=== PATIENT | male | born 1935 | race Caucasian/White ===

== ENCOUNTER 2016-12-17 12:14 | Outpatient (RCR) | payer MEDICARE, OTHER ==
--- OUTSIDE RECORDS SUMMARY | 2016-10-17 10:13 | XMS REPORT | Continuity of Care Document ---
Author Author [facility] Organization [facility] Address Unknown Phone Unavailable Care Team Providers Care Cross Tie Maker Name Role Phone ANGELIA TEE MD PCP Insurance Providers Payer Name Policy Number Subscriber Name Relationship s Medicare [id number] Lucio Rosenberg E 18 Self / Same As Patient [facility] [id number] Lucio Rosenberg E 18 Self / Same As Patient Advance Directives Directive Response Recorded Date/Time Advance Directives No 09/03/16 2:44pm Health Care Power of Metal Roofing Mechanic No 09/03/16 2:44pm Organ Donor Yes 09/03/16 2:44pm Resuscitation Status Full Code 09/03/16 2:44pm Chief Complaint and Reason for Visit Chief Complaint CHEST PAIN Reason for Visit CAD (coronary artery disease) Chest pain Recurrent coronary arteriosclerosis following PTCA Problems Active Problems Medical Problem Onset Date Status CAD (coronary artery disease) Unknown Acute Chest pain Unknown Acute Recurrent coronary arteriosclerosis following PTCA Unknown Acute Medications Current Home Medications Medication Dose Units Route Directions Days/Qty Instructions Start Date Folic Acid 1 Mg 1 Mg Oral Daily 04/11/10 Aspirin 81 Mg 81 Mg Oral Daily 03/23/15 Pyridoxine/Melatonin 1 Tab 3 Mg Oral Bedtime 03/23/15 Tramadol Hcl 50 Mg 100 Mg Oral Daily 03/23/15 Acetaminophen/Diphenhydramine 1 Ea 1 Tab Oral Bedtime 03/23/15 Clopidogrel Bisulfate 75 Mg 75 Mg Oral Daily 09/03/16 Fenofibric Acid (Choline) 135 Mg 135 Mg Oral Daily 09/03/16 Levothyroxine Sodium 100 Mcg 100 Mcg Oral Daily 09/03/16 Atorvastatin Calcium 80 Mg 80 Mg Oral Bedtime 09/03/16 Isosorbide Mononitrate (Imdur) 60 Mg 120 Mg Oral Daily TAKES 2 (60 MG) TABLETS 09/03/16 Ranolazine 1,000 Mg 1,000 Mg Oral Twice A Day 09/03/16 Lorazepam 0.5 Mg 0.5 Mg Oral Bedtime as needed for Sleep 09/03/16 Paroxetine Hcl 20 Mg 20 Mg Oral Bedtime 09/03/16 Dutasteride 0.5 Mg 0.5 Mg Oral Daily 09/03/16 Nitroglycerin 0.4 Mg 0.4 Mg Oral As Directed as needed for Chest Pain DISSOLVE ONE TABLET UNDER TONGUE EVERY 5 MINUTES NEEDED FOR CHEST PAIN; NOT TO EXCEED 3 DOSES IN 15 MINUTES 09/03/16 Pantoprazole Sodium 40 Mg 40 Mg Oral Daily LAST FILLED 05/16/16 #90 [place]-3 Acid Ethyl Esters 1 Gm 2 Gm Oral Daily TAKES 2 (1 GM) CAPSULES 09/03/16 Tramadol Hcl 50 Mg 100 Mg Oral Three Times A Day TAKES 2 (50 MG) TABLETS 09/03/16 Meclizine Hcl 25 Mg 25 Mg Oral Every 8HRS as needed for Vertigo 02/14 Hydrocodone/Acetaminophen 1 Each 1 Tab Oral Every 8HRS as needed for Pain 09/03/16 Losartan Potassium 50 Mg 50 Mg Oral Daily HAS NOT BEEN TAKING 09/03/16 Past Home Medications Medication Directions Ordered Status Sertraline Hcl 50 Mg Tablet, 07/05/08 Discontinued Clopidogrel Bisulfate 75 Mg Tablet, 75 Mg Oral Daily 07/05/08 Discontinued Losartan Potassium 50 Mg Tablet, 50 Mg Oral Daily 07/05/08 Discontinued Omeprazole 20 Mg Capsule., 07/05/08 Discontinued Levothyroxine Sodium 50 Mcg Tablet, 07/05/08 Discontinued Atorvastatin Calcium 10 Mg Tablet, 07/05/08 Discontinued Metoprolol Succinate 25 Mg Tab.sr.24h, 25 Mg Oral Daily 07/05/08 Discontinued Aspirin 81 Mg Tabec, 04/07/10 Discontinued Aspirin 325 Mg Tab, 325 Mg Oral Daily 04/11/10 Discontinued Atorvastatin Calcium 40 Mg Tablet, 40 Mg Oral Bedtime 04/11/10 Discontinued Famotidine (Pepcid) 20 Mg Tablet, 1 Each Oral Twice A Day 04/11/10 Discontinued [Synthriod] 100 Mcg Tab, 100 Mcg Daily 04/11/10 Discontinued Dutasteride 0.5 Mg Capsule, 0.5 Mg Oral Daily 04/11/10 Discontinued Diclofenac/Misoprostol 1 Tab Tab, 75 Mg Oral Daily 04/11/10 Discontinued [Lovanza] , 1 Gm Twice A Day 04/11/10 Discontinued Fenofibric Acid (Choline) 135 Mg Capsule.dr, 135 Mg Oral Daily 04/11/10 Discontinued Furosemide (Lasix) 40 Mg Tablet, 40 Mg Oral Daily Prn 04/11/10 Discontinued Potassium Chloride 10 Meq Capcr, 10 Meq Oral Daily And Prn 04/11/10 Discontinued [Vitamin X00040 Unit] , Weekly 04/11/10 Discontinued Niacin 1,000 Mg Tablet.sa, 1500 Mg Oral Daily 10/22/11 Discontinued Levothyroxine Sodium 100 Mcg Tablet, 100 Mcg Oral Daily 10/22/11 Discontinued Sertraline Hcl 25 Mg Tablet, 25 Mg Oral Daily 10/22/11 Discontinued Pofta-7-Ekct Ethyl Esters 1 Gm Capsule, 2 Gm Oral Twice A Day 10/22/11 Discontinued Ergocalciferol 50,000 Unit Capsule, 98479 Unit Oral Q Week 10/22/11 Discontinued Isosorbide Mononitrate 60 Mg Tab, 120 Mg Oral Daily@0630 10/22/11 Discontinued Nitroglycerin 0.4 Mg Tab.subl, 0.4 Mg Sublingual Prn Chest Pain 10/22/11 Discontinued Aspirin 81 Mg Chew, 81 Mg Oral Daily 10/23/11 Discontinued Pantoprazole Sod 40 Mg Tab, 40 Mg Oral Daily 10/23/11 Discontinued Ranolazine 500 Mg Tab.sr.12h, 500 Mg Oral Twice A Day 12/24/11 Discontinued Atorvastatin Calcium 40 Mg Tablet, 80 Mg Oral Bedtime 12/26/11 Discontinued Aspirin 81 Mg Chew, 81 Mg Oral Daily 09/16/12 Discontinued Metoprolol Succinate (Toprol Xl) 25 Mg Tab.sr.24h, 1 Each Oral Daily Discontinued Tramadol Hcl 50 Mg Tablet, 50 Mg Oral Twice A Day 09/16/12 Discontinued Ergocalciferol (Vitamin D2) 2,000 Unit Tablet, 02312 Unit Route Weekly Discontinued Acetaminophen/Hydrocodone Bitart ([place]) 1 Each Tablet, 1 Each Oral As Needed 09/16/12 Discontinued Famotidine (Pepcid) 20 Mg Tablet, 20 Mg Oral Twice A Day 10/27/12 Discontinued Ranolazine 500 Mg Tab.sr.12h, 1000 Mg Oral Twice A Day 10/27/12 Discontinued Melatonin 5 Mg Tab.rapdis, 5 Mg Oral Bedtime 01/13/14 Discontinued Lorazepam (Ativan) 0.5 Mg Tablet, 0.5 Mg Oral Bedtime 01/13/14 Discontinued [[id number]] , 1000 Mg Oral Twice A Day 01/14/14 Discontinued Atorvastatin Calcium 80 Mg Tablet, 80 Mg Oral Bedtime 03/23/15 Discontinued Paroxetine Hcl 20 Mg Tablet, 20 Mg Oral Bedtime 03/23/15 Discontinued Ergocalciferol 50,000 Units Cap, 01506 Units Oral Mon @ 1200 03/23/15 Discontinued Nitroglycerin 0.4 Mg Tab.subl, 0.4 Mg Sublingual Every 5 Minutes as needed for Chest Pain 03/23/15 Discontinued Lorazepam 0.5 Mg Tablet, 0.5 Mg Oral Bedtime as needed for Anxiety 03/23/15 Discontinued Pantoprazole Sod 40 Mg Tab, 40 Mg Oral Daily 03/23/15 Discontinued Social History Social History Problem Response Recorded Date/Time Alcohol Use Denies Use 01/13/2014 3:55pm Recreational Drug Use No 01/13/2014 3:55pm Recent Foreign Travel No 01/13/2014 3:55pm Recent Infectious Disease Exposure No 01/13/2014 3:55pm Hospitalization with Isolation Denies 01/14/2014 4:23pm Smoking Status Former Smoker 09/03/2016 2:54pm Do you dip or chew tobacco? Yes 11/09/2015 7:15am Type Used Smokeless Tobacco 09/04/2016 11:19am Recent Hopitalizations Yes 09/03/2016 3:16pm Hospitalization with Isolation Denies 01/14/2014 4:23pm Query Response Start Date Stop Date Smoking Status Former Smoker 11/09/2005 Hospital Discharge Instructions Patient Instructions Physician Instructions Follow Up/Plan Appointment with Dr. Chauhan's office in 2-4 weeks CARDIAC CATH DISCHARGE INSTRUCTIONS *Hold Metformin for 48 hours post heart cath. ACTIVITY * Go Home directly and rest. * Limit activity of the leg (or wrist if it was used) for 7 days including aerobics, swimming, jogging, bicycling, etc. * Restrict stair-climbing for 7 days if possible, if not, climb up with your non-cath leg, then bring together on the same step. * Avoid lifting, pushing, pulling or excessive movement of the affected extremity for 7 days. * Customary sexual activity may be resumed after 2 days-use caution not to use a position that strains or causes pain to the affected extremity. * No driving for 24 hours. * NO SMOKING. * Avoid straining for bowel movements for 7 days. * Gentle walking on level ground is allowed. * Returning to work will depend on the type of procedure and the results. Your doctor will discuss this with you. CALL YOUR DOCTOR FOR ANY OF THE FOLLOWING: *If bleeding from the puncture site occurs- Apply gentle pressure to site with clean cloth and call your doctor or EMS. * If a knot or lump forms under the skin, increases in size, or causes pain. * If bruising appears to be worsening or moving further down your leg instead of disappearing. * Temperature above 101 F. CARE OF YOUR GROIN INCISION; * Bruising or purple discoloration of the skin near the puncture site is common. * You may shower only, no bathtub bathing for 5 days. Be careful to avoid slipping as your leg may feel stiff. * If a closure device was used on your femoral artery, please see the attached guide regarding care of the device and your leg. * REMOVE the dressing from your groin the next day after your procedure in the shower. CARE OF YOUR WRIST INCISION; * Bruising or purple discoloration of the skin near the puncture site is common. * You may shower. * DO NOT submerge wrist. * Remove dressing in 24 hours. Plan of Care Discharge Date 09/04/16 11:09am Disposition 01 HOME, SELF-CARE Instructions/Education Provided CARDIAC CATH DISCHARGE INSTRUC Prescriptions See Medication Section Referrals AJAY CHAUHAN MD (Unspecified) - 10/08/16 Address: [address] [place] [id number] [phone] Reason(s) for Referral: Follow up with Dr. Chauhan on at 3:10pm. Care Plan and Goals See Discharge Instructions Section Functional Status Query Response Date Recorded Patient Orientation Person Place Time Situation Normal For Age September 04, 2016 11:19am Comprehension Ability Understands Concepts September 04, 2016 8:00am Allergies, Adverse Reactions, Alerts Allergen Type Severity Reaction Status Last Updated Sulfa (Sulfonamide Antibiotics) ([id number]) Allergy Unknown Active 03/09 Immunizations No immunization records. Vital Signs Acute Vital Signs Vital Response Date/Time Temperature (Fahrenheit) 97.3 degrees F (97.6 - 99.5) 09/04/2016 8:55am Temperature (Calculated Celsius) 36.80377 degrees C (36.4 - 37.5) 09/04/2016 8:00am Temperature Source Tympanic 09/04/2016 8:55am Pulse Rate (adult) 59 bpm (60 - 90) 09/04/2016 8:55am Respiratory Rate 18 bpm (12 - 24) 09/04/2016 8:55am O2 Sat by Pulse Oximetry 95 % (88 - 100) 09/04/2016 8:55am Blood Pressure 118/68 mm Hg 09/04/2016 8:55am Blood Pressure Mean 85 mm Hg 09/04/2016 8:00am Pain Numeric Pain Scale 0-No Pain 09/04/2016 8:55am Height (Feet) 5 feet 09/03/2016 2:53pm Height (Inches) 6.00 inches 09/03/2016 2:53pm Height (Calculated Centimeters) 167.419724 cm 09/03/2016 2:53pm Weight (Pounds) 187 pounds 09/04/2016 4:23am Weight (Ounces) 2.0 oz 09/04/2016 4:23am Weight (Calculated Grams) 44437.473 gm 09/04/2016 4:23am Weight (Calculated Kilograms) 84.167424 kilograms 09/04/2016 4:23am Calculated BMI 30.1 09/03/2016 2:53pm Capillary Refill Capillary Refill Less Than 3 Seconds 09/04/2016 8:45am Capillary Refill Capillary Refill Less Than 3 Seconds 09/04/2016 8:45am Capillary Refill Capillary Refill Less Than 3 Seconds 09/04/2016 8:45am Results Laboratory Results Test Name Result Units Flags Reference Collection Date/Time Result Date/ Time Comments White Blood Count 7.6 10^3/uL 4.3-11.0 09/04/2016 4:05am 09/04/2016 5: 04am Red Blood Count 4.81 10^6/uL 4.35-5.85 09/04/2016 4:05am 09/04/2016 5: 04am Hemoglobin 14.6 G/DL 13.3-17.7 09/04/2016 4:05am 09/04/2016 5:04am Hematocrit 44 % 40-54 09/04/2016 4:05am 09/04/2016 5:04am Mean Corpuscular Volume 92 FL 80-99 09/04/2016 4:05am 09/04/2016 5: 04am Mean Corpuscular Hemoglobin 30 PG 25-34 09/04/2016 4:05am 09/04/2016 5: 04am Mean Corpuscular Hemoglobin Concent 33 G/DL 32-36 09/04/2016 4:05am 03/2016 5:04am Red Cell Distribution Width 14.4 % 10.0-14.5 09/04/2016 4:05am 2015 5:04am Platelet Count 278 10^3/uL 130-400 09/04/2016 4:05am 09/04/2016 5:04am Mean Platelet Volume 9.6 FL 7.4-10.4 09/04/2016 4:05am 09/04/2016 5: 04am Neutrophils (%) (Auto) 67 % 42-75 09/03/2016 2:15pm 09/03/2016 2:22pm Lymphocytes (%) (Auto) 19 % 12-44 09/03/2016 2:15pm 09/03/2016 2:22pm Monocytes (%) (Auto) 12 % 0-12 09/03/2016 2:15pm 09/03/2016 2:22pm Eosinophils (%) (Auto) 2 % 0-10 09/03/2016 2:15pm 09/03/2016 2:22pm Basophils (%) (Auto) 1 % 0-10 09/03/2016 2:15pm 09/03/2016 2:22pm Neutrophils # (Auto) 5.2 X 10^3 1.8-7.8 09/03/2016 2:15pm 09/03/2016 2: 22pm Lymphocytes # (Auto) 1.4 X 10^3 1.0-4.0 09/03/2016 2:15pm 09/03/2016 2: 22pm Monocytes # (Auto) 0.9 X 10^3 0.0-1.0 09/03/2016 2:15pm 09/03/2016 2: 22pm Eosinophils # (Auto) 0.2 10^3/uL 0.0-0.3 09/03/2016 2:15pm 09/03/2016 2 :22pm Basophils # (Auto) 0.0 10^3/uL 0.0-0.1 09/03/2016 2:15pm 09/03/2016 2: 22pm Prothrombin Time 12.8 SEC 12.2-14.7 09/03/2016 2:15pm 09/03/2016 2: 36pm INR Comment 1.0 0.8-1.4 09/03/2016 2:15pm 09/03/2016 2:36pm INTERPRETIVE DATA SUGGESTED THERAPEUTIC RANGE FOR INR'S: VENOUS THROMBOSIS, PULMONARY EMBOLISM, OR PREVENTION OF SYSTEMIC EMBOLISM (EG. IN ATRIAL FIBRILLATION): 2.0 - 3.0 MECHANICAL PROSTHETIC HEART VALVES: 2.5 - 3.5* *NOTE: INR'S UP TO 4.5 MAY BE NECESSARY IN SELECTED GROUPS OF HIGH RISK PATIENTS. [employer] CONSENSUS CONFERENCE ON ANTITHROMBOTIC THERAPY (2000). Activated Partial Thromboplast Time 23 SEC L 24-35 09/03/2016 2:15pm 01/2016 2:36pm Sodium Level 141 MMOL/L 135-145 09/04/2016 4:05am 09/04/2016 5:24am Potassium Level 3.9 MMOL/L 3.6-5.0 09/04/2016 4:05am 09/04/2016 5:24am Chloride Level 109 MMOL/L H 98-107 09/04/2016 4:05am 09/04/2016 5:24am Carbon Dioxide Level 20 MMOL/L L 21-32 09/04/2016 4:05am 09/04/2016 5: 24am Anion Gap 12 MMOL/L 5-14 09/04/2016 4:05am 09/04/2016 5:24am Blood Urea Nitrogen 18 MG/DL 7-18 09/04/2016 4:05am 09/04/2016 5:24am Creatinine 1.14 MG/DL 0.60-1.30 09/04/2016 4:05am 09/04/2016 5:24am BUN/Creatinine Ratio 16 09/04/2016 4:05am 09/04/2016 5:24am Estimat Glomerular Filtration Rate > 60 09/04/2016 4:05am 2015 5:24am GFR INTERPRETIVE DATA UNITS FOR ESTIMATED GFR (eGFR): mL/min/1.73 M2 REFERENCE RANGE FOR ESTIMATED GFR (eGFR) eGFR NORMAL eGFR >60 MODERATELY DECREASED eGFR 30-59 SEVERLY DECREASED eGFR 15-29 KIDNEY FAILURE <15 (OR DIALYSIS) Glucose Level 108 MG/DL H 70-105 09/04/2016 4:05am 09/04/2016 5:24am Calcium Level 9.0 MG/DL 8.5-10.1 09/04/2016 4:05am 09/04/2016 5:24am Total Bilirubin 0.4 MG/DL 0.1-1.0 09/03/2016 2:15pm 09/03/2016 2:42pm Alkaline Phosphatase 31 U/L L 40-136 09/03/2016 2:15pm 09/03/2016 2:42pm Aspartate Amino Transf (AST/SGOT) 25 U/L 5-34 09/03/2016 2:15pm 2015 2:42pm Alanine Aminotransferase (ALT/SGPT) 33 U/L 0-55 09/03/2016 2:15pm 09/03 2:42pm Troponin I < 0.30 NG/ML <0.30 09/03/2016 2:15pm 09/03/2016 2:49pm Total Protein 7.2 G/DL 6.4-8.2 09/03/2016 2:15pm 09/03/2016 2:42pm Albumin 4.4 G/DL 3.2-4.5 09/03/2016 2:15pm 09/03/2016 2:42pm Triglycerides Level 171 MG/DL H <150 09/04/2016 4:05am 09/04/2016 5:24am Cholesterol Level 145 MG/DL < 200 09/04/2016 4:05am 09/04/2016 5:24am HDL Cholesterol 34 MG/DL L 40-60 09/04/2016 4:05am 09/04/2016 5:24am LDL Cholesterol Direct 86 MG/DL 1-129 09/04/2016 4:05am 09/04/2016 5: 24am VLDL Cholesterol 34 MG/DL 5-40 09/04/2016 4:05am 09/04/2016 5:24am Procedures Procedure Status Date Provider(s) Tracing only of electrocardiogram Completed 09/03/16 AJAY CHAUHAN MD Tracing only of electrocardiogram Completed 09/03/16 AJAY CHAUHAN MD Encounters Encounter Location Arrival/Admit Date Discharge/Depart Date Attending Provider Discharged Inpatient (obs) [facility] 09/03/16 1:45pm 11:09am AJAY CHAUHAN MD Recent Diagnosis CAD (coronary artery disease) Chest pain Recurrent coronary arteriosclerosis following PTCA
[~2016-12-17 12:14] MED LIST: ACDPT PO; AMOX500C2; ASP325T PO; ASP81CT PO; ASP81TEC; ASPI-266 PO; ATOR40TA PO; ATOR80TA75 PO; ATOR80TA76 PO; ATRV10T; AVOD0.5CAP PO; CLOP75TA28 PO; CLPD75T PO; D50KC; D50KC PO; DUTA0.5C14 PO; ERGO2000; FAMO20TA5 PO; FENO135C PO; FENO135C4 PO; FLC1T PO; FURO40TA4 PO; HYDR-3720 PO; HYDR-3816 PO; ISM60TCR PO; KCL10CCR PO; LEVO100T7 PO; LORA0.5T PO; LOSA50TA36 PO; LOVANZA; LSRT50T PO; LVT.025T; LVT.05T; LVT.1T PO; MECL-106 PO; MELA1TAB11 PO; MELA5TAB12 PO; METO25TA PO; MTP25TSR PO; NF-DICLTB PO; NF-LOVAZAC PO; NIAC1000 PO; NITR0.4T PO; NITR0.4T SL; NITR0.4T12 SL; OMEG-105 PO; OMEP20CA12; OMEP40CA36 PO; PANT40TA3 PO; PARO20TA5 PO; PARO20TA57 PO; PNT40TEC PO; RANO10003 PO; RANO500T PO; RANO500T2 PO; SERT25TA PO; SERT50TA; SYNTHRIOD; TRAM50TA2 PO; [UNRECOGNIZED DRUG - OTHER]
== END 2017-01-15 | disposition home or self-care (01) ==
LOC: CR 12:14
PROVIDERS: ATTEND Internal Medicine Cardiovascular Disease
DX: I20.8 Other forms of angina pectoris (principal)
CPT/HCPCS: 93798

== ENCOUNTER 2017-02-27 06:44 | Day surgery (SDC) | payer MEDICARE, OTHER ==
[2017-02-27] VITALS (10 sets, daily range): BP systolic 115–153; BP diastolic 59–89
[~2017-02-27] VITALS: Ht 167.6 cm; Wt 84.9 kg
[2017-02-27] MEDS ORDERED: HEParin (CATH LAB) 2,000 ML IV ONE (06:57)
[2017-02-27] MEDS ORDERED: NS IV 1000 ML 1,000 ML ONE (06:57)
[2017-02-27] MEDS ORDERED: LIDOCAINE 1% INJ 20 ML (XYLOCAINE) VIAL ONE (06:57)
[2017-02-27 07:28] LABS: MEAN PLATELET VOLUME 9.5 FL (7.4-10.4); RED BLOOD COUNT 5.12 10^6/uL (4.35-5.85); RED CELL DISTRIBUTION WIDTH 13.8 % (10.0-14.5); WHITE BLOOD COUNT 7.4 10^3/uL (4.3-11.0)
[2017-02-27 07:29] LABS: BILIRUBIN,URINE NEGATIVE (NEGATIVE); KETONES,URINE NEGATIVE (NEGATIVE); LEUKOCYTE ESTERASE ,URINE NEGATIVE (NEGATIVE); NITRITE,URINE NEGATIVE (NEGATIVE); PH,URINE 5 (5-9); PROTEIN,URINE NEGATIVE (NEGATIVE); UROBILINOGEN,URINE NORMAL (NORMAL)
[2017-02-27] MEDS ORDERED: NS IV 1000 ML 1,000 ML IV SCH ×2 (07:30→08:38)
[2017-02-27 07:38] LABS: PROTHROMBIN TIME PATIENT 12.6 SEC (12.2-14.7)
[2017-02-27 07:43] LABS: SQUAMOUS EPITHELIAL CELL,UR 0-2 /HPF
[2017-02-27 07:55] LABS: ALBUMIN 4.3 G/DL (3.2-4.5); BILIRUBIN,TOTAL 0.7 MG/DL (0.1-1.0); CALCIUM 9.1 MG/DL (8.5-10.1); CREATININE SERUM 1.34 MG/DL (0.60-1.30); POTASSIUM 3.7 MMOL/L (3.6-5.0); TOTAL PROTEIN 7.2 G/DL (6.4-8.2)
[2017-02-27] MEDS ORDERED: MIDAZOLAM 5 MG/5 ML (VERSED) VIAL ONE (08:01)
[2017-02-27] MEDS ORDERED: fentaNYL INJECTION 100 MCG/2 ML AMP ONE (08:01)
--- NOTE | 2017-02-27 08:06 | Diagnostic Imaging Report ---
INDICATION: Coronary artery disease. PA chest obtained at 7:39 a.m. and compared with 09/03/16. FINDINGS: There is cardiomegaly and poststernotomy change. Patient has had previous coronary bypass. There is no acute infiltrate or pneumothorax or pleural fluid. There is a stable calcified granuloma over the right base. IMPRESSION: Cardiomegaly and poststernotomy changes with no acute process in the chest and no change from 09/03/16. Dictated by: Dictated on workstation # [id number]
--- NOTE | 2017-02-27 08:08 | Cardiac Procedure Note-CS/ASA ---
Pre-Procedure Note Pre-Op Procedure Note H&P Reviewed The H&P was reviewed, patient examined and no changes noted. Date H&P Reviewed: Feb 27, 2017 Time H&P Reviewed: 08:08 Conscious Sedation Pre-Proced Time Reviewed: 08:08 ASA Class: 3 Airway Mallampati Classification: (bois forte appropriate class) I. II. III, IV Lungs Heart ASA score ASA 1: a normal healthy patient ASA 2: a patient with a mild systemic disease (mid diabetes, controlled hypertension, obesity x ASA 3: a patient with a severe systemic disease that limits activity (angina , COPD, prior Myocardial infarction) ASA 4: a patient with an incapacitating disease that is a constant threat to life (CHF, renal failure) ASA 5: a moribund patient not expected to survive 24 hrs. (ruptured aneurysm) ASA 6: a declared brain patient whose organs are being harvested. For emergent operations, add the letter E after the classification Grade 3 Sedation Plan: Analgesia, Amnesia, Plan communicated to team members, Discussed options with patient/fam, Discussed risks with patient/fam Note The patient is an appropriate candidate to undergo the planned procedure, sedation, and anesthesia. The patient immediately re-assessed prior to indication. AJAY STEWART MD Feb 27, 2017 08:08
--- NOTE | 2017-02-27 08:40 | Discharge Inst-Post CATH ---
Discharge Inst-CATH Post Cardiac Cath D/C Inst Follow Up/Plan Appointment with Dr Chauhan's office in 2-4 weeks CARDIAC CATH DISCHARGE INSTRUCTIONS *Hold Metformin for 48 hours post heart cath. ACTIVITY * Go Home directly and rest. * Limit activity of the leg (or wrist if it was used) for 7 days including aerobics, swimming, jogging, bicycling, etc. * Restrict stair-climbing for 7 days if possible, if not, climb up with your non -cath leg, then bring together on the same step. * Avoid lifting, pushing, pulling or excessive movement of the affected extremity for 7 days. * Customary sexual activity may be resumed after 2 days-use caution not to use a position that strains or causes pain to the affected extremity. * No driving for 24 hours. * NO SMOKING. * Avoid straining for bowel movements for 7 days. * Gentle walking on level ground is allowed. * Returning to work will depend on the type of procedure and the results. Your doctor will discuss this with you. CALL YOUR DOCTOR FOR ANY OF THE FOLLOWING: *If bleeding from the puncture site occurs- Apply gentle pressure to site with clean cloth and call your doctor or EMS. * If a knot or lump forms under the skin, increases in size, or causes pain. * If bruising appears to be worsening or moving further down your leg instead of disappearing. * Temperature above 101 F. CARE OF YOUR GROIN INCISION; * Bruising or purple discoloration of the skin near the puncture site is common. * You may shower only, no bathtub bathing for 5 days. Be careful to avoid slipping as your leg may feel stiff. * If a closure device was used on your femoral artery, please see the attached guide regarding care of the device and your leg. * REMOVE the dressing from your groin the next day after your procedure in the shower. CARE OF YOUR WRIST INCISION; * Bruising or purple discoloration of the skin near the puncture site is common. * You may shower. * DO NOT submerge wrist. * Remove dressing in 24 hours. AJAY CHAUHAN MD Feb 27, 2017 08:40
[2017-02-27] MEDS ORDERED: PATIENT MAY USE OWN MEDS, ALL PO SCH (08:45)
--- NOTE | 2017-02-27 21:08 | DISCHARGE SUMMARY ---
PROCEDURE PHYSICIAN: AJAY STEWART DATE OF PROCEDURE: 02/27/2017 REFERRING PHYSICIAN: Dr. Villeda. BRIEF HISTORY: Mr. Mcginnis is a 81-year-old gentleman with history of coronary artery disease, multiple intervention. He has been having increasing chest pain recently. Known to have small vessel disease. Had balloon angioplasty done in September and baseline abnormal stress test. I decided to proceed with coronary angiogram due to his extensive disease. PROCEDURE NOTE: After explaining the procedure to the patient, all pros and cons were explained. All questions were answered. The patient signed a consent, then he was placed on the cardiac catheterization laboratory. The right groin was prepped in a sterile fashion. Local anesthesia applied to right groin. 6-Kyrgyz sheath was placed in the right femoral artery. Bharath left catheter was used to access the left coronary system. Multiple views were obtained. Bharath right catheter was used to access the vein graft. Multiple views were obtained. The patient is known to have occluded [place] right coronary artery and vein graft to the obtuse marginal branch and [place]. I did not attempt to evaluate those arteries due to the fact that there occluded. At the end of the procedure, sheath was removed. Mynx device deployed. Hemostasis achieved. Total contrast used 26 mL. Total radiation 77 mGy. The Bharath right catheter was prolapsed into the left ventricular cavity. Pressure was measured. Pullback LV to aorta was measured. No left ventriculogram was done. FINDINGS: HEMODYNAMICS: LV pressure 128/15, end-diastolic pressure of 15, aortic pressure 143/67, mean of 93. ANATOMY: 1. LEFT MAIN CORONARY ARTERY: The left main coronary artery is bifurcating to left anterior descending and left circumflex artery with no obstructive disease. 2. LEFT ANTERIOR DESCENDING ARTERY: The left anterior descending artery is smaller artery with mild to moderate disease, no obstructive disease. 3. LEFT CIRCUMFLEX ARTERY: The left circumflex artery is moderate in size. Stents are patent. The stent in the obtuse marginal branch is patent. No change from the study of September 2016. Small vessel disease distally. 4. RIGHT CORONARY ARTERY: The right coronary artery is known to be occluded. The vein graft to the right coronary artery is patent with slow flow distally. 5. OBTUSE MARGINAL BRANCH: The vein graft to the obtuse marginal branch is known to be occluded. The MEEKS to the LAD is known to be occluded. CONCLUSION: 1. Patent stents in the circumflex artery and obtuse marginal branch with small vessel disease distally. No to have occluded vein graft to the circumflex artery. 2. Small vessel disease in the LAD with occluded MEEKS. Nonobstructive disease. 3. Patent vein graft to the right coronary artery with small vessel disease and slow flow. DISCUSSION AND RECOMMENDATION: Mr. Montelongo chest pain is due to chronic stable angina due too small vessel disease. I will continue maximizing medical therapy. No intervention is warranted. FINAL DIAGNOSES: 1. Anterior chest wall pain. 2. Coronary artery disease. 3. Hypertension. 4. Hyperlipidemia. Job ID: [id number] Dictated Date: 02/27/2017 08:44:41 Social Media Marketing Analyst Date: 02/27/2017 21:06:29/shanna
--- OUTSIDE RECORDS SUMMARY | 2017-03-17 05:50 | XMS REPORT | Continuity of Care Document ---
Author Author [facility] Organization [facility] Address Unknown Phone Unavailable Allergies Active Description Code Type Severity Reaction Onset Reported/Identified Relationship to Patient Clinical Status Yes Sulfa (Sulfonamide Antibiotics) [id number] Drug Allergy Unknown N/A 07/05/2008 Medications Problems Date Dx Coded Attending Type Code Diagnosis Diagnosed By 04/12/2010 Ot 244.9 04/12/2010 Ot 272.4 04/12/2010 Ot 305.1 04/12/2010 Ot 311 04/12/2010 Ot 403.90 04/12/2010 Ot 414.01 04/12/2010 Ot 414.02 04/12/2010 Ot 414.04 04/12/2010 Ot 414.2 04/12/2010 Ot 530.81 04/12/2010 Ot 585.9 04/12/2010 Ot 786.59 04/12/2010 Ot V45.81 04/12/2010 Ot V45.82 03/23/2015 AJAY STEWART MD Ot 272.4 03/23/2015 AJAY STEWART MD Ot 305.1 03/23/2015 AJAY STEWART MD Ot 403.90 03/23/2015 AJAY STEWART MD Ot 411.1 03/23/2015 AJAY STEWART MD Ot 414.01 03/23/2015 AJAY STEWART MD Ot 414.02 03/23/2015 AJAY STEWART MD Ot 414.2 03/23/2015 AJAY STEWART MD Ot 414.4 03/23/2015 AJAY STEWART MD Ot 416.8 03/23/2015 AJAY STEWART MD Ot 585.9 03/23/2015 AJAY STEWART MD Ot V45.81 03/23/2015 AJAY STEWART MD Ot V45.82 03/23/2015 AJAY STEWART MD Ot V58.69 05/06/2015 AJAY STEWART MD Ot 305.1 05/06/2015 PAT ALFARO, BASHAR J Ot 426.3 05/06/2015 PAT ALFARO, BASHAR J Ot 786.09 05/06/2015 PAT ALFARO, BASHAR J Ot 786.50 05/09/2015 PAT ALFARO, BASHAR J Ot 305.1 05/09/2015 PAT ALFARO, BASHAR J Ot 426.3 05/09/2015 PAT ALFARO, BASHAR J Ot 786.09 05/09/2015 PAT ALFARO, BASHAR J Ot 786.50 05/25/2015 PAT ALFARO, BASHAR J Ot 305.1 05/25/2015 PAT ALFARO, BASHAR J Ot 426.3 05/25/2015 PAT ALFARO, BILLYHAR J Ot 786.09 05/25/2015 PAT ALFARO, BILLYHAR J Ot 786.50 06/06/2015 PAT ALFARO, BILLYHAR J Ot 305.1 06/06/2015 PAT ALFARO, BASHAR J Ot 426.3 06/06/2015 PAT ALFARO, BASHAR J Ot 786.09 06/06/2015 PAT ALFARO, BILLYHAR J Ot 786.50 07/07/2015 PAT ALFARO, BILLYHAR J Ot 272.4 07/07/2015 PAT ALFARO, BASHAR J Ot 401.1 07/07/2015 PAT ALFARO, BASHAR J Ot 414.00 07/07/2015 PAT ALFARO, AJAY J Ot 786.09 07/15/2015 PAT ALFARO, AJAY J Ot 272.4 07/15/2015 PAT ALFARO, BILLYHAR J Ot 401.1 07/15/2015 PAT ALFARO, BASHAR J Ot 414.00 07/15/2015 PAT ALFARO, BILLYHAR J Ot 786.09 11/10/2015 PAT ALFARO, BILLYHAR J Ot E03.9 11/10/2015 PAT ALFARO, BASHAR J Ot E11.9 11/10/2015 PAT ALFARO, BILLYHAR J Ot E78.5 11/10/2015 PAT ALFARO, AJAY J Ot I12.9 11/10/2015 PAT ALFARO, BILLYHAR J Ot I25.110 11/10/2015 BILLY STEWART MDHAR J Ot I25.82 11/10/2015 BILLY STEWART MDHAR J Ot I25.84 11/10/2015 PATAJAY REYNA MD Ot N18.9 11/10/2015 AJAY STEWART MD Ot Z79.02 11/10/2015 AJAY STEWART MD Ot Z79.899 11/10/2015 AJAY STEWART MD Ot Z87.891 11/10/2015 AJAY STEWART MD Ot Z95.1 11/10/2015 AJAY STEWART MD Ot Z98.61 12/15/2015 AJAY STEWART MD Ot Z48.812 12/15/2015 AJAY STEWART MD Ot Z95.5 01/23/2016 AJAY STEWART MD Ot Z48.812 01/23/2016 AJAY STEWART MD Ot Z95.5 01/27/2016 AJAY STEWART MD Ot Z48.812 01/27/2016 AJAY STEWART MD Ot Z95.5 02/02/2016 AJAY STEWART MD Ot Z48.812 02/02/2016 AJAY STEWART MD Ot Z95.5 09/04/2016 AJAY STEWART MD Ot E03.9 HYPOTHYROIDISM, UNSPECIFIED 09/04/2016 AJAY STEWART MD Ot E78.5 HYPERLIPIDEMIA, UNSPECIFIED 09/04/2016 AJAY STEWART MD Ot I08.3 COMB RHEUMATIC DISORD OF MITRAL, AORTIC 09/04/2016 AJAY STEWART MD Ot I12.9 HYPERTENSIVE CHRONIC KIDNEY DISEASE W ST 09/04/2016 AJAY STEWART MD Ot 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 09/04/2016 AJAY STEWART MD Ot 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 09/04/2016 AJAY STEWART MD Ot I27.2 OTHER SECONDARY PULMONARY HYPERTENSION 09/04/2016 AJAY STEWART MD Ot N18.9 CHRONIC KIDNEY DISEASE, UNSPECIFIED 09/04/2016 AJAY STEWART MD Ot T82.857D STENOSIS OF OTHER CARDIAC PROSTH DEV/ GRF 09/04/2016 AJAY STEWART MD Ot Z79.02 CUSTODIAL (CURRENT) USE OF ANTITHROMBOTI 09/04/2016 AJAY STEWART MD Ot Z79.899 OTHER CUSTODIAL (CURRENT) DRUG THERAPY 09/04/2016 AJAY STEWART MD Ot Z87.891 PERSONAL HISTORY OF NICOTINE DEPENDENCE 09/12/2016 AJAY STEWART MD Ot E03.9 HYPOTHYROIDISM, UNSPECIFIED 09/12/2016 AJAY STEWART MD Ot E78.5 HYPERLIPIDEMIA, UNSPECIFIED 09/12/2016 AJAY STEWART MD Ot I08.3 COMB RHEUMATIC DISORD OF MITRAL, AORTIC 09/12/2016 AJAY STEWART MD Ot I12.9 HYPERTENSIVE CHRONIC KIDNEY DISEASE W ST 09/12/2016 AJAY STEWART MD Ot 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 09/12/2016 AJAY STEWART MD Ot 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 09/12/2016 AJAY STEWART MD Ot I27.2 OTHER SECONDARY PULMONARY HYPERTENSION 09/12/2016 AJAY STEWART MD Ot N18.9 CHRONIC KIDNEY DISEASE, UNSPECIFIED 09/12/2016 AJAY STEWART MD Ot T82.857D STENOSIS OF OTHER CARDIAC PROSTH DEV/ GRF 09/12/2016 AJAY STEWART MD Ot Z79.02 CUSTODIAL (CURRENT) USE OF ANTITHROMBOTI 09/12/2016 AJAY STEWART MD Ot Z79.899 OTHER CUSTODIAL (CURRENT) DRUG THERAPY 09/12/2016 AJAY STEWART MD Ot Z87.891 PERSONAL HISTORY OF NICOTINE DEPENDENCE 10/18/2016 AJAY STEWART MD Ot I20.8 OTHER FORMS OF ANGINA PECTORIS 11/29/2016 AJAY STEWART MD Ot I20.8 OTHER FORMS OF ANGINA PECTORIS 11/30/2016 AJAY STEWART MD Ot I20.8 OTHER FORMS OF ANGINA PECTORIS 12/19/2016 AJAY STEWART MD Ot I20.8 OTHER FORMS OF ANGINA PECTORIS 01/15/2017 AJAY STEWART MD Ot I20.8 OTHER FORMS OF ANGINA PECTORIS 03/01/2017 AJAY STEWART MD Ot E78.5 HYPERLIPIDEMIA, UNSPECIFIED 03/01/2017 AJAY STEWART MD Ot I10 ESSENTIAL (PRIMARY) HYPERTENSION 03/01/2017 AJAY STEWART MD Ot I25.118 ATHSCL HEART DISEASE OF [place] COR ART W 03/01/2017 AJAY STEWART MD, Ot 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 03/01/2017 AJAY STEWART MD, Ot T82.857D STENOSIS OF OTHER CARDIAC PROSTH DEV/ GRF 03/01/2017 AJAY STEWART MD, Ot Z79.899 OTHER CUSTODIAL (CURRENT) DRUG THERAPY 03/01/2017 AJAY STEWART MD, Ot Z95.5 PRESENCE OF CORONARY ANGIOPLASTY IMPLANT Procedures Results Test Result Range Complete blood count (CBC) with automated white blood cell (WBC) differential - 09/03/16 14:15 Blood leukocytes automated count (number/volume) 7.7 10*3/ uL 4.3-11.0 Blood erythrocytes automated count (number/volume) 5.06 10*6 /uL 4.35-5.85 Venous blood hemoglobin measurement (mass/volume) 15.3 g/dL 13.3-17.7 Blood hematocrit (volume fraction) 46 % 40-54 Automated erythrocyte mean corpuscular volume 91 [foz_us] 80-99 Automated erythrocyte mean corpuscular hemoglobin (mass per erythrocyte) 30 pg 25-34 Automated erythrocyte mean corpuscular hemoglobin concentration measurement ( mass/volume) 33 g/dL 32-36 Automated erythrocyte distribution width ratio 14.5 % 10.0-14.5 Automated blood platelet count (count/volume) 288 10*3/uL 130-400 Automated blood platelet mean volume measurement 9.4 [foz_us ] 7.4-10.4 Automated blood neutrophils/100 leukocytes 67 % 42-75 Automated blood lymphocytes/100 leukocytes 19 % 12-44 Blood monocytes/100 leukocytes 12 % 0-12 Automated blood eosinophils/100 leukocytes 2 % 0-10 Automated blood basophils/100 leukocytes 1 % 0-10 Blood neutrophils automated count (number/volume) 5.2 10*3 1.8-7.8 Blood lymphocytes automated count (number/volume) 1.4 10*3 1.0-4.0 Blood monocytes automated count (number/volume) 0.9 10*3 0.0-1.0 Automated eosinophil count 0.2 10*3/uL 0.0-0.3 Automated blood basophil count (count/volume) 0.0 10*3/uL 0.0-0.1 PT panel in platelet poor plasma by coagulation assay - 09/03/16 14:15 Prothrombin time (PT) in platelet poor plasma by coagulation assay 12.8 s 12.2-14.7 INR in platelet poor plasma or blood by coagulation assay 1.0 0.8-1.4 Activated partial thromboplastin time (aPTT) in platelet poor plasma bycoagulation assay - 09/03/16 14:15 Activated partial thromboplastin time (aPTT) in platelet poor plasma bycoagulation assay 23 s 24-35 Comprehensive metabolic panel - 09/03/16 14:15 Serum or plasma sodium measurement (moles/volume) 140 mmol/ L 135-145 Serum or plasma potassium measurement (moles/volume) 3.8 mmol/L 3.6-5.0 Serum or plasma chloride measurement (moles/volume) 110 mmol /L 98-107 Carbon dioxide 19 mmol/L 21-32 Serum or plasma anion gap determination (moles/volume) 11 mmol/L 5-14 Serum or plasma urea nitrogen measurement (mass/volume) 22 mg/dL 7-18 Serum or plasma creatinine measurement (mass/volume) 1.23 mg /dL 0.60-1.30 Serum or plasma urea nitrogen/creatinine mass ratio 18 NRG Serum or plasma creatinine measurement with calculation of estimated glomerular filtration rate 57 NRG Serum or plasma glucose measurement (mass/volume) 101 mg/dL 70-105 Serum or plasma calcium measurement (mass/volume) 9.5 mg/dL 8.5-10.1 Serum or plasma total bilirubin measurement (mass/volume) 0.4 mg/dL 0.1-1.0 Serum or plasma alkaline phosphatase measurement (enzymatic activity/volume) 31 U/L 40-136 Serum or plasma aspartate aminotransferase measurement (enzymatic activity/ volume) 25 U/L 5-34 Serum or plasma alanine aminotransferase measurement (enzymatic activity/volume ) 33 U/L 0-55 Serum or plasma protein measurement (mass/volume) 7.2 g/dL 6.4-8.2 Serum or plasma albumin measurement (mass/volume) 4.4 g/dL 3.2-4.5 Serum or plasma troponin i.cardiac measurement (mass/volume) - 09/03/16 14:15 Serum or plasma troponin i.cardiac measurement (mass/volume) < ng/mL <0.30 Automated blood complete blood count (hemogram) panel - 09/04/16 04:05 Blood leukocytes automated count (number/volume) 7.6 10*3/ uL 4.3-11.0 Blood erythrocytes automated count (number/volume) 4.81 10*6 /uL 4.35-5.85 Venous blood hemoglobin measurement (mass/volume) 14.6 g/dL 13.3-17.7 Blood hematocrit (volume fraction) 44 % 40-54 Automated erythrocyte mean corpuscular volume 92 [foz_us] 80-99 Automated erythrocyte mean corpuscular hemoglobin (mass per erythrocyte) 30 pg 25-34 Automated erythrocyte mean corpuscular hemoglobin concentration measurement ( mass/volume) 33 g/dL 32-36 Automated erythrocyte distribution width ratio 14.4 % 10.0-14.5 Automated blood platelet count (count/volume) 278 10*3/uL 130-400 Automated blood platelet mean volume measurement 9.6 [foz_us ] 7.4-10.4 Whole blood basic metabolic panel - 09/04/16 04:05 Serum or plasma sodium measurement (moles/volume) 141 mmol/ L 135-145 Serum or plasma potassium measurement (moles/volume) 3.9 mmol/L 3.6-5.0 Serum or plasma chloride measurement (moles/volume) 109 mmol /L 98-107 Carbon dioxide 20 mmol/L 21-32 Serum or plasma anion gap determination (moles/volume) 12 mmol/L 5-14 Serum or plasma urea nitrogen measurement (mass/volume) 18 mg/dL 7-18 Serum or plasma creatinine measurement (mass/volume) 1.14 mg /dL 0.60-1.30 Serum or plasma urea nitrogen/creatinine mass ratio 16 NRG Serum or plasma creatinine measurement with calculation of estimated glomerular filtration rate > NRG Serum or plasma glucose measurement (mass/volume) 108 mg/dL 70-105 Serum or plasma calcium measurement (mass/volume) 9.0 mg/dL 8.5-10.1 Lipid 1996 panel - 09/04/16 04:05 Serum or plasma triglyceride measurement (mass/volume) 171 mg/dL <150 Serum or plasma cholesterol measurement (mass/volume) 145 mg /dL < 200 Serum or plasma cholesterol in HDL measurement (mass/volume) 34 mg/dL 40-60 Cholesterol in LDL [mass/volume] in serum or plasma by direct assay 86 mg/dL 1-129 Serum or plasma cholesterol in VLDL measurement (mass/volume) 34 mg/dL 5-40 Complete urinalysis with reflex to culture - 02/27/17 07:12 Urine color determination YELLOW NRG Urine clarity determination CLEAR NRG Urine pH measurement by test strip 5 5- 9 Specific gravity of urine by test strip 1.025 1.016-1.022 Urine protein assay by test strip, semi-quantitative NEGATIVE NEGATIVE Urine glucose detection by automated test strip NEGATIVE NEGATIVE Erythrocytes detection in urine sediment by light microscopy NEGATIVE NEGATIVE Urine ketones detection by automated test strip NEGATIVE NEGATIVE Urine nitrite detection by test strip NEGATIVE NEGATIVE Urine total bilirubin detection by test strip NEGATIVE NEGATIVE Urine urobilinogen measurement by automated test strip (mass/volume) NORMAL NORMAL Urine leukocyte esterase detection by dipstick NEGATIVE NEGATIVE Automated urine sediment erythrocyte count by microscopy (number/high power field) NONE NRG Automated urine sediment leukocyte count by microscopy (number/high power field ) NONE NRG Bacteria detection in urine sediment by light microscopy NEGATIVE NRG Squamous epithelial cells detection in urine sediment by light microscopy 0-2 NRG Crystals detection in urine sediment by light microscopy NONE NRG Casts detection in urine sediment by light microscopy PRESENT NRG Mucus detection in urine sediment by light microscopy SMALL NRG Complete urinalysis with reflex to culture NO NRG Hyaline casts detection in urine sediment by light microscopy 2-5 NRG Automated blood complete blood count (hemogram) panel - 02/27/17 07:20 Blood leukocytes automated count (number/volume) 7.4 10*3/ uL 4.3-11.0 Blood erythrocytes automated count (number/volume) 5.12 10*6 /uL 4.35-5.85 Venous blood hemoglobin measurement (mass/volume) 15.5 g/dL 13.3-17.7 Blood hematocrit (volume fraction) 47 % 40-54 Automated erythrocyte mean corpuscular volume 92 [foz_us] 80-99 Automated erythrocyte mean corpuscular hemoglobin (mass per erythrocyte) 30 pg 25-34 Automated erythrocyte mean corpuscular hemoglobin concentration measurement ( mass/volume) 33 g/dL 32-36 Automated erythrocyte distribution width ratio 13.8 % 10.0-14.5 Automated blood platelet count (count/volume) 300 10*3/uL 130-400 Automated blood platelet mean volume measurement 9.5 [foz_us ] 7.4-10.4 PT panel in platelet poor plasma by coagulation assay - 02/27/17 07:20 Prothrombin time (PT) in platelet poor plasma by coagulation assay 12.6 s 12.2-14.7 INR in platelet poor plasma or blood by coagulation assay 1.0 0.8-1.4 Activated partial thromboplastin time (aPTT) in platelet poor plasma bycoagulation assay - 02/27/17 07:20 Activated partial thromboplastin time (aPTT) in platelet poor plasma bycoagulation assay 23 s 24-35 Comprehensive metabolic panel - 02/27/17 07:20 Serum or plasma sodium measurement (moles/volume) 144 mmol/ L 135-145 Serum or plasma potassium measurement (moles/volume) 3.7 mmol/L 3.6-5.0 Serum or plasma chloride measurement (moles/volume) 108 mmol /L 98-107 Carbon dioxide 26 mmol/L 21-32 Serum or plasma anion gap determination (moles/volume) 10 mmol/L 5-14 Serum or plasma urea nitrogen measurement (mass/volume) 14 mg/dL 7-18 Serum or plasma creatinine measurement (mass/volume) 1.34 mg /dL 0.60-1.30 Serum or plasma urea nitrogen/creatinine mass ratio 10 NRG Serum or plasma creatinine measurement with calculation of estimated glomerular filtration rate 51 NRG Serum or plasma glucose measurement (mass/volume) 98 mg/dL 70-105 Serum or plasma calcium measurement (mass/volume) 9.1 mg/dL 8.5-10.1 Serum or plasma total bilirubin measurement (mass/volume) 0.7 mg/dL 0.1-1.0 Serum or plasma alkaline phosphatase measurement (enzymatic activity/volume) 34 U/L 40-136 Serum or plasma aspartate aminotransferase measurement (enzymatic activity/ volume) 28 U/L 5-34 Serum or plasma alanine aminotransferase measurement (enzymatic activity/volume ) 38 U/L 0-55 Serum or plasma protein measurement (mass/volume) 7.2 g/dL 6.4-8.2 Serum or plasma albumin measurement (mass/volume) 4.3 g/dL 3.2-4.5 Lipid 1996 panel - 02/27/17 07:20 Serum or plasma triglyceride measurement (mass/volume) 259 mg/dL <150 Serum or plasma cholesterol measurement (mass/volume) 188 mg /dL < 200 Serum or plasma cholesterol in HDL measurement (mass/volume) 35 mg/dL 40-60 Cholesterol in LDL [mass/volume] in serum or plasma by direct assay 123 mg/dL 1-129 Serum or plasma cholesterol in VLDL measurement (mass/volume) 52 mg/dL 5-40 Methicillin resistant Staphylococcus aureus (MRSA) screening culture - 07:20 Methicillin resistant Staphylococcus aureus (MRSA) screening culture NEG NRG Encounters ACCT No. Visit Date/Time Discharge Status Pt. Type Provider Facility Loc./Unit Complaint [id number] 02/27/2017 06:44:00 2016 13:35:00 DIS Outpatient AJAY STEWART MD [facility] CHEST PAIN,HLP,HTN,CAD [id number] 12/17/2016 12:14:00 2016 00:01:00 DIS Outpatient AJAY STEWART MD [facility] CR STABLE ANGINA [id number] 09/03/2016 13:45:00 2015 11:09:00 DIS Outpatient AJAY STEWART MD [facility] CHEST PAIN [id number] 11/09/2015 06:54:00 2014 09:50:00 DIS Outpatient AJAY STEWART MD [facility] [id number] 06/13/2015 07:29:00 2014 23:59:59 CLS Outpatient AJAY STEWART MD [facility] CARD [id number] 05/05/2015 13:33:00 2014 23:59:59 CLS Outpatient AJAY STEWART MD [facility] CARD [id number] 03/23/2015 10:52:00 2014 16:00:00 DIS Outpatient AJAY STEWART MD [facility] CATH [id number] 03/08/2014 11:22:00 2013 14:15:00 DIS Outpatient [id number] 01/13/2014 14:45:00 2013 09:34:00 DIS Outpatient [id number] 01/16/2017 10:00:00 PEN Preadmit AJAY STEWART MD [facility] CR STABLE [place]GIN[place] [address] [id number] 01/23/2016 11:58:00 ACT Outpatient AJAY STEWART MD [facility] [id number] 04/11/2010 18:20:00 Document Registration
== END 2017-02-27 13:35 | disposition home or self-care (01) ==
LOC: DELPENDDIS → CATH 06:44 → SURG 08:55 → CATH 13:35 → DELPENDDIS 14:00
PROVIDERS: ATTEND Internal Medicine Cardiovascular Disease
DX: I25.118 Atherosclerotic heart disease of native coronary artery with other forms of angina pectoris (principal); T82.857D Stenosis of other cardiac prosthetic devices, implants and grafts, subsequent encounter; I25.82 Chronic total occlusion of coronary artery; E78.5 Hyperlipidemia, unspecified; I10 Essential (primary) hypertension; Z95.5 Presence of coronary angioplasty implant and graft; Z79.899 Other long term (current) drug therapy
CPT/HCPCS: 36415; 71010; 80053; 80061; 81000; 85027; 85610; 85730; 87081; 93459

== ENCOUNTER → 2017-04-02 | Outpatient (CLI) | payer MEDICARE, OTHER ==
[~2017-04-02] MED LIST changes: +CATHETER FLUSH 10 ML SYR IV PRN; +IOHEXOL 350 MG/ML 100 ML (OMNIPAQUE 350) VIAL IV ONE
--- NOTE | 2017-04-02 13:32 | Diagnostic Imaging Report ---
PROCEDURE: CT abdomen and pelvis with contrast. TECHNIQUE: Multiple contiguous axial images were obtained through the abdomen and pelvis after administration of intravenous contrast. INDICATION: Right lower quadrant pain. COMPARISON: 08/19/2012. DISCUSSION: The visualized lung bases are well aerated. Normal heart size. No pleural or pericardial fluid. Mild fatty infiltration of the liver is noted. No discrete liver mass identified. The gallbladder, pancreas, stomach, spleen, and adrenal glands are unremarkable. Kidneys appear within normal limits bilaterally. No hydronephrosis or renal stone identified. The prostate and urinary bladder are unremarkable. Sigmoid diverticulosis with no secondary evidence for diverticulitis. Mild constipation is noted. The appendix is not visualized, unchanged. No ascites or pathologically enlarged lymph nodes identified. The abdominal aorta is normal in caliber throughout its course. Degenerative changes are again noted within the lumbar spine. IMPRESSION: 1. Constipation and diverticulosis. No acute abnormality identified. 2. Fatty infiltration of the liver. Dictated by: Dictated on workstation # [id number]
== END ==
LOC: RAD 12:06
PROVIDERS: ATTEND Nurse Practitioner Family
DX: K57.30 Diverticulosis of large intestine without perforation or abscess without bleeding (principal); K59.00 Constipation, unspecified; K76.0 Fatty (change of) liver, not elsewhere classified; Z87.19 Personal history of other diseases of the digestive system
CPT/HCPCS: 74177

== ENCOUNTER 2017-08-21 05:35 | Outpatient (CLI) | payer MEDICARE, OTHER ==
[~2017-08-21] VITALS: Ht 167.6 cm; Wt 84.9 kg
[~2017-08-21 05:35] MED LIST changes: -CATHETER FLUSH 10 ML SYR IV PRN; -IOHEXOL 350 MG/ML 100 ML (OMNIPAQUE 350) VIAL IV ONE
== END 2017-08-21 13:15 ==
LOC: PREOP 05:35
PROVIDERS: ATTEND Internal Medicine
DX: Z01.818 Encounter for other preprocedural examination; K59.00 Constipation, unspecified; Z86.010 Personal history of colon polyps

== ENCOUNTER 2017-08-30 08:19 | Day surgery (SDC) | payer MEDICARE, OTHER ==
--- NOTE | 2017-08-20 08:08 | HISTORY AND PHYSICAL ---
DATE OF SERVICE: 08/23/2017 DATE OF ADMISSION: 08/23/2017 SURVEILLANCE COLONOSCOPY SUMMARY The patient is a 81-year-old white male referred by Dr. Mccormick for surveillance colonoscopy. He has a past history of colon polyps. He reports that he has had a recent bowel habit change in the form of constipation that is unusual for him. He will have some mild bloating alleviated by the passage of stool. He has no past history of irritable bowel syndrome. He has not seen any evidence or bright red blood per rectum or melena. He denies any associated abdominal pain and has not experienced chills, fever or weight loss. His last colonoscopy was 5 years ago. He had 2 polyps removed at that time that were not neoplastic. He had an inflamed hyperplastic polyps removed distal sigmoid colon. PAST MEDICAL HISTORY: Significant for known coronary artery disease with multiple previous interventions. Might have had this done 4 or 5 years since his last intervention with no history of acute coronary syndrome since. He reports that he has been feeling well. Denies chest pain, orthopnea, PND pedal edema or increased dyspnea on exertion over baseline. SOCIAL HISTORY: He has a history of snuff usage but no history of smoking or drinking. 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 ADDITIONAL PAST SURGICAL MEDICAL HISTORY: Significant for hypertension, hyperlipidemia and BPH requiring transurethral resection of the prostate. ADDITIONAL PAST SURGERY: Other than coronary artery bypass grafting is significant for an appendectomy as a child. FAMILY HISTORY: He recently had a sister who underwent colectomy for unknown reasons. He does not believe that it was secondary to cancer, but he is not sure. PHYSICAL EXAMINATION: GENERAL: Reveals a well kempt articulate white male with normal affect in no acute distress. VITAL SIGNS: Blood pressure was initially 152/80 at the beginning of the interview. At the end of the interview it was 140/76. Weight is 183.8 pounds, is down 5 pounds from his last visit prior to his colonoscopy 5 years ago. NECK: Reveals no JVD, adenopathy or bruits. CHEST: Clear. CARDIOVASCULAR: Reveals a regular rate and rhythm with a soft 1-2/6 systolic ejection murmur heard best at the second right intercostal space. There is no evidence or pulses prior to this or tardis. No evidence for S3 or S4 appreciated. ABDOMEN: Soft, supple. There is a rather large irregular appendectomy scar well healed in the right lower quadrant. There is evidence for diastasis recti, mild, nontender. No mass or organomegaly is noted. No tenderness is noted to palpation and no bruits are appreciated. EXTREMITIES: Reveal no cyanosis, clubbing or edema. ASSESSMENT: The patient was set up for surveillance colonoscopy on 08/23/2017. Prep instructions with Suprep kit were given and questions were answered. He is to abstain from aspirin starting this Saturday as well as Plavix and fish oil. He will need to continue to abstain from nonsteroidal medication. I thank you for the referral of this pleasant gentleman. Job ID: [id number] DocumentID: [id number] Dictated Date: 08/12/2017 20:31:08 Physically Impaired Teacher Date: 08/12/2017 21:12:55 Dictated By: SÁNCHEZ QUINTERO MD
[~2017-08-30] VITALS: Ht 167.6 cm; Wt 84.9 kg
[2017-08-30] MEDS ORDERED: 1/2 NS IV SOLUTION 1,000 ML IV ONE (08:27)
[2017-08-30 08:30] VITALS: BP 137/85
[2017-08-30] MEDS ORDERED: 1/2 NS IV SOLUTION 1,000 ML IV STA (08:35)
[2017-08-30] MEDS ORDERED: LIDOCAINE JELLY 2% (XYLOCAINE) 5 ML TUBE MM PRN (08:45)
[2017-08-30] MEDS ORDERED: fentaNYL INJECTION 100 MCG/2 ML AMP ONE (09:54)
[2017-08-30] MEDS ORDERED: LIDOCAINE JELLY 2% (XYLOCAINE) 5 ML TUBE ONE (09:54)
[2017-08-30] MEDS ORDERED: MIDAZOLAM 2 MG/2 ML (VERSED) VIAL ONE ×2 (09:54→10:10)
[2017-08-30] MEDS: fentaNYL INJECTION 100 MCG/2 ML AMP IVP PRN ×2 (10:04→10:11)
[2017-08-30] MEDS: MIDAZOLAM 2 MG/2 ML (VERSED) VIAL IVP PRN ×2 (10:05→10:12)
[2017-08-30 10:45] VITALS: BP 143/72
[2017-08-30 11:15] VITALS: BP 158/84
[2017-08-30 11:35] VITALS: BP 158/84
--- NOTE | 2017-08-30 19:48 | OPERATIVE REPORT ---
DATE OF SERVICE: PROCEDURE: Colonoscopy. INDICATIONS FOR PROCEDURE: Surveillance due to history of colon polyps with recent constipation. The patient was placed in the left lateral decubitus position. Prior to undergoing colonoscopy digital rectal evaluation was performed. Anal sphincter tone was normal and the perianal reflexes intact. Prostate is mildly enlarged, nontender and anodular to digital inspection. No abnormalities, no additional inspection of the distal rectal vault or anal canal. The colonoscope was then inserted into the rectum under direct visualization and advanced to the cecum. The cecum was identified by identification of the ileocecal valve and cecal strap. Careful inspection was made as the colonoscope was withdrawn. FINDINGS: There was no evidence for internal or external hemorrhoids. The rectum was unremarkable. Mild to moderate diverticular disease confined to the sigmoid colon was present without evidence for diverticulitis. Present in the proximal sigmoid colon was a diminutive 3 mm sessile polyp. It was photographed and biopsied and ablated and submitted for histopathology. No subsequent blood loss was noted. The descending colon, splenic flexure, transverse colon, hepatic flexure, ascending colon and cecum were unremarkable with no other abnormalities being appreciated. ASSESSMENT: 1. Mild to moderate diverticular disease confined to the sigmoid colon was present with no evidence for diverticulitis. 2. One diminutive 3 mm sessile polyp was removed from the proximal sigmoid colon Via hot forceps with no subsequent blood loss. No other significant abnormalities noted on today's procedure. Considering this patient's age and medical comorbidities, would not recommend future surveillance colonoscopy. I thank you for the referral of this pleasant gentleman, reassured by today's findings. Job ID: [id number] DocumentID: [id number] Dictated Date: 08/30/2017 13:14:26 Cooking Chef Date: 08/30/2017 19:48:08 Dictated By: SÁNCHEZ QUINTERO MD
== END 2017-08-30 11:35 | disposition home or self-care (01) ==
LOC: ENDO 08:19
PROVIDERS: ATTEND Internal Medicine
DX: D12.5 Benign neoplasm of sigmoid colon (principal); K57.30 Diverticulosis of large intestine without perforation or abscess without bleeding; K59.00 Constipation, unspecified; I25.10 Atherosclerotic heart disease of native coronary artery without angina pectoris; I10 Essential (primary) hypertension; E78.5 Hyperlipidemia, unspecified; Z95.1 Presence of aortocoronary bypass graft; Z79.02 Long term (current) use of antithrombotics/antiplatelets; Z79.82 Long term (current) use of aspirin; Z79.899 Other long term (current) drug therapy

== ENCOUNTER 2017-10-17 13:00 | Outpatient (CLI) | payer MEDICARE, OTHER | END 2017-10-17 14:00 | disposition home or self-care (01) | LOC: SLEEP 13:00 | PROVIDERS: ATTEND Family Medicine | DX: G47.33 Obstructive sleep apnea (adult) (pediatric) (principal); G47.10 Hypersomnia, unspecified; I10 Essential (primary) hypertension; R06.83 Snoring; G47.36 Sleep related hypoventilation in conditions classified elsewhere ==

== ENCOUNTER 2017-11-15 17:27 | Emergency (ER) | payer OTHER, MEDICARE ==
[~2017-11-15] VITALS: Ht 167.6 cm; Wt 84.4 kg
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
[2017-11-15] MEDS ORDERED: CLOP75TA28 (17:41)
[2017-11-15] MEDS ORDERED: TETANUS,DIPTH,PERTUSS P/F (BOOSTRIX) 0.5 ML VIAL IM ONE (17:45)
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
[2017-11-15] MEDS ORDERED: ONDANSETRON 4 MG/2 ML (SDV) Z0FRAN IVP ONE (18:15)
[2017-11-15] MEDS ORDERED: NS IV 1000 ML 1,000 ML IV SCH (18:15)
--- NOTE | 2017-11-15 18:25 | Diagnostic Imaging Report ---
PROCEDURE: CT head and CT cervical spine without contrast. TECHNIQUE: Multiple contiguous axial images were obtained through the brain and cervical spine without the use of intravenous contrast. Sagittal and coronal reformations through the cervical spine were then performed. INDICATION: Fall, head and neck pain. COMPARISON: Head CT from 10/19/2008. FINDINGS: CT head: Cerebral cortical atrophy, chronic and unremarkable for age. There is no tess hydrocephalus. There is no cerebral edema. No mass or mass effect. There is no abnormal extra-axial fluid collection and no calvarial fracture deformity. There is no no hemosinus. No acute or posttraumatic sequelae identified. 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 There is moderate degenerative disc space narrowing. There is only mild facet arthrosis. No facet joint dislocation. Cervical vertebral statures are unremarkable. Owing to posterior cortical hypertrophy and ligamentous ossification, there is [id number] canal stenoses at C4, C5 and C6 levels. The cervical fracture is not identified. Carotid vascular calcifications are chronic. Skull base appears intact. IMPRESSION: 1.CT head: Stable chronic senescent findings, no acute finding. 2. CT cervical spine: Exuberant hypertrophic osseous proliferations out of proportion to the degree of mild disc space narrowing and mild facet arthrosis consistent with DISH. Posterior cortical hypertrophy and ossification of posterior longitudinal ligament results in multilevel moderate canal stenoses. However, no cervical fracture or traumatic malalignment. No acute appearing abnormality. Dictated by: Dictated on workstation # [id number]
[2017-11-15 19:40] VITALS: BP 155/71
== END 2017-11-15 19:46 | disposition home or self-care (01) ==
LOC: EDUNIT# 17:27 → ER 17:29
DX: S09.90XA Unspecified injury of head, initial encounter (principal); S16.1XXA Strain of muscle, fascia and tendon at neck level, initial encounter; F41.9 Anxiety disorder, unspecified; F32.9 Major depressive disorder, single episode, unspecified; I25.10 Atherosclerotic heart disease of native coronary artery without angina pectoris; E78.00 Pure hypercholesterolemia, unspecified; I10 Essential (primary) hypertension; G47.30 Sleep apnea, unspecified; Z95.828 Presence of other vascular implants and grafts; Z90.49 Acquired absence of other specified parts of digestive tract; Z87.19 Personal history of other diseases of the digestive system; Z87.891 Personal history of nicotine dependence; Z79.02 Long term (current) use of antithrombotics/antiplatelets; W06.XXXA Fall from bed, initial encounter; Y92.818 Other transport vehicle as the place of occurrence of the external cause
CPT/HCPCS: 70450; 72125; 90715

== ENCOUNTER → 2018-07-04 | Outpatient (CLI) | payer MEDICARE, OTHER ==
[~2018-07-04] MED LIST changes: +CLOP75TA28; -DUTA0.5C14 PO; +DUTA0.5C16 PO; +HYDR-34 PO; -HYDR-3816 PO
== END ==
LOC: CARD 13:26
PROVIDERS: ATTEND Internal Medicine Cardiovascular Disease
DX: I25.10 Atherosclerotic heart disease of native coronary artery without angina pectoris (principal); R07.89 Other chest pain; R06.09 Other forms of dyspnea; I10 Essential (primary) hypertension; E78.5 Hyperlipidemia, unspecified; I08.2 Rheumatic disorders of both aortic and tricuspid valves
CPT/HCPCS: 93306

== ENCOUNTER 2018-09-17 08:39 | Day surgery (SDC) | payer MEDICARE, OTHER ==
[~2018-09-17] VITALS: Ht 167.6 cm; Wt 84.4 kg
[2018-09-17] VITALS (13 sets, daily range): BP systolic 109–146; BP diastolic 56–99
[~2018-09-17 08:39] MED LIST changes: -LOSA50TA36 PO; +LOSA50TA7 PO
--- OUTSIDE RECORDS SUMMARY | 2018-09-17 08:45 | XMS REPORT | CCD ---
Author Author Kamini Villeda Organization Kamini Villeda MD, [facility] Address [address] [place] [address] Phone Care Team Providers Care Gluer And Slicer Hand Name Role Phone PP Unavailable CCM Unavailable Summary Purpose Interface Exchange Insurance Providers Payer name Policy type / Coverage type Covered republican ID Effective Begin Date Effective End Date WPS Medicare Part B Medicare Part B [id number] Unknown Unknown [facility] Medicare Part B [id number] Unknown Unknown Family history Runs in the family Diagnosis Age At Onset Hypertension Unknown Social History Social History Element Codes Description Effective Dates Tobacco history SNOMED CT: 0740168 Quit over 10 years ago CHEWS TOBACCO 03/01/2016 Marital status Unknown 04/05/2015 Employment Unknown Retired 04/05/[address]: 637294128 Never drinks alcohol 04/05/2015 Allergies, Adverse Reactions, Alerts Allergies, Adverse Reactions, Alerts data not found Past Medical History Illness Codes Condition Status Onset Date Resolved Date Acute laryngopharyngitis ICD-9: 465.0 ICD-10: J06.0 Active 12/31/2017 Unknown Obstructive sleep apnea (adult) (pediatric) ICD-9: 327.23 ICD-10: G47.33 Active 11/02/2015 Unknown Encounter for immunization ICD-9: V04.81 ICD-10: Z23 Active 08/30/2016 Unknown Essential (primary) hypertension ICD-9: 401.9 ICD-10: I10 Active 04/05/2015 Unknown Hypothyroidism, unspecified ICD-9: 244.9 ICD-10: E03.9 Active 07/16/2016 Unknown Slow transit constipation ICD-9: 564.01 ICD-10: K59.01 Active 04/08/2017 Unknown Spinal stenosis, lumbar region ICD-9: 724.02 ICD-10: M48.06 Active 08/01/2017 Unknown Diverticulosis of intestine, part unspecified, without perforation or abscess without bleeding ICD -9: 562.10 ICD-10: K57.90 Active 04/08/2017 Unknown Low back pain ICD-9: 724.2 ICD-10: M54.5 Active 08/30/2016 Unknown Right lower quadrant pain ICD-9: 789.03 ICD-10: R10.31 Active 03/28/2017 Unknown Vitamin D deficiency, unspecified ICD-9: 268.9 ICD-10: E55.9 Active 07/16/2016 Unknown Dizziness and giddiness ICD-9: 780.4 ICD-10: R42 Active 09/02/2016 Unknown Elevated white blood cell count, unspecified ICD-9: 288.60 ICD-10: D72.829 Active 08/30/2016 Unknown Encounter for immunization ICD-9: V06.6 ICD-10: Z23 Active 08/30/2016 Unknown Allergic rhinitis due to pollen ICD-9: 477.0 ICD-10: J30.1 Active 07/16/2016 Unknown Mixed hyperlipidemia ICD-9: 272.4 ICD-10: E78.2 Active 02/29/2016 Unknown Tobacco use ICD-9: 305.1 ICD-10: Z72.0 Active 02/29/2016 Unknown Angina pectoris, unspecified ICD-9: 413.9 ICD-10: I20.9 Active 10/18/2015 Unknown ESOPHAGEAL REFLUX ICD- 9: 530.81 Active 08/03/2015 Unknown Diarrhea ICD-9: 787.91 Active 07/20/2015 Unknown Diverticulitis ICD-9: 562.11 Active 07/20/2015 Unknown Hyperlipidemia Unknown Active 06/14/2015 Unknown HYPERLIPIDEMIA ICD-9: 272.4 Active 06/13/2015 Unknown VITAMIN D DEFICIENCY ICD-9: 268.9 Active 06/13/2015 Unknown Hypertension Unknown Active 04/06/2015 Unknown Hypothryroidism Unknown Active 04/06/2015 Unknown ESSENTIAL HYPERTENSION ICD-9: 401.9 Active 04/05/2015 Unknown HYPOTHYROIDISM ICD-9: 244.9 Active 04/05/2015 Unknown Spinal stenosis ICD-9 : 724.00 Active 04/05/2015 Unknown Problems Condition Codes Effective Dates Condition Status Acute laryngopharyngitis ICD-9: 465.0 ICD-10: J06.0 12/31/2017 Active Obstructive sleep apnea (adult) (pediatric) ICD-9: 327.23 ICD-10: G47.33 11/02/2015 Active Encounter for immunization ICD-9: V04.81 ICD-10: Z23 08/30/2016 Active Essential (primary) hypertension ICD-9: 401.9 ICD-10: I10 04/05/2015 Active Hypothyroidism, unspecified ICD-9: 244.9 ICD-10: E03.9 07/16/2016 Active Slow transit constipation ICD-9: 564.01 ICD-10: K59.01 04/08/2017 Active Spinal stenosis, lumbar region ICD-9: 724.02 ICD-10: M48.06 08/01/2017 Active Diverticulosis of intestine, part unspecified, without perforation or abscess without bleeding ICD -9: 562.10 ICD-10: K57.90 04/08/2017 Active Low back pain ICD-9: 724.2 ICD-10: M54.5 08/30/2016 Active Right lower quadrant pain ICD-9: 789.03 ICD-10: R10.31 03/28/2017 Active Vitamin D deficiency, unspecified ICD-9: 268.9 ICD-10: E55.9 07/16/2016 Active Dizziness and giddiness ICD-9: 780.4 ICD-10: R42 09/02/2016 Active Elevated white blood cell count, unspecified ICD-9: 288.60 ICD-10: D72.829 08/30/2016 Active Encounter for immunization ICD-9: V06.6 ICD-10: Z23 08/30/2016 Active Allergic rhinitis due to pollen ICD-9: 477.0 ICD-10: J30.1 07/16/2016 Active Mixed hyperlipidemia ICD-9: 272.4 ICD-10: E78.2 02/29/2016 Active Tobacco use ICD-9: 305.1 ICD-10: Z72.0 02/29/2016 Active Angina pectoris, unspecified ICD-9: 413.9 ICD-10: I20.9 10/18/2015 Active ESOPHAGEAL REFLUX ICD- 9: 530.81 08/03/2015 Active Diarrhea ICD-9: 787.91 07/20/2015 Active Diverticulitis ICD-9: 562.11 07/20/2015 Active Hyperlipidemia Unknown 06/14/2015 Active HYPERLIPIDEMIA ICD-9: 272.4 06/13/2015 Active VITAMIN D DEFICIENCY ICD-9: 268.9 06/13/2015 Active Hypertension Unknown 04/06/2015 Active Hypothryroidism Unknown 04/06/2015 Active ESSENTIAL HYPERTENSION ICD-9: 401.9 04/05/2015 Active HYPOTHYROIDISM ICD-9: 244.9 04/05/2015 Active Spinal stenosis ICD-9 : 724.00 04/05/2015 Active Medications Medication Codes Instructions Start Date Stop Date Status Fill Instructions Tamiflu 75 mg capsule RxNorm: 120551 1 Capsule(s) PO BID 201701/18/2018 Active Tamiflu 75 mg capsule RxNorm: 696025 1 Capsule(s) PO BID 201701/13/2018 Inactive Zithromax Z-Humberto 250 mg tablet RxNorm: 589503 1 Tablet(s) PO UD 12/31/2017 No Stop Date Active Trilipix 135 mg capsule,delayed release RxNorm: 917208 TAKE ONE CAPSULE BY MOUTH EVERY NIGHT AT BEDTIME 12/30/20172017 Active isosorbide mononitrate ER 60 mg tablet,extended release 24 hr RxNorm: 879235 TAKE TWO TABLETS BY MOUTH DAILY 11/28/2017 Active Keflex 500 mg capsule RxNorm: 642673 1 Capsule(s) PO TID 201612/04/2017 Inactive Tessalon Perles 100 mg capsule RxNorm: 716345 1-2 Capsule(s) PO TID as needed 11/28/2017 11/27/2017 Inactive Tessalon Perles 100 mg capsule RxNorm: 482192 1-2 Capsule(s) PO TID as needed 11/28/2017 12/02/2017 Inactive paroxetine 20 mg tablet RxNorm: 1414330 TAKE ONE TABLET BY MOUTH EVERY NIGHT AT BEDTIME 11/26/2017 04/24/2018 Active lorazepam 0.5 mg tablet RxNorm: 639518 1 Tablet(s) PO Q6 as needed 11/26/2017 01/09/2018 Inactive Trilipix 135 mg capsule,delayed release RxNorm: 196938 TAKE ONE CAPSULE BY MOUTH EVERY NIGHT AT BEDTIME 08/20/20172017 Inactive Avodart 0.5 mg capsule RxNorm: 097454 TAKE ONE CAPSULE BY MOUTH DAILY 08/12/2017 12/09/2017 Inactive Lovaza 1 gram capsule RxNorm: 833968 TAKE TWO CAPSULES BY MOUTH TWICE A DAY 07/09/2017 10/06/2017 Inactive Ranexa 1,000 mg tablet,extended release RxNorm: 784107 TAKE ONE TABLET BY MOUTH TWICE A DAY 06/20/2017 07/09/2017 Inactive tramadol 50 mg tablet RxNorm: 804812 TAKE TWO TABLETS BY MOUTH THREE TIMES A DAY 05/23/2017 06/21/2017 Inactive levothyroxine 100 mcg tablet RxNorm: 582002 TAKE ONE TABLET BY MOUTH DAILY 05/21/2017 02/14/2018 Active paroxetine 20 mg tablet RxNorm: 3759040 TAKE ONE TABLET BY MOUTH EVERY NIGHT AT BEDTIME 05/21/2017 11/16/2017 Inactive Keflex 500 mg capsule RxNorm: 116680 1 Capsule(s) PO TID 201605/09/2017 Inactive Keflex 500 mg capsule RxNorm: 619811 1 Capsule(s) PO TID 201605/02/2017 Inactive lorazepam 0.5 mg tablet RxNorm: 969920 1 Tablet(s) PO Q6 as needed 04/26/2017 06/24/2017 Inactive Flagyl 500 mg tablet RxNorm: 879353 1 Tablet(s) PO TID 201604/17/2017 Inactive isosorbide mononitrate ER 60 mg tablet,extended release 24 hr RxNorm: 354892 TAKE TWO TABLETS BY MOUTH DAILY 04/08/201703/2017 Inactive Vitamin D2 50,000 unit capsule RxNorm: 066471 1 Capsule(s) PO QW x12 weeks 03/29/2017 03/28/2017 Inactive Vitamin D3 2,000 unit capsule RxNorm: 307296 1 Capsule(s) PO daily 03/29/2017 03/28/2017 Inactive Vitamin D3 2,000 unit capsule RxNorm: 498182 1 Capsule(s) PO daily 03/29/2017 06/26/2017 Inactive Vitamin D2 50,000 unit capsule RxNorm: 136927 1 Capsule(s) PO QW x12 weeks 03/29/2017 06/26/2017 Inactive oxycodone 10 mg tablet RxNorm: 6447498 1 Tablet(s) PO Q6-8H 04/26/2017 Inactive Trilipix 135 mg capsule,delayed release RxNorm: 982551 Capsule(s) TAKE ONE CAPSULE BY MOUTH EVERY NIGHT AT BEDTIME 03/19/2017 08/15/2017 Inactive Trilipix 135 mg capsule,delayed release RxNorm: 710709 TAKE ONE CAPSULE BY MOUTH EVERY NIGHT AT BEDTIME 03/18/20172016 Inactive lorazepam 0.5 mg tablet RxNorm: 192041 1 Tablet(s) PO Q6 as needed 03/05/2017 04/25/2017 Inactive Needs appt for next refill Avodart 0.5 mg capsule RxNorm: 975494 TAKE ONE CAPSULE BY MOUTH DAILY 01/25/2017 06/23/2017 Inactive paroxetine 20 mg tablet RxNorm: 7974770 Tablet(s) TAKE ONE TABLET BY MOUTH EVERY NIGHT AT BEDTIME 01/15/2017 05/14/2017 Inactive Lovaza 1 gram capsule RxNorm: 886901 TAKE TWO CAPSULES BY MOUTH TWICE A DAY 01/10/2017 03/10/2017 Inactive clopidogrel 75 mg tablet RxNorm: 408988 TAKE ONE TABLET BY MOUTH DAILY 01/04/2017 11/29/2017 Inactive lorazepam 0.5 mg tablet RxNorm: 550145 1 Tablet(s) PO Q6 as needed 10/29/2016 03/04/2017 Inactive paroxetine 20 mg tablet RxNorm: 4974457 TAKE ONE TABLET BY MOUTH EVERY NIGHT AT BEDTIME 09/10/2016 01/07/2017 Inactive meclizine 25 mg tablet RxNorm: 469073 1 Tablet(s) PO Q8 PRN 01/2016 No Stop Date Active Kenalog 40 mg/mL suspension for injection RxNorm: 2768761 Milliliter(s) Inj 09/03/2016 09/03/2016 Inactive hydrocodone 7.5 mg-acetaminophen 325 mg tablet RxNorm: 059912 1-2 Tablet(s) PO Q6 PRN 08/31/2016 03/27/2017 Inactive tramadol 50 mg tablet RxNorm: 426189 Tablet(s) TAKE TWO TABLETS BY MOUTH THREE TIMES A DAY 08/21/2016 05/23/2017 Inactive Trilipix 135 mg capsule,delayed release RxNorm: 442708 TAKE ONE CAPSULE BY MOUTH EVERY NIGHT AT BEDTIME 08/14/20162016 Inactive Kenalog 40 mg/mL suspension for injection RxNorm: 1731481 1 Milliliter(s) Inj 07/17/2016 07/17/2016 Inactive isosorbide mononitrate ER 60 mg tablet,extended release 24 hr RxNorm: 382973 TAKE TWO TABLETS BY MOUTH DAILY 06/28/2016 Inactive Request already responded to by other means (e.g. phone or fax) isosorbide mononitrate ER 60 mg tablet,extended release 24 hr RxNorm: 781604 2 Tablet(s) PO daily 06/25/2016 12/21/2016 Inactive Avodart 0.5 mg capsule RxNorm: 801437 1 Capsule(s) PO daily 10/27/2016 Inactive tramadol 50 mg tablet RxNorm: 129931 Tablet(s) TAKE TWO TABLETS BY MOUTH THREE TIMES A DAY 04/13/2016 06/10/2016 Inactive Lovaza 1 gram capsule RxNorm: 320552 TAKE TWO CAPSULES BY MOUTH TWICE A DAY 04/13/2016 07/11/2016 Inactive levothyroxine 100 mcg tablet RxNorm: 178150 1 Tablet(s) PO daily 04/09/2016 04/03/2017 Inactive [SAVINGS FOR NON-COVERED DRUGS -- BIN:[id number], PCN: [id number], Group: [id number], ID# [id number], Questions: . THIS IS NOT INSURANCE.] Vitamin D2 50,000 unit capsule RxNorm: 119673 1 Capsule(s) PO weekly QW 03/16/2016 06/13/2016 Inactive lorazepam 0.5 mg tablet RxNorm: 169349 1 Tablet(s) PO Q6 as needed 02/29/2016 11/26/2017 Inactive lorazepam 0.5 mg tablet RxNorm: 823482 1 Tablet(s) PO Q6 as needed 02/23/2016 10/28/2016 Inactive Trilipix 135 mg capsule,delayed release RxNorm: 526617 1 Capsule(s) PO QHS 01/13/2016 08/09/2016 Inactive paroxetine 20 mg tablet RxNorm: 3037695 TAKE ONE TABLET BY MOUTH AT BEDTIME 01/09/2016 07/06/2016 Inactive paroxetine 20 mg tablet RxNorm: 597770 TAKE ONE TABLET BY MOUTH AT BEDTIME 01/09/2016 01/08/2016 Inactive isosorbide mononitrate ER 60 mg tablet,extended release 24 hr RxNorm: 702001 2 Tablet(s) PO daily 01/03/2016 05/01/2016 Inactive Ranexa 1,000 mg tablet,extended release RxNorm: 655800 1 Tablet(s) PO BID 01/03/2016 08/29/2016 Inactive clopidogrel 75 mg tablet RxNorm: 044106 TAKE ONE TABLET BY MOUTH DAILY 12/15/2015 12/08/2016 Inactive nitroglycerin 0.4 mg sublingual tablet RxNorm: 663446 1 Tablet(s) SL UD 1 tab onset of CP may repeat 5 min max of 3 in 15 min 2015 No Stop Date Active paroxetine 20 mg tablet RxNorm: 168970 TAKE ONE TABLET BY MOUTH AT BEDTIME 10/07/2015 01/04/2016 Inactive clopidogrel 75 mg tablet RxNorm: 390461 1 Tablet(s) PO daily 11/26/2015 Inactive Avodart 0.5 mg capsule RxNorm: 101363 1 Capsule(s) PO daily 02/24/2016 Inactive lorazepam 0.5 mg tablet RxNorm: 809250 1 Tablet(s) PO Q6 as needed 08/19/2015 02/28/2016 Inactive tramadol 50 mg tablet RxNorm: 268303 TAKE TWO TABLETS BY MOUTH THREE TIMES A DAY 08/01/2015 08/28/2015 Inactive Cipro 500 mg tablet RxNorm: 297687 1 Tablet(s) PO BID 201407/30/2015 Inactive Flagyl 500 mg tablet RxNorm: 342858 1 Tablet(s) PO TID 201407/30/2015 Inactive paroxetine 20 mg tablet RxNorm: 139215 1 Tablet(s) PO QHS 06/0910/06/2015 Inactive Lovaza 1 gram capsule RxNorm: 299258 2 Capsule(s) PO BID 201409/13/2015 Inactive tramadol 50 mg tablet RxNorm: 762096 1 Tablet(s) PO TID as needed 04/18/2015 08/03/2015 Inactive levothyroxine 100 mcg tablet RxNorm: 750357 1 Tablet(s) PO daily 04/01/2015 03/31/2015 Inactive levothyroxine 100 mcg tablet RxNorm: 271483 1 Tablet(s) PO daily 04/01/2015 03/25/2016 Inactive [SAVINGS FOR NON-COVERED DRUGS -- BIN:[id number], PCN: ASPROD1, Group: XXXXX, ID# [id number], Questions: . THIS IS NOT INSURANCE.] melatonin 3 mg tablet RxNorm: 388097 1 Tablet(s) PO QHS No Start Date Active folic acid 1 mg tablet RxNorm: 759336 1 Tablet(s) PO daily No Start Date Active Lipitor 80 mg tablet RxNorm: 537256 1 Tablet(s) PO QHS No Start Date Active aspirin 81 mg chewable tablet RxNorm: 972582 1 Tablet(s) PO daily No Start Date Active Protonix 40 mg tablet,delayed release RxNorm: 641158 1 Tablet(s) PO daily No Start Date Active paroxetine 20 mg tablet RxNorm: 569486 1 Tablet(s) PO QHS No Start Date 06/08/2015 Inactive nitroglycerin 0.4 mg sublingual tablet RxNorm: 268982 sublingual No Start Date 11/10/2015 Inactive Avodart 0.5 mg capsule RxNorm: 072373 1 Capsule(s) PO daily No Start Date 08/28/2015 Inactive lorazepam 0.5 mg tablet RxNorm: 951794 1 Tablet(s) PO QHS No Start Date 08/18/2015 Inactive Trilipix 135 mg capsule,delayed release RxNorm: 742152 1 Capsule(s) PO daily No Start Date 01/12/2016 Inactive Vitamin D2 50,000 unit capsule RxNorm: 083414 1 Capsule(s) PO weekly No Start Date 03/15/2016 Inactive losartan 50 mg tablet RxNorm: 532057 1 Tablet(s) PO daily No Start Date 07/16/2016 Inactive Ranexa 500 mg tablet,extended release RxNorm: 624377 2 Tablet(s) PO BID No Start Date 01/02/2016 Inactive clopidogrel 75 mg tablet RxNorm: 321572 1 Tablet(s) PO daily No Start Date 09/27/2015 Inactive tramadol 50 mg tablet RxNorm: 008658 1 Tablet(s) PO TID as needed No Start Date 04/17/2015 Inactive Lovaza 1 gram capsule RxNorm: 402916 2 Capsule(s) PO daily No Start Date 05/16/2015 Inactive isosorbide mononitrate ER 60 mg tablet,extended release 24 hr RxNorm: 767035 2 Tablet(s) PO daily No Start Date 2015 Inactive Medication Administered Medication Codes Instructions Start Date Status Kenalog 40 mg/mL suspension for injection RxNorm: 7824422 Milliliter 09/03/2016 No longer Active Kenalog 40 mg/mL suspension for injection RxNorm: 9669230 1Milliliter 07/17/2016 No longer Active Immunizations Vaccine Codes Date Status Influenza CVX: 141 09/27/2017 completed Influenza CVX: 141 08/31/2016 completed Pneumococcal (Adult) CVX: 133 08/31/2016 completed Assessments Condition Codes Effective Dates Acute laryngopharyngitis ICD-10: J06.0 ICD-9: 465.0 12/31/2017 Obstructive sleep apnea (adult) (pediatric) ICD-10: G47.33 ICD-9: 327.23 10/16/2017 Encounter for immunization ICD-10: Z23 ICD-9: V04.81 09/27/2017 Slow transit constipation ICD-10: K59.01 ICD-9: 564.01 08/01/2017 Spinal stenosis, lumbar region ICD-10: M48.06 ICD-9: 724.02 08/01/2017 Hypothyroidism, unspecified ICD-10: E03.9 ICD-9: 244.9 08/01/2017 Essential (primary) hypertension ICD-10: I10 ICD-9: 401.9 08/01/2017 Diverticulosis of intestine, part unspecified, without perforation or abscess without bleeding ICD-10: K57.90 ICD-9: 562.10 04/08/2017 Low back pain ICD-10: M54.5 ICD-9: 724.2 03/28/2017 Right lower quadrant pain ICD-10: R10.31 ICD-9: 789.03 03/28/2017 Vitamin D deficiency, unspecified ICD-10: E55.9 ICD-9: 268.9 03/28/2017 Dizziness and giddiness ICD-10: R42 ICD-9: 780.4 09/03/2016 Elevated white blood cell count, unspecified ICD-10: D72.829 ICD-9: 288.60 08/31/2016 Encounter for immunization ICD-10: Z23 ICD-9: V06.6 08/31/2016 Allergic rhinitis due to pollen ICD-10: J30.1 ICD-9: 477.0 07/17/2016 Tobacco use ICD-10: Z72.0 ICD-9: 305.1 03/01/2016 Mixed hyperlipidemia ICD-10: E78.2 ICD-9: 272.4 03/01/2016 Angina pectoris, unspecified ICD-10: I20.9 ICD-9: 413.9 10/19/2015 Diarrhea ICD-9: 787.91 08/04/2015 ESOPHAGEAL REFLUX ICD-9: 530.81 2014 ESSENTIAL HYPERTENSION ICD-9: 401.9 08/04 Diverticulitis ICD-9: 562.11 07/21/2015 HYPOTHYROIDISM ICD-9: 244.9 06/14/2015 VITAMIN D DEFICIENCY ICD-9: 268.9 2014 HYPERLIPIDEMIA ICD-9: 272.4 06/14/2015 Spinal stenosis ICD-9: 724.00 04/06/2015 Reason For Visit Reason For Visit Effective Dates Notes sore throat 12/31/2017 sleep apnea-obstruction 10/08/2017 vaccination against influenza 09/27/2017 constipation 08/01/2017 abdominal pain 04/08/2017 improving back pain 03/28/2017 vertigo 09/03/2016 vaccination against influenza 08/31/2016 sinus congestion 07/17/2016 blood pressure followup 03/01/2016 chest pain/pressure 11/03/2015 chest pain/pressure 10/19/2015 diarrhea 08/04/2015 diarrhea 07/21/2015 back pain 06/14/2015 Hospital Follow Up 04/06/2015 Pt states he just had a heart stent put in a week ago last . Results Observation Observation Code Item Item Code Result Date Comp Metabolic Lqo490 NA 141 mEq/L 03/28/2017 Comp Metabolic Mjo387 K 4.3 mEq/L 03/28/2017 Comp Metabolic Yrg576 CL 103 mEq/L 03/28/2017 Comp Metabolic Lcg867 CO2 30.0 mEq/L 03/28/2017 Comp Metabolic Dzb263 ANION GAP 12 03/28/2017 Comp Metabolic Ijt296 GLUCOSE 106 mg/dL 03/28/2017 Comp Metabolic Aho140 Creat 1.4 mg/dL 03/28/2017 Comp Metabolic Iel600 eGFR 54 ml/min/1.73m2 03/28/2017 Comp Metabolic Bzw139 BUN 15 mg/dL 03/28/2017 Comp Metabolic Dod735 B/C Ratio 11.1 Ratio 03/28/2017 Comp Metabolic Dap451 CALCIUM 9.5 mg/dL 03/28/2017 Comp Metabolic Ndj368 ALK PHOS 41 U/L 03/28/2017 Comp Metabolic Sub546 AST(SGOT) 24 U/L 03/28/2017 Comp Metabolic Tgt658 ALT(SGPT) 27 U/L 03/28/2017 Comp Metabolic Eos801 BILI T 0.5 mg/dL 03/28/2017 Comp Metabolic Zss025 ALBUMIN 4.2 g/dL 03/28/2017 Comp Metabolic Kba308 TPRO 7.2 g/dL 03/28/2017 Comp Metabolic Klp592 GLOB 3.0 g/dL 03/28/2017 Comp Metabolic Nvr579 A/G Ratio 1.4 Ratio 03/28/2017 Comp Metabolic Uoi924 Osmo 283 mOsmo 03/28/2017 Free T4 Vys042 FREE T4 1.05 ng/dL 03/28/2017 Cbc With Differential Ord2 WBC 8.24 K/ul 03/28/2017 Cbc With Differential Ord2 RBC 5.05 M/ul 03/28/2017 Cbc With Differential Ord2 HGB 15.5 g/dl 03/28/2017 Cbc With Differential Ord2 HCT 47.3 % 03/28/2017 Cbc With Differential Ord2 Neut% 59.3 % 03/28/2017 Cbc With Differential Ord2 Lymph% 24.4 % 03/28/2017 Cbc With Differential Ord2 MCV 93.7 fl 03/28/2017 Cbc With Differential Ord2 Sterling% 9.8 % 03/28/2017 Cbc With Differential Ord2 MCH 30.7 pg 03/28/2017 Cbc With Differential Ord2 Eos% 5.7 % 03/28/2017 Cbc With Differential Ord2 MCHC 32.8 pg 03/28/2017 Cbc With Differential Ord2 Baso% 0.8 % 03/28/2017 Cbc With Differential Ord2 PLT 308 K/ul 03/28/2017 Cbc With Differential Ord2 Neut ABS# 4.88 K/ul 03/28/2017 Cbc With Differential Ord2 RDW 14.1 % 03/28/2017 Cbc With Differential Ord2 Lymph ABS# 2.01 K/ul 03/28/2017 Cbc With Differential Ord2 Sterling ABS# 0.8 K/ul 03/28/2017 Cbc With Differential Ord2 Eos ABS# 0.5 K/ul 03/28/2017 Cbc With Differential Ord2 Baso ABS# 0.1 K/ul 03/28/2017 Tsh Ord6 hTSH II 1.37 uIU/mL 03/28/2017 Vitamin D 25 Oh [id number] VITAMIN D, 25 HYDROXY 23.11 ng/mL Cbc With Differential Ord2 WBC 7.09 K/ul 08/28/2016 Cbc With Differential Ord2 RBC 4.66 M/ul 08/28/2016 Cbc With Differential Ord2 HGB 14.2 g/dl 08/28/2016 Cbc With Differential Ord2 HCT 43.9 % 08/28/2016 Cbc With Differential Ord2 Neut% 61.7 % 08/28/2016 Cbc With Differential Ord2 Lymph% 26.5 % 08/28/2016 Cbc With Differential Ord2 MCV 94.2 fl 08/28/2016 Cbc With Differential Ord2 MCH 30.5 pg 08/28/2016 Cbc With Differential Ord2 Sterling% 8.7 % 08/28/2016 Cbc With Differential Ord2 Eos% 2.7 % 08/28/2016 Cbc With Differential Ord2 MCHC 32.3 pg 08/28/2016 Cbc With Differential Ord2 PLT 278 K/ul 08/28/2016 Cbc With Differential Ord2 Baso% 0.4 % 08/28/2016 Cbc With Differential Ord2 RDW 14.9 % 08/28/2016 Cbc With Differential Ord2 Neut ABS# 4.37 K/ul 08/28/2016 Cbc With Differential Ord2 Lymph ABS# 1.88 K/ul 08/28/2016 Cbc With Differential Ord2 Sterling ABS# 0.6 K/ul 08/28/2016 Cbc With Differential Ord2 Eos ABS# 0.2 K/ul 08/28/2016 Cbc With Differential Ord2 Baso ABS# 0.0 K/ul 08/28/2016 Vitamin D 25 Oh Ytg9589 VITAMIN D, 25 HYDROXY 41.44 ng/mL Comp Metabolic Hna895 NA 138 mEq/L 07/17/2016 Comp Metabolic Daf266 K 3.9 mEq/L 07/17/2016 Comp Metabolic Xqi222 CL 103 mEq/L 07/17/2016 Comp Metabolic Mzw949 CO2 29.0 mEq/L 07/17/2016 Comp Metabolic Xei440 ANION GAP 10 07/17/2016 Comp Metabolic Nfe671 GLUCOSE 103 mg/dL 07/17/2016 Comp Metabolic Lbs957 Creat 1.2 mg/dL 07/17/2016 Comp Metabolic Afc636 eGFR 65 ml/min/1.73m2 07/17/2016 Comp Metabolic Xcw154 BUN 18 mg/dL 07/17/2016 Comp Metabolic Guw827 B/C Ratio 15.7 Ratio 07/17/2016 Comp Metabolic Rce893 CALCIUM 9.1 mg/dL 07/17/2016 Comp Metabolic Pvb999 ALK PHOS 33 U/L 07/17/2016 Comp Metabolic Tty827 AST(SGOT) 18 U/L 07/17/2016 Comp Metabolic Fqr551 ALT(SGPT) 24 U/L 07/17/2016 Comp Metabolic Bkd974 BILI T 0.6 mg/dL 07/17/2016 Comp Metabolic Zcm492 ALBUMIN 4.3 g/dL 07/17/2016 Comp Metabolic Zmh828 TPRO 7.0 g/dL 07/17/2016 Comp Metabolic Yps037 GLOB 2.7 g/dL 07/17/2016 Comp Metabolic Kck343 A/G Ratio 1.6 Ratio 07/17/2016 Comp Metabolic Vlc225 Osmo 278 mOsmo 07/17/2016 Cbc With Differential Ord2 WBC 10.52 K/ul 07/17/2016 Cbc With Differential Ord2 RBC 4.94 M/ul 07/17/2016 Cbc With Differential Ord2 HGB 15.1 g/dl 07/17/2016 Cbc With Differential Ord2 HCT 46.7 % 07/17/2016 Cbc With Differential Ord2 Neut% 71.8 % 07/17/2016 Cbc With Differential Ord2 Lymph% 15.7 % 07/17/2016 Cbc With Differential Ord2 MCV 94.5 fl 07/17/2016 Cbc With Differential Ord2 MCH 30.6 pg 07/17/2016 Cbc With Differential Ord2 Sterling% 9.2 % 07/17/2016 Cbc With Differential Ord2 MCHC 32.3 pg 07/17/2016 Cbc With Differential Ord2 Eos% 3.1 % 07/17/2016 Cbc With Differential Ord2 Baso% 0.2 % 07/17/2016 Cbc With Differential Ord2 PLT 288 K/ul 07/17/2016 Cbc With Differential Ord2 Neut ABS# 7.55 K/ul 07/17/2016 Cbc With Differential Ord2 RDW 14.3 % 07/17/2016 Cbc With Differential Ord2 Lymph ABS# 1.65 K/ul 07/17/2016 Cbc With Differential Ord2 Sterling ABS# 1.0 K/ul 07/17/2016 Cbc With Differential Ord2 Eos ABS# 0.3 K/ul 07/17/2016 Cbc With Differential Ord2 Baso ABS# 0.0 K/ul 07/17/2016 Tsh Ord6 hTSH II 2.16 uIU/mL 07/17/2016 Free T4 Mnf750 FREE T4 0.91 ng/dL 07/17/2016 Lipid Ord30 CHOL 134 mg/dL 03/07/2016 Lipid Ord30 HDL 37.0 mg/dl 03/07/2016 Lipid Ord30 TRIG 210 mg/dL 03/07/2016 Lipid Ord30 LDL 55 mg/dL 03/07/2016 Lipid Ord30 C/HDL 3.6 Ratio 03/07/2016 Cbc With Differential Ord2 WBC 6.81 K/ul 03/07/2016 Cbc With Differential Ord2 RBC 4.62 M/ul 03/07/2016 Cbc With Differential Ord2 HGB 13.9 g/dl 03/07/2016 Cbc With Differential Ord2 HCT 43.3 % 03/07/2016 Cbc With Differential Ord2 Neut% 60.2 % 03/07/2016 Cbc With Differential Ord2 Lymph% 25.6 % 03/07/2016 Cbc With Differential Ord2 MCV 93.7 fl 03/07/2016 Cbc With Differential Ord2 Sterling% 8.5 % 03/07/2016 Cbc With Differential Ord2 MCH 30.1 pg 03/07/2016 Cbc With Differential Ord2 Eos% 5.4 % 03/07/2016 Cbc With Differential Ord2 MCHC 32.1 pg 03/07/2016 Cbc With Differential Ord2 PLT 233 K/ul 03/07/2016 Cbc With Differential Ord2 Baso% 0.3 % 03/07/2016 Cbc With Differential Ord2 Neut ABS# 4.10 K/ul 03/07/2016 Cbc With Differential Ord2 RDW 14.5 % 03/07/2016 Cbc With Differential Ord2 Lymph ABS# 1.74 K/ul 03/07/2016 Cbc With Differential Ord2 [place] ABS# 0.6 K/ul 03/07/2016 Cbc With Differential Ord2 Eos ABS# 0.4 K/ul 03/07/2016 Cbc With Differential Ord2 Baso ABS# 0.0 K/ul 03/07/2016 Cbc With Differential Ord2 New Analyzer Notice Please note new ref ranges starting 12-14-2015 due to implemntation of new five part differential hematolgy analyzer. 03/07/2016 Comp Metabolic [id number] NA 139 mEq/L 03/07/2016 Comp Metabolic Iyu069 K 3.8 mEq/L 03/07/2016 Comp Metabolic Mwn658 CL 104 mEq/L 03/07/2016 Comp Metabolic Rzt023 CO2 28.0 mEq/L 03/07/2016 Comp Metabolic Dop434 ANION GAP 11 03/07/2016 Comp Metabolic Igr732 GLUCOSE 110 mg/dL 03/07/2016 Comp Metabolic Kyw102 Creat 1.2 mg/dL 03/07/2016 Comp Metabolic Rbk365 eGFR 60 ml/min/1.73m2 03/07/2016 Comp Metabolic Dvo307 BUN 17 mg/dL 03/07/2016 Comp Metabolic Nck138 B/C Ratio 13.8 Ratio 03/07/2016 Comp Metabolic Unl756 CALCIUM 9.2 mg/dL 03/07/2016 Comp Metabolic Wjq507 ALK PHOS 32 U/L 03/07/2016 Comp Metabolic Vzt585 AST(SGOT) 21 U/L 03/07/2016 Comp Metabolic Jhb646 ALT(SGPT) 25 U/L 03/07/2016 Comp Metabolic Wai486 BILI T 0.5 mg/dL 03/07/2016 Comp Metabolic Qgn546 ALBUMIN 4.2 g/dL 03/07/2016 Comp Metabolic Obh838 TPRO 6.7 g/dL 03/07/2016 Comp Metabolic Yly391 GLOB 2.5 g/dL 03/07/2016 Comp Metabolic Cdh210 A/G Ratio 1.6 Ratio 03/07/2016 Comp Metabolic Bas649 Osmo 280 mOsmo 03/07/2016 Tsh Ord6 hTSH II 0.84 uIU/mL 03/07/2016 Vitamin D 25 Oh [id number] VITAMIN D, 25 HYDROXY 22.46 ng/mL Free T4 Xjk733 FREE T4 1.12 ng/dL 03/07/2016 Comp Metabolic Xei201 NA 137 mEq/L 07/21/2015 Comp Metabolic Gud071 K 3.8 mEq/L 07/21/2015 Comp Metabolic Siu670 CL 102 mEq/L 07/21/2015 Comp Metabolic Slo737 CO2 28.0 mEq/L 07/21/2015 Comp Metabolic Mie602 ANION GAP 11 07/21/2015 Comp Metabolic Rmz830 GLUCOSE 129 mg/dL 07/21/2015 Comp Metabolic Dyu413 Creat 1.3 mg/dL 07/21/2015 Comp Metabolic Ijl985 eGFR 57 ml/min/1.73m2 07/21/2015 Comp Metabolic Agt124 BUN 17 mg/dL 07/21/2015 Comp Metabolic Qof572 B/C Ratio 13.2 Ratio 07/21/2015 Comp Metabolic Vld300 CALCIUM 9.2 mg/dL 07/21/2015 Comp Metabolic Kqo139 ALK PHOS 30 U/L 07/21/2015 Comp Metabolic Wqg315 AST(SGOT) 17 U/L 07/21/2015 Comp Metabolic Ngd768 ALT(SGPT) 23 U/L 07/21/2015 Comp Metabolic Tkf126 BILI T 0.6 mg/dL 07/21/2015 Comp Metabolic Oan849 ALBUMIN 4.2 g/dL 07/21/2015 Comp Metabolic Vsg338 TPRO 6.7 g/dL 07/21/2015 Comp Metabolic Qbl524 GLOB 2.5 g/dL 07/21/2015 Comp Metabolic Wij647 A/G Ratio 1.7 Ratio 07/21/2015 Comp Metabolic Khf781 Osmo 277 mOsmo 07/21/2015 Cbc With Differential Ord2 WBC 10.1 K/uL 07/21/2015 Cbc With Differential Ord2 LYM 1.5 K/uL 07/21/2015 Cbc With Differential Ord2 LYM% 14.6 % 07/21/2015 Cbc With Differential Ord2 NEUT/GRAN 7.9 K/uL 07/21/2015 Cbc With Differential Ord2 NEUT/GRAN % 78.0 % 07/21/2015 Cbc With Differential Ord2 MID 0.7 K/uL 07/21/2015 Cbc With Differential Ord2 MID% 7.4 % 07/21/2015 Cbc With Differential Ord2 RBC 4.66 M/uL 07/21/2015 Cbc With Differential Ord2 HGB 14.4 g/dL 07/21/2015 Cbc With Differential Ord2 HCT 43.2 % 07/21/2015 Cbc With Differential Ord2 MCV 93 fL 07/21/2015 Cbc With Differential Ord2 MCH 31 pg 07/21/2015 Cbc With Differential Ord2 MCHC 33 g/dL 07/21/2015 Cbc With Differential Ord2 PLT 340 K/uL 07/21/2015 Cbc With Differential Ord2 RDW 14.4 % 07/21/2015 Vitamin D 25 Oh Irn8659 VITAMIN D, 25 HYDROXY 43.45 ng/mL Tsh Ord6 hTSH II 2.17 uIU/mL 06/23/2015 Free T4 Czm263 FREE T4 0.96 ng/dL 06/23/2015 Cbc With Differential Ord2 WBC 6.3 K/uL 06/23/2015 Cbc With Differential Ord2 LYM 1.9 K/uL 06/23/2015 Cbc With Differential Ord2 LYM% 30.5 % 06/23/2015 Cbc With Differential Ord2 NEUT/GRAN 3.9 K/uL 06/23/2015 Cbc With Differential Ord2 NEUT/GRAN % 61.7 % 06/23/2015 Cbc With Differential Ord2 MID 0.5 K/uL 06/23/2015 Cbc With Differential Ord2 MID% 7.8 % 06/23/2015 Cbc With Differential Ord2 RBC 4.44 M/uL 06/23/2015 Cbc With Differential Ord2 HGB 13.7 g/dL 06/23/2015 Cbc With Differential Ord2 HCT 40.9 % 06/23/2015 Cbc With Differential Ord2 MCV 92 fL 06/23/2015 Cbc With Differential Ord2 MCH 31 pg 06/23/2015 Cbc With Differential Ord2 MCHC 34 g/dL 06/23/2015 Cbc With Differential Ord2 PLT 267 K/uL 06/23/2015 Cbc With Differential Ord2 RDW 14.5 % 06/23/2015 Comp Metabolic Gsb016 NA 139 mEq/L 06/23/2015 Comp Metabolic Ygj192 K 4.1 mEq/L 06/23/2015 Comp Metabolic Crg591 CL 105 mEq/L 06/23/2015 Comp Metabolic Zml371 CO2 29.0 mEq/L 06/23/2015 Comp Metabolic Jul456 ANION GAP 9 06/23/2015 Comp Metabolic Ayl196 GLUCOSE 92 mg/dL 06/23/2015 Comp Metabolic Zem861 Creat 1.3 mg/dL 06/23/2015 Comp Metabolic Ecq664 eGFR 56 ml/min/1.73m2 06/23/2015 Comp Metabolic Euq497 BUN 19 mg/dL 06/23/2015 Comp Metabolic Kwb371 B/C Ratio 14.5 Ratio 06/23/2015 Comp Metabolic Srj909 CALCIUM 9.1 mg/dL 06/23/2015 Comp Metabolic Crl768 ALK PHOS 30 U/L 06/23/2015 Comp Metabolic Mtx405 AST(SGOT) 19 U/L 06/23/2015 Comp Metabolic Blz336 ALT(SGPT) 24 U/L 06/23/2015 Comp Metabolic Xqi880 BILI T 0.5 mg/dL 06/23/2015 Comp Metabolic Bgt763 ALBUMIN 4.1 g/dL 06/23/2015 Comp Metabolic Bqg643 TPRO 6.2 g/dL 06/23/2015 Comp Metabolic Szz845 GLOB 2.1 g/dL 06/23/2015 Comp Metabolic Leb062 A/G Ratio 2.0 Ratio 06/23/2015 Comp Metabolic Gub344 Osmo 279 mOsmo 06/23/2015 Lipid Ord30 CHOL 142 mg/dL 06/23/2015 Lipid Ord30 HDL 35.0 mg/dl 06/23/2015 Lipid Ord30 TRIG 159 mg/dL 06/23/2015 Lipid Ord30 LDL 75 mg/dL 06/23/2015 Lipid Ord30 C/HDL 4.1 Ratio 06/23/2015 Review of Systems System Result Effective Dates Constitutional recent illness 12/31/2017 Constitutional No chills 12/31/2017 Constitutional No diaphoresis 12/31/2017 Constitutional No fever 12/31/2017 Eyes No eye erythema 12/31/2017 Ears/Nose/Throat/Neck nasal discharge Ears/Nose/Throat/Neck nasal allergies Ears/Nose/Throat/Neck postnasal drip Ears/Nose/Throat/Neck No sinus congestion 12/31/2017 Ears/Nose/Throat/Neck sore throat 2017 Cardiovascular No chest pain/pressure Respiratory No cough 12/31/2017 Respiratory No chest congestion 2017 Gastrointestinal No abdominal pain 2017 Gastrointestinal No constipation 2017 Gastrointestinal No diarrhea 12/31/2017 Gastrointestinal No vomiting 12/31/2017 Gastrointestinal No nausea 12/31/2017 Neurologic No alteration of consciousness 12/31/2017 Neurologic No mental status change 2017 Constitutional No recent illness 2016 Constitutional No anorexia 10/08/2017 Constitutional No night sweats 2016 Constitutional No chills 10/08/2017 Constitutional No diaphoresis 10/08/2017 Constitutional fatigue 10/08/2017 Constitutional No fever 10/08/2017 Constitutional insomnia 10/08/2017 Constitutional No malaise 10/08/2017 Constitutional No weight loss 10/08/2017 Constitutional No weight gain 10/08/2017 Eyes No eye discharge 10/08/2017 Eyes No eye erythema 10/08/2017 Ears/Nose/Throat/Neck No dizziness 2016 Ears/Nose/Throat/Neck headache 2016 Cardiovascular No chest pain/pressure 06/2017 Cardiovascular No dyspnea 10/08/2017 Cardiovascular No edema 10/08/2017 Respiratory No productive sputum 2016 Respiratory dyspnea on exertion 2016 Gastrointestinal No abdominal pain 2016 Gastrointestinal No constipation 2016 Gastrointestinal No diarrhea 10/08/2017 Genitourinary/Nephrology No dysuria 10/08 Musculoskeletal back pain 10/08/2017 Dermatologic No rash 10/08/2017 Dermatologic No sores 10/08/2017 Neurologic No alteration of consciousness 10/08/2017 Constitutional No recent illness 2016 Constitutional No anorexia 08/01/2017 Constitutional No night sweats 2016 Constitutional No chills 08/01/2017 Constitutional No diaphoresis 08/01/2017 Constitutional fatigue 08/01/2017 Constitutional No fever 08/01/2017 Constitutional insomnia 08/01/2017 Constitutional No malaise 08/01/2017 Constitutional No weight loss 08/01/2017 Constitutional No weight gain 08/01/2017 Constitutional No obesity 08/01/2017 Eyes No eye pain 08/01/2017 Eyes No vision change 08/01/2017 Ears/Nose/Throat/Neck No headache 2016 Cardiovascular No chest pain/pressure Respiratory No chest congestion 2016 Respiratory No chest tightness 2016 Respiratory No cigarette smoking 2016 Respiratory No cough 08/01/2017 Gastrointestinal No abdominal pain 2016 Gastrointestinal constipation 08/01/2017 Gastrointestinal No diarrhea 08/01/2017 Gastrointestinal No nausea 08/01/2017 Gastrointestinal No vomiting 08/01/2017 Genitourinary/Nephrology No anuria/oliguria 08/01/2017 Genitourinary/Nephrology No dysuria 08/01 Musculoskeletal stiffness 08/01/2017 Musculoskeletal swelling 08/01/2017 Musculoskeletal arthralgia(s) 08/01/2017 Musculoskeletal back pain 08/01/2017 Musculoskeletal bone pain 08/01/2017 Musculoskeletal No joint complaint 2016 Musculoskeletal No myalgias 08/01/2017 Musculoskeletal No neck pain 08/01/2017 Dermatologic No rash 08/01/2017 Dermatologic No sores 08/01/2017 Neurologic No alteration of consciousness 08/01/2017 Neurologic No memory loss 08/01/2017 Neurologic No mental status change 2016 Neurologic pain, back 08/01/2017 Psychiatric No anxiety 08/01/2017 Psychiatric No depression 08/01/2017 Endocrine No dry or coarse skin 2016 Endocrine No polydipsia 08/01/2017 Endocrine No polyuria 08/01/2017 Endocrine No sweating 08/01/2017 Hematologic/Lymphatic No abnormal ecchymoses 08/01/2017 Hematologic/Lymphatic No abnormal bleeding and bruising 08/01/2017 Allergy/Immunology No anaphylactoid reaction 08/01/2017 Allergy/Immunology No food allergy 2016 Ears/Nose/Throat/Neck No dizziness 2016 Constitutional No recent illness 2016 Constitutional No anorexia 04/08/2017 Constitutional No night sweats 2016 Constitutional No chills 04/08/2017 Constitutional No diaphoresis 04/08/2017 Constitutional fatigue 04/08/2017 Constitutional No fever 04/08/2017 Constitutional insomnia 04/08/2017 Constitutional No malaise 04/08/2017 Constitutional No weight loss 04/08/2017 Constitutional No weight gain 04/08/2017 Constitutional No obesity 04/08/2017 Eyes No eye pain 04/08/2017 Eyes No vision change 04/08/2017 Ears/Nose/Throat/Neck dizziness 2016 Ears/Nose/Throat/Neck No headache 2016 Cardiovascular No chest pain/pressure 07/2017 Respiratory No chest congestion 2016 Respiratory No chest tightness 2016 Respiratory No cigarette smoking 2016 Respiratory No cough 04/08/2017 Gastrointestinal constipation 04/08/2017 Gastrointestinal No diarrhea 04/08/2017 Genitourinary/Nephrology No anuria/oliguria 04/08/2017 Genitourinary/Nephrology No dysuria 04/08 Musculoskeletal stiffness 04/08/2017 Musculoskeletal swelling 04/08/2017 Musculoskeletal arthralgia(s) 04/08/2017 Musculoskeletal back pain 04/08/2017 Musculoskeletal bone pain 04/08/2017 Musculoskeletal No joint complaint 2016 Musculoskeletal No myalgias 04/08/2017 Musculoskeletal No neck pain 04/08/2017 Dermatologic No rash 04/08/2017 Dermatologic No sores 04/08/2017 Neurologic No alteration of consciousness 04/08/2017 Neurologic No memory loss 04/08/2017 Neurologic No mental status change 2016 Neurologic pain, back 04/08/2017 Psychiatric No anxiety 04/08/2017 Psychiatric No depression 04/08/2017 Endocrine No dry or coarse skin 2016 Endocrine No polydipsia 04/08/2017 Endocrine No polyuria 04/08/2017 Endocrine No sweating 04/08/2017 Hematologic/Lymphatic No abnormal ecchymoses 04/08/2017 Hematologic/Lymphatic No abnormal bleeding and bruising 04/08/2017 Allergy/Immunology No anaphylactoid reaction 04/08/2017 Allergy/Immunology No food allergy 2016 Gastrointestinal abdominal pain 2016 Gastrointestinal No vomiting 04/08/2017 Gastrointestinal No nausea 04/08/2017 Constitutional No recent illness 2016 Constitutional No anorexia 03/28/2017 Constitutional No night sweats 2016 Constitutional No chills 03/28/2017 Constitutional No diaphoresis 03/28/2017 Constitutional fatigue 03/28/2017 Constitutional No fever 03/28/2017 Constitutional insomnia 03/28/2017 Constitutional No malaise 03/28/2017 Constitutional No weight loss 03/28/2017 Constitutional No weight gain 03/28/2017 Constitutional No obesity 03/28/2017 Eyes No eye pain 03/28/2017 Eyes No vision change 03/28/2017 Ears/Nose/Throat/Neck dizziness 2016 Ears/Nose/Throat/Neck No headache 2016 Cardiovascular No chest pain/pressure Cardiovascular dyspnea 03/28/2017 Respiratory No chest congestion 2016 Respiratory No chest tightness 2016 Respiratory No cigarette smoking 2016 Respiratory No cough 03/28/2017 Gastrointestinal No diarrhea 03/28/2017 Gastrointestinal No constipation 2016 Genitourinary/Nephrology No anuria/oliguria 03/28/2017 Genitourinary/Nephrology No dysuria 03/28 Musculoskeletal stiffness 03/28/2017 Musculoskeletal swelling 03/28/2017 Musculoskeletal arthralgia(s) 03/28/2017 Musculoskeletal back pain 03/28/2017 Musculoskeletal bone pain 03/28/2017 Musculoskeletal No joint complaint 2016 Musculoskeletal No myalgias 03/28/2017 Musculoskeletal No neck pain 03/28/2017 Dermatologic No rash 03/28/2017 Dermatologic No sores 03/28/2017 Neurologic No alteration of consciousness 03/28/2017 Neurologic No memory loss 03/28/2017 Neurologic No mental status change 2016 Neurologic pain, back 03/28/2017 Psychiatric No anxiety 03/28/2017 Psychiatric No depression 03/28/2017 Hematologic/Lymphatic No abnormal ecchymoses 03/28/2017 Hematologic/Lymphatic No abnormal bleeding and bruising 03/28/2017 Endocrine No dry or coarse skin 2016 Endocrine No polydipsia 03/28/2017 Endocrine No polyuria 03/28/2017 Endocrine No sweating 03/28/2017 Allergy/Immunology No anaphylactoid reaction 03/28/2017 Allergy/Immunology No food allergy 2016 Constitutional recent illness 09/03/2016 Constitutional No anorexia 09/03/2016 Constitutional No night sweats 2015 Constitutional No chills 09/03/2016 Constitutional No diaphoresis 09/03/2016 Constitutional No fatigue 09/03/2016 Constitutional No fever 09/03/2016 Constitutional No insomnia 09/03/2016 Constitutional No malaise 09/03/2016 Constitutional No weight loss 09/03/2016 Constitutional No weight gain 09/03/2016 Eyes No eye erythema 09/03/2016 Eyes No eye discharge 09/03/2016 Ears/Nose/Throat/Neck dizziness 2015 Ears/Nose/Throat/Neck No headache 2015 Ears/Nose/Throat/Neck No nasal discharge 09/03/2016 Ears/Nose/Throat/Neck No otalgia 2015 Ears/Nose/Throat/Neck No sinus congestion 09/03/2016 Ears/Nose/Throat/Neck No sore throat 01/2016 Cardiovascular No chest pain/pressure 01/2016 Cardiovascular No edema 09/03/2016 Cardiovascular dyspnea 09/03/2016 Respiratory No cough 09/03/2016 Gastrointestinal No abdominal pain 2015 Gastrointestinal No vomiting 09/03/2016 Gastrointestinal No nausea 09/03/2016 Musculoskeletal No joint complaint 2015 Dermatologic No rash 09/03/2016 Dermatologic No sores 09/03/2016 Neurologic No alteration of consciousness 09/03/2016 Neurologic dizziness 09/03/2016 Psychiatric anxiety 09/03/2016 Constitutional No recent illness 2015 Constitutional No anorexia 08/31/2016 Constitutional No night sweats 2015 Constitutional No chills 08/31/2016 Constitutional No diaphoresis 08/31/2016 Constitutional No fatigue 08/31/2016 Constitutional No fever 08/31/2016 Constitutional No insomnia 08/31/2016 Constitutional No malaise 08/31/2016 Constitutional No weight loss 08/31/2016 Constitutional No weight gain 08/31/2016 Eyes No eye discharge 08/31/2016 Eyes No eye erythema 08/31/2016 Ears/Nose/Throat/Neck No headache 2015 Cardiovascular No chest pain/pressure Cardiovascular No dyspnea 08/31/2016 Cardiovascular No edema 08/31/2016 Respiratory No productive sputum 2015 Respiratory No chest congestion 2015 Respiratory No cough 08/31/2016 Respiratory dyspnea on exertion 2015 Gastrointestinal No abdominal pain 2015 Gastrointestinal No constipation 2015 Gastrointestinal No diarrhea 08/31/2016 Genitourinary/Nephrology No dysuria 08/31 Musculoskeletal No back pain 08/31/2016 Dermatologic No rash 08/31/2016 Dermatologic No sores 08/31/2016 Neurologic No alteration of consciousness 08/31/2016 Psychiatric No anxiety 08/31/2016 Endocrine No dry or coarse skin 2015 Constitutional recent illness 07/17/2016 Constitutional No anorexia 07/17/2016 Constitutional No night sweats 2015 Constitutional No chills 07/17/2016 Constitutional No diaphoresis 07/17/2016 Constitutional No fatigue 07/17/2016 Constitutional No fever 07/17/2016 Constitutional No insomnia 07/17/2016 Constitutional No malaise 07/17/2016 Constitutional No weight loss 07/17/2016 Constitutional No weight gain 07/17/2016 Eyes No eye erythema 07/17/2016 Eyes No eye discharge 07/17/2016 Ears/Nose/Throat/Neck No dizziness 2015 Ears/Nose/Throat/Neck headache 2015 Ears/Nose/Throat/Neck nasal allergies Ears/Nose/Throat/Neck nasal discharge Ears/Nose/Throat/Neck otalgia 07/17/2016 Ears/Nose/Throat/Neck sinus congestion Cardiovascular No chest pain/pressure Respiratory No productive sputum 2015 Respiratory No chest congestion 2015 Respiratory No cough 07/17/2016 Gastrointestinal No abdominal pain 2015 Genitourinary/Nephrology No dysuria 07/17 Musculoskeletal back pain 07/17/2016 Dermatologic No rash 07/17/2016 Dermatologic No sores 07/17/2016 Neurologic No alteration of consciousness 07/17/2016 Constitutional No recent illness 2015 Constitutional No anorexia 03/01/2016 Constitutional No night sweats 2015 Constitutional No chills 03/01/2016 Constitutional No diaphoresis 03/01/2016 Constitutional No fatigue 03/01/2016 Constitutional No fever 03/01/2016 Constitutional No insomnia 03/01/2016 Constitutional No malaise 03/01/2016 Constitutional No weight loss 03/01/2016 Constitutional No weight gain 03/01/2016 Eyes No eye erythema 03/01/2016 Eyes No eye discharge 03/01/2016 Ears/Nose/Throat/Neck dizziness 2015 Ears/Nose/Throat/Neck No headache 2015 Cardiovascular No chest pain/pressure Cardiovascular No dyspnea 03/01/2016 Cardiovascular No edema 03/01/2016 Respiratory No productive sputum 2015 Respiratory No chest congestion 2015 Respiratory No cough 03/01/2016 Respiratory dyspnea on exertion 2015 Gastrointestinal No abdominal pain 2015 Gastrointestinal No constipation 2015 Gastrointestinal No diarrhea 03/01/2016 Genitourinary/Nephrology No dysuria 03/01 Musculoskeletal No back pain 03/01/2016 Dermatologic No rash 03/01/2016 Dermatologic No sores 03/01/2016 Neurologic No alteration of consciousness 03/01/2016 Psychiatric No anxiety 03/01/2016 Endocrine No dry or coarse skin 2015 Constitutional No anorexia 11/03/2015 Constitutional No night sweats 2014 Constitutional No chills 11/03/2015 Constitutional No diaphoresis 11/03/2015 Constitutional fatigue 11/03/2015 Constitutional No fever 11/03/2015 Constitutional No insomnia 11/03/2015 Constitutional No malaise 11/03/2015 Eyes No eye discharge 11/03/2015 Eyes No eye erythema 11/03/2015 Ears/Nose/Throat/Neck No dizziness 2014 Ears/Nose/Throat/Neck No headache 2014 Cardiovascular chest pain/pressure 2014 Cardiovascular No edema 11/03/2015 Cardiovascular exercise intolerance 11/03 Respiratory No productive sputum 2014 Respiratory No chest congestion 2014 Respiratory No cough 11/03/2015 Respiratory dyspnea on exertion 2014 Gastrointestinal No abdominal pain 2014 Gastrointestinal No constipation 2014 Gastrointestinal No diarrhea 11/03/2015 Dermatologic No rash 11/03/2015 Neurologic No alteration of consciousness 11/03/2015 Psychiatric No anxiety 11/03/2015 Psychiatric No depression 11/03/2015 Constitutional No recent illness 2014 Gastrointestinal No gastroesophageal reflux 11/03/2015 Gastrointestinal No vomiting 11/03/2015 Genitourinary/Nephrology No dysuria 11/03 Musculoskeletal joint complaint 2014 Constitutional No anorexia 10/19/2015 Constitutional No night sweats 2014 Constitutional No chills 10/19/2015 Constitutional No diaphoresis 10/19/2015 Constitutional fatigue 10/19/2015 Constitutional No fever 10/19/2015 Constitutional No insomnia 10/19/2015 Constitutional No malaise 10/19/2015 Eyes No eye discharge 10/19/2015 Eyes No eye erythema 10/19/2015 Ears/Nose/Throat/Neck No dizziness 2014 Ears/Nose/Throat/Neck No headache 2014 Cardiovascular No edema 10/19/2015 Respiratory No productive sputum 2014 Respiratory No cough 10/19/2015 Respiratory dyspnea on exertion 2014 Gastrointestinal No abdominal pain 2014 Gastrointestinal No constipation 2014 Gastrointestinal No diarrhea 10/19/2015 Dermatologic No rash 10/19/2015 Neurologic No alteration of consciousness 10/19/2015 Psychiatric No anxiety 10/19/2015 Psychiatric No depression 10/19/2015 Cardiovascular exercise intolerance 10/19 Cardiovascular chest pain/pressure 2014 Respiratory No chest congestion 2014 Constitutional No recent illness 2014 Constitutional No anorexia 08/04/2015 Constitutional No night sweats 2014 Constitutional No chills 08/04/2015 Constitutional No diaphoresis 08/04/2015 Constitutional No fatigue 08/04/2015 Constitutional No fever 08/04/2015 Constitutional No insomnia 08/04/2015 Constitutional No malaise 08/04/2015 Constitutional No weight loss 08/04/2015 Constitutional No weight gain 08/04/2015 Eyes No eye discharge 08/04/2015 Eyes No eye erythema 08/04/2015 Ears/Nose/Throat/Neck No dizziness 2014 Ears/Nose/Throat/Neck No headache 2014 Cardiovascular No chest pain/pressure 01/2015 Cardiovascular No dyspnea 08/04/2015 Cardiovascular No edema 08/04/2015 Respiratory No productive sputum 2014 Respiratory No chest congestion 2014 Respiratory No cough 08/04/2015 Respiratory dyspnea on exertion 2014 Gastrointestinal No abdominal pain 2014 Gastrointestinal No constipation 2014 Gastrointestinal No diarrhea 08/04/2015 Genitourinary/Nephrology No dysuria 08/04 Gastrointestinal gastroesophageal reflux 08/04/2015 Musculoskeletal joint complaint 2014 Dermatologic No rash 08/04/2015 Neurologic No alteration of consciousness 08/04/2015 Psychiatric No anxiety 08/04/2015 Psychiatric No depression 08/04/2015 Endocrine No dry or coarse skin 2014 Hematologic/Lymphatic No abnormal bleeding and bruising 08/04/2015 Constitutional recent illness 07/21/2015 Constitutional No night sweats 2014 Constitutional anorexia 07/21/2015 Constitutional No chills 07/21/2015 Constitutional No diaphoresis 07/21/2015 Constitutional No fatigue 07/21/2015 Constitutional No fever 07/21/2015 Constitutional No insomnia 07/21/2015 Constitutional No malaise 07/21/2015 Constitutional No weight loss 07/21/2015 Constitutional No weight gain 07/21/2015 Eyes No eye discharge 07/21/2015 Eyes No eye erythema 07/21/2015 Ears/Nose/Throat/Neck No dizziness 2014 Ears/Nose/Throat/Neck No headache 2014 Cardiovascular No chest pain/pressure Cardiovascular No dyspnea 07/21/2015 Cardiovascular No edema 07/21/2015 Respiratory No productive sputum 2014 Respiratory No cough 07/21/2015 Gastrointestinal No abdominal pain 2014 Gastrointestinal No constipation 2014 Gastrointestinal diarrhea 07/21/2015 Gastrointestinal gas and bloating 2014 Gastrointestinal nausea 07/21/2015 Gastrointestinal No vomiting 07/21/2015 Genitourinary/Nephrology No dysuria 07/21 Musculoskeletal No joint complaint 2014 Dermatologic No sores 07/21/2015 Neurologic No alteration of consciousness 07/21/2015 Constitutional No recent illness 2014 Constitutional No anorexia 06/14/2015 Constitutional No night sweats 2014 Constitutional No chills 06/14/2015 Constitutional No diaphoresis 06/14/2015 Constitutional fatigue 06/14/2015 Constitutional No fever 06/14/2015 Constitutional No insomnia 06/14/2015 Constitutional No malaise 06/14/2015 Constitutional No weight loss 06/14/2015 Constitutional No weight gain 06/14/2015 Eyes No eye discharge 06/14/2015 Eyes No eye erythema 06/14/2015 Ears/Nose/Throat/Neck dizziness 2014 Ears/Nose/Throat/Neck No headache 2014 Ears/Nose/Throat/Neck No nasal discharge 06/14/2015 Ears/Nose/Throat/Neck No nasal allergies 06/14/2015 Cardiovascular No chest pain/pressure Cardiovascular No dyspnea 06/14/2015 Cardiovascular No edema 06/14/2015 Respiratory No productive sputum 2014 Respiratory No chest congestion 2014 Respiratory No cough 06/14/2015 Respiratory No cigarette smoking 2014 Gastrointestinal No abdominal pain 2014 Gastrointestinal No diarrhea 06/14/2015 Gastrointestinal No constipation 2014 Genitourinary/Nephrology No dysuria 06/14 Musculoskeletal back pain 06/14/2015 Dermatologic No rash 06/14/2015 Neurologic No alteration of consciousness 06/14/2015 Psychiatric No anxiety 06/14/2015 Psychiatric depression 06/14/2015 Constitutional No insomnia 04/06/2015 Ears/Nose/Throat/Neck No nasal allergies 04/06/2015 Cardiovascular No chest pain/pressure 05/2015 Cardiovascular No dyspnea 04/06/2015 Cardiovascular No edema 04/06/2015 Respiratory No chest congestion 2014 Respiratory No cough 04/06/2015 Gastrointestinal No abdominal pain 2014 Gastrointestinal No constipation 2014 Gastrointestinal No diarrhea 04/06/2015 Genitourinary/Nephrology No dysuria 04/06 Genitourinary/Nephrology No nocturia 05/2015 Psychiatric No anxiety 04/06/2015 Psychiatric No depression 04/06/2015 Neurologic No dizziness 04/06/2015 Neurologic gait abnormality 04/06/2015 Dermatologic No rash 04/06/2015 Dermatologic No sores 04/06/2015 Musculoskeletal joint complaint 2014 Musculoskeletal muscle weakness 2014 Musculoskeletal myalgias 04/06/2015 Musculoskeletal back pain 04/06/2015 Musculoskeletal arthralgia(s) 04/06/2015 Physical Exam Exam Name System Name Item Name Status Result Effective Dates Notes Full Exam - ENT Constitutional general appearance Overall: well nourished 12/31/2017 None Full Exam - ENT Constitutional general appearance Overall: well developed 12/31/2017 None Full Exam - ENT Constitutional general appearance Overall: in no acute distress 12/31/2017 None Full Exam - ENT Ears/Nose/Throat lips/ teeth/gingiva Overall: benign lips 12/31/2017 None Full Exam - ENT Ears/Nose/Throat oropharynx Overall: oral mucosa clear 12/31/2017 None Full Exam - ENT Ears/Nose/Throat oropharynx Posterior Pharynx: clear post nasal drainage 12/31/2017 None Full Exam - ENT Ears/Nose/Throat oropharynx Posterior Pharynx: erythema 12/31/2017 None Full Exam - ENT Ears/Nose/Throat otoscopic exam Overall: tympanic membranes normal 12/31/2017 None Full Exam - ENT Ears/Nose/Throat otoscopic exam Overall: external auditory canals normal 12/31/2017 None Full Exam - ENT Respiratory auscultation Overall: breath sounds clear bilaterally 12/31/2017 None Full Exam - ENT Respiratory inspection Overall: normal rate None Full Exam - ENT Respiratory inspection Overall: no retractions 12/31/2017 None Full Exam - ENT Cardiovascular auscultation of heart Murmur: previously known murmur unchanged 12/31/2017 None Full Exam - ENT Lymphatic palpation of lymph nodes Overall: shotty lymphadenopathy 12/31/2017 None Full Exam - ENT Musculoskeletal head and neck Overall: head atraumatic 12/31/2017 None Full Exam - ENT Neurologic mood and affect Overall: normal mood 12/31/2017 None Full Exam - ENT Neurologic mood and affect Overall: normal affect 12/31/2017 None Full Exam - ENT Neurologic orientation Overall: oriented to person, place and time 12/31/2017 None Full Exam - General 1994 Constitutional general appearance Development: well developed 10/08/2017 None Full Exam - General 1994 Constitutional general appearance Development: appears stated age 1110/08/2017 None Full Exam - General 1994 Eyes conjunctiva /eyelids Overall: conjunctiva clear 10/08/2017 None Full Exam - General 1994 Eyes conjunctiva /eyelids Overall: cornea clear 10/08/2017 None Full Exam - General 1994 Eyes pupils and irises Overall: pupils equal, round, reactive to light and accomodation 10/08/2017 None Full Exam - General 1994 Ears/Nose/Throat otoscopic exam Overall: external auditory canals clear 10/08/2017 None Full Exam - General 1994 Ears/Nose/Throat otoscopic exam Overall: tympanic membranes clear 10/08/2017 None Full Exam - General 1994 Ears/Nose/Throat lips/teeth/gingiva Overall: benign lips 10/08/2017 None Full Exam - General 1994 Ears/Nose/Throat lips/teeth/gingiva Overall: normal dentition 10/08/2017 None Full Exam - General 1994 Ears/Nose/Throat oral cavity/pharynx/larynx Overall: oral mucosa clear 10/08/2017 None Full Exam - General 1994 Neck thyroid Overall: normal size 06/2017 None Full Exam - General 1994 Neck thyroid Overall: normal consistency 10/08/2017 None Full Exam - General 1994 Neck inspection of neck Overall: normal size 10/08/2017 None Full Exam - General 1994 Neck inspection of neck Overall: normal appearance 10/08/2017 None Full Exam - General 1994 Respiratory auscultation Overall: breath sounds clear bilaterally 10/08/2017 None Full Exam - General 1994 Respiratory respiratory effort/rhythm Overall: no retractions 10/08/2017 None Full Exam - General 1994 Respiratory respiratory effort/rhythm Overall: normal rate 10/08/2017 None Full Exam - General 1994 Cardiovascular auscultation of heart Overall: regular rate 10/08/2017 None Full Exam - General 1994 Cardiovascular auscultation of heart Murmur: previously known murmur unchanged 10/08/2017 None Full Exam - General 1994 Cardiovascular auscultation of heart Systolic murmur: holosystolic 10/08/2017 None Full Exam - General 1994 Cardiovascular auscultation of heart Systolic murmur grade: II/ 10/08/2017 None Full Exam - General 1994 Musculoskeletal spine, ribs and pelvis Spine: decreased flexion 10/08/2017 None Full Exam - General 1994 Musculoskeletal spine, ribs and pelvis Spine: decreased extension 10/08/2017 None Full Exam - General 1994 Musculoskeletal gait and station Gait: asymmetric 10/08/2017 None Full Exam - General 1994 Integument inspection of skin Overall: few scattered moles, no gross abnormalities 10/08/2017 None Full Exam - General 1994 Psychiatric orientation/consciousness Overall: oriented to person, place and time 10/08/2017 None Full Exam - General 1994 Constitutional general appearance Development: well developed 08/01/2017 None Full Exam - General 1994 Constitutional general appearance Development: appears stated age 0808/01/2017 None Full Exam - General 1994 Eyes conjunctiva /eyelids Overall: conjunctiva clear 08/01/2017 None Full Exam - General 1994 Eyes conjunctiva /eyelids Overall: cornea clear 08/01/2017 None Full Exam - General 1994 Eyes pupils and irises Overall: pupils equal, round, reactive to light and accomodation 08/01/2017 None Full Exam - General 1994 Ears/Nose/Throat otoscopic exam Overall: external auditory canals clear 08/01/2017 None Full Exam - General 1994 Ears/Nose/Throat otoscopic exam Overall: tympanic membranes clear 08/01/2017 None Full Exam - General 1994 Ears/Nose/Throat lips/teeth/gingiva Overall: benign lips 08/01/2017 None Full Exam - General 1994 Ears/Nose/Throat lips/teeth/gingiva Overall: normal dentition 08/01/2017 None Full Exam - General 1994 Ears/Nose/Throat oral cavity/pharynx/larynx Overall: oral mucosa clear 08/01/2017 None Full Exam - General 1994 Neck thyroid Overall: normal size None Full Exam - General 1994 Neck thyroid Overall: normal consistency 08/01/2017 None Full Exam - General 1994 Neck inspection of neck Overall: normal size 08/01/2017 None Full Exam - General 1994 Neck inspection of neck Overall: normal appearance 08/01/2017 None Full Exam - General 1994 Respiratory auscultation Overall: breath sounds clear bilaterally 08/01/2017 None Full Exam - General 1994 Respiratory respiratory effort/rhythm Overall: no retractions 08/01/2017 None Full Exam - General 1994 Respiratory respiratory effort/rhythm Overall: normal rate 08/01/2017 None Full Exam - General 1994 Cardiovascular auscultation of heart Overall: regular rate 08/01/2017 None Full Exam - General 1994 Cardiovascular auscultation of heart Murmur: previously known murmur unchanged 08/01/2017 None Full Exam - General 1994 Cardiovascular auscultation of heart Systolic murmur: holosystolic 08/01/2017 None Full Exam - General 1994 Cardiovascular auscultation of heart Systolic murmur grade: II/ 08/01/2017 None Full Exam - General 1994 Abdomen abdominal exam Bowel sounds: hypoactive 08/01/2017 None Full Exam - General 1994 Musculoskeletal spine, ribs and pelvis Spine: decreased flexion 08/01/2017 None Full Exam - General 1994 Musculoskeletal spine, ribs and pelvis Spine: decreased extension 08/01/2017 None Full Exam - General 1994 Musculoskeletal gait and station Gait: asymmetric 08/01/2017 None Full Exam - General 1994 Integument inspection of skin Overall: few scattered moles, no gross abnormalities 08/01/2017 None Full Exam - General 1994 Psychiatric orientation/consciousness Overall: oriented to person, place and time 08/01/2017 None Full Exam - General 1994 Abdomen abdominal exam Contour: rounded 08/01/2017 None Full Exam - General 1994 Constitutional general appearance Development: well developed 04/08/2017 None Full Exam - General 1994 Constitutional general appearance Development: appears stated age 0504/08/2017 None Full Exam - General 1994 Eyes conjunctiva /eyelids Overall: conjunctiva clear 04/08/2017 None Full Exam - General 1994 Eyes conjunctiva /eyelids Overall: cornea clear 04/08/2017 None Full Exam - General 1994 Eyes pupils and irises Overall: pupils equal, round, reactive to light and accomodation 04/08/2017 None Full Exam - General 1994 Ears/Nose/Throat otoscopic exam Overall: external auditory canals clear 04/08/2017 None Full Exam - General 1994 Ears/Nose/Throat otoscopic exam Overall: tympanic membranes clear 04/08/2017 None Full Exam - General 1994 Ears/Nose/Throat lips/teeth/gingiva Overall: benign lips 04/08/2017 None Full Exam - General 1994 Ears/Nose/Throat lips/teeth/gingiva Overall: normal dentition 04/08/2017 None Full Exam - General 1994 Ears/Nose/Throat oral cavity/pharynx/larynx Overall: oral mucosa clear 04/08/2017 None Full Exam - General 1994 Neck thyroid Overall: normal size 07/2017 None Full Exam - General 1994 Neck thyroid Overall: normal consistency 04/08/2017 None Full Exam - General 1994 Neck inspection of neck Overall: normal size 04/08/2017 None Full Exam - General 1994 Neck inspection of neck Overall: normal appearance 04/08/2017 None Full Exam - General 1994 Respiratory auscultation Overall: breath sounds clear bilaterally 04/08/2017 None Full Exam - General 1994 Respiratory respiratory effort/rhythm Overall: no retractions 04/08/2017 None Full Exam - General 1994 Respiratory respiratory effort/rhythm Overall: normal rate 04/08/2017 None Full Exam - General 1994 Cardiovascular auscultation of heart Overall: regular rate 04/08/2017 None Full Exam - General 1994 Cardiovascular auscultation of heart Murmur: previously known murmur unchanged 04/08/2017 None Full Exam - General 1994 Cardiovascular auscultation of heart Systolic murmur: holosystolic 04/08/2017 None Full Exam - General 1994 Cardiovascular auscultation of heart Systolic murmur grade: II/ 04/08/2017 None Full Exam - General 1994 Abdomen abdominal exam Bowel sounds: hypoactive 04/08/2017 None Full Exam - General 1994 Abdomen abdominal exam Upper quadrant: non-tender to palpation 04/08/2017 None Full Exam - General 1994 Abdomen abdominal exam Lower quadrant: tender to palpation 04/08/2017 None Full Exam - General 1994 Abdomen abdominal exam Periumbilical: non-tender to palpation 04/08/2017 None Full Exam - General 1994 Musculoskeletal spine, ribs and pelvis Spine: decreased flexion 04/08/2017 None Full Exam - General 1994 Musculoskeletal spine, ribs and pelvis Spine: decreased extension 04/08/2017 None Full Exam - General 1994 Musculoskeletal gait and station Gait: asymmetric 04/08/2017 None Full Exam - General 1994 Integument inspection of skin Overall: few scattered moles, no gross abnormalities 04/08/2017 None Full Exam - General 1994 Psychiatric orientation/consciousness Overall: oriented to person, place and time 04/08/2017 None Full Exam - General 1994 Constitutional general appearance Development: well developed 03/28/2017 None Full Exam - General 1994 Constitutional general appearance Development: appears stated age 0403/28/2017 None Full Exam - General 1994 Eyes conjunctiva /eyelids Overall: conjunctiva clear 03/28/2017 None Full Exam - General 1994 Eyes conjunctiva /eyelids Overall: cornea clear 03/28/2017 None Full Exam - General 1994 Eyes pupils and irises Overall: pupils equal, round, reactive to light and accomodation 03/28/2017 None Full Exam - General 1994 Ears/Nose/Throat otoscopic exam Overall: external auditory canals clear 03/28/2017 None Full Exam - General 1994 Ears/Nose/Throat otoscopic exam Overall: tympanic membranes clear 03/28/2017 None Full Exam - General 1994 Ears/Nose/Throat lips/teeth/gingiva Overall: benign lips 03/28/2017 None Full Exam - General 1994 Ears/Nose/Throat lips/teeth/gingiva Overall: normal dentition 03/28/2017 None Full Exam - General 1994 Ears/Nose/Throat oral cavity/pharynx/larynx Overall: oral mucosa clear 03/28/2017 None Full Exam - General 1994 Neck thyroid Overall: normal size None Full Exam - General 1994 Neck thyroid Overall: normal consistency 03/28/2017 None Full Exam - General 1994 Neck inspection of neck Overall: normal size 03/28/2017 None Full Exam - General 1994 Neck inspection of neck Overall: normal appearance 03/28/2017 None Full Exam - General 1994 Respiratory auscultation Overall: breath sounds clear bilaterally 03/28/2017 None Full Exam - General 1994 Respiratory respiratory effort/rhythm Overall: no retractions 03/28/2017 None Full Exam - General 1994 Respiratory respiratory effort/rhythm Overall: normal rate 03/28/2017 None Full Exam - General 1994 Cardiovascular auscultation of heart Overall: regular rate 03/28/2017 None Full Exam - General 1994 Cardiovascular auscultation of heart Murmur: previously known murmur unchanged 03/28/2017 None Full Exam - General 1994 Cardiovascular auscultation of heart Systolic murmur grade: II/ 03/28/2017 None Full Exam - General 1994 Cardiovascular auscultation of heart Systolic murmur: holosystolic 03/28/2017 None Full Exam - General 1994 Abdomen abdominal exam Bowel sounds: hypoactive 03/28/2017 None Full Exam - General 1994 Abdomen abdominal exam Upper quadrant: non-tender to palpation 03/28/2017 None Full Exam - General 1994 Abdomen abdominal exam Lower quadrant: tender to palpation 03/28/2017 None Full Exam - General 1994 Abdomen abdominal exam Lower quadrant: sharp pain 03/28/2017 None Full Exam - General 1994 Abdomen abdominal exam Lower quadrant: voluntary guarding 03/28/2017 None Full Exam - General 1994 Abdomen abdominal exam Periumbilical: non-tender to palpation 03/28/2017 None Full Exam - General 1994 Psychiatric orientation/consciousness Overall: oriented to person, place and time 03/28/2017 None Full Exam - General 1994 Integument inspection of skin Overall: few scattered moles, no gross abnormalities 03/28/2017 None Full Exam - General 1994 Musculoskeletal gait and station Gait: asymmetric 03/28/2017 None Full Exam - General 1994 Musculoskeletal spine, ribs and pelvis Spine: decreased flexion 03/28/2017 None Full Exam - General 1994 Musculoskeletal spine, ribs and pelvis Spine: decreased extension 03/28/2017 None Full Exam - General 1994 Constitutional general appearance Development: well developed 09/03/2016 None Full Exam - General 1994 Constitutional general appearance Development: appears stated age 1009/03/2016 None Full Exam - General 1994 Constitutional general appearance Hygiene/Attention to Grooming: good hygiene 09/03/2016 None Full Exam - General 1994 Eyes conjunctiva /eyelids Overall: conjunctiva clear 09/03/2016 None Full Exam - General 1994 Eyes conjunctiva /eyelids Overall: cornea clear 09/03/2016 None Full Exam - General 1994 Eyes conjunctiva /eyelids Overall: eyelids normal 09/03/2016 None Full Exam - General 1994 Eyes pupils and irises Overall: pupils equal, round, reactive to light and accomodation 09/03/2016 None Full Exam - General 1994 Ears/Nose/Throat otoscopic exam Overall: external auditory canals clear 09/03/2016 None Full Exam - General 1994 Ears/Nose/Throat otoscopic exam Overall: tympanic membranes clear 09/03/2016 None Full Exam - General 1994 Ears/Nose/Throat lips/teeth/gingiva Overall: benign lips 09/03/2016 None Full Exam - General 1994 Ears/Nose/Throat lips/teeth/gingiva Overall: normal dentition 09/03/2016 None Full Exam - General 1994 Ears/Nose/Throat oral cavity/pharynx/larynx Overall: oral mucosa clear 09/03/2016 None Full Exam - General 1994 Ears/Nose/Throat oral cavity/pharynx/larynx Overall: oropharyngeal mucosa clear 09/03/2016 None Full Exam - General 1994 Ears/Nose/Throat oral cavity/pharynx/larynx Overall: hypopharynx benign 09/03/2016 None Full Exam - General 1994 Ears/Nose/Throat oral cavity/pharynx/larynx Overall: no masses 09/03/2016 None Full Exam - General 1994 Respiratory auscultation Overall: breath sounds clear bilaterally 09/03/2016 None Full Exam - General 1994 Respiratory respiratory effort/rhythm Overall: no retractions 09/03/2016 None Full Exam - General 1994 Respiratory respiratory effort/rhythm Overall: normal rate 09/03/2016 None Full Exam - General 1994 Cardiovascular extremities Overall: no clubbing 09/03/2016 None Full Exam - General 1994 Cardiovascular extremities Edema present: pitting 09/03/2016 None Full Exam - General 1994 Cardiovascular extremities Edema present: severity 1+ 09/03/2016 None Full Exam - General 1994 Cardiovascular auscultation of heart Overall: regular rate 09/03/2016 None Full Exam - General 1994 Cardiovascular auscultation of heart Overall: normal heart sounds 09/03/2016 None Full Exam - General 1994 Cardiovascular auscultation of heart Systolic murmur: holosystolic 09/03/2016 None Full Exam - General 1994 Cardiovascular auscultation of heart Systolic murmur grade: II/ 09/03/2016 None Full Exam - General 1994 Abdomen abdominal exam Overall: no tenderness 09/03/2016 None Full Exam - General 1994 Abdomen abdominal exam Overall: normal bowel sounds 09/03/2016 None Full Exam - General 1994 Abdomen abdominal exam Contour: rounded 09/03/2016 None Full Exam - General 1994 Lymphatic neck nodes Overall: anterior cervical chain benign 09/03/2016 None Full Exam - General 1994 Lymphatic neck nodes Overall: posterior cervical chain benign 09/03/2016 None Full Exam - General 1994 Integument inspection of skin Overall: few scattered moles, no gross abnormalities 09/03/2016 None Full Exam - General 1994 Neurologic deep tendon reflexes Overall: deep tendon reflexes intact 09/03/2016 None Full Exam - General 1994 Neurologic cranial nerves Overall: crainial nerves 2 - 12 grossly intact 09/03/2016 None Full Exam - General 1994 Psychiatric orientation/consciousness Overall: oriented to person, place and time 09/03/2016 None Full Exam - General 1994 Psychiatric mood and affect Overall: normal mood and affect 09/03/2016 None Full Exam - General 1994 Constitutional general appearance Development: well developed 08/31/2016 None Full Exam - General 1994 Constitutional general appearance Development: appears stated age 0908/31/2016 None Full Exam - General 1994 Constitutional general appearance Hygiene/Attention to Grooming: good hygiene 08/31/2016 None Full Exam - General 1994 Eyes conjunctiva /eyelids Overall: conjunctiva clear 08/31/2016 None Full Exam - General 1994 Eyes conjunctiva /eyelids Overall: cornea clear 08/31/2016 None Full Exam - General 1994 Eyes conjunctiva /eyelids Overall: eyelids normal 08/31/2016 None Full Exam - General 1994 Eyes pupils and irises Overall: pupils equal, round, reactive to light and accomodation 08/31/2016 None Full Exam - General 1994 Ears/Nose/Throat otoscopic exam Overall: external auditory canals clear 08/31/2016 None Full Exam - General 1994 Ears/Nose/Throat otoscopic exam Overall: tympanic membranes clear 08/31/2016 None Full Exam - General 1994 Ears/Nose/Throat lips/teeth/gingiva Overall: benign lips 08/31/2016 None Full Exam - General 1994 Ears/Nose/Throat lips/teeth/gingiva Overall: normal dentition 08/31/2016 None Full Exam - General 1994 Ears/Nose/Throat oral cavity/pharynx/larynx Overall: oral mucosa clear 08/31/2016 None Full Exam - General 1994 Ears/Nose/Throat oral cavity/pharynx/larynx Overall: oropharyngeal mucosa clear 08/31/2016 None Full Exam - General 1994 Ears/Nose/Throat oral cavity/pharynx/larynx Overall: hypopharynx benign 08/31/2016 None Full Exam - General 1994 Ears/Nose/Throat oral cavity/pharynx/larynx Overall: no masses 08/31/2016 None Full Exam - General 1994 Respiratory auscultation Overall: breath sounds clear bilaterally 08/31/2016 None Full Exam - General 1994 Respiratory respiratory effort/rhythm Overall: no retractions 08/31/2016 None Full Exam - General 1994 Respiratory respiratory effort/rhythm Overall: normal rate 08/31/2016 None Full Exam - General 1994 Cardiovascular extremities Overall: no clubbing 08/31/2016 None Full Exam - General 1994 Cardiovascular extremities Edema present: pitting 08/31/2016 None Full Exam - General 1994 Cardiovascular extremities Edema present: severity 1+ 08/31/2016 None Full Exam - General 1994 Cardiovascular auscultation of heart Overall: regular rate 08/31/2016 None Full Exam - General 1994 Cardiovascular auscultation of heart Overall: normal heart sounds 08/31/2016 None Full Exam - General 1994 Cardiovascular auscultation of heart Systolic murmur: holosystolic 08/31/2016 None Full Exam - General 1994 Cardiovascular auscultation of heart Systolic murmur grade: II/ 08/31/2016 None Full Exam - General 1994 Abdomen abdominal exam Overall: no tenderness 08/31/2016 None Full Exam - General 1994 Abdomen abdominal exam Overall: normal bowel sounds 08/31/2016 None Full Exam - General 1994 Abdomen abdominal exam Contour: rounded 08/31/2016 None Full Exam - General 1994 Lymphatic neck nodes Overall: anterior cervical chain benign 08/31/2016 None Full Exam - General 1994 Lymphatic neck nodes Overall: posterior cervical chain benign 08/31/2016 None Full Exam - General 1994 Integument inspection of skin Overall: few scattered moles, no gross abnormalities 08/31/2016 None Full Exam - General 1994 Neurologic deep tendon reflexes Overall: deep tendon reflexes intact 08/31/2016 None Full Exam - General 1994 Neurologic cranial nerves Overall: crainial nerves 2 - 12 grossly intact 08/31/2016 None Full Exam - General 1994 Psychiatric orientation/consciousness Overall: oriented to person, place and time 08/31/2016 None Full Exam - General 1994 Psychiatric mood and affect Overall: normal mood and affect 08/31/2016 None Full Exam - General 1994 Constitutional general appearance Development: well developed 03/01/2016 None Full Exam - General 1994 Constitutional general appearance Development: appears stated age 0303/01/2016 None Full Exam - General 1994 Constitutional general appearance Hygiene/Attention to Grooming: good hygiene 03/01/2016 None Full Exam - General 1994 Eyes conjunctiva /eyelids Overall: conjunctiva clear 03/01/2016 None Full Exam - General 1994 Eyes conjunctiva /eyelids Overall: cornea clear 03/01/2016 None Full Exam - General 1994 Eyes conjunctiva /eyelids Overall: eyelids normal 03/01/2016 None Full Exam - General 1994 Eyes pupils and irises Overall: pupils equal, round, reactive to light and accomodation 03/01/2016 None Full Exam - General 1994 Ears/Nose/Throat otoscopic exam Overall: external auditory canals clear 03/01/2016 None Full Exam - General 1994 Ears/Nose/Throat otoscopic exam Overall: tympanic membranes clear 03/01/2016 None Full Exam - General 1994 Ears/Nose/Throat lips/teeth/gingiva Overall: benign lips 03/01/2016 None Full Exam - General 1994 Ears/Nose/Throat lips/teeth/gingiva Overall: normal dentition 03/01/2016 None Full Exam - General 1994 Ears/Nose/Throat oral cavity/pharynx/larynx Overall: oral mucosa clear 03/01/2016 None Full Exam - General 1994 Ears/Nose/Throat oral cavity/pharynx/larynx Overall: oropharyngeal mucosa clear 03/01/2016 None Full Exam - General 1994 Ears/Nose/Throat oral cavity/pharynx/larynx Overall: hypopharynx benign 03/01/2016 None Full Exam - General 1994 Ears/Nose/Throat oral cavity/pharynx/larynx Overall: no masses 03/01/2016 None Full Exam - General 1994 Respiratory auscultation Overall: breath sounds clear bilaterally 03/01/2016 None Full Exam - General 1994 Respiratory respiratory effort/rhythm Overall: no retractions 03/01/2016 None Full Exam - General 1994 Respiratory respiratory effort/rhythm Overall: normal rate 03/01/2016 None Full Exam - General 1994 Cardiovascular extremities Overall: no clubbing 03/01/2016 None Full Exam - General 1994 Cardiovascular extremities Edema present: pitting 03/01/2016 None Full Exam - General 1994 Cardiovascular extremities Edema present: severity 1+ 03/01/2016 None Full Exam - General 1994 Cardiovascular auscultation of heart Overall: regular rate 03/01/2016 None Full Exam - General 1994 Cardiovascular auscultation of heart Overall: normal heart sounds 03/01/2016 None Full Exam - General 1994 Cardiovascular auscultation of heart Systolic murmur: holosystolic 03/01/2016 None Full Exam - General 1994 Cardiovascular auscultation of heart Systolic murmur grade: II/ 03/01/2016 None Full Exam - General 1994 Abdomen abdominal exam Overall: no tenderness 03/01/2016 None Full Exam - General 1994 Abdomen abdominal exam Overall: normal bowel sounds 03/01/2016 None Full Exam - General 1994 Abdomen abdominal exam Contour: rounded 03/01/2016 None Full Exam - General 1994 Lymphatic neck nodes Overall: anterior cervical chain benign 03/01/2016 None Full Exam - General 1994 Lymphatic neck nodes Overall: posterior cervical chain benign 03/01/2016 None Full Exam - General 1994 Integument inspection of skin Overall: few scattered moles, no gross abnormalities 03/01/2016 None Full Exam - General 1994 Neurologic deep tendon reflexes Overall: deep tendon reflexes intact 03/01/2016 None Full Exam - General 1994 Neurologic cranial nerves Overall: crainial nerves 2 - 12 grossly intact 03/01/2016 None Full Exam - General 1994 Psychiatric orientation/consciousness Overall: oriented to person, place and time 03/01/2016 None Full Exam - General 1994 Psychiatric mood and affect Overall: normal mood and affect 03/01/2016 None Full Exam - General 1994 Constitutional general appearance Development: well developed 11/03/2015 None Full Exam - General 1994 Constitutional general appearance Development: appears stated age 1211/03/2015 None Full Exam - General 1994 Constitutional general appearance Hygiene/Attention to Grooming: good hygiene 11/03/2015 None Full Exam - General 1994 Eyes conjunctiva /eyelids Overall: conjunctiva clear 11/03/2015 None Full Exam - General 1994 Eyes conjunctiva /eyelids Overall: cornea clear 11/03/2015 None Full Exam - General 1994 Eyes conjunctiva /eyelids Overall: eyelids normal 11/03/2015 None Full Exam - General 1994 Eyes pupils and irises Overall: pupils equal, round, reactive to light and accomodation 11/03/2015 None Full Exam - General 1994 Ears/Nose/Throat otoscopic exam Overall: external auditory canals clear 11/03/2015 None Full Exam - General 1994 Ears/Nose/Throat otoscopic exam Overall: tympanic membranes clear 11/03/2015 None Full Exam - General 1994 Ears/Nose/Throat lips/teeth/gingiva Overall: benign lips 11/03/2015 None Full Exam - General 1994 Ears/Nose/Throat lips/teeth/gingiva Overall: normal dentition 11/03/2015 None Full Exam - General 1994 Ears/Nose/Throat oral cavity/pharynx/larynx Overall: oral mucosa clear 11/03/2015 None Full Exam - General 1994 Ears/Nose/Throat oral cavity/pharynx/larynx Overall: oropharyngeal mucosa clear 11/03/2015 None Full Exam - General 1994 Ears/Nose/Throat oral cavity/pharynx/larynx Overall: hypopharynx benign 11/03/2015 None Full Exam - General 1994 Ears/Nose/Throat oral cavity/pharynx/larynx Overall: no masses 11/03/2015 None Full Exam - General 1994 Respiratory auscultation Overall: breath sounds clear bilaterally 11/03/2015 None Full Exam - General 1994 Respiratory respiratory effort/rhythm Overall: no retractions 11/03/2015 None Full Exam - General 1994 Respiratory respiratory effort/rhythm Overall: normal rate 11/03/2015 None Full Exam - General 1994 Cardiovascular extremities Overall: no clubbing 11/03/2015 None Full Exam - General 1994 Cardiovascular extremities Edema present: pitting 11/03/2015 None Full Exam - General 1994 Cardiovascular extremities Edema present: severity 1+ 11/03/2015 None Full Exam - General 1994 Cardiovascular auscultation of heart Overall: regular rate 11/03/2015 None Full Exam - General 1994 Cardiovascular auscultation of heart Overall: normal heart sounds 11/03/2015 None Full Exam - General 1994 Cardiovascular auscultation of heart Systolic murmur: holosystolic 11/03/2015 None Full Exam - General 1994 Cardiovascular auscultation of heart Systolic murmur grade: II/ 11/03/2015 None Full Exam - General 1994 Abdomen abdominal exam Overall: no tenderness 11/03/2015 None Full Exam - General 1994 Abdomen abdominal exam Overall: normal bowel sounds 11/03/2015 None Full Exam - General 1994 Abdomen abdominal exam Contour: rounded 11/03/2015 None Full Exam - General 1994 Lymphatic neck nodes Overall: anterior cervical chain benign 11/03/2015 None Full Exam - General 1994 Lymphatic neck nodes Overall: posterior cervical chain benign 11/03/2015 None Full Exam - General 1994 Integument inspection of skin Overall: few scattered moles, no gross abnormalities 11/03/2015 None Full Exam - General 1994 Neurologic deep tendon reflexes Overall: deep tendon reflexes intact 11/03/2015 None Full Exam - General 1994 Neurologic cranial nerves Overall: crainial nerves 2 - 12 grossly intact 11/03/2015 None Full Exam - General 1994 Psychiatric orientation/consciousness Overall: oriented to person, place and time 11/03/2015 None Full Exam - General 1994 Psychiatric mood and affect Overall: normal mood and affect 11/03/2015 None Full Exam - General 1994 Constitutional general appearance Development: well developed 10/19/2015 None Full Exam - General 1994 Constitutional general appearance Development: appears stated age 1110/19/2015 None Full Exam - General 1994 Constitutional general appearance Hygiene/Attention to Grooming: good hygiene 10/19/2015 None Full Exam - General 1994 Eyes conjunctiva /eyelids Overall: conjunctiva clear 10/19/2015 None Full Exam - General 1994 Eyes conjunctiva /eyelids Overall: cornea clear 10/19/2015 None Full Exam - General 1994 Eyes conjunctiva /eyelids Overall: eyelids normal 10/19/2015 None Full Exam - General 1994 Eyes pupils and irises Overall: pupils equal, round, reactive to light and accomodation 10/19/2015 None Full Exam - General 1994 Ears/Nose/Throat otoscopic exam Overall: external auditory canals clear 10/19/2015 None Full Exam - General 1994 Ears/Nose/Throat otoscopic exam Overall: tympanic membranes clear 10/19/2015 None Full Exam - General 1994 Ears/Nose/Throat lips/teeth/gingiva Overall: benign lips 10/19/2015 None Full Exam - General 1994 Ears/Nose/Throat lips/teeth/gingiva Overall: normal dentition 10/19/2015 None Full Exam - General 1994 Respiratory auscultation Overall: breath sounds clear bilaterally 10/19/2015 None Full Exam - General 1994 Respiratory respiratory effort/rhythm Overall: no retractions 10/19/2015 None Full Exam - General 1994 Respiratory respiratory effort/rhythm Overall: normal rate 10/19/2015 None Full Exam - General 1994 Cardiovascular extremities Overall: no clubbing 10/19/2015 None Full Exam - General 1994 Cardiovascular auscultation of heart Overall: regular rate 10/19/2015 None Full Exam - General 1994 Cardiovascular auscultation of heart Overall: normal heart sounds 10/19/2015 None Full Exam - General 1994 Cardiovascular auscultation of heart Systolic murmur: holosystolic 10/19/2015 None Full Exam - General 1994 Cardiovascular auscultation of heart Systolic murmur grade: II/ 10/19/2015 None Full Exam - General 1994 Abdomen abdominal exam Overall: no tenderness 10/19/2015 None Full Exam - General 1994 Abdomen abdominal exam Overall: normal bowel sounds 10/19/2015 None Full Exam - General 1994 Abdomen abdominal exam Contour: rounded 10/19/2015 None Full Exam - General 1994 Neurologic cranial nerves Overall: crainial nerves 2 - 12 grossly intact 10/19/2015 None Full Exam - General 1994 Psychiatric orientation/consciousness Overall: oriented to person, place and time 10/19/2015 None Full Exam - General 1994 Constitutional general appearance Development: well developed 08/04/2015 None Full Exam - General 1994 Constitutional general appearance Development: appears stated age 0908/04/2015 None Full Exam - General 1994 Constitutional general appearance Hygiene/Attention to Grooming: good hygiene 08/04/2015 None Full Exam - General 1994 Eyes conjunctiva /eyelids Overall: conjunctiva clear 08/04/2015 None Full Exam - General 1994 Eyes conjunctiva /eyelids Overall: cornea clear 08/04/2015 None Full Exam - General 1994 Eyes conjunctiva /eyelids Overall: eyelids normal 08/04/2015 None Full Exam - General 1994 Eyes pupils and irises Overall: pupils equal, round, reactive to light and accomodation 08/04/2015 None Full Exam - General 1994 Ears/Nose/Throat otoscopic exam Overall: external auditory canals clear 08/04/2015 None Full Exam - General 1994 Ears/Nose/Throat otoscopic exam Overall: tympanic membranes clear 08/04/2015 None Full Exam - General 1994 Ears/Nose/Throat lips/teeth/gingiva Overall: benign lips 08/04/2015 None Full Exam - General 1994 Ears/Nose/Throat lips/teeth/gingiva Overall: normal dentition 08/04/2015 None Full Exam - General 1994 Ears/Nose/Throat oral cavity/pharynx/larynx Overall: oral mucosa clear 08/04/2015 None Full Exam - General 1994 Ears/Nose/Throat oral cavity/pharynx/larynx Overall: oropharyngeal mucosa clear 08/04/2015 None Full Exam - General 1995 Ears/Nose/Throat oral cavity/pharynx/larynx Overall: hypopharynx benign 08/04/2015 None Full Exam - General 1994 Ears/Nose/Throat oral cavity/pharynx/larynx Overall: no masses 08/04/2015 None Full Exam - General 1994 Respiratory auscultation Overall: breath sounds clear bilaterally 08/04/2015 None Full Exam - General 1994 Respiratory respiratory effort/rhythm Overall: no retractions 08/04/2015 None Full Exam - General 1994 Respiratory respiratory effort/rhythm Overall: normal rate 08/04/2015 None Full Exam - General 1994 Cardiovascular extremities Overall: no clubbing 08/04/2015 None Full Exam - General 1994 Cardiovascular extremities Edema present: pitting 08/04/2015 None Full Exam - General 1994 Cardiovascular extremities Edema present: severity 1+ 08/04/2015 None Full Exam - General 1994 Cardiovascular auscultation of heart Overall: regular rate 08/04/2015 None Full Exam - General 1994 Cardiovascular auscultation of heart Overall: normal heart sounds 08/04/2015 None Full Exam - General 1994 Cardiovascular auscultation of heart Systolic murmur: holosystolic 08/04/2015 None Full Exam - General 1994 Cardiovascular auscultation of heart Systolic murmur grade: II/ 08/04/2015 None Full Exam - General 1994 Abdomen abdominal exam Overall: no tenderness 08/04/2015 None Full Exam - General 1994 Abdomen abdominal exam Overall: normal bowel sounds 08/04/2015 None Full Exam - General 1994 Lymphatic neck nodes Overall: anterior cervical chain benign 08/04/2015 None Full Exam - General 1994 Lymphatic neck nodes Overall: posterior cervical chain benign 08/04/2015 None Full Exam - General 1994 Integument inspection of skin Overall: few scattered moles, no gross abnormalities 08/04/2015 None Full Exam - General 1994 Neurologic deep tendon reflexes Overall: deep tendon reflexes intact 08/04/2015 None Full Exam - General 1994 Neurologic cranial nerves Overall: crainial nerves 2 - 12 grossly intact 08/04/2015 None Full Exam - General 1994 Psychiatric orientation/consciousness Overall: oriented to person, place and time 08/04/2015 None Full Exam - General 1994 Psychiatric mood and affect Overall: normal mood and affect 08/04/2015 None Full Exam - General 1994 Abdomen abdominal exam Contour: rounded 08/04/2015 None Full Exam - General 1994 Constitutional general appearance Development: well developed 07/21/2015 None Full Exam - General 1994 Constitutional general appearance Development: appears stated age 0807/21/2015 None Full Exam - General 1994 Constitutional general appearance Hygiene/Attention to Grooming: good hygiene 07/21/2015 None Full Exam - General 1994 Eyes conjunctiva /eyelids Overall: conjunctiva clear 07/21/2015 None Full Exam - General 1994 Eyes conjunctiva /eyelids Overall: cornea clear 07/21/2015 None Full Exam - General 1994 Eyes conjunctiva /eyelids Overall: eyelids normal 07/21/2015 None Full Exam - General 1994 Eyes pupils and irises Overall: pupils equal, round, reactive to light and accomodation 07/21/2015 None Full Exam - General 1994 Ears/Nose/Throat otoscopic exam Overall: external auditory canals clear 07/21/2015 None Full Exam - General 1994 Ears/Nose/Throat otoscopic exam Overall: tympanic membranes clear 07/21/2015 None Full Exam - General 1994 Ears/Nose/Throat lips/teeth/gingiva Overall: benign lips 07/21/2015 None Full Exam - General 1994 Ears/Nose/Throat lips/teeth/gingiva Overall: normal dentition 07/21/2015 None Full Exam - General 1994 Ears/Nose/Throat oral cavity/pharynx/larynx Overall: oral mucosa clear 07/21/2015 None Full Exam - General 1994 Ears/Nose/Throat oral cavity/pharynx/larynx Overall: oropharyngeal mucosa clear 07/21/2015 None Full Exam - General 1994 Ears/Nose/Throat oral cavity/pharynx/larynx Overall: hypopharynx benign 07/21/2015 None Full Exam - General 1994 Ears/Nose/Throat oral cavity/pharynx/larynx Overall: no masses 07/21/2015 None Full Exam - General 1994 Respiratory auscultation Overall: breath sounds clear bilaterally 07/21/2015 None Full Exam - General 1994 Respiratory respiratory effort/rhythm Overall: no retractions 07/21/2015 None Full Exam - General 1994 Respiratory respiratory effort/rhythm Overall: normal rate 07/21/2015 None Full Exam - General 1994 Cardiovascular extremities Overall: no clubbing 07/21/2015 None Full Exam - General 1994 Cardiovascular extremities Edema present: pitting 07/21/2015 None Full Exam - General 1994 Cardiovascular extremities Edema present: severity 1+ 07/21/2015 None Full Exam - General 1994 Cardiovascular auscultation of heart Overall: regular rate 07/21/2015 None Full Exam - General 1994 Cardiovascular auscultation of heart Overall: normal heart sounds 07/21/2015 None Full Exam - General 1994 Cardiovascular auscultation of heart Systolic murmur: holosystolic 07/21/2015 None Full Exam - General 1994 Cardiovascular auscultation of heart Systolic murmur grade: II/ 07/21/2015 None Full Exam - General 1994 Abdomen abdominal exam Overall: no tenderness 07/21/2015 None Full Exam - General 1994 Abdomen abdominal exam Overall: normal bowel sounds 07/21/2015 None Full Exam - General 1994 Integument inspection of skin Overall: few scattered moles, no gross abnormalities 07/21/2015 None Full Exam - General 1994 Neurologic deep tendon reflexes Overall: deep tendon reflexes intact 07/21/2015 None Full Exam - General 1994 Neurologic cranial nerves Overall: crainial nerves 2 - 12 grossly intact 07/21/2015 None Full Exam - General 1994 Psychiatric orientation/consciousness Overall: oriented to person, place and time 07/21/2015 None Full Exam - General 1994 Psychiatric mood and affect Overall: normal mood and affect 07/21/2015 None Full Exam - General 1994 Lymphatic neck nodes Overall: anterior cervical chain benign 07/21/2015 None Full Exam - General 1994 Lymphatic neck nodes Overall: posterior cervical chain benign 07/21/2015 None Full Exam - General 1994 Constitutional general appearance Development: well developed 06/14/2015 None Full Exam - General 1994 Constitutional general appearance Development: appears stated age 0706/14/2015 None Full Exam - General 1994 Constitutional general appearance Hygiene/Attention to Grooming: good hygiene 06/14/2015 None Full Exam - General 1994 Eyes conjunctiva /eyelids Overall: conjunctiva clear 06/14/2015 None Full Exam - General 1994 Eyes conjunctiva /eyelids Overall: cornea clear 06/14/2015 None Full Exam - General 1994 Eyes conjunctiva /eyelids Overall: eyelids normal 06/14/2015 None Full Exam - General 1994 Eyes pupils and irises Overall: pupils equal, round, reactive to light and accomodation 06/14/2015 None Full Exam - General 1994 Ears/Nose/Throat otoscopic exam Overall: external auditory canals clear 06/14/2015 None Full Exam - General 1994 Ears/Nose/Throat otoscopic exam Overall: tympanic membranes clear 06/14/2015 None Full Exam - General 1994 Ears/Nose/Throat lips/teeth/gingiva Overall: benign lips 06/14/2015 None Full Exam - General 1994 Ears/Nose/Throat lips/teeth/gingiva Overall: normal dentition 06/14/2015 None Full Exam - General 1994 Ears/Nose/Throat oral cavity/pharynx/larynx Overall: oral mucosa clear 06/14/2015 None Full Exam - General 1994 Ears/Nose/Throat oral cavity/pharynx/larynx Overall: oropharyngeal mucosa clear 06/14/2015 None Full Exam - General 1994 Ears/Nose/Throat oral cavity/pharynx/larynx Overall: hypopharynx benign 06/14/2015 None Full Exam - General 1994 Ears/Nose/Throat oral cavity/pharynx/larynx Overall: no masses 06/14/2015 None Full Exam - General 1994 Respiratory auscultation Overall: breath sounds clear bilaterally 06/14/2015 None Full Exam - General 1994 Respiratory respiratory effort/rhythm Overall: no retractions 06/14/2015 None Full Exam - General 1994 Respiratory respiratory effort/rhythm Overall: normal rate 06/14/2015 None Full Exam - General 1994 Cardiovascular extremities Overall: no clubbing 06/14/2015 None Full Exam - General 1994 Cardiovascular extremities Edema present: pitting 06/14/2015 None Full Exam - General 1994 Cardiovascular extremities Edema present: severity 1+ 06/14/2015 None Full Exam - General 1994 Cardiovascular auscultation of heart Overall: regular rate 06/14/2015 None Full Exam - General 1994 Cardiovascular auscultation of heart Overall: normal heart sounds 06/14/2015 None Full Exam - General 1994 Cardiovascular auscultation of heart Systolic murmur: holosystolic 06/14/2015 None Full Exam - General 1994 Cardiovascular auscultation of heart Systolic murmur grade: II/ 06/14/2015 None Full Exam - General 1994 Abdomen abdominal exam Overall: no tenderness 06/14/2015 None Full Exam - General 1994 Abdomen abdominal exam Overall: normal bowel sounds 06/14/2015 None Full Exam - General 1994 Integument inspection of skin Overall: few scattered moles, no gross abnormalities 06/14/2015 None Full Exam - General 1994 Neurologic deep tendon reflexes Overall: deep tendon reflexes intact 06/14/2015 None Full Exam - General 1994 Neurologic cranial nerves Overall: crainial nerves 2 - 12 grossly intact 06/14/2015 None Full Exam - General 1994 Psychiatric orientation/consciousness Overall: oriented to person, place and time 06/14/2015 None Full Exam - General 1994 Psychiatric mood and affect Overall: normal mood and affect 06/14/2015 None Full Exam - General 1994 Constitutional general appearance Development: appears stated age 0504/06/2015 None Full Exam - General 1994 Constitutional general appearance Development: well developed 04/06/2015 None Full Exam - General 1994 Constitutional general appearance Hygiene/Attention to Grooming: good hygiene 04/06/2015 None Full Exam - General 1994 Eyes conjunctiva /eyelids Overall: conjunctiva clear 04/06/2015 None Full Exam - General 1994 Eyes conjunctiva /eyelids Overall: cornea clear 04/06/2015 None Full Exam - General 1994 Eyes conjunctiva /eyelids Overall: eyelids normal 04/06/2015 None Full Exam - General 1994 Eyes pupils and irises Overall: pupils equal, round, reactive to light and accomodation 04/06/2015 None Full Exam - General 1994 Ears/Nose/Throat otoscopic exam Overall: external auditory canals clear 04/06/2015 None Full Exam - General 1994 Ears/Nose/Throat otoscopic exam Overall: tympanic membranes clear 04/06/2015 None Full Exam - General 1994 Ears/Nose/Throat lips/teeth/gingiva Overall: benign lips 04/06/2015 None Full Exam - General 1994 Ears/Nose/Throat lips/teeth/gingiva Overall: normal dentition 04/06/2015 None Full Exam - General 1994 Ears/Nose/Throat oral cavity/pharynx/larynx Overall: hypopharynx benign 04/06/2015 None Full Exam - General 1994 Ears/Nose/Throat oral cavity/pharynx/larynx Overall: no masses 04/06/2015 None Full Exam - General 1994 Ears/Nose/Throat oral cavity/pharynx/larynx Overall: oral mucosa clear 04/06/2015 None Full Exam - General 1994 Ears/Nose/Throat oral cavity/pharynx/larynx Overall: oropharyngeal mucosa clear 04/06/2015 None Full Exam - General 1994 Respiratory auscultation Overall: breath sounds clear bilaterally 04/06/2015 None Full Exam - General 1994 Respiratory respiratory effort/rhythm Overall: no retractions 04/06/2015 None Full Exam - General 1994 Respiratory respiratory effort/rhythm Overall: normal rate 04/06/2015 None Full Exam - General 1994 Cardiovascular extremities Overall: no clubbing 04/06/2015 None Full Exam - General 1994 Cardiovascular auscultation of heart Overall: normal heart sounds 04/06/2015 None Full Exam - General 1994 Cardiovascular auscultation of heart Overall: regular rate 04/06/2015 None Full Exam - General 1994 Abdomen abdominal exam Overall: no tenderness 04/06/2015 None Full Exam - General 1994 Abdomen abdominal exam Overall: normal bowel sounds 04/06/2015 None Full Exam - General 1994 Integument inspection of skin Overall: few scattered moles, no gross abnormalities 04/06/2015 None Full Exam - General 1994 Neurologic deep tendon reflexes Overall: deep tendon reflexes intact 04/06/2015 None Full Exam - General 1994 Neurologic cranial nerves Overall: crainial nerves 2 - 12 grossly intact 04/06/2015 None Full Exam - General 1994 Psychiatric orientation/consciousness Overall: oriented to person, place and time 04/06/2015 None Full Exam - General 1994 Psychiatric mood and affect Overall: normal mood and affect 04/06/2015 None Full Exam - General 1994 Cardiovascular auscultation of heart Systolic murmur: holosystolic 04/06/2015 None Full Exam - General 1994 Cardiovascular auscultation of heart Systolic murmur grade: II/ 04/06/2015 None Full Exam - General 1994 Cardiovascular extremities Edema present: pitting 04/06/2015 None Full Exam - General 1994 Cardiovascular extremities Edema present: severity 1+ 04/06/2015 None Procedures Procedure Codes Date ADMIN INFLUENZA VIRUS VAC CPT-4: G0008 09/27/2017 FLU VAC NO PRSV 4 TAURUS 3 YRS+ CPT-4: 76404 09/27/2017 PRESCRIP TRANSMIT VIA ERX SY CPT-4: G8553 04/08/2017 TRIAMCINOLONE ACET INJ NOS CPT-4: J3301 09/03/2016 ADMIN INFLUENZA VIRUS VAC CPT-4: G0008 08/31/2016 ADMIN PNEUMOCOCCAL VACCINE SNOMED CT: 45894834 CPT-4: G0009 08/31/2016 FLU VACC 4 TAURUS 3 YRS PLUS IM Formatting Model/CDA Sections, Assigned to/Liudmila Jones SNOMED CT: 86092635 CPT-4: 22619Oftyfza 08/31/2016 PNEUMOCOCCAL VACC [address]: 96303815 CPT-4: 22527 08/31/2016 TRIAMCINOLONE ACET INJ NOS CPT-4: J3301 07/17/2016 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 3-[address]: 216424407 CPT-4: G0436 03/01/2016 Vital Signs Date Vital 12/31/2017 Blood Pressure 1: 136/70 Code : 8480-6 BMI: 30.3 Code : 79607-3 Heart Rate 1 : 76 bpm Height: 5'6" SpO2: 98% Temperature: 36.7 (C) / 98.0 (F) Weight: 188 lbs 10/08/2017 Blood Pressure 1: 136/70 Code : 8480-6 BMI: 30.2 Code : 89931-6 Heart Rate 1 : 66 bpm Height: 5'6" SpO2: 98% Weight: 187 lbs 08/01/2017 Blood Pressure 1: 132/62 Code : 8480-6 BMI: 29.5 Code : 88896-5 Heart Rate 1 : 71 bpm Height: 5'6" SpO2: 96% Weight: 183 lbs 04/08/2017 Blood Pressure 1: 142/78 Code : 8480-6 BMI: 29.9 Code : 13872-1 Heart Rate 1 : 78 bpm Height: 5'6" SpO2: 94% Weight: 185 lbs 03/28/2017 Blood Pressure 1: 156/82 Code : 8480-6 BMI: 30.0 Code : 81758-2 Heart Rate 1 : 80 bpm Height: 5'6" SpO2: 93% Weight: 186 lbs 09/03/2016 Blood Pressure 1: 142/90 Code : 8480-6 Blood Pressure 1: 138/68 Code: 8480-6 BMI: 30.8 Code: 53781-1 Heart Rate 1: 90 bpm Height: 5'6" SpO2: 96% Weight: 191 lbs 08/31/2016 Blood Pressure 1: 140/82 Code : 8480-6 BMI: 30.8 Code : 24899-0 Heart Rate 1 : 81 bpm Height: 5'6" SpO2: 97% Weight: 191 lbs 07/17/2016 Blood Pressure 1: 140/76 Code : 8480-6 BMI: 30.5 Code : 23300-6 Heart Rate 1 : 78 bpm Height: 5'6" SpO2: 97% Weight: 189 lbs 03/01/2016 Blood Pressure 1: 126/60 Code : 8480-6 BMI: 29.9 Code : 75508-3 Heart Rate 1 : 64 bpm Height: 5'6" SpO2: 98% Weight: 185 lbs 11/03/2015 Blood Pressure 1: 122/62 Code : 8480-6 Blood Pressure 1: 154/84 Code: 8480-6 BMI: 30.5 Code: 30279-2 Heart Rate 1: 81 bpm Height: 5'6" SpO2: 98% Weight: 189 lbs 10/19/2015 Blood Pressure 1: 138/76 Code : 8480-6 BMI: 36.5 Code : 21647-4 Heart Rate 1 : 78 bpm Height: 5' SpO2: 97% Weight: 187 lbs 08/04/2015 Blood Pressure 1: 138/70 Code : 8480-6 BMI: 30.0 Code : 85027-8 Heart Rate 1 : 69 bpm Height: 5'6" SpO2: 94% Weight: 186 lbs 07/21/2015 Blood Pressure 1: 134/60 Code : 8480-6 BMI: 29.9 Code : 39517-2 Heart Rate 1 : 88 bpm Height: 5'6" SpO2: 96% Weight: 185 lbs 06/14/2015 Blood Pressure 1: 128/62 Code : 8480-6 BMI: 29.9 Code : 85826-1 Heart Rate 1 : 68 bpm Height: 5'6" Weight: 185 lbs 04/06/2015 Blood Pressure 1: 122/62 Code : 8480-6 BMI: 30.8 Code : 67197-9 Heart Rate 1 : 67 bpm Height: 5'6" SpO2: 97% Weight: 191 lbs Functional Status No Functional Status data History of Present Illness Symptom Name Status Result Effective Date Notes sore throat Quality acute 12/31/2017 None sore throat Onset and Resolution ongoing 12/31/2017 None sore throat Triggers no known associated factors 12/31/2017 None sore throat Pertinent Findings cough 12/31/2017 "once in a while" sore throat Pertinent Findings Denies fever 12/31/2017 None sore throat Pertinent Findings lymphadenopathy 12/31/2017 None sleep apnea-obstruction Quality chronic 10/08/2017 None sleep apnea-obstruction Onset and Resolution ongoing 10/08/2017 None sleep apnea-obstruction Frequency of Episodes increasing 10/08/2017 None sleep apnea-obstruction Onset of Symptom _ years ago 10/08/2017 None sleep apnea-obstruction Significant Medical Conditions cardiac disease 10/08/2017 None sleep apnea-obstruction Triggers no known associated factors 10/08/2017 None sleep apnea-obstruction Alleviating Factors activity 10/08/2017 CPAP sleep apnea-obstruction Pertinent Findings Denies fever 10/08/2017 None sleep apnea-obstruction Pertinent Findings decreased energy level 10/08/2017 None vaccination against influenza Location deltoid-Rt 09/27/2017 None constipation Quality intermittent 08/01/2017 None constipation Onset and Resolution ongoing 08/01/2017 None back pain Location lumbar-sacral spine 08/01/2017 None back pain Quality aching 08/01/2017 None back pain Quality constant 08/01/2017 None back pain Quality sharp 08/01/2017 None back pain Onset and Resolution ongoing 08/01/2017 None constipation Onset of Symptom _ months ago 08/01/2017 None constipation Frequency of Episodes unchanged 08/01/2017 None constipation Significant Medical Conditions diverticulitis 08/01/2017 diverticulosis constipation Triggers no known associated factors 08/01/2017 None constipation Alleviating Factors medication 08/01/2017 None constipation Pertinent Findings bloating 08/01/2017 None constipation Pertinent Findings Denies fever 08/01/2017 None constipation Pertinent Findings Denies nausea 08/01/2017 None abdominal pain Location in the RLQ 04/08/2017 improving abdominal pain Onset and Resolution ongoing 04/08/2017 None abdominal pain Onset of Symptom 2 weeks ago 04/08/2017 None abdominal pain Triggers no known associated factors 04/08/2017 None abdominal pain Pertinent Findings back pain 04/08/2017 None abdominal pain Pertinent Findings Denies bloating 04/08/2017 None abdominal pain Pertinent Findings Denies cough 04/08/2017 None abdominal pain Pertinent Findings diverticulosis 04/08/2017 None abdominal pain Quality dull 04/08/2017 None abdominal pain Quality improving 04/08/2017 None abdominal pain Limitation on Activities does not limit activities 04/08/2017 None abdominal pain Frequency of Episodes unchanged 04/08/2017 None back pain Location in the midline of in the lower back area 03/28/2017 None back pain Quality chronic 03/28/2017 None back pain Onset and Resolution gradual in onset 03/28/2017 None back pain Onset of Symptom _ years ago 03/28/2017 None back pain Limitation on Activities moderately limits activities 03/28/2017 None back pain Frequency of Episodes unchanged 03/28/2017 None back pain Frequency of Episodes on and off 03/28/2017 None back pain Triggers activity 03/28/2017 None back pain Significant Medical Conditions spinal stenosis 03/28/2017 None back pain Alleviating Factors heat 03/28/2017 None back pain Alleviating Factors medication 03/28/2017 hydrocodone and flexeril back pain Exacerbating Factors activity 03/28/2017 None back pain Initial treatment injections 03/28/2017 None back pain Initial treatment medication 03/28/2017 None back pain Initial treatment physical therapy 03/28/2017 None back pain Radiating does not radiate 03/28/2017 has in the past insomnia Quality chronic 03/28/2017 None insomnia Quality difficulty falling asleep 03/28/2017 None insomnia Onset and Resolution ongoing 03/28/2017 None abdominal pain Location in the RLQ 03/28/2017 states there is bulging in the lower abdomen abdominal pain Quality aching 03/28/2017 None abdominal pain Onset and Resolution ongoing 03/28/2017 None abdominal pain Onset of Symptom 2 weeks ago 03/28/2017 None abdominal pain Triggers no known associated factors 03/28/2017 None abdominal pain Pertinent Findings back pain 03/28/2017 None abdominal pain Pertinent Findings Denies bloating 03/28/2017 None abdominal pain Pertinent Findings Denies cough 03/28/2017 None abdominal pain Pertinent Findings diverticulosis 03/28/2017 None vertigo Quality intermittent 09/03/2016 None vertigo Onset and Resolution ongoing 09/03/2016 None vertigo Onset of Symptom 3 days ago 09/03/2016 None vertigo Timing of Episodes upon awakening 09/03/2016 None vertigo Pertinent Findings Denies diplopia 09/03/2016 None vertigo Pertinent Findings dizziness 09/03/2016 None vertigo Pertinent Findings Denies ear pain 09/03/2016 None vertigo Pertinent Findings Denies syncope 09/03/2016 None sinus congestion Onset and Resolution sudden in onset 07/17/2016 None sinus congestion Onset of Symptom 3 days ago 07/17/2016 None sinus congestion Pertinent Findings Denies cough 07/17/2016 None sinus congestion Pertinent Findings decreased energy level 07/17/2016 None sinus congestion Pertinent Findings facial pain 07/17/2016 None sinus congestion Pertinent Findings Denies fever 07/17/2016 None sinus congestion Severity moderate 07/17/2016 None sinus congestion Frequency of Episodes increasing 07/17/2016 None sinus congestion Triggers allergens 07/17/2016 None sinus congestion Exacerbating Factors allergen exposure 07/17/2016 None sinus congestion Location on both sides 07/17/2016 None sinus congestion Quality acute 07/17/2016 None blood pressure followup Quality chronic 03/01/2016 None blood pressure followup Onset and Resolution ongoing 03/01/2016 None blood pressure followup Onset of Symptom during adulthood 03/01/2016 None blood pressure followup Blood Pressure Values not checking blood pressure at home 03/01/2016 None blood pressure followup Frequency of Episodes unchanged 03/01/2016 None blood pressure followup Severity mild 03/01/2016 None blood pressure followup Triggers no known associated factors 03/01/2016 None blood pressure followup Alleviating Factors medication 03/01/2016 None chest pain/pressure Location on the left side of on the chest 11/03/2015 States pain comes and goes chest pain/pressure Triggers activity 11/03/2015 None chest pain/pressure Exacerbating Factors exertion 11/03/2015 None chest pain/pressure Pertinent Findings dyspnea on exertion 11/03/2015 None chest pain/pressure Pertinent Findings Denies nausea 11/03/2015 None chest pain/pressure Pertinent Findings Denies vomiting 11/03/2015 None shortness of breath Quality breathlessness 11/03/2015 None shortness of breath Pertinent Findings chest discomfort 11/03/2015 None shortness of breath Pertinent Findings Denies chills 11/03/2015 None shortness of breath Pertinent Findings Denies nausea 11/03/2015 None shortness of breath Pertinent Findings Denies shaking chills 11/03/2015 None shortness of breath Pertinent Findings Denies vomiting 11/03/2015 None chest pain/pressure Quality intermittent 11/03/2015 None chest pain/pressure Quality dull 11/03/2015 None chest pain/pressure Onset and Resolution improving 11/03/2015 None shortness of breath Onset and Resolution ongoing 11/03/2015 None shortness of breath Limitation on Activities moderately limits activities 11/03/2015 None shortness of breath Frequency of Episodes unchanged 11/03/2015 None sleep apnea-obstruction Quality chronic 11/03/2015 None sleep apnea-obstruction Onset and Resolution ongoing 11/03/2015 None sleep apnea-obstruction Frequency of Episodes increasing 11/03/2015 None sleep apnea-obstruction Significant Family History hypertension 11/03/2015 None sleep apnea-obstruction Significant Medical Conditions cardiac disease 11/03/2015 None sleep apnea-obstruction Alleviating Factors activity 11/03/2015 CPCPAP sleep apnea-obstruction Pertinent Findings Denies cough 11/03/2015 None chest pain/pressure Location on the left side of on the chest 10/19/2015 States pain comes and goes chest pain/pressure Quality dull 10/19/2015 None chest pain/pressure Quality aching 10/19/2015 None chest pain/pressure Quality sharp 10/19/2015 None chest pain/pressure Limitation on Activities moderately limits activities 10/19/2015 None chest pain/pressure Triggers activity 10/19/2015 None chest pain/pressure Exacerbating Factors exertion 10/19/2015 None shortness of breath Quality breathlessness 10/19/2015 None shortness of breath Triggers no known associated factors 10/19/2015 None shortness of breath Pertinent Findings chest discomfort 10/19/2015 None chest pain/pressure Pertinent Findings Denies nausea 10/19/2015 None chest pain/pressure Pertinent Findings Denies vomiting 10/19/2015 None chest pain/pressure Pertinent Findings dyspnea on exertion 10/19/2015 None shortness of breath Pertinent Findings Denies vomiting 10/19/2015 None shortness of breath Pertinent Findings Denies shaking chills 10/19/2015 None shortness of breath Pertinent Findings Denies nausea 10/19/2015 None shortness of breath Pertinent Findings Denies chills 10/19/2015 None diarrhea Triggers no known associated factors 08/04/2015 None diarrhea Alleviating Factors medication 08/04/2015 immodium diarrhea Pertinent Findings Denies cough 08/04/2015 None diarrhea Pertinent Findings Denies emesis 08/04/2015 None diarrhea Pertinent Findings heartburn 08/04/2015 None hypertension Onset and Resolution ongoing 08/04/2015 None hypertension Onset of Symptom during adulthood 08/04/2015 None diarrhea Quality improving 08/04/2015 None diarrhea Onset and Resolution resolved 08/04/2015 None diarrhea Onset of Symptom _ years ago 08/04/2015 None diarrhea Frequency of Episodes decreasing 08/04/2015 None diarrhea Exacerbating Factors medication 08/04/2015 doesn't tolerate cipro diarrhea Pertinent Findings Denies flatulence 08/04/2015 None hypertension Quality chronic 08/04/2015 None hypertension Severity not consistently severe symptoms, the symptoms fluctuate from no symptoms to anxiety and headaches 08/04/2015 None hypertension Frequency of Episodes unchanged 08/04/2015 None hypertension Blood Pressure Values not checking blood pressure at home 08/04/2015 None hypertension Triggers no known associated factors 08/04/2015 None hypertension Alleviating Factors medication 08/04/2015 None diarrhea Quality watery 07/21/2015 None diarrhea Quality loose 07/21/2015 None diarrhea Onset and Resolution ongoing 07/21/2015 None nausea Severity moderate 07/21/2015 None nausea Frequency of Episodes daily 07/21/2015 None nausea Triggers no known associated factors 07/21/2015 None nausea Onset and Resolution ongoing 07/21/2015 None nausea Pertinent Findings bloating 07/21/2015 None nausea Pertinent Findings Denies cough 07/21/2015 None diarrhea Onset of Symptom 3 weeks ago 07/21/2015 had it 3 weeks ago-resolved and came back again this week diarrhea Limitation on Activities moderately limits activities 07/21/2015 None diarrhea Frequency of Episodes daily 07/21/2015 None diarrhea Frequency of Episodes increasing 07/21/2015 1-2 times per day but loose and diarrhea, lots of gas diarrhea Triggers no known associated factors 07/21/2015 None diarrhea Pertinent Findings Denies cough 07/21/2015 None diarrhea Pertinent Findings Denies emesis 07/21/2015 None diarrhea Alleviating Factors medication 07/21/2015 immodium diarrhea Pertinent Findings Denies heartburn 07/21/2015 None diarrhea Pertinent Findings flatulence 07/21/2015 None nausea Onset of Symptom _ weeks ago 07/21/2015 None back pain Location in the midline of in the lower back area 06/14/2015 None back pain Quality chronic 06/14/2015 None back pain Onset and Resolution gradual in onset 06/14/2015 None back pain Alleviating Factors heat 06/14/2015 None back pain Alleviating Factors medication 06/14/2015 hydrocodone and flexeril back pain Exacerbating Factors activity 06/14/2015 None back pain Onset of Symptom _ years ago 06/14/2015 None back pain Limitation on Activities moderately limits activities 06/14/2015 None back pain Frequency of Episodes on and off 06/14/2015 None back pain Frequency of Episodes unchanged 06/14/2015 None back pain Triggers activity 06/14/2015 None back pain Significant Medical Conditions spinal stenosis 06/14/2015 None back pain Initial treatment medication 06/14/2015 None back pain Mechanism of injury unknown 06/14/2015 None back pain Initial treatment injections 06/14/2015 None back pain Initial treatment physical therapy 06/14/2015 None back pain Radiating does not radiate 06/14/2015 has in the past Hospital Follow Up _ cardiac disease 04/06/2015 was short breath - improved since stent placement back pain Location in the midline of in the lower back area 04/06/2015 None back pain Quality chronic 04/06/2015 None back pain Onset and Resolution gradual in onset 04/06/2015 None back pain Exacerbating Factors activity 04/06/2015 None back pain Alleviating Factors heat 04/06/2015 None back pain Alleviating Factors medication 04/06/2015 hydrocodone and flexeril Advance Directives No Advance Directive data Encounters Encounter Performer Location Codes Date EST. PATIENT, LEVEL III Diagnosis: Acute laryngopharyngitis[ICD10: J06.0] [facility] CPT-4: 81930 12/31/2017 ([id number]) Miscellaneous no charge Diagnosis: Obstructive sleep apnea (adult) (pediatric)[ICD10: G47.33] Kamini Villeda MD , [facility] CPT-4: 39448 10/16/2017 ([id number]) 76552 EST. PATIENT, LEVEL III Diagnosis: Obstructive sleep apnea (adult) (pediatric)[ICD10: G47.33] [facility] CPT-4: 39832 10/08/2017 ([id number]) 92139 EST. PATIENT, LEVEL IV Diagnosis: Essential (primary) hypertension[ICD10: I10] Diagnosis: Slow transit constipation[ICD10: K59.01] Diagnosis: Hypothyroidism, unspecified[ICD10: E03.9] Diagnosis: Spinal stenosis, lumbar region[ICD10: M48.06] Missy Villeda MD, [facility] CPT-4: 70682 08/01/2017 ([id number]) 33918 EST. PATIENT, LEVEL III Diagnosis: Slow transit constipation[ICD10: K59.01] Diagnosis: Diverticulosis of intestine, part unspecified, without perforation or abscess without bleeding[ICD10: K57.90] Missy Villeda MD, [facility] CPT-4: 47108 04/08/2017 ([id number]) 68264 EST. PATIENT, LEVEL IV Diagnosis: Low back pain[ICD10: M54.5] Diagnosis: Right lower quadrant pain[ICD10: R10.31] Diagnosis: Hypothyroidism, unspecified[ICD10: E03.9] Diagnosis: Vitamin D deficiency, unspecified[ICD10: E55.9] Missy Villeda MD, [facility] CPT-4: 64946 03/28/2017 ([id number]) 04030 EST. PATIENT, LEVEL III Diagnosis: Dizziness and giddiness[ICD10: R42] Diagnosis: Essential (primary) hypertension[ICD10: I10] Missy Villeda MD, [facility] CPT-4: 76421 09/03/2016 [id number] 91860 EST. PATIENT, LEVEL III Diagnosis: Essential (primary) hypertension[ICD10: I10] Diagnosis: Elevated white blood cell count, unspecified[ICD10: D72.829] Diagnosis: Low back pain[ICD10: M54.5] Diagnosis: Encounter for immunization[ICD10: Z23] Missy Villeda MD, [facility] CPT-4: 62201 08/31/2016 [id number]) 82665 EST. PATIENT, LEVEL IV Diagnosis: Allergic rhinitis due to pollen[ICD10: J30.1] Diagnosis: Low back pain[ICD10: M54.5] Diagnosis: Vitamin D deficiency, unspecified[ICD10: E55.9] Diagnosis: Hypothyroidism, unspecified[ICD10: E03.9] Diagnosis: Essential (primary) hypertension[ICD10: I10] Missy Villeda MD, [facility] CPT-4: 88061 07/17/2016 ([id number]) 41005 EST. PATIENT, LEVEL IV Diagnosis: Essential (primary) hypertension[ICD10: I10] Diagnosis: Hypothyroidism, unspecified[ICD10: E03.9] Diagnosis: Vitamin D deficiency, unspecified[ICD10: E55.9] Diagnosis: Mixed hyperlipidemia[ICD10: E78.2] Diagnosis: Tobacco use[ICD10: Z72.0] Missy Villeda MD, [facility] CPT-4: 53717 03/01/2016 ([id number]) 72165 EST. PATIENT, LEVEL III Diagnosis: Essential (primary) hypertension[ICD10: I10] Diagnosis: Obstructive sleep apnea (adult) (pediatric)[ICD10: G47.33] Missy Villeda MD, [facility] CPT-4: 83163 11/03/2015 47135 EST. PATIENT, LEVEL IV Diagnosis: Angina pectoris, unspecified[ICD10: I20.9] Bisi Villeda MD, [facility] CPT-4: 72077 10/19/2015 ([id number]) 53581 EST. PATIENT, LEVEL III Diagnosis: ESSENTIAL HYPERTENSION[ICD9: 401.9] Diagnosis: ESOPHAGEAL REFLUX[ICD9: 530.81] Diagnosis: Diarrhea[ICD9: 787.91] Missy Villeda MD, [facility] CPT-4: 27680 08/04/2015 65166 EST. PATIENT, LEVEL IV Diagnosis: Diverticulitis[ICD9: 562.11] Diagnosis: Diarrhea[ICD9: 787.91] Missy Villeda MD, [facility] CPT-4: 19076 07/21/2015 ([id number]) 66873 EST. PATIENT, LEVEL IV Diagnosis: ESSENTIAL HYPERTENSION[ICD9: 401.9] Diagnosis: HYPOTHYROIDISM[ICD9: 244.9] Diagnosis: VITAMIN D DEFICIENCY[ICD9: 268.9] Diagnosis: HYPERLIPIDEMIA[ICD9: 272.4] Missy Villeda MD, [facility] CPT-4: 18850 06/14/2015 ([id number]) OFFICE VISIT, NEW - LEVEL 4 Diagnosis: ESSENTIAL HYPERTENSION[ICD9: 401.9] Diagnosis: HYPOTHYROIDISM[ICD9: 244.9] Diagnosis: Spinal stenosis[ICD9: 724.00] Kamini Villeda MD, [facility] CPT- 4: 10269 04/06/2015 Plan of Care Planned Activity Notes Codes Status Date Visit Plan: URI - Pt advised to increase fluids, vitamin C. Discussed natural and expected course of this diagnosis and need to alert me if symptoms do not follow expected course, or if any worse. RX sent to patient' s pharmacy. 12/31/2017 Appointment: [facility] [phone] [id number] [place] (15 min) Moderate 12/31/2017 Patient Education: Patient Medication Summary Completed 12/31/2017 Appointment: Nurse Visit 10/16/2017 Patient Education: Patient Medication Summary Completed 10/16/2017 Visit Plan: Sleep apnea-patient is due for new supplies and needs new sleep study-will fax orders for via [facility]-patient reports improved sleep, improved breathing and better rest with use of CPAP. 10/08/2017 Appointment: [facility] [phone] [phone] [place] (30 min) Complex 10/08/2017 Patient Education: Patient Medication Summary Completed 10/08/2017 Patient Education: Obesity Completed 10/08/2017 Appointment: Injection 09/27/2017 Patient Education: Patient Medication Summary Completed 09/27/2017 Referral: Carlos Jeter Referral Initiated 08/12/2017 Visit Plan: Hypertension - well controlled - continue with current medications, continue with no added salt diet. Pt has been encouraged to exercise daily. The pt has been advised to call the office if there are any acute concerns about change in blood pressure readings at home. Constipation - uncontrolled - I have discussed with the patient the need for adequate fiber and water intake to facilitate soft, easily passed stools. The pt noted understanding of our conversation. Patient is due for colonoscopy-refer to Dr Jeter Hypothyroidism - pt with chronic hypothyroidism, continue with current medication, will monitor pt to signs or symptoms of lack of adequate supplementation. Pt is to continue with current dose of medication unless directed otherwise. Check labs at regular intervals wither q 3 months or q 6 months based on previous levels of control. Lumbar stenosis-recommend PT and referral for possible injections-patient will consider 08/01/2017 Patient Education: Patient Medication Summary Completed 08/01/2017 Patient Education: Hypertension Completed 08/01/2017 Care Plan: Referral Order SNOMED-CT : [id number] Pending 08/01/2017 Visit Plan: Constipation - uncontrolled - I have discussed with the patient the need for adequate fiber and water intake to facilitate soft , easily passed stools. TAKE DOSE OF MILK OF MAGNESIA TODAY. The pt is to call if symptoms not improved on this regimen. Diverticulosis-having bilateral lower abd pain-recommend milk of magnesia today and then round of flagyl-call if symptoms do not resolve or if any worse-patient verbalized understanding of plan. 04/08/2017 Appointment: Missy Leonard WPtel: [facility] [phone] (30 min) Complex 04/08/2017 Patient Education: Patient Medication Summary Completed 04/08/2017 Visit Plan: RLQ pain-history diverticulitis-schedule CT scan-check labs-avoid seeds, nuts, etc-CLD advance to bland Chronic back pain- does not want injections or PT-continue oxycodone as needed for breakthrough pain Hypothyroidism-check labs Vitamin d deficiency-check level today 03/28/2017 Appointment: Missy Leonard WPtel: [address] [place], [place] [phone] (30 min) Complex 03/28/2017 Patient Education: Patient Medication Summary Completed 03/28/2017 Care Plan: Cbc With Differential Pending 03/28/2017 Appointment: Bisi Lo WPtel: [facility] [id number] (30 min) Complex 03/25/2017 Visit Plan: Dizziness-kenalog injection today in the office -follow up with Dr Chauhan later today as scheduled 09/03/2016 Visit Plan: Dizziness-kenalog injection today in the office -follow up with Dr Chauhan later today as scheduled 09/03/2016 Appointment: Missy Leonard WPtel: [address] [place], [place] [phone] (30 min) Complex 09/03/2016 Patient Education: Patient Medication Summary Completed 09/03/2016 Patient Education: .Amazing charts Paroxysmal positional vertigo Completed 01/2016 Visit Plan: Hypertension - well controlled - continue with current medications, continue with no added salt diet. Pt has been encouraged to exercise daily. The pt has been advised to call the office if there are any acute concerns about change in blood pressure readings at home. Chronic Back pain - the patient was counseled to always first attempt to use modalities other than pain medication for alleviation of the muscle spasms and pain. The patient was also encouraged to continue with back exercises as previously directed. Pt is to use pain medication as directed. If pain medications are used inappropriately or early refills are requested, the patient understands that is a breech of trust/contract and could result in the patient's termination from this medical practice. Elevated white [id number] CBC is normal 08/31/2016 Appointment: Missy Leonard WPtel: [phone] (30 min) Complex 08/31/2016 Patient Education: Patient Medication Summary Completed 08/31/2016 Patient Education: Obesity Completed 08/31/2016 Visit Plan: Allergies - chronic - recommended pt to use allergy medication as prescribed. Pt has been counseled as to the appropriate use of the medication. Pt to call if allergy symptoms are not controlled with the medication. If using nasal spray, instructions as follows: Nasal spray- use twice daily, one spray per nostril twice daily, after 30 minutes, rinse out nose with saline spray.. Use opposite hand per nostril to spray in the nasal steroid allergy spray. Kenalog injection today in the office Low back pain-use tramadol as needed Vitamin D deficiency-check labs 07/17/2016 Appointment: Missy Leonard WPtel: [phone] [place] [phone] (30 min) Complex 07/17/2016 Patient Education: Patient Medication Summary Completed 07/17/2016 Patient Education: Obesity Completed 07/17/2016 Visit Plan: Hypertension - well controlled - continue with current medications, continue with no added salt diet. Pt has been encouraged to exercise daily. The pt has been advised to call the office if there are any acute concerns about change in blood pressure readings at home. Hypothyroidism - pt with chronic hypothyroidism, continue with current medication, will monitor pt to signs or symptoms of lack of adequate supplementation. Pt is to continue with current dose of medication unless directed otherwise. Check labs at regular intervals wither q 3 months or q 6 months based on previous levels of control. Vitamin D deficiency-check labs Tobacco abuse - chronic condition for this patient. Patient has been counseled about need to stop smoking due to the negative health affects. Pt has vocalized understanding and states that they will consider smoking cessation, but the pt is not yet ready to use medication to assist cessation. Hyperlipidemia - pt has been counseled about appropriate diet, exercise, and need for low fat food choices. I have discussed the need for the patient to take medications as prescribed. If the patient has negative side effects from the medication, they are to CALL the office and not abruptly discontinue the medication without discussion with a practitioner in the office. We will check labs in 3-6 months for follow up on the patient's chronic medical problem and to assure normal liver response to medications. 03/01/2016 Patient Education: Patient Medication Summary Completed 03/01/2016 Patient Education: Hypertension Completed 03/01/2016 Patient Education: Smoking and Tobacco Addiction Completed 03/01/2016 Appointment: (15 min) Moderate 11/14/2015 Visit Plan: Hypertension - well controlled - continue with current medications, continue with no added salt diet. Pt has been encouraged to exercise daily. The pt has been advised to call the office if there are any acute concerns about change in blood pressure readings at home. Sleep apnea- order for CPAP supplies sent to [facility] 11/03/2015 Patient Education: Patient Medication Summary Completed 11/03/2015 Patient Education: Hypertension Completed 11/03/2015 Visit Plan: Pt complains of intermittent chest pain over the last couple of weeks, pt complains of dyspnea on exertion. Pt states that he sees Dr. Chauhan for heart problems. Will refer to Dr. Chauhan. 10/19/2015 Appointment: (15 min) Moderate 10/19/2015 Patient Education: Patient Medication Summary Completed 10/19/2015 Visit Plan: Hypertension - well controlled - continue with current medications, continue with no added salt diet. Pt has been encouraged to exercise daily. The pt has been advised to call the office if there are any acute concerns about change in blood pressure readings at home. Esophageal Reflux - the patient has been counseled against excessive intake of caffeine, spicy foods, peppermint, and cinnamon - all of which can exacerbate esophageal reflux. The patient is to take medications as prescribed and call the office if the symptoms are not improving. Diarrhea-abd [id number] if symptoms return 08/04/2015 Patient Education: Patient Medication Summary Completed 08/04/2015 Patient Education: Hypertension Completed 08/04/2015 Visit Plan: Diverticulitis - rx for antibiotic sent to pt' s pharmacy - pt advised to avoid seeds, nuts, popcorn, or any other food which has been proven to upset the pt's stomach. Diarrhea - start CLD-advanced to bland start on probiotic, and rehydrate with gatorade-like product. Pt to call if feeling worse, diarrhea becomes bloody, or does not improve with above recommendations. Pt to call for acute worsening of stomach upset or stomach pain. 07/21/2015 Appointment: (15 min) Moderate 07/21/2015 Patient Education: Patient Medication Summary Completed 07/21/2015 Visit Plan: Hypertension - well controlled - continue with current medications, continue with no added salt diet. Pt has been encouraged to exercise daily. The pt has been advised to call the office if there are any acute concerns about change in blood pressure readings at home. Hypothyroidism - pt with chronic hypothyroidism, continue with current medication, will monitor pt to signs or symptoms of lack of adequate supplementation. Pt is to continue with current dose of medication unless directed otherwise. Check labs at regular intervals wither q 3 months or q 6 months based on previous levels of control. Hyperlipidemia - pt has been counseled about appropriate diet, exercise, and need for low fat food choices. I have discussed the need for the patient to take medications as prescribed. If the patient has negative side effects from the medication, they are to CALL the office and not abruptly discontinue the medication without discussion with a practitioner in the office. We will check labs in 3-6 months for follow up on the patient's chronic medical problem and to assure normal liver response to medications. Vitamin D deficiency-check vitamin D level 06/14/2015 Appointment: Missy Leonard WPtel[facility] [id number] (15 min) Moderate 06/14/2015 Patient Education: Patient Medication Summary Completed 06/14/2015 Patient Education: Hypertension Completed 06/14/2015 Care Plan: COMPLETE CBC AUTOMATED LOINC : 55960-5 Ordered 06/14/2015 Appointment: Kamini Villeda WPtel: [facility] [id number] Follow up 06/13/2015 Visit Plan: Hypertension - well controlled - continue with current medications, continue with no added salt diet. Pt has been encouraged to exercise daily. The pt has been advised to call the office if there are any acute concerns about change in blood pressure readings at home. Hyperlipidemia - pt has been counseled about appropriate diet, exercise, and need for low fat food choices. I have discussed the need for the patient to take medications as prescribed. If the patient has negative side effects from the medication, they are to CALL the office and not abruptly discontinue the medication without discussion with a practitioner in the office. We will check labs in 3-6 months for follow up on the patient's chronic medical problem and to assure normal liver response to medications. Hypothyroidism - pt with chronic hypothyroidism, continue with current medication, will monitor pt to signs or symptoms of lack of adequate supplementation. Pt is to continue with current dose of medication unless directed otherwise. Check labs at regular intervals wither q 3 months or q 6 months based on previous levels of control. Chronic Pain Syndrome - pt has chronic pain - has been maintained on current medications, has not sought out other medications, only uses PRN pain medications as directed, and understands the consequences of over-medication. 04/06/2015 Patient Education: Patient Medication Summary Completed 04/06/2015 Patient Education: Hypertension Completed 04/06/2015 Referral: Carlos Jeter Referral Appointment Requested Instructions Comment KENALOG INJECTION TODAY IN THE OFFICE-CALL SATURDAY IF YOU AREN'T FEELING BETTER TAKE YOUR TRAMADOL 1-2 UP TO THREE TIMES DAILY FOR YOUR BACK PAIN-LET ME KNOW IF YOU PAIN IS UNCONTROLLED CHECK LABS TODAY AND WE WILL CALL YOU WHEN WE GET THE RESULTS . Allergies - chronic - recommended pt to use allergy medication as prescribed. Pt has been counseled as to the appropriate use of the medication. Pt to call if allergy symptoms are not controlled with the medication. If using nasal spray, instructions as follows: Nasal spray- use twice daily, one spray per nostril twice daily, after 30 minutes, rinse out nose with saline spray.. Use opposite hand per nostril to spray in the nasal steroid allergy spray. Kenalog injection today in the office Low back pain-use tramadol as needed Vitamin D deficiency-check labs . Hypertension - well controlled - continue with current medications, continue with no added salt diet. Pt has been encouraged to exercise daily. The pt has been advised to call the office if there are any acute concerns about change in blood pressure readings at home. Hypothyroidism - pt with chronic hypothyroidism, continue with current medication, will monitor pt to signs or symptoms of lack of adequate supplementation. Pt is to continue with current dose of medication unless directed otherwise. Check labs at regular intervals wither q 3 months or q 6 months based on previous levels of control. Hyperlipidemia - pt has been counseled about appropriate diet, exercise, and need for low fat food choices. I have discussed the need for the patient to take medications as prescribed. If the patient has negative side effects from the medication, they are to CALL the office and not abruptly discontinue the medication without discussion with a practitioner in the office. We will check labs in 3-6 months for follow up on the patient's chronic medical problem and to assure normal liver response to medications. Vitamin D deficiency-check vitamin D level . URI - Pt advised to increase fluids, vitamin C. Discussed natural and expected course of this diagnosis and need to alert me if symptoms do not follow expected course, or if any worse. RX sent to patient's pharmacy. GET A PROBIOTIC OVER THE COUNTER AND START IT TWICE DAILY- ANY BRAND IS FINE-[facility], [facility], [facility] I SENT 2 PRESCRIPTIONS TO THE PHARMACY: FLAGYL 500MG THREE TIMES DAILY X 10 DAYS CIPRO 500MG TWICE DAILY X 10 DAYS CLEAR LIQUID DIET-ADVANCED TO BLAND TOLERATED . Diverticulitis - rx for antibiotic sent to pt's pharmacy - pt advised to avoid seeds, nuts, popcorn, or any other food which has been proven to upset the pt's stomach. Diarrhea - start CLD-advanced to bland start on probiotic, and rehydrate with gatorade-like product. Pt to call if feeling worse, diarrhea becomes bloody, or does not improve with above recommendations. Pt to call for acute worsening of stomach upset or stomach pain. . Hypertension - well controlled - continue with current medications, continue with no added salt diet. Pt has been encouraged to exercise daily. The pt has been advised to call the office if there are any acute concerns about change in blood pressure readings at home. Constipation - uncontrolled - I have discussed with the patient the need for adequate fiber and water intake to facilitate soft, easily passed stools. The pt noted understanding of our conversation. Patient is due for colonoscopy-refer to Dr Jeter Hypothyroidism - pt with chronic hypothyroidism, continue with current medication, will monitor pt to signs or symptoms of lack of adequate supplementation. Pt is to continue with current dose of medication unless directed otherwise. Check labs at regular intervals wither q 3 months or q 6 months based on previous levels of control. Lumbar stenosis-recommend PT and referral for possible injections-patient will consider . Dizziness-kenalog injection today in the office-follow up with Dr Chauhan later today as scheduled . Dizziness-kenalog injection today in the office-follow up with Dr Gissel peterson today as scheduled . Hypertension - well controlled - continue with current medications, continue with no added salt diet. Pt has been encouraged to exercise daily. The pt has been advised to call the office if there are any acute concerns about change in blood pressure readings at home. Chronic Back pain - the patient was counseled to always first attempt to use modalities other than pain medication for alleviation of the muscle spasms and pain. The patient was also encouraged to continue with back exercises as previously directed. Pt is to use pain medication as directed. If pain medications are used inappropriately or early refills are requested, the patient understands that is a breech of trust/contract and could result in the patient's termination from this medical practice. Elevated white tushp-zrupmajf-[id number] CBC is normal COME BACK NEXT WEEK FOR FASTING LABS . Hypertension - well controlled - continue with current medications, continue with no added salt diet. Pt has been encouraged to exercise daily. The pt has been advised to call the office if there are any acute concerns about change in blood pressure readings at home. Hypothyroidism - pt with chronic hypothyroidism, continue with current medication, will monitor pt to signs or symptoms of lack of adequate supplementation. Pt is to continue with current dose of medication unless directed otherwise. Check labs at regular intervals wither q 3 months or q 6 months based on previous levels of control. Vitamin D deficiency-check labs Tobacco abuse - chronic condition for this patient. Patient has been counseled about need to stop smoking due to the negative health affects. Pt has vocalized understanding and states that they will consider smoking cessation, but the pt is not yet ready to use medication to assist cessation. Hyperlipidemia - pt has been counseled about appropriate diet, exercise, and need for low fat food choices. I have discussed the need for the patient to take medications as prescribed. If the patient has negative side effects from the medication, they are to CALL the office and not abruptly discontinue the medication without discussion with a practitioner in the office. We will check labs in 3-6 months for follow up on the patient's chronic medical problem and to assure normal liver response to medications. . Hypertension - well controlled - continue with current medications, continue with no added salt diet. Pt has been encouraged to exercise daily. The pt has been advised to call the office if there are any acute concerns about change in blood pressure readings at home. Hyperlipidemia - pt has been counseled about appropriate diet, exercise, and need for low fat food choices. I have discussed the need for the patient to take medications as prescribed. If the patient has negative side effects from the medication, they are to CALL the office and not abruptly discontinue the medication without discussion with a practitioner in the office. We will check labs in 3-6 months for follow up on the patient's chronic medical problem and to assure normal liver response to medications. Hypothyroidism - pt with chronic hypothyroidism, continue with current medication, will monitor pt to signs or symptoms of lack of adequate supplementation. Pt is to continue with current dose of medication unless directed otherwise. Check labs at regular intervals wither q 3 months or q 6 months based on previous levels of control. Chronic Pain Syndrome - pt has chronic pain - has been maintained on current medications, has not sought out other medications, only uses PRN pain medications as directed, and understands the consequences of over-medication. Stop Tylenol PM at night CT of abdomen- potential diverticulitis Consider flagyl and ciprofloxacin pending CT results . RLQ pain-history diverticulitis-schedule CT scan-check labs-avoid seeds, nuts , etc-CLD advance to bland Chronic back pain-does not want injections or PT-continue oxycodone as needed for breakthrough pain Hypothyroidism-check labs Vitamin d deficiency-check level today FLAGYL MILK OF MAGNESIA 30ML PO X 1 TODAY BLAND DIET-ADVANCE TOLERATED . Constipation - uncontrolled - I have discussed with the patient the need for adequate fiber and water intake to facilitate soft, easily passed stools. TAKE DOSE OF MILK OF MAGNESIA TODAY. The pt is to call if symptoms not improved on this regimen. Diverticulosis-having bilateral lower abd pain-recommend milk of magnesia today and then round of flagyl-call if symptoms do not resolve or if any worse- patient verbalized understanding of plan. . Pt complains of intermittent chest pain over the last couple of weeks, pt complains of dyspnea on exertion. Pt states that he sees Dr. Chauhan for heart problems. Will refer to Dr. Chauhan. CPAP mask and supplies Keep apppointment with Dr Chauhan . Hypertension - well controlled - continue with current medications, continue with no added salt diet. Pt has been encouraged to exercise daily. The pt has been advised to call the office if there are any acute concerns about change in blood pressure readings at home. Sleep apnea-order for CPAP supplies sent to [facility] [place] . Sleep apnea-patient is due for new supplies and needs new sleep study-will fax orders for [facility]-patient reports improved sleep, improved breathing and better rest with use of CPAP. . Hypertension - well controlled - continue with current medications, continue with no added salt diet. Pt has been encouraged to exercise daily. The pt has been advised to call the office if there are any acute concerns about change in blood pressure readings at home. Esophageal Reflux - the patient has been counseled against excessive intake of caffeine, spicy foods, peppermint, and cinnamon - all of which can exacerbate esophageal reflux. The patient is to take medications as prescribed and call the office if the symptoms are not improving. Diarrhea-abd [id number] if symptoms return
--- OUTSIDE RECORDS SUMMARY | 2018-09-17 08:47 | XMS REPORT | CCD ---
Author Author Kamini Villeda Organization Kamini Villeda MD, [facility] Address [address] [place] [address] Phone Care Team Providers Care French Pastry Cook Name Role Phone PP Unavailable CCM Unavailable Summary Purpose Interface Exchange Insurance Providers Payer name Policy type / Coverage type Covered libertarian ID Effective Begin Date Effective End Date WPS Medicare Part B Medicare Part B [id number] Unknown Unknown [facility] Medicare Part B [id number] Unknown Unknown Family history Runs in the family Diagnosis Age At Onset Hypertension Unknown Social History Social History Element Codes Description Effective Dates Tobacco history SNOMED CT: 2927886 Quit over 10 years ago CHEWS TOBACCO 03/01/2016 Marital status Unknown 04/05/2015 Employment Unknown Retired 04/05/[address]: 084143404 Never drinks alcohol 04/05/2015 Allergies, Adverse Reactions, [...] Start Date Stop Date Status Fill Instructions Zithromax Z-Humberto 250 mg tablet RxNorm: 089329 1 Tablet(s) PO UD 12/31/2017 No Stop Date Active Trilipix 135 mg capsule,delayed release RxNorm: 902376 TAKE ONE CAPSULE BY MOUTH EVERY NIGHT AT BEDTIME 12/30/20172017 Active isosorbide mononitrate ER 60 mg tablet,extended release 24 hr RxNorm: 169942 TAKE TWO TABLETS BY MOUTH DAILY 11/28/2017 Active Keflex 500 mg capsule RxNorm: 968704 1 Capsule(s) PO TID 201612/04/2017 Inactive Tessalon Perles 100 mg capsule RxNorm: 271628 1-2 Capsule(s) PO TID as needed 11/28/2017 11/27/2017 Inactive Tessalon Perles 100 mg capsule RxNorm: 810492 1-2 Capsule(s) PO TID as needed 11/28/2017 12/02/2017 Inactive paroxetine 20 mg tablet RxNorm: 9627394 TAKE ONE TABLET BY MOUTH EVERY NIGHT AT BEDTIME 11/26/2017 04/24/2018 Active lorazepam 0.5 mg tablet RxNorm: 532539 1 Tablet(s) PO Q6 as needed 11/26/2017 01/09/2018 Active Trilipix 135 mg capsule,delayed release RxNorm: 497450 TAKE ONE CAPSULE BY MOUTH EVERY NIGHT AT BEDTIME 08/20/20172017 Inactive Avodart 0.5 mg capsule RxNorm: 777061 TAKE ONE CAPSULE BY MOUTH DAILY 08/12/2017 12/09/2017 Inactive Lovaza 1 gram capsule RxNorm: 937808 TAKE TWO CAPSULES BY MOUTH TWICE A DAY 07/09/2017 10/06/2017 Inactive Ranexa 1,000 mg tablet,extended release RxNorm: 771957 TAKE ONE TABLET BY MOUTH TWICE A DAY 06/20/2017 07/09/2017 Inactive tramadol 50 mg tablet RxNorm: 730571 TAKE TWO TABLETS BY MOUTH THREE TIMES A DAY 05/23/2017 06/21/2017 Inactive levothyroxine 100 mcg tablet RxNorm: 223759 TAKE ONE TABLET BY MOUTH DAILY 05/21/2017 02/14/2018 Active paroxetine 20 mg tablet RxNorm: 7976692 TAKE ONE TABLET BY MOUTH EVERY NIGHT AT BEDTIME 05/21/2017 11/16/2017 Inactive Keflex 500 mg capsule RxNorm: 158429 1 Capsule(s) PO TID 201605/09/2017 Inactive Keflex 500 mg capsule RxNorm: 541179 1 Capsule(s) PO TID 201605/02/2017 Inactive lorazepam 0.5 mg tablet RxNorm: 000149 1 Tablet(s) PO Q6 as needed 04/26/2017 06/24/2017 Inactive Flagyl 500 mg tablet RxNorm: 006437 1 Tablet(s) PO TID 201604/17/2017 Inactive isosorbide mononitrate ER 60 mg tablet,extended release 24 hr RxNorm: 296951 TAKE TWO TABLETS BY MOUTH DAILY 04/08/201703/2017 Inactive Vitamin D2 50,000 unit capsule RxNorm: 464407 1 Capsule(s) PO QW x12 weeks 03/29/2017 03/28/2017 Inactive Vitamin D3 2,000 unit capsule RxNorm: 323608 1 Capsule(s) PO daily 03/29/2017 03/28/2017 Inactive Vitamin D3 2,000 unit capsule RxNorm: 520677 1 Capsule(s) PO daily 03/29/2017 06/26/2017 Inactive Vitamin D2 50,000 unit capsule RxNorm: 415589 1 Capsule(s) PO QW x12 weeks 03/29/2017 06/26/2017 Inactive oxycodone 10 mg tablet RxNorm: 6733128 1 Tablet(s) PO Q6-8H 04/26/2017 Inactive Trilipix 135 mg capsule,delayed release RxNorm: 544423 Capsule(s) TAKE ONE CAPSULE BY MOUTH EVERY NIGHT AT BEDTIME 03/19/2017 08/15/2017 Inactive Trilipix 135 mg capsule,delayed release RxNorm: 155421 TAKE ONE CAPSULE BY MOUTH EVERY NIGHT AT BEDTIME 03/18/20172016 Inactive lorazepam 0.5 mg tablet RxNorm: 790650 1 Tablet(s) PO Q6 as needed 03/05/2017 04/25/2017 Inactive Needs appt for next refill Avodart 0.5 mg capsule RxNorm: 527730 TAKE ONE CAPSULE BY MOUTH DAILY 01/25/2017 06/23/2017 Inactive paroxetine 20 mg tablet RxNorm: 6671286 Tablet(s) TAKE ONE TABLET BY MOUTH EVERY NIGHT AT BEDTIME 01/15/2017 05/14/2017 Inactive Lovaza 1 gram capsule RxNorm: 793542 TAKE TWO CAPSULES BY MOUTH TWICE A DAY 01/10/2017 03/10/2017 Inactive clopidogrel 75 mg tablet RxNorm: 441197 TAKE ONE TABLET BY MOUTH DAILY 01/04/2017 11/29/2017 Inactive lorazepam 0.5 mg tablet RxNorm: 209675 1 Tablet(s) PO Q6 as needed 10/29/2016 03/04/2017 Inactive paroxetine 20 mg tablet RxNorm: 9401991 TAKE ONE TABLET BY MOUTH EVERY NIGHT AT BEDTIME 09/10/2016 01/07/2017 Inactive meclizine 25 mg tablet RxNorm: 918070 1 Tablet(s) PO Q8 PRN 01/2016 No Stop Date Active Kenalog 40 mg/mL suspension for injection RxNorm: 1726691 Milliliter(s) Inj 09/03/2016 09/03/2016 Inactive hydrocodone 7.5 mg-acetaminophen 325 mg tablet RxNorm: 236558 1-2 Tablet(s) PO Q6 PRN 08/31/2016 03/27/2017 Inactive tramadol 50 mg tablet RxNorm: 891201 Tablet(s) TAKE TWO TABLETS BY MOUTH THREE TIMES A DAY 08/21/2016 05/23/2017 Inactive Trilipix 135 mg capsule,delayed release RxNorm: 865354 TAKE ONE CAPSULE BY MOUTH EVERY NIGHT AT BEDTIME 08/14/20162016 Inactive Kenalog 40 mg/mL suspension for injection RxNorm: 2298132 1 Milliliter(s) Inj 07/17/2016 07/17/2016 Inactive isosorbide mononitrate ER 60 mg tablet,extended release 24 hr RxNorm: 060203 TAKE TWO TABLETS BY MOUTH DAILY 06/28/2016 Inactive Request already responded to by other means (e.g. phone or fax) isosorbide mononitrate ER 60 mg tablet,extended release 24 hr RxNorm: 924532 2 Tablet(s) PO daily 06/25/2016 12/21/2016 Inactive Avodart 0.5 mg capsule RxNorm: 121463 1 Capsule(s) PO daily 10/27/2016 Inactive tramadol 50 mg tablet RxNorm: 635067 Tablet(s) TAKE TWO TABLETS BY MOUTH THREE TIMES A DAY 04/13/2016 06/10/2016 Inactive Lovaza 1 gram capsule RxNorm: 169875 TAKE TWO CAPSULES BY MOUTH TWICE A DAY 04/13/2016 07/11/2016 Inactive levothyroxine 100 mcg tablet RxNorm: 560285 1 Tablet(s) PO daily 04/09/2016 04/03/2017 Inactive [SAVINGS FOR NON-COVERED DRUGS -- BIN:[id number], PCN: [id number], Group: XXXXX, ID# XXXXXXX, Questions: . THIS IS NOT INSURANCE.] Vitamin D2 50,000 unit capsule RxNorm: 838808 1 Capsule(s) PO weekly QW 03/16/2016 06/13/2016 Inactive lorazepam 0.5 mg tablet RxNorm: 103717 1 Tablet(s) PO Q6 as needed 02/29/2016 11/26/2017 Inactive lorazepam 0.5 mg tablet RxNorm: 076695 1 Tablet(s) PO Q6 as needed 02/23/2016 10/28/2016 Inactive Trilipix 135 mg capsule,delayed release RxNorm: 726736 1 Capsule(s) PO QHS 01/13/2016 08/09/2016 Inactive paroxetine 20 mg tablet RxNorm: 0680881 TAKE ONE TABLET BY MOUTH AT BEDTIME 01/09/2016 07/06/2016 Inactive paroxetine 20 mg tablet RxNorm: 064313 TAKE ONE TABLET BY MOUTH AT BEDTIME 01/09/2016 01/08/2016 Inactive isosorbide mononitrate ER 60 mg tablet,extended release 24 hr RxNorm: 471994 2 Tablet(s) PO daily 01/03/2016 05/01/2016 Inactive Ranexa 1,000 mg tablet,extended release RxNorm: 476036 1 Tablet(s) PO BID 01/03/2016 08/29/2016 Inactive clopidogrel 75 mg tablet RxNorm: 947766 TAKE ONE TABLET BY MOUTH DAILY 12/15/2015 12/08/2016 Inactive nitroglycerin 0.4 mg sublingual tablet RxNorm: 973205 1 Tablet(s) SL UD 1 tab onset of CP may repeat 5 min max of 3 in 15 min 2015 No Stop Date Active paroxetine 20 mg tablet RxNorm: 950319 TAKE ONE TABLET BY MOUTH AT BEDTIME 10/07/2015 01/04/2016 Inactive clopidogrel 75 mg tablet RxNorm: 798791 1 Tablet(s) PO daily 11/26/2015 Inactive Avodart 0.5 mg capsule RxNorm: 324535 1 Capsule(s) PO daily 02/24/2016 Inactive lorazepam 0.5 mg tablet RxNorm: 236013 1 Tablet(s) PO Q6 as needed 08/19/2015 02/28/2016 Inactive tramadol 50 mg tablet RxNorm: 435178 TAKE TWO TABLETS BY MOUTH THREE TIMES A DAY 08/01/2015 08/28/2015 Inactive Cipro 500 mg tablet RxNorm: 173721 1 Tablet(s) PO BID 201407/30/2015 Inactive Flagyl 500 mg tablet RxNorm: 119508 1 Tablet(s) PO TID 201407/30/2015 Inactive paroxetine 20 mg tablet RxNorm: 809646 1 Tablet(s) PO QHS 06/0910/06/2015 Inactive Lovaza 1 gram capsule RxNorm: 694621 2 Capsule(s) PO BID 201409/13/2015 Inactive tramadol 50 mg tablet RxNorm: 907580 1 Tablet(s) PO TID as needed 04/18/2015 08/03/2015 Inactive levothyroxine 100 mcg tablet RxNorm: 200357 1 Tablet(s) PO daily 04/01/2015 03/31/2015 Inactive levothyroxine 100 mcg tablet RxNorm: 959039 1 Tablet(s) PO daily 04/01/2015 03/25/2016 Inactive [SAVINGS FOR NON-COVERED DRUGS -- BIN:[id number], PCN: ASPROD1, Group: XXXXX, ID# [id number], Questions: . THIS IS NOT INSURANCE.] melatonin 3 mg tablet RxNorm: 043870 1 Tablet(s) PO QHS No Start Date Active folic acid 1 mg tablet RxNorm: 008592 1 Tablet(s) PO daily No Start Date Active Lipitor 80 mg tablet RxNorm: 903686 1 Tablet(s) PO QHS No Start Date Active aspirin 81 mg chewable tablet RxNorm: 563400 1 Tablet(s) PO daily No Start Date Active Protonix 40 mg tablet,delayed release RxNorm: 108420 1 Tablet(s) PO daily No Start Date Active paroxetine 20 mg tablet RxNorm: 098249 1 Tablet(s) PO QHS No Start Date 06/08/2015 Inactive nitroglycerin 0.4 mg sublingual tablet RxNorm: 666551 sublingual No Start Date 11/10/2015 Inactive Avodart 0.5 mg capsule RxNorm: 083354 1 Capsule(s) PO daily No Start Date 08/28/2015 Inactive lorazepam 0.5 mg tablet RxNorm: 218433 1 Tablet(s) PO QHS No Start Date 08/18/2015 Inactive Trilipix 135 mg capsule,delayed release RxNorm: 114188 1 Capsule(s) PO daily No Start Date 01/12/2016 Inactive Vitamin D2 50,000 unit capsule RxNorm: 934314 1 Capsule(s) PO weekly No Start Date 03/15/2016 Inactive losartan 50 mg tablet RxNorm: 935595 1 Tablet(s) PO daily No Start Date 07/16/2016 Inactive Ranexa 500 mg tablet,extended release RxNorm: 206096 2 Tablet(s) PO BID No Start Date 01/02/2016 Inactive clopidogrel 75 mg tablet RxNorm: 899472 1 Tablet(s) PO daily No Start Date 09/27/2015 Inactive tramadol 50 mg tablet RxNorm: 632646 1 Tablet(s) PO TID as needed No Start Date 04/17/2015 Inactive Lovaza 1 gram capsule RxNorm: 315132 2 Capsule(s) PO daily No Start Date 05/16/2015 Inactive isosorbide mononitrate ER 60 mg tablet,extended release 24 hr RxNorm: 156394 2 Tablet(s) PO daily No Start Date 2015 Inactive Medication Administered Medication Codes Instructions Start Date Status Kenalog 40 mg/mL suspension for injection RxNorm: 5339681 Milliliter 09/03/2016 No longer Active Kenalog 40 mg/mL suspension for injection RxNorm: 7266232 1Milliliter 07/17/2016 No longer Active Immunizations Vaccine [...] without bleeding ICD-10: K57.90 ICD-9: 562.10 04/08/2017 Vitamin D deficiency, unspecified ICD-10: E55.9 ICD-9: 268.9 03/28/2017 Low back pain ICD-10: M54.5 ICD-9: 724.2 03/28/2017 Right lower quadrant pain ICD-10: R10.31 ICD-9: 789.03 03/28/2017 Dizziness and giddiness ICD-10: R42 ICD-9: 780.4 09/03/2016 Elevated white blood cell count, unspecified ICD-10: D72.829 ICD-9: 288.60 08/31/2016 Encounter for immunization ICD-10: Z23 ICD-9: V06.6 08/31/2016 Allergic rhinitis due to pollen ICD-10: J30.1 ICD-9: 477.0 07/17/2016 Mixed hyperlipidemia ICD-10: E78.2 ICD-9: 272.4 03/01/2016 Tobacco use ICD-10: Z72.0 ICD-9: 305.1 03/01/2016 Angina pectoris, unspecified ICD-10: I20.9 ICD-9: 413.9 10/19/2015 ESSENTIAL HYPERTENSION ICD-9: 401.9 08/04 ESOPHAGEAL REFLUX ICD-9: 530.81 2014 Diarrhea ICD-9: 787.91 08/04/2015 Diverticulitis ICD-9: 562.11 07/21/2015 HYPOTHYROIDISM ICD-9: 244.9 [...] Item Item Code Result Date Comp Metabolic Syc240 NA 141 mEq/L 03/28/2017 Comp Metabolic Bvm387 K 4.3 mEq/L 03/28/2017 Comp Metabolic Yxn470 CL 103 mEq/L 03/28/2017 Comp Metabolic Xni222 CO2 30.0 mEq/L 03/28/2017 Comp Metabolic Hgv969 ANION GAP 12 03/28/2017 Comp Metabolic Kpj819 GLUCOSE 106 mg/dL 03/28/2017 Comp Metabolic Iel635 Creat 1.4 mg/dL 03/28/2017 Comp Metabolic Ert806 eGFR 54 ml/min/1.73m2 03/28/2017 Comp Metabolic Lyo800 BUN 15 mg/dL 03/28/2017 Comp Metabolic Ukv065 B/C Ratio 11.1 Ratio 03/28/2017 Comp Metabolic Pzv693 CALCIUM 9.5 mg/dL 03/28/2017 Comp Metabolic Egt182 ALK PHOS 41 U/L 03/28/2017 Comp Metabolic Osn490 AST(SGOT) 24 U/L 03/28/2017 Comp Metabolic Wkx829 ALT(SGPT) 27 U/L 03/28/2017 Comp Metabolic Mjp759 BILI T 0.5 mg/dL 03/28/2017 Comp Metabolic Obl350 ALBUMIN 4.2 g/dL 03/28/2017 Comp Metabolic Xvm132 TPRO 7.2 g/dL 03/28/2017 Comp Metabolic Ieo166 GLOB 3.0 g/dL 03/28/2017 Comp Metabolic Mxi413 A/G Ratio 1.4 Ratio 03/28/2017 Comp Metabolic Idt398 Osmo 283 mOsmo 03/28/2017 Free T4 Qpu859 FREE T4 1.05 ng/dL 03/28/2017 Cbc With Differential Ord2 WBC 8.24 K/ul 03/28/2017 Cbc With Differential Ord2 RBC 5.05 M/ul 03/28/2017 Cbc With Differential Ord2 HGB 15.5 g/dl 03/28/2017 Cbc With Differential Ord2 Neut% 59.3 % 03/28/2017 Cbc With Differential Ord2 HCT 47.3 % 03/28/2017 Cbc With Differential Ord2 MCV 93.7 fl 03/28/2017 Cbc With Differential Ord2 Lymph% 24.4 % 03/28/2017 Cbc With Differential Ord2 MCH 30.7 pg 03/28/2017 Cbc With Differential Ord2 Mercer% 9.8 % 03/28/2017 Cbc With Differential Ord2 MCHC 32.8 pg 03/28/2017 Cbc With Differential Ord2 Eos% 5.7 % 03/28/2017 Cbc With Differential Ord2 PLT 308 K/ul 03/28/2017 Cbc With Differential Ord2 Baso% 0.8 % 03/28/2017 Cbc With Differential Ord2 RDW 14.1 % 03/28/2017 Cbc With Differential Ord2 Neut ABS# 4.88 K/ul 03/28/2017 Cbc With Differential Ord2 Lymph ABS# 2.01 K/ul 03/28/2017 Cbc With Differential Ord2 Mercer ABS# 0.8 K/ul 03/28/2017 Cbc With Differential Ord2 Eos ABS# 0.5 K/ul 03/28/2017 Cbc With Differential Ord2 Baso ABS# 0.1 K/ul 03/28/2017 Tsh Ord6 hTSH II 1.37 uIU/mL 03/28/2017 Vitamin D 25 Oh Mmc0668 VITAMIN D, 25 HYDROXY 23.11 ng/mL Cbc With Differential Ord2 WBC 7.09 K/ul 08/28/2016 Cbc With Differential Ord2 RBC 4.66 M/ul 08/28/2016 Cbc With Differential Ord2 HGB 14.2 g/dl 08/28/2016 Cbc With Differential Ord2 HCT 43.9 % 08/28/2016 Cbc With Differential Ord2 Neut% 61.7 % 08/28/2016 Cbc With Differential Ord2 MCV 94.2 fl 08/28/2016 Cbc With Differential Ord2 Lymph% 26.5 % 08/28/2016 Cbc With Differential Ord2 MCH 30.5 pg 08/28/2016 Cbc With Differential Ord2 Mercer% 8.7 % 08/28/2016 Cbc With Differential Ord2 MCHC 32.3 pg 08/28/2016 Cbc With Differential Ord2 Eos% 2.7 % 08/28/2016 Cbc With Differential Ord2 PLT 278 K/ul 08/28/2016 Cbc With Differential Ord2 Baso% 0.4 % 08/28/2016 Cbc With Differential Ord2 RDW 14.9 % 08/28/2016 Cbc With Differential Ord2 Neut ABS# 4.37 K/ul 08/28/2016 Cbc With Differential Ord2 Lymph ABS# 1.88 K/ul 08/28/2016 Cbc With Differential Ord2 Mercer ABS# 0.6 K/ul 08/28/2016 Cbc With Differential Ord2 Eos ABS# 0.2 K/ul 08/28/2016 Cbc With Differential Ord2 Baso ABS# 0.0 K/ul 08/28/2016 Vitamin D 25 Oh Lxa7683 VITAMIN D, 25 HYDROXY 41.44 ng/mL Comp Metabolic Psp389 NA 138 mEq/L 07/17/2016 Comp Metabolic Tux087 K 3.9 mEq/L 07/17/2016 Comp Metabolic Mzf828 CL 103 mEq/L 07/17/2016 Comp Metabolic Jfk606 CO2 29.0 mEq/L 07/17/2016 Comp Metabolic Eqg242 ANION GAP 10 07/17/2016 Comp Metabolic Pir207 GLUCOSE 103 mg/dL 07/17/2016 Comp Metabolic Fbw281 Creat 1.2 mg/dL 07/17/2016 Comp Metabolic Yqh479 eGFR 65 ml/min/1.73m2 07/17/2016 Comp Metabolic Nje453 BUN 18 mg/dL 07/17/2016 Comp Metabolic Yjq185 B/C Ratio 15.7 Ratio 07/17/2016 Comp Metabolic Xnk087 CALCIUM 9.1 mg/dL 07/17/2016 Comp Metabolic Jlm310 ALK PHOS 33 U/L 07/17/2016 Comp Metabolic Twq366 AST(SGOT) 18 U/L 07/17/2016 Comp Metabolic Mor570 ALT(SGPT) 24 U/L 07/17/2016 Comp Metabolic Yim411 BILI T 0.6 mg/dL 07/17/2016 Comp Metabolic Zut168 ALBUMIN 4.3 g/dL 07/17/2016 Comp Metabolic Efm573 TPRO 7.0 g/dL 07/17/2016 Comp Metabolic Svf152 GLOB 2.7 g/dL 07/17/2016 Comp Metabolic Oms890 A/G Ratio 1.6 Ratio 07/17/2016 Comp Metabolic Leq469 Osmo 278 mOsmo 07/17/2016 Cbc With Differential Ord2 WBC 10.52 K/ul 07/17/2016 Cbc With Differential Ord2 RBC 4.94 M/ul 07/17/2016 Cbc With Differential Ord2 HGB 15.1 g/dl 07/17/2016 Cbc With Differential Ord2 Neut% 71.8 % 07/17/2016 Cbc With Differential Ord2 HCT 46.7 % 07/17/2016 Cbc With Differential Ord2 MCV 94.5 fl 07/17/2016 Cbc With Differential Ord2 Lymph% 15.7 % 07/17/2016 Cbc With Differential Ord2 MCH 30.6 pg 07/17/2016 Cbc With Differential Ord2 Mercer% 9.2 % 07/17/2016 Cbc With Differential Ord2 MCHC 32.3 pg 07/17/2016 Cbc With Differential Ord2 Eos% 3.1 % 07/17/2016 Cbc With Differential Ord2 PLT 288 K/ul 07/17/2016 Cbc With Differential Ord2 Baso% 0.2 % 07/17/2016 Cbc With Differential Ord2 RDW 14.3 % 07/17/2016 Cbc With Differential Ord2 Neut ABS# 7.55 K/ul 07/17/2016 Cbc With Differential Ord2 Lymph ABS# 1.65 K/ul 07/17/2016 Cbc With Differential Ord2 Mercer ABS# 1.0 K/ul 07/17/2016 Cbc With Differential Ord2 Eos ABS# 0.3 K/ul 07/17/2016 Cbc With Differential Ord2 Baso ABS# 0.0 K/ul 07/17/2016 Free T4 Grs842 FREE T4 0.91 ng/dL 07/17/2016 Tsh Ord6 hTSH II 2.16 uIU/mL 07/17/2016 Vitamin D 25 Oh Rka0774 VITAMIN D, 25 HYDROXY 22.46 ng/mL Lipid Ord30 CHOL 134 mg/dL 03/07/2016 Lipid Ord30 HDL 37.0 mg/dl 03/07/2016 Lipid Ord30 TRIG 210 mg/dL 03/07/2016 Lipid Ord30 LDL 55 mg/dL 03/07/2016 Lipid Ord30 C/HDL 3.6 Ratio 03/07/2016 Tsh Ord6 hTSH II 0.84 uIU/mL 03/07/2016 Comp Metabolic Quw170 NA 139 mEq/L 03/07/2016 Comp Metabolic Jag561 K 3.8 mEq/L 03/07/2016 Comp Metabolic Udx955 CL 104 mEq/L 03/07/2016 Comp Metabolic Qml805 CO2 28.0 mEq/L 03/07/2016 Comp Metabolic Cyb576 ANION GAP 11 03/07/2016 Comp Metabolic Ucp175 GLUCOSE 110 mg/dL 03/07/2016 Comp Metabolic Qsn630 Creat 1.2 mg/dL 03/07/2016 Comp Metabolic Cty073 eGFR 60 ml/min/1.73m2 03/07/2016 Comp Metabolic Tpy001 BUN 17 mg/dL 03/07/2016 Comp Metabolic Cqm392 B/C Ratio 13.8 Ratio 03/07/2016 Comp Metabolic Qof851 CALCIUM 9.2 mg/dL 03/07/2016 Comp Metabolic Zok365 ALK PHOS 32 U/L 03/07/2016 Comp Metabolic Ymx051 AST(SGOT) 21 U/L 03/07/2016 Comp Metabolic Scl585 ALT(SGPT) 25 U/L 03/07/2016 Comp Metabolic Qsv253 BILI T 0.5 mg/dL 03/07/2016 Comp Metabolic Qro881 ALBUMIN 4.2 g/dL 03/07/2016 Comp Metabolic Lru989 TPRO 6.7 g/dL 03/07/2016 Comp Metabolic Zot612 GLOB 2.5 g/dL 03/07/2016 Comp Metabolic Suf332 A/G Ratio 1.6 Ratio 03/07/2016 Comp Metabolic Ani547 Osmo 280 mOsmo 03/07/2016 Cbc With Differential Ord2 WBC 6.81 K/ul 03/07/2016 Cbc With Differential Ord2 RBC 4.62 M/ul 03/07/2016 Cbc With Differential Ord2 HGB 13.9 g/dl 03/07/2016 Cbc With Differential Ord2 HCT 43.3 % 03/07/2016 Cbc With Differential Ord2 Neut% 60.2 % 03/07/2016 Cbc With Differential Ord2 MCV 93.7 fl 03/07/2016 Cbc With Differential Ord2 Lymph% 25.6 % 03/07/2016 Cbc With Differential Ord2 MCH 30.1 pg 03/07/2016 Cbc With Differential Ord2 Mercer% 8.5 % 03/07/2016 Cbc With Differential Ord2 MCHC 32.1 pg 03/07/2016 Cbc With Differential Ord2 Eos% 5.4 % 03/07/2016 Cbc With Differential Ord2 Baso% 0.3 % 03/07/2016 Cbc With Differential Ord2 PLT 233 K/ul 03/07/2016 Cbc With Differential Ord2 RDW 14.5 % 03/07/2016 Cbc With Differential Ord2 Neut ABS# 4.10 K/ul 03/07/2016 Cbc With Differential Ord2 Lymph ABS# 1.74 K/ul 03/07/2016 Cbc With Differential Ord2 Mercer ABS# 0.6 K/ul 03/07/2016 Cbc With Differential Ord2 Eos ABS# 0.4 K/ul 03/07/2016 Cbc With Differential Ord2 Baso ABS# 0.0 K/ul 03/07/2016 Cbc With Differential Ord2 New Analyzer Notice Please note new ref ranges starting 12-14-2015 due to implemntation of new five part differential hematolgy analyzer. 03/07/2016 Free T4 Cwf152 FREE T4 1.12 ng/dL 03/07/2016 Cbc With Differential Ord2 WBC 10.1 K/uL [...] With Differential Ord2 RDW 14.4 % 07/21/2015 Comp Metabolic Zke639 NA 137 mEq/L 07/21/2015 Comp Metabolic Nxn495 K 3.8 mEq/L 07/21/2015 Comp Metabolic Hqc899 CL 102 mEq/L 07/21/2015 Comp Metabolic Pmx340 CO2 28.0 mEq/L 07/21/2015 Comp Metabolic Hgz923 ANION GAP 11 07/21/2015 Comp Metabolic Zsf704 GLUCOSE 129 mg/dL 07/21/2015 Comp Metabolic Efy767 Creat 1.3 mg/dL 07/21/2015 Comp Metabolic Npw206 eGFR 57 ml/min/1.73m2 07/21/2015 Comp Metabolic Ixa359 BUN 17 mg/dL 07/21/2015 Comp Metabolic Fpd541 B/C Ratio 13.2 Ratio 07/21/2015 Comp Metabolic Aoe030 CALCIUM 9.2 mg/dL 07/21/2015 Comp Metabolic Xnp833 ALK PHOS 30 U/L 07/21/2015 Comp Metabolic Dha545 AST(SGOT) 17 U/L 07/21/2015 Comp Metabolic Lod961 ALT(SGPT) 23 U/L 07/21/2015 Comp Metabolic Ltm805 BILI T 0.6 mg/dL 07/21/2015 Comp Metabolic Roh428 ALBUMIN 4.2 g/dL 07/21/2015 Comp Metabolic Ykp328 TPRO 6.7 g/dL 07/21/2015 Comp Metabolic Bgw258 GLOB 2.5 g/dL 07/21/2015 Comp Metabolic Akb182 A/G Ratio 1.7 Ratio 07/21/2015 Comp Metabolic Mwo427 Osmo 277 mOsmo 07/21/2015 Vitamin D 25 Oh Zbi2068 VITAMIN D, 25 HYDROXY 43.45 ng/mL Lipid Ord30 CHOL 142 mg/dL 06/23/2015 Lipid Ord30 HDL 35.0 mg/dl 06/23/2015 Lipid Ord30 TRIG 159 mg/dL 06/23/2015 Lipid Ord30 LDL 75 mg/dL 06/23/2015 Lipid Ord30 C/HDL 4.1 Ratio 06/23/2015 Comp Metabolic Zzu663 NA 139 mEq/L 06/23/2015 Comp Metabolic Knh426 K 4.1 mEq/L 06/23/2015 Comp Metabolic Dso656 CL 105 mEq/L 06/23/2015 Comp Metabolic Stj500 CO2 29.0 mEq/L 06/23/2015 Comp Metabolic Uep248 ANION GAP 9 06/23/2015 Comp Metabolic Ace208 GLUCOSE 92 mg/dL 06/23/2015 Comp Metabolic Cby727 Creat 1.3 mg/dL 06/23/2015 Comp Metabolic Xme840 eGFR 56 ml/min/1.73m2 06/23/2015 Comp Metabolic Tmb832 BUN 19 mg/dL 06/23/2015 Comp Metabolic Bgf550 B/C Ratio 14.5 Ratio 06/23/2015 Comp Metabolic Yeg915 CALCIUM 9.1 mg/dL 06/23/2015 Comp Metabolic Wes960 ALK PHOS 30 U/L 06/23/2015 Comp Metabolic Pws173 AST(SGOT) 19 U/L 06/23/2015 Comp Metabolic Gak594 ALT(SGPT) 24 U/L 06/23/2015 Comp Metabolic Rub294 BILI T 0.5 mg/dL 06/23/2015 Comp Metabolic Obc202 ALBUMIN 4.1 g/dL 06/23/2015 Comp Metabolic Ztb391 TPRO 6.2 g/dL 06/23/2015 Comp Metabolic Psx124 GLOB 2.1 g/dL 06/23/2015 Comp Metabolic Ttw686 A/G Ratio 2.0 Ratio 06/23/2015 Comp Metabolic Eca667 Osmo 279 mOsmo 06/23/2015 Cbc With Differential Ord2 WBC 6.3 [...] With Differential Ord2 RDW 14.5 % 06/23/2015 Tsh Ord6 hTSH II 2.17 uIU/mL 06/23/2015 Free T4 Mbq273 FREE T4 0.96 ng/dL 06/23/2015 Review of Systems System Result Effective [...] 1994 Ears/Nose/Throat oral cavity/pharynx/larynx Overall: hypopharynx benign 08/04/2015 [...] NO PRSV 4 TAURUS 3 YRS+ CPT-4: 55370 09/27/2017 PRESCRIP TRANSMIT VIA ERX SY CPT-4: G8553 04/08/2017 TRIAMCINOLONE ACET INJ NOS CPT-4: J3301 09/03/2016 ADMIN INFLUENZA VIRUS VAC CPT-4: G0008 08/31/2016 ADMIN PNEUMOCOCCAL VACCINE SNOMED CT: 04121817 CPT-4: G0009 08/31/2016 FLU VACC 4 TAURUS 3 YRS PLUS IM Formatting Model/CDA Sections, Assigned to/Robert Liudmila SNOMED CT: 25985275 CPT-4: 10571Gnhbppl 08/31/2016 PNEUMOCOCCAL VACC [address]: 38901320 CPT-4: 59148 08/31/2016 TRIAMCINOLONE ACET INJ NOS CPT-4: J3301 07/17/2016 TOBACCO-USE [employer] 3-[address]: 799765212 CPT-4: G0436 03/01/2016 Vital Signs Date Vital 12/31/2017 Blood Pressure 1: 136/70 Code : 8480-6 BMI: 30.3 Code : 59803-2 Heart Rate 1 : 76 bpm Height: 5'6" SpO2: 98% Temperature: 36.7 (C) / 98.0 (F) Weight: 188 lbs 10/08/2017 Blood Pressure 1: 136/70 Code : 8480-6 BMI: 30.2 Code : 75005-3 Heart Rate 1 : 66 bpm Height: 5'6" SpO2: 98% Weight: 187 lbs 08/01/2017 Blood Pressure 1: 132/62 Code : 8480-6 BMI: 29.5 Code : 30698-1 Heart Rate 1 : 71 bpm Height: 5'6" SpO2: 96% Weight: 183 lbs 04/08/2017 Blood Pressure 1: 142/78 Code : 8480-6 BMI: 29.9 Code : 34666-3 Heart Rate 1 : 78 bpm Height: 5'6" SpO2: 94% Weight: 185 lbs 03/28/2017 Blood Pressure 1: 156/82 Code : 8480-6 BMI: 30.0 Code : 25353-1 Heart Rate 1 : 80 bpm Height: 5'6" SpO2: 93% Weight: 186 lbs 09/03/2016 Blood Pressure 1: 142/90 Code : 8480-6 Blood Pressure 1: 138/68 Code: 8480-6 BMI: 30.8 Code: 17823-7 Heart Rate 1: 90 bpm Height: 5'6" SpO2: 96% Weight: 191 lbs 08/31/2016 Blood Pressure 1: 140/82 Code : 8480-6 BMI: 30.8 Code : 35978-1 Heart Rate 1 : 81 bpm Height: 5'6" SpO2: 97% Weight: 191 lbs 07/17/2016 Blood Pressure 1: 140/76 Code : 8480-6 BMI: 30.5 Code : 84498-3 Heart Rate 1 : 78 bpm Height: 5'6" SpO2: 97% Weight: 189 lbs 03/01/2016 Blood Pressure 1: 126/60 Code : 8480-6 BMI: 29.9 Code : 97183-2 Heart Rate 1 : 64 bpm Height: 5'6" SpO2: 98% Weight: 185 lbs 11/03/2015 Blood Pressure 1: 154/84 Code : 8480-6 Blood Pressure 1: 122/62 Code: 8480-6 BMI: 30.5 Code: 00024-8 Heart Rate 1: 81 bpm Height: 5'6" SpO2: 98% Weight: 189 lbs 10/19/2015 Blood Pressure 1: 138/76 Code : 8480-6 BMI: 36.5 Code : 01441-1 Heart Rate 1 : 78 bpm Height: 5' SpO2: 97% Weight: 187 lbs 08/04/2015 Blood Pressure 1: 138/70 Code : 8480-6 BMI: 30.0 Code : 27808-8 Heart Rate 1 : 69 bpm Height: 5'6" SpO2: 94% Weight: 186 lbs 07/21/2015 Blood Pressure 1: 134/60 Code : 8480-6 BMI: 29.9 Code : 11685-7 Heart Rate 1 : 88 bpm Height: 5'6" SpO2: 96% Weight: 185 lbs 06/14/2015 Blood Pressure 1: 128/62 Code : 8480-6 BMI: 29.9 Code : 86593-0 Heart Rate 1 : 68 bpm Height: 5'6" Weight: 185 lbs 04/06/2015 Blood Pressure 1: 122/62 Code : 8480-6 BMI: 30.8 Code : 32589-4 Heart Rate 1 : 67 bpm Height: [...] Diagnosis: Acute laryngopharyngitis[ICD10: J06.0] Bisi Villeda MD, [facility] CPT-4: 95428 12/31/2017 ([id number]) Miscellaneous no charge Diagnosis: Obstructive sleep apnea (adult) (pediatric)[ICD10: G47.33] Kamini Villeda MD , [facility] CPT-4: 14965 10/16/2017 ([id number]) 83860 EST. PATIENT, LEVEL III Diagnosis: Obstructive sleep apnea (adult) (pediatric)[ICD10: G47.33] Missy Villeda MD, [facility] CPT-4: 21263 10/08/2017 ([id number]) 19575 EST. PATIENT, LEVEL IV Diagnosis: Essential (primary) hypertension[ICD10: I10] Diagnosis: Slow transit constipation[ICD10: K59.01] Diagnosis: Hypothyroidism, unspecified[ICD10: E03.9] Diagnosis: Spinal stenosis, lumbar region[ICD10: M48.06] Missy Villeda MD, [facility] CPT-4: 05889 08/01/2017 ([id number]) 36438 EST. PATIENT, LEVEL III Diagnosis: Slow transit constipation[ICD10: K59.01] Diagnosis: Diverticulosis of intestine, part unspecified, without perforation or abscess without bleeding[ICD10: K57.90] Missy Villeda MD, [facility] CPT-4: 87628 04/08/2017 ([id number]) 44811 EST. PATIENT, LEVEL IV Diagnosis: Low back pain[ICD10: M54.5] Diagnosis: Right lower quadrant pain[ICD10: R10.31] Diagnosis: Hypothyroidism, unspecified[ICD10: E03.9] Diagnosis: Vitamin D deficiency, unspecified[ICD10: E55.9] Missy Villeda MD, [facility] CPT-4: 31740 03/28/2017 ([id number]) 43190 EST. PATIENT, LEVEL III Diagnosis: Dizziness and giddiness[ICD10: R42] Diagnosis: Essential (primary) hypertension[ICD10: I10] Missy Villeda MD, [facility] CPT-4: 71406 09/03/2016 ([id number]) 04795 EST. PATIENT, LEVEL III Diagnosis: Essential (primary) hypertension[ICD10: I10] Diagnosis: Elevated white blood cell count, unspecified[ICD10: D72.829] Diagnosis: Low back pain[ICD10: M54.5] Diagnosis: Encounter for immunization[ICD10: Z23] Missy Villeda MD, [facility] CPT-4: 27180 08/31/[id number]) 09927 EST. PATIENT, LEVEL IV Diagnosis: Allergic rhinitis due to pollen[ICD10: J30.1] Diagnosis: Low back pain[ICD10: M54.5] Diagnosis: Vitamin D deficiency, unspecified[ICD10: E55.9] Diagnosis: Hypothyroidism, unspecified[ICD10: E03.9] Diagnosis: Essential (primary) hypertension[ICD10: I10] Missy Villeda MD, [facility] CPT-4: 35660 07/17/[id number]) 90322 EST. PATIENT, LEVEL IV Diagnosis: Essential (primary) hypertension[ICD10: I10] Diagnosis: Hypothyroidism, unspecified[ICD10: E03.9] Diagnosis: Vitamin D deficiency, unspecified[ICD10: E55.9] Diagnosis: Mixed hyperlipidemia[ICD10: E78.2] Diagnosis: Tobacco use[ICD10: Z72.0] Missy Villeda MD, [facility] CPT-4: 04819 03/01/2016 ([id number]) 36882 EST. PATIENT, LEVEL III Diagnosis: Essential (primary) hypertension[ICD10: I10] Diagnosis: Obstructive sleep apnea (adult) (pediatric)[ICD10: G47.33] Missy Villeda MD, [facility] CPT-4: 40954 11/03/2015 [id number] EST. PATIENT, LEVEL IV Diagnosis: Angina pectoris, unspecified[ICD10: I20.9] Bisi Villeda MD, [facility] CPT-4: 53664 10/19/2015 ([id number]) 63984 EST. PATIENT, LEVEL III Diagnosis: ESSENTIAL HYPERTENSION[ICD9: 401.9] Diagnosis: ESOPHAGEAL REFLUX[ICD9: 530.81] Diagnosis: Diarrhea[ICD9: 787.91] Missy Villeda MD, [facility] CPT-4: 32219 08/04/2015 42288 EST. PATIENT, LEVEL IV Diagnosis: Diverticulitis[ICD9: 562.11] Diagnosis: Diarrhea[ICD9: 787.91] Missy Villeda MD, [facility] CPT-4: 43396 07/21/2015 ([id number]) 59219 EST. PATIENT, LEVEL IV Diagnosis: ESSENTIAL HYPERTENSION[ICD9: 401.9] Diagnosis: HYPOTHYROIDISM[ICD9: 244.9] Diagnosis: VITAMIN D DEFICIENCY[ICD9: 268.9] Diagnosis: HYPERLIPIDEMIA[ICD9: 272.4] Missy Villeda MD, [facility] CPT-4: 98647 06/14/2015 ([id number]) OFFICE VISIT, NEW - LEVEL 4 Diagnosis: ESSENTIAL HYPERTENSION[ICD9: 401.9] Diagnosis: HYPOTHYROIDISM[ICD9: 244.9] Diagnosis: Spinal stenosis[ICD9: 724.00] Kamini Villeda MD, [facility] CPT- 4: 76118 04/06/2015 Plan of Care Planned Activity Notes Codes Status Date Patient Education: Patient Medication Summary Completed 12/31/2017 Appointment: Nurse Visit 10/16/2017 Patient Education: Patient Medication Summary Completed 10/16/2017 [facility] [phone] [phone] [place] ([facility] min) Complex 10/08/2017 Patient Education: Patient Medication Summary Completed 10/08/2017 Patient Education: Obesity Completed 10/08/2017 Appointment: Injection 09/27/2017 Patient Education: Patient Medication Summary Completed 09/27/2017 Referral: Carlos Jeter Referral Initiated 08/12/2017 Patient Education: Patient Medication Summary Completed 08/01/2017 Patient Education: Hypertension Completed 08/01/2017 Care Plan: Referral Order SNOMED-CT : [id number] Pending 08/01/2017 [facility] [phone] [phone] [place] ([place] min) Complex 04/08/2017 Patient Education: Patient Medication Summary Completed 04/08/2017 [facility]: [facility] [phone] [phone] [place] ([place] min) Complex 03/28/2017 Patient Education: Patient Medication Summary Completed 03/28/2017 Care Plan: Cbc With Differential Pending 03/28/2017 App[facility]ment: [facility] [phone] [facility] [place] ([place] min) Complex 03/25/2017 App[facility]ment[facility] [phone] [phone] [place] ([place] min) Complex 09/03/2016 Patient Education: Patient Medication Summary Completed 09/03/2016 Patient Education: .Amazing charts Paroxysmal positional vertigo Completed 01/2016 [facility]ment: [facility] [phone] [phone] [place] ([place] min) Complex 08/31/2016 Patient Education: Patient Medication Summary Completed 08/31/2016 Patient Education: Obesity Completed 08/31/2016 [facility]: [facility] [phone] [phone] [place] (30 min) Complex 07/17/2016 Patient Education: Patient Medication Summary Completed 07/17/2016 Patient Education: Obesity Completed 07/17/2016 Patient Education: Patient Medication Summary Completed 03/01/2016 Patient Education: Hypertension Completed 03/01/2016 Patient Education: Smoking and Tobacco Addiction Completed 03/01/2016 Appointment: (15 min) Moderate 11/14/2015 Patient Education: Patient Medication Summary Completed 11/03/2015 Patient Education: Hypertension Completed 11/03/2015 Appointment: (15 min) Moderate 10/19/2015 Patient Education: Patient Medication Summary Completed 10/19/2015 Patient Education: Patient Medication Summary Completed 08/04/2015 Patient Education: Hypertension Completed 08/04/2015 Appointment: (15 min) Moderate 07/21/2015 Patient Education: Patient Medication Summary Completed 07/21/2015 Appointment: Missy Leonard WPtel: [phone] (15 min) Moderate 06/14/2015 Patient Education: Patient Medication Summary Completed 06/14/2015 Patient Education: Hypertension Completed 06/14/2015 Care Plan: COMPLETE CBC AUTOMATED LOINC : 74477-7 Ordered 06/14/2015 Appointment: Kamini Villeda WPtel: [phone] Follow up 06/13/2015 Patient Education: Patient Medication Summary Completed 04/06/2015 Patient Education: Hypertension Completed 04/06/2015 Referral: Carlos Jeter Referral Appointment Requested Instructions No Instructions
--- OUTSIDE RECORDS SUMMARY | 2018-09-17 08:50 | XMS REPORT | CCD ---
Author Author Kamini Villeda Organization Kamini Villeda MD, [facility] Address [address] [place] [address] Phone Care Team Providers Care Notereader Name Role Phone PP Unavailable CCM Unavailable Summary Purpose Interface Exchange Insurance Providers Payer name Policy type / Coverage type Covered green party ID Effective Begin Date Effective End Date WPS Medicare Part B Medicare Part B [id number] Unknown Unknown [facility] Medicare Part B [id number] Unknown Unknown Family history Runs in the family Diagnosis Age At Onset Hypertension Unknown Social History Social History Element Codes Description Effective Dates Tobacco history SNOMED CT: 1036962 Quit over 10 years ago CHEWS TOBACCO 03/01/2016 Marital status Unknown 04/05/2015 Employment Unknown Retired 04/05/[address]: 176005615 Never drinks alcohol 04/05/2015 Allergies, Adverse Reactions, [...] Instructions Zithromax Z-Humberto 250 mg tablet RxNorm: 132238 1 Tablet(s) PO UD 12/31/2017 No Stop Date Active Trilipix 135 mg capsule,delayed release RxNorm: 360173 TAKE ONE CAPSULE BY MOUTH EVERY NIGHT AT BEDTIME 12/30/20172017 Active isosorbide mononitrate ER 60 mg tablet,extended release 24 hr RxNorm: 422607 TAKE TWO TABLETS BY MOUTH DAILY 11/28/2017 Active Keflex 500 mg capsule RxNorm: 173589 1 Capsule(s) PO TID 201612/04/2017 Inactive Tessalon Perles 100 mg capsule RxNorm: 543209 1-2 Capsule(s) PO TID as needed 11/28/2017 11/27/2017 Inactive Tessalon Perles 100 mg capsule RxNorm: 334784 1-2 Capsule(s) PO TID as needed 11/28/2017 12/02/2017 Inactive paroxetine 20 mg tablet RxNorm: 6494104 TAKE ONE TABLET BY MOUTH EVERY NIGHT AT BEDTIME 11/26/2017 04/24/2018 Active lorazepam 0.5 mg tablet RxNorm: 302151 1 Tablet(s) PO Q6 as needed 11/26/2017 01/09/2018 Active Trilipix 135 mg capsule,delayed release RxNorm: 687613 TAKE ONE CAPSULE BY MOUTH EVERY NIGHT AT BEDTIME 08/20/20172017 Inactive Avodart 0.5 mg capsule RxNorm: 282074 TAKE ONE CAPSULE BY MOUTH DAILY 08/12/2017 12/09/2017 Inactive Lovaza 1 gram capsule RxNorm: 789403 TAKE TWO CAPSULES BY MOUTH TWICE A DAY 07/09/2017 10/06/2017 Inactive Ranexa 1,000 mg tablet,extended release RxNorm: 512249 TAKE ONE TABLET BY MOUTH TWICE A DAY 06/20/2017 07/09/2017 Inactive tramadol 50 mg tablet RxNorm: 890664 TAKE TWO TABLETS BY MOUTH THREE TIMES A DAY 05/23/2017 06/21/2017 Inactive levothyroxine 100 mcg tablet RxNorm: 947037 TAKE ONE TABLET BY MOUTH DAILY 05/21/2017 02/14/2018 Active paroxetine 20 mg tablet RxNorm: 6541826 TAKE ONE TABLET BY MOUTH EVERY NIGHT AT BEDTIME 05/21/2017 11/16/2017 Inactive Keflex 500 mg capsule RxNorm: 485278 1 Capsule(s) PO TID 201605/09/2017 Inactive Keflex 500 mg capsule RxNorm: 642984 1 Capsule(s) PO TID 201605/02/2017 Inactive lorazepam 0.5 mg tablet RxNorm: 461341 1 Tablet(s) PO Q6 as needed 04/26/2017 06/24/2017 Inactive Flagyl 500 mg tablet RxNorm: 950303 1 Tablet(s) PO TID 201604/17/2017 Inactive isosorbide mononitrate ER 60 mg tablet,extended release 24 hr RxNorm: 401124 TAKE TWO TABLETS BY MOUTH DAILY 04/08/201703/2017 Inactive Vitamin D2 50,000 unit capsule RxNorm: 995844 1 Capsule(s) PO QW x12 weeks 03/29/2017 03/28/2017 Inactive Vitamin D3 2,000 unit capsule RxNorm: 374057 1 Capsule(s) PO daily 03/29/2017 03/28/2017 Inactive Vitamin D3 2,000 unit capsule RxNorm: 661647 1 Capsule(s) PO daily 03/29/2017 06/26/2017 Inactive Vitamin D2 50,000 unit capsule RxNorm: 858514 1 Capsule(s) PO QW x12 weeks 03/29/2017 06/26/2017 Inactive oxycodone 10 mg tablet RxNorm: 3593301 1 Tablet(s) PO Q6-8H 04/26/2017 Inactive Trilipix 135 mg capsule,delayed release RxNorm: 653307 Capsule(s) TAKE ONE CAPSULE BY MOUTH EVERY NIGHT AT BEDTIME 03/19/2017 08/15/2017 Inactive Trilipix 135 mg capsule,delayed release RxNorm: 962626 TAKE ONE CAPSULE BY MOUTH EVERY NIGHT AT BEDTIME 03/18/20172016 Inactive lorazepam 0.5 mg tablet RxNorm: 101809 1 Tablet(s) PO Q6 as needed 03/05/2017 04/25/2017 Inactive Needs appt for next refill Avodart 0.5 mg capsule RxNorm: 874400 TAKE ONE CAPSULE BY MOUTH DAILY 01/25/2017 06/23/2017 Inactive paroxetine 20 mg tablet RxNorm: 5999485 Tablet(s) TAKE ONE TABLET BY MOUTH EVERY NIGHT AT BEDTIME 01/15/2017 05/14/2017 Inactive Lovaza 1 gram capsule RxNorm: 887605 TAKE TWO CAPSULES BY MOUTH TWICE A DAY 01/10/2017 03/10/2017 Inactive clopidogrel 75 mg tablet RxNorm: 375902 TAKE ONE TABLET BY MOUTH DAILY 01/04/2017 11/29/2017 Inactive lorazepam 0.5 mg tablet RxNorm: 972580 1 Tablet(s) PO Q6 as needed 10/29/2016 03/04/2017 Inactive paroxetine 20 mg tablet RxNorm: 2711796 TAKE ONE TABLET BY MOUTH EVERY NIGHT AT BEDTIME 09/10/2016 01/07/2017 Inactive meclizine 25 mg tablet RxNorm: 102571 1 Tablet(s) PO Q8 PRN 01/2016 No Stop Date Active Kenalog 40 mg/mL suspension for injection RxNorm: 0262735 Milliliter(s) Inj 09/03/2016 09/03/2016 Inactive hydrocodone 7.5 mg-acetaminophen 325 mg tablet RxNorm: 077586 1-2 Tablet(s) PO Q6 PRN 08/31/2016 03/27/2017 Inactive tramadol 50 mg tablet RxNorm: 569693 Tablet(s) TAKE TWO TABLETS BY MOUTH THREE TIMES A DAY 08/21/2016 05/23/2017 Inactive Trilipix 135 mg capsule,delayed release RxNorm: 888390 TAKE ONE CAPSULE BY MOUTH EVERY NIGHT AT BEDTIME 08/14/20162016 Inactive Kenalog 40 mg/mL suspension for injection RxNorm: 0412974 1 Milliliter(s) Inj 07/17/2016 07/17/2016 Inactive isosorbide mononitrate ER 60 mg tablet,extended release 24 hr RxNorm: 032888 TAKE TWO TABLETS BY MOUTH DAILY 06/28/2016 Inactive Request already responded to by other means (e.g. phone or fax) isosorbide mononitrate ER 60 mg tablet,extended release 24 hr RxNorm: 342499 2 Tablet(s) PO daily 06/25/2016 12/21/2016 Inactive Avodart 0.5 mg capsule RxNorm: 081479 1 Capsule(s) PO daily 10/27/2016 Inactive tramadol 50 mg tablet RxNorm: 387151 Tablet(s) TAKE TWO TABLETS BY MOUTH THREE TIMES A DAY 04/13/2016 06/10/2016 Inactive Lovaza 1 gram capsule RxNorm: 317556 TAKE TWO CAPSULES BY MOUTH TWICE A DAY 04/13/2016 07/11/2016 Inactive levothyroxine 100 mcg tablet RxNorm: 701509 1 Tablet(s) PO daily 04/09/2016 04/03/2017 Inactive [SAVINGS FOR NON-COVERED DRUGS -- BIN:[id number], PCN: ASPROD1, Group: XXXXX, ID# XXXXXXX, Questions: . THIS IS NOT INSURANCE.] Vitamin D2 50,000 unit capsule RxNorm: 845047 1 Capsule(s) PO weekly QW 03/16/2016 06/13/2016 Inactive lorazepam 0.5 mg tablet RxNorm: 102377 1 Tablet(s) PO Q6 as needed 02/29/2016 11/26/2017 Inactive lorazepam 0.5 mg tablet RxNorm: 085361 1 Tablet(s) PO Q6 as needed 02/23/2016 10/28/2016 Inactive Trilipix 135 mg capsule,delayed release RxNorm: 564599 1 Capsule(s) PO QHS 01/13/2016 08/09/2016 Inactive paroxetine 20 mg tablet RxNorm: 2685385 TAKE ONE TABLET BY MOUTH AT BEDTIME 01/09/2016 07/06/2016 Inactive paroxetine 20 mg tablet RxNorm: 151990 TAKE ONE TABLET BY MOUTH AT BEDTIME 01/09/2016 01/08/2016 Inactive isosorbide mononitrate ER 60 mg tablet,extended release 24 hr RxNorm: 520413 2 Tablet(s) PO daily 01/03/2016 05/01/2016 Inactive Ranexa 1,000 mg tablet,extended release RxNorm: 054783 1 Tablet(s) PO BID 01/03/2016 08/29/2016 Inactive clopidogrel 75 mg tablet RxNorm: 164791 TAKE ONE TABLET BY MOUTH DAILY 12/15/2015 12/08/2016 Inactive nitroglycerin 0.4 mg sublingual tablet RxNorm: 129893 1 Tablet(s) SL UD 1 tab onset of CP may repeat 5 min max of 3 in 15 min 2015 No Stop Date Active paroxetine 20 mg tablet RxNorm: 932659 TAKE ONE TABLET BY MOUTH AT BEDTIME 10/07/2015 01/04/2016 Inactive clopidogrel 75 mg tablet RxNorm: 548081 1 Tablet(s) PO daily 11/26/2015 Inactive Avodart 0.5 mg capsule RxNorm: 094024 1 Capsule(s) PO daily 02/24/2016 Inactive lorazepam 0.5 mg tablet RxNorm: 363568 1 Tablet(s) PO Q6 as needed 08/19/2015 02/28/2016 Inactive tramadol 50 mg tablet RxNorm: 269157 TAKE TWO TABLETS BY MOUTH THREE TIMES A DAY 08/01/2015 08/28/2015 Inactive Cipro 500 mg tablet RxNorm: 967668 1 Tablet(s) PO BID 201407/30/2015 Inactive Flagyl 500 mg tablet RxNorm: 997944 1 Tablet(s) PO TID 201407/30/2015 Inactive paroxetine 20 mg tablet RxNorm: 499502 1 Tablet(s) PO QHS 06/0910/06/2015 Inactive Lovaza 1 gram capsule RxNorm: 492391 2 Capsule(s) PO BID 201409/13/2015 Inactive tramadol 50 mg tablet RxNorm: 419071 1 Tablet(s) PO TID as needed 04/18/2015 08/03/2015 Inactive levothyroxine 100 mcg tablet RxNorm: 712659 1 Tablet(s) PO daily 04/01/2015 03/31/2015 Inactive levothyroxine 100 mcg tablet RxNorm: 981004 1 Tablet(s) PO daily 04/01/2015 03/25/2016 Inactive [SAVINGS FOR NON-COVERED DRUGS -- BIN:[id number], PCN: ASPROD1, Group: XXXXX, ID# [id number], Questions: . THIS IS NOT INSURANCE.] melatonin 3 mg tablet RxNorm: 386055 1 Tablet(s) PO QHS No Start Date Active folic acid 1 mg tablet RxNorm: 277351 1 Tablet(s) PO daily No Start Date Active Lipitor 80 mg tablet RxNorm: 709666 1 Tablet(s) PO QHS No Start Date Active aspirin 81 mg chewable tablet RxNorm: 796255 1 Tablet(s) PO daily No Start Date Active Protonix 40 mg tablet,delayed release RxNorm: 646343 1 Tablet(s) PO daily No Start Date Active paroxetine 20 mg tablet RxNorm: 890986 1 Tablet(s) PO QHS No Start Date 06/08/2015 Inactive nitroglycerin 0.4 mg sublingual tablet RxNorm: 242052 sublingual No Start Date 11/10/2015 Inactive Avodart 0.5 mg capsule RxNorm: 363712 1 Capsule(s) PO daily No Start Date 08/28/2015 Inactive lorazepam 0.5 mg tablet RxNorm: 119959 1 Tablet(s) PO QHS No Start Date 08/18/2015 Inactive Trilipix 135 mg capsule,delayed release RxNorm: 408264 1 Capsule(s) PO daily No Start Date 01/12/2016 Inactive Vitamin D2 50,000 unit capsule RxNorm: 109898 1 Capsule(s) PO weekly No Start Date 03/15/2016 Inactive losartan 50 mg tablet RxNorm: 430949 1 Tablet(s) PO daily No Start Date 07/16/2016 Inactive Ranexa 500 mg tablet,extended release RxNorm: 952510 2 Tablet(s) PO BID No Start Date 01/02/2016 Inactive clopidogrel 75 mg tablet RxNorm: 243823 1 Tablet(s) PO daily No Start Date 09/27/2015 Inactive tramadol 50 mg tablet RxNorm: 895897 1 Tablet(s) PO TID as needed No Start Date 04/17/2015 Inactive Lovaza 1 gram capsule RxNorm: 289791 2 Capsule(s) PO daily No Start Date 05/16/2015 Inactive isosorbide mononitrate ER 60 mg tablet,extended release 24 hr RxNorm: 895650 2 Tablet(s) PO daily No Start Date 2015 Inactive Medication Administered Medication Codes Instructions Start Date Status Kenalog 40 mg/mL suspension for injection RxNorm: 1298791 Milliliter 09/03/2016 No longer Active Kenalog 40 mg/mL suspension for injection RxNorm: 2455512 1Milliliter 07/17/2016 No longer Active Immunizations Vaccine [...] Item Item Code Result Date Comp Metabolic Fbh247 NA 141 mEq/L 03/28/2017 Comp Metabolic Nkb400 K 4.3 mEq/L 03/28/2017 Comp Metabolic Ecb855 CL 103 mEq/L 03/28/2017 Comp Metabolic Myp887 CO2 30.0 mEq/L 03/28/2017 Comp Metabolic Wac173 ANION GAP 12 03/28/2017 Comp Metabolic Zcw385 GLUCOSE 106 mg/dL 03/28/2017 Comp Metabolic Ykz683 Creat 1.4 mg/dL 03/28/2017 Comp Metabolic Wpi885 eGFR 54 ml/min/1.73m2 03/28/2017 Comp Metabolic Nnn454 BUN 15 mg/dL 03/28/2017 Comp Metabolic Xjm603 B/C Ratio 11.1 Ratio 03/28/2017 Comp Metabolic Zop751 CALCIUM 9.5 mg/dL 03/28/2017 Comp Metabolic Afv024 ALK PHOS 41 U/L 03/28/2017 Comp Metabolic Dkz419 AST(SGOT) 24 U/L 03/28/2017 Comp Metabolic Gfl834 ALT(SGPT) 27 U/L 03/28/2017 Comp Metabolic Sek400 BILI T 0.5 mg/dL 03/28/2017 Comp Metabolic Ibi062 ALBUMIN 4.2 g/dL 03/28/2017 Comp Metabolic Qik823 TPRO 7.2 g/dL 03/28/2017 Comp Metabolic Gry956 GLOB 3.0 g/dL 03/28/2017 Comp Metabolic Jbn406 A/G Ratio 1.4 Ratio 03/28/2017 Comp Metabolic Wrq723 Osmo 283 mOsmo 03/28/2017 Free T4 Bai078 FREE T4 1.05 ng/dL 03/28/2017 Cbc With [...] 93.7 fl 03/28/2017 Cbc With Differential Ord2 Elbert% 9.8 % 03/28/2017 Cbc With Differential Ord2 MCH 30.7 pg 03/28/2017 Cbc With Differential Ord2 MCHC 32.8 pg 03/28/2017 Cbc With Differential Ord2 Eos% 5.7 % 03/28/2017 Cbc With Differential Ord2 PLT 308 K/ul 03/28/2017 Cbc With Differential Ord2 Baso% 0.8 % 03/28/2017 Cbc With Differential Ord2 Neut ABS# 4.88 K/ul 03/28/2017 Cbc With Differential Ord2 RDW 14.1 % 03/28/2017 Cbc With Differential Ord2 Lymph ABS# 2.01 K/ul 03/28/2017 Cbc With Differential Ord2 Elbert ABS# 0.8 K/ul 03/28/2017 Cbc With Differential Ord2 Eos ABS# 0.5 K/ul 03/28/2017 Cbc With Differential Ord2 Baso ABS# 0.1 K/ul 03/28/2017 Tsh Ord6 hTSH II 1.37 uIU/mL 03/28/2017 Vitamin D 25 Oh [id number] VITAMIN D, 25 HYDROXY 23.11 ng/mL Cbc [...] 30.5 pg 08/28/2016 Cbc With Differential Ord2 Elbert% 8.7 % 08/28/2016 Cbc With Differential Ord2 [...] 1.88 K/ul 08/28/2016 Cbc With Differential Ord2 Elbert ABS# 0.6 K/ul 08/28/2016 Cbc With Differential Ord2 Eos ABS# 0.2 K/ul 08/28/2016 Cbc With Differential Ord2 Baso ABS# 0.0 K/ul 08/28/2016 Vitamin D 25 Oh Ift1547 VITAMIN D, 25 HYDROXY 41.44 ng/mL Comp Metabolic Uva437 NA 138 mEq/L 07/17/2016 Comp Metabolic Fsx371 K 3.9 mEq/L 07/17/2016 Comp Metabolic Idb050 CL 103 mEq/L 07/17/2016 Comp Metabolic Hwr232 CO2 29.0 mEq/L 07/17/2016 Comp Metabolic Inc733 ANION GAP 10 07/17/2016 Comp Metabolic Roy209 GLUCOSE 103 mg/dL 07/17/2016 Comp Metabolic Hog578 Creat 1.2 mg/dL 07/17/2016 Comp Metabolic Lmt649 eGFR 65 ml/min/1.73m2 07/17/2016 Comp Metabolic Iri587 BUN 18 mg/dL 07/17/2016 Comp Metabolic Ptz484 B/C Ratio 15.7 Ratio 07/17/2016 Comp Metabolic Gkz267 CALCIUM 9.1 mg/dL 07/17/2016 Comp Metabolic Tjf673 ALK PHOS 33 U/L 07/17/2016 Comp Metabolic Zvo486 AST(SGOT) 18 U/L 07/17/2016 Comp Metabolic Uqi888 ALT(SGPT) 24 U/L 07/17/2016 Comp Metabolic Bue428 BILI T 0.6 mg/dL 07/17/2016 Comp Metabolic Jrg767 ALBUMIN 4.3 g/dL 07/17/2016 Comp Metabolic Ojk342 TPRO 7.0 g/dL 07/17/2016 Comp Metabolic Jsf251 GLOB 2.7 g/dL 07/17/2016 Comp Metabolic Iqs119 A/G Ratio 1.6 Ratio 07/17/2016 Comp Metabolic Hsg053 Osmo 278 mOsmo 07/17/2016 Cbc With Differential [...] 30.6 pg 07/17/2016 Cbc With Differential Ord2 Elbert% 9.2 % 07/17/2016 Cbc With Differential Ord2 [...] 1.65 K/ul 07/17/2016 Cbc With Differential Ord2 Elbert ABS# 1.0 K/ul 07/17/2016 Cbc With Differential Ord2 Eos ABS# 0.3 K/ul 07/17/2016 Cbc With Differential Ord2 Baso ABS# 0.0 K/ul 07/17/2016 Free T4 Bao421 FREE T4 0.91 ng/dL 07/17/2016 Tsh Ord6 hTSH II 2.16 uIU/mL 07/17/2016 Vitamin D 25 Oh Gxc5872 VITAMIN D, 25 HYDROXY 22.46 ng/mL Lipid Ord30 CHOL 134 mg/dL 03/07/2016 Lipid Ord30 HDL 37.0 mg/dl 03/07/2016 Lipid Ord30 TRIG 210 mg/dL 03/07/2016 Lipid Ord30 LDL 55 mg/dL 03/07/2016 Lipid Ord30 C/HDL 3.6 Ratio 03/07/2016 Tsh Ord6 hTSH II 0.84 uIU/mL 03/07/2016 Comp Metabolic Ukp782 NA 139 mEq/L 03/07/2016 Comp Metabolic Ozb738 K 3.8 mEq/L 03/07/2016 Comp Metabolic Bak568 CL 104 mEq/L 03/07/2016 Comp Metabolic Ela800 CO2 28.0 mEq/L 03/07/2016 Comp Metabolic Oya190 ANION GAP 11 03/07/2016 Comp Metabolic Wjc297 GLUCOSE 110 mg/dL 03/07/2016 Comp Metabolic Hcg503 Creat 1.2 mg/dL 03/07/2016 Comp Metabolic Cih790 eGFR 60 ml/min/1.73m2 03/07/2016 Comp Metabolic Rwp360 BUN 17 mg/dL 03/07/2016 Comp Metabolic Ffp602 B/C Ratio 13.8 Ratio 03/07/2016 Comp Metabolic Zkr618 CALCIUM 9.2 mg/dL 03/07/2016 Comp Metabolic Alw656 ALK PHOS 32 U/L 03/07/2016 Comp Metabolic Sof907 AST(SGOT) 21 U/L 03/07/2016 Comp Metabolic Sse398 ALT(SGPT) 25 U/L 03/07/2016 Comp Metabolic Cmv866 BILI T 0.5 mg/dL 03/07/2016 Comp Metabolic Nwi777 ALBUMIN 4.2 g/dL 03/07/2016 Comp Metabolic Rvw374 TPRO 6.7 g/dL 03/07/2016 Comp Metabolic Shh382 GLOB 2.5 g/dL 03/07/2016 Comp Metabolic Lfg367 A/G Ratio 1.6 Ratio 03/07/2016 Comp Metabolic Pqt090 Osmo 280 mOsmo 03/07/2016 Cbc With Differential [...] 93.7 fl 03/07/2016 Cbc With Differential Ord2 MCH 30.1 pg 03/07/2016 Cbc With Differential Ord2 Elbert% 8.5 % 03/07/2016 Cbc With Differential Ord2 MCHC 32.1 pg 03/07/2016 Cbc With Differential Ord2 Eos% 5.4 % 03/07/2016 Cbc With Differential Ord2 PLT 233 K/ul 03/07/2016 Cbc With Differential Ord2 Baso% 0.3 % 03/07/2016 Cbc With Differential Ord2 RDW 14.5 % 03/07/2016 Cbc With Differential Ord2 Neut ABS# 4.10 K/ul 03/07/2016 Cbc With Differential Ord2 Lymph ABS# 1.74 K/ul 03/07/2016 Cbc With Differential Ord2 Elbert ABS# 0.6 K/ul 03/07/2016 Cbc With Differential Ord2 Eos ABS# 0.4 K/ul 03/07/2016 Cbc With Differential Ord2 Baso ABS# 0.0 K/ul 03/07/2016 Cbc With Differential Ord2 New Analyzer Notice Please note new ref ranges starting 12-14-2015 due to implemntation of new five part differential hematolgy analyzer. 03/07/2016 Free T4 Vjz791 FREE T4 1.12 ng/dL 03/07/2016 Cbc With [...] Ord2 RDW 14.4 % 07/21/2015 Comp Metabolic Ilz515 NA 137 mEq/L 07/21/2015 Comp Metabolic Pfc774 K 3.8 mEq/L 07/21/2015 Comp Metabolic Cxc869 CL 102 mEq/L 07/21/2015 Comp Metabolic Efj792 CO2 28.0 mEq/L 07/21/2015 Comp Metabolic Fev918 ANION GAP 11 07/21/2015 Comp Metabolic Xiz995 GLUCOSE 129 mg/dL 07/21/2015 Comp Metabolic Pvv605 Creat 1.3 mg/dL 07/21/2015 Comp Metabolic Ozs400 eGFR 57 ml/min/1.73m2 07/21/2015 Comp Metabolic Ata615 BUN 17 mg/dL 07/21/2015 Comp Metabolic Ubg293 B/C Ratio 13.2 Ratio 07/21/2015 Comp Metabolic Lqq427 CALCIUM 9.2 mg/dL 07/21/2015 Comp Metabolic Cug704 ALK PHOS 30 U/L 07/21/2015 Comp Metabolic Rdg959 AST(SGOT) 17 U/L 07/21/2015 Comp Metabolic Fop095 ALT(SGPT) 23 U/L 07/21/2015 Comp Metabolic Dez316 BILI T 0.6 mg/dL 07/21/2015 Comp Metabolic Nnd557 ALBUMIN 4.2 g/dL 07/21/2015 Comp Metabolic Ksy888 TPRO 6.7 g/dL 07/21/2015 Comp Metabolic Ltv530 GLOB 2.5 g/dL 07/21/2015 Comp Metabolic Ejz004 A/G Ratio 1.7 Ratio 07/21/2015 Comp Metabolic Vrj586 Osmo 277 mOsmo 07/21/2015 Vitamin D 25 Oh Ndi9831 VITAMIN D, 25 HYDROXY 43.45 ng/mL Lipid Ord30 CHOL 142 mg/dL 06/23/2015 Lipid Ord30 HDL 35.0 mg/dl 06/23/2015 Lipid Ord30 TRIG 159 mg/dL 06/23/2015 Lipid Ord30 LDL 75 mg/dL 06/23/2015 Lipid Ord30 C/HDL 4.1 Ratio 06/23/2015 Comp Metabolic Rgy874 NA 139 mEq/L 06/23/2015 Comp Metabolic Nep603 K 4.1 mEq/L 06/23/2015 Comp Metabolic Pqq104 CL 105 mEq/L 06/23/2015 Comp Metabolic Qan960 CO2 29.0 mEq/L 06/23/2015 Comp Metabolic Skv445 ANION GAP 9 06/23/2015 Comp Metabolic Cxl059 GLUCOSE 92 mg/dL 06/23/2015 Comp Metabolic Dbk285 Creat 1.3 mg/dL 06/23/2015 Comp Metabolic Zrk155 eGFR 56 ml/min/1.73m2 06/23/2015 Comp Metabolic Ecq119 BUN 19 mg/dL 06/23/2015 Comp Metabolic Iaf348 B/C Ratio 14.5 Ratio 06/23/2015 Comp Metabolic Prm919 CALCIUM 9.1 mg/dL 06/23/2015 Comp Metabolic Amy321 ALK PHOS 30 U/L 06/23/2015 Comp Metabolic Ddq937 AST(SGOT) 19 U/L 06/23/2015 Comp Metabolic Rzs575 ALT(SGPT) 24 U/L 06/23/2015 Comp Metabolic Nyx208 BILI T 0.5 mg/dL 06/23/2015 Comp Metabolic Fgo201 ALBUMIN 4.1 g/dL 06/23/2015 Comp Metabolic Nyq263 TPRO 6.2 g/dL 06/23/2015 Comp Metabolic Lhv719 GLOB 2.1 g/dL 06/23/2015 Comp Metabolic Oqc930 A/G Ratio 2.0 Ratio 06/23/2015 Comp Metabolic Qto713 Osmo 279 mOsmo 06/23/2015 Cbc With Differential [...] hTSH II 2.17 uIU/mL 06/23/2015 Free T4 Eem603 FREE T4 0.96 ng/dL 06/23/2015 Review of [...] NO PRSV 4 TAURUS 3 YRS+ CPT-4: 70568 09/27/2017 PRESCRIP TRANSMIT VIA ERX SY CPT-4: G8553 04/08/2017 TRIAMCINOLONE ACET INJ NOS CPT-4: J3301 09/03/2016 ADMIN INFLUENZA VIRUS VAC CPT-4: G0008 08/31/2016 ADMIN PNEUMOCOCCAL VACCINE SNOMED CT: 39758232 CPT-4: G0009 08/31/2016 FLU VACC 4 TAURUS 3 YRS PLUS IM Formatting Model/CDA Sections, Assigned to/Robert Liudmila SNOMED CT: 24956682 CPT-4: 36858Jstfgxf 08/31/2016 PNEUMOCOCCAL VACC [address]: 31502322 CPT-4: 26572 08/31/2016 TRIAMCINOLONE ACET INJ NOS CPT-4: J3301 07/17/2016 TOBACCO-USE [employer]IST 3-[address]: 183685024 CPT-4: G0436 03/01/2016 Vital Signs Date Vital 12/31/2017 Blood Pressure 1: 136/70 Code : 8480-6 BMI: 30.3 Code : 60820-2 Heart Rate 1 : 76 bpm Height: 5'6" SpO2: 98% Temperature: 36.7 (C) / 98.0 (F) Weight: 188 lbs 10/08/2017 Blood Pressure 1: 136/70 Code : 8480-6 BMI: 30.2 Code : 28436-8 Heart Rate 1 : 66 bpm Height: 5'6" SpO2: 98% Weight: 187 lbs 08/01/2017 Blood Pressure 1: 132/62 Code : 8480-6 BMI: 29.5 Code : 55280-6 Heart Rate 1 : 71 bpm Height: 5'6" SpO2: 96% Weight: 183 lbs 04/08/2017 Blood Pressure 1: 142/78 Code : 8480-6 BMI: 29.9 Code : 59365-0 Heart Rate 1 : 78 bpm Height: 5'6" SpO2: 94% Weight: 185 lbs 03/28/2017 Blood Pressure 1: 156/82 Code : 8480-6 BMI: 30.0 Code : 12464-2 Heart Rate 1 : 80 bpm Height: 5'6" SpO2: 93% Weight: 186 lbs 09/03/2016 Blood Pressure 1: 138/68 Code : 8480-6 Blood Pressure 1: 142/90 Code: 8480-6 BMI: 30.8 Code: 33917-3 Heart Rate 1: 90 bpm Height: 5'6" SpO2: 96% Weight: 191 lbs 08/31/2016 Blood Pressure 1: 140/82 Code : 8480-6 BMI: 30.8 Code : 24093-0 Heart Rate 1 : 81 bpm Height: 5'6" SpO2: 97% Weight: 191 lbs 07/17/2016 Blood Pressure 1: 140/76 Code : 8480-6 BMI: 30.5 Code : 25351-9 Heart Rate 1 : 78 bpm Height: 5'6" SpO2: 97% Weight: 189 lbs 03/01/2016 Blood Pressure 1: 126/60 Code : 8480-6 BMI: 29.9 Code : 83206-2 Heart Rate 1 : 64 bpm Height: 5'6" SpO2: 98% Weight: 185 lbs 11/03/2015 Blood Pressure 1: 122/62 Code : 8480-6 Blood Pressure 1: 154/84 Code: 8480-6 BMI: 30.5 Code: 01980-8 Heart Rate 1: 81 bpm Height: 5'6" SpO2: 98% Weight: 189 lbs 10/19/2015 Blood Pressure 1: 138/76 Code : 8480-6 BMI: 36.5 Code : 58245-5 Heart Rate 1 : 78 bpm Height: 5' SpO2: 97% Weight: 187 lbs 08/04/2015 Blood Pressure 1: 138/70 Code : 8480-6 BMI: 30.0 Code : 29499-7 Heart Rate 1 : 69 bpm Height: 5'6" SpO2: 94% Weight: 186 lbs 07/21/2015 Blood Pressure 1: 134/60 Code : 8480-6 BMI: 29.9 Code : 70851-7 Heart Rate 1 : 88 bpm Height: 5'6" SpO2: 96% Weight: 185 lbs 06/14/2015 Blood Pressure 1: 128/62 Code : 8480-6 BMI: 29.9 Code : 10778-5 Heart Rate 1 : 68 bpm Height: 5'6" Weight: 185 lbs 04/06/2015 Blood Pressure 1: 122/62 Code : 8480-6 BMI: 30.8 Code : 07604-9 Heart Rate 1 : 67 bpm Height: [...] Diagnosis: Acute laryngopharyngitis[ICD10: J06.0] Bisi Villeda MD, [facility] CPT-4: 46679 12/31/2017 ([id number]) Miscellaneous no charge Diagnosis: Obstructive sleep apnea (adult) (pediatric)[ICD10: G47.33] Kamini Villeda MD , [facility] CPT-4: 27890 10/16/2017 ([id number]) [id number] EST. PATIENT, LEVEL III Diagnosis: Obstructive sleep apnea (adult) (pediatric)[ICD10: G47.33] Missy Vilelda MD, [facility] CPT-4: 21308 10/08/2017 ([id number]) [id number] EST. PATIENT, LEVEL IV Diagnosis: Essential (primary) hypertension[ICD10: I10] Diagnosis: Slow transit constipation[ICD10: K59.01] Diagnosis: Hypothyroidism, unspecified[ICD10: E03.9] Diagnosis: Spinal stenosis, lumbar region[ICD10: M48.06] Missy Villeda MD, [facility] CPT-4: 74530 08/01/2017 ([id number]) [id number] EST. PATIENT, LEVEL III Diagnosis: Slow transit constipation[ICD10: K59.01] Diagnosis: Diverticulosis of intestine, part unspecified, without perforation or abscess without bleeding[ICD10: K57.90] Missy Villeda MD, [facility] CPT-4: 57000 04/08/2017 ([id number]) [id number] EST. PATIENT, LEVEL IV Diagnosis: Low back pain[ICD10: M54.5] Diagnosis: Right lower quadrant pain[ICD10: R10.31] Diagnosis: Hypothyroidism, unspecified[ICD10: E03.9] Diagnosis: Vitamin D deficiency, unspecified[ICD10: E55.9] Missy Villeda MD, [facility] CPT-4: 82476 03/28/2017 ([id number]) [id number] EST. PATIENT, LEVEL III Diagnosis: Dizziness and giddiness[ICD10: R42] Diagnosis: Essential (primary) hypertension[ICD10: I10] Missy Villeda MD, [facility] CPT-4: 34848 09/03/2016 ([id number]) [id number] EST. PATIENT, LEVEL III Diagnosis: Essential (primary) hypertension[ICD10: I10] Diagnosis: Elevated white blood cell count, unspecified[ICD10: D72.829] Diagnosis: Low back pain[ICD10: M54.5] Diagnosis: Encounter for immunization[ICD10: Z23] Missy Villeda MD, [facility] CPT-4: 55501 08/31/2016 [id number]) [id number] EST. PATIENT, LEVEL IV Diagnosis: Allergic rhinitis due to pollen[ICD10: J30.1] Diagnosis: Low back pain[ICD10: M54.5] Diagnosis: Vitamin D deficiency, unspecified[ICD10: E55.9] Diagnosis: Hypothyroidism, unspecified[ICD10: E03.9] Diagnosis: Essential (primary) hypertension[ICD10: I10] Missy Villeda MD, [facility] CPT-4: 73682 07/17/2016 [id number]) [id number] EST. PATIENT, LEVEL IV Diagnosis: Essential (primary) hypertension[ICD10: I10] Diagnosis: Hypothyroidism, unspecified[ICD10: E03.9] Diagnosis: Vitamin D deficiency, unspecified[ICD10: E55.9] Diagnosis: Mixed hyperlipidemia[ICD10: E78.2] Diagnosis: Tobacco use[ICD10: Z72.0] Missy Villeda MD, [facility] CARE SYSTEM CPT-4: 55168 03/01/2016 ([id number]) [id number] EST. PATIENT, LEVEL III Diagnosis: Essential (primary) hypertension[ICD10: I10] Diagnosis: Obstructive sleep apnea (adult) (pediatric)[ICD10: G47.33] Missy Villeda MD, [facility] CPT-4: 83627 11/03/2015 [id number] EST. PATIENT, LEVEL IV Diagnosis: Angina pectoris, unspecified[ICD10: I20.9] Bisi Villeda MD, [facility] CPT-4: 44213 10/19/2015 ([id number]) 70432 EST. PATIENT, LEVEL III Diagnosis: ESSENTIAL HYPERTENSION[ICD9: 401.9] Diagnosis: ESOPHAGEAL REFLUX[ICD9: 530.81] Diagnosis: Diarrhea[ICD9: 787.91] Missy Villeda MD, [facility] CPT-4: 41012 08/04/2015 [id number] EST. PATIENT, LEVEL IV Diagnosis: Diverticulitis[ICD9: 562.11] Diagnosis: Diarrhea[ICD9: 787.91] Missy Villeda MD, [facility] CPT-4: 88069 07/21/2015 ([id number]) 25285 EST. PATIENT, LEVEL IV Diagnosis: ESSENTIAL HYPERTENSION[ICD9: 401.9] Diagnosis: HYPOTHYROIDISM[ICD9: 244.9] Diagnosis: VITAMIN D DEFICIENCY[ICD9: 268.9] Diagnosis: HYPERLIPIDEMIA[ICD9: 272.4] Missy Villeda MD, [facility] CPT-4: 32329 06/14/2015 ([id number]) OFFICE VISIT, NEW - LEVEL 4 Diagnosis: ESSENTIAL HYPERTENSION[ICD9: 401.9] Diagnosis: HYPOTHYROIDISM[ICD9: 244.9] Diagnosis: Spinal stenosis[ICD9: 724.00] Kamini Villeda MD, [facility] CPT- 4: 02388 04/06/2015 Plan of Care Planned Activity Notes Codes Status Date Visit Plan: URI - Pt advised to increase fluids, vitamin C. Discussed natural and expected course of this diagnosis and need to alert me if symptoms do not follow expected course, or if any worse. RX sent to patient' s pharmacy. 12/31/2017 Patient Education: Patient Medication Summary Completed 12/31/2017 Appointment: Nurse Visit 10/16/2017 Patient Education: Patient Medication Summary Completed 10/16/2017 Visit Plan: Sleep apnea-patient is due for new supplies and needs new sleep study-will fax orders for via [facility]-patient reports improved sleep, improved breathing and better rest with use of CPAP. 10/08/2017 Appointment: Missy Leonard WPtel: [phone] [phone] (30 min) [facility] 10/08/2017 Patient Education: Patient Medication Summary Completed [...] 08/01/2017 Care Plan: Referral Order SNOMED-CT : [id number] Pending 08/01/2017 Visit Plan: Constipation - uncontrolled [...] of plan. 04/08/2017 Appointment: Missy Leonard WPtel: [phone] (30 min) Complex 04/08/2017 Patient Education: Patient Medication Summary Completed 04/08/2017 Visit Plan: RLQ pain-history diverticulitis-schedule CT scan-check labs-avoid seeds, nuts, etc-CLD advance to bland Chronic back pain- does not want injections or PT-continue oxycodone as needed for breakthrough pain Hypothyroidism-check labs Vitamin d deficiency-check level today 03/28/2017 Appointment: Missy Leonard WPtel: [phone] [phone] [place] (30 min) Complex 03/28/2017 Patient Education: Patient Medication Summary Completed 03/28/2017 Care Plan: Cbc With Differential Pending 03/28/2017 Appointment: Bisi Lo WPtel: [phone] [phone] (30 min) Complex 03/25/2017 Visit Plan: Dizziness-kenalog injection today in the office -follow up with Dr Chauhan later today as scheduled 09/03/2016 Visit Plan: Dizziness-kenalog injection today in the office -follow up with Dr Chauhan later today as scheduled 09/03/2016 Appointment: Missy Leonard WPtel: [phone] (30 min) Complex 09/03/2016 Patient Education: Patient [...] termination from this medical practice. Elevated white qsizx-plotaaor-ivwemm CBC is normal 08/31/2016 Appointment: Missy Leonard WPtel: [address] [place], [place] [phone] (30 min) Complex 08/31/2016 Patient Education: Patient [...] deficiency-check labs 07/17/2016 Appointment: Missy Leonard WPtel: [phone] (30 min) Complex 07/17/2016 Patient Education: Patient [...] order for CPAP supplies sent to [facility] [employer] [facility] 11/03/2015 Patient Education: Patient Medication Summary Completed [...] if the symptoms are not improving. Diarrhea-abd asfk-hpsbsxsy-plqu if symptoms return 08/04/2015 Patient Education: Patient [...] D level 06/14/2015 Appointment: [facility] Leonard [facility]Ptel[phone] (15 min) Moderate 06/14/2015 Patient Education: Patient Medication Summary Completed 06/14/2015 Patient Education: Hypertension Completed 06/14/2015 Care Plan: COMPLETE CBC AUTOMATED LOINC : 51251-4 Ordered 06/14/2015 Appointment: Kamini Villeda WPtel: [phone] Follow up 06/13/2015 Visit Plan: Hypertension - [...] START IT TWICE DAILY- ANY BRAND IS FINE-[employer], [facility] PRESCRIPTIONS TO THE PHARMACY: [...] Dr Chauhan later today as scheduled . Hypertension - well [...] termination from this medical practice. Elevated white pslze-hjhugjsq-ommqbe CBC is normal COME BACK NEXT WEEK [...] apnea-order for CPAP supplies sent to [facility] . Sleep apnea-patient is due for new supplies and needs new sleep study-will fax orders for via [facility]-patient reports improved sleep, improved breathing and [...] if the symptoms are not improving. Diarrhea-abd wvtl-zvhjeifu-ftsc if symptoms return
--- OUTSIDE RECORDS SUMMARY | 2018-09-17 08:52 | XMS REPORT | CCD ---
Author Author Kamini Villeda Organization Kamini Villeda MD, [facility] Address [address] [place] [address] Phone Care Team Providers Care Business Intelligence Director Name Role Phone PP Unavailable CCM Unavailable Summary Purpose Interface Exchange Insurance Providers Payer name Policy type / Coverage type Covered constitution party ID Effective Begin Date Effective End Date WPS Medicare Part B Medicare Part B [id number] Unknown Unknown [facility] Medicare Part B [id number] Unknown Unknown Family history Runs in the family Diagnosis Age At Onset Hypertension Unknown Social History Social History Element Codes Description Effective Dates Tobacco history SNOMED CT: 5161688 Quit over 10 years ago CHEWS TOBACCO 03/01/2016 Marital status Unknown 04/05/2015 Employment Unknown Retired 04/05/[address]: 348563675 Never drinks alcohol 04/05/2015 Allergies, Adverse Reactions, Alerts Allergies, Adverse Reactions, Alerts data not found Past Medical History Illness Codes Condition Status Onset Date Resolved Date Obstructive sleep apnea (adult) (pediatric) ICD-9: 327.23 [...] Problems Condition Codes Effective Dates Condition Status Obstructive sleep apnea (adult) (pediatric) ICD-9: 327.23 [...] Start Date Stop Date Status Fill Instructions Trilipix 135 mg capsule,delayed release RxNorm: 136570 TAKE ONE CAPSULE BY MOUTH EVERY NIGHT AT BEDTIME 12/30/20172017 Active isosorbide mononitrate ER 60 mg tablet,extended release 24 hr RxNorm: 756340 TAKE TWO TABLETS BY MOUTH DAILY 11/28/2017 Active Keflex 500 mg capsule RxNorm: 173660 1 Capsule(s) PO TID 201612/04/2017 Inactive Tessalon Perles 100 mg capsule RxNorm: 099171 1-2 Capsule(s) PO TID as needed 11/28/2017 11/27/2017 Inactive Tessalon Perles 100 mg capsule RxNorm: 399611 1-2 Capsule(s) PO TID as needed 11/28/2017 12/02/2017 Inactive paroxetine 20 mg tablet RxNorm: 1172369 TAKE ONE TABLET BY MOUTH EVERY NIGHT AT BEDTIME 11/26/2017 04/24/2018 Active lorazepam 0.5 mg tablet RxNorm: 719975 1 Tablet(s) PO Q6 as needed 11/26/2017 01/09/2018 Active Trilipix 135 mg capsule,delayed release RxNorm: 178547 TAKE ONE CAPSULE BY MOUTH EVERY NIGHT AT BEDTIME 08/20/20172017 Inactive Avodart 0.5 mg capsule RxNorm: 387999 TAKE ONE CAPSULE BY MOUTH DAILY 08/12/2017 12/09/2017 Inactive Lovaza 1 gram capsule RxNorm: 843720 TAKE TWO CAPSULES BY MOUTH TWICE A DAY 07/09/2017 10/06/2017 Inactive Ranexa 1,000 mg tablet,extended release RxNorm: 824836 TAKE ONE TABLET BY MOUTH TWICE A DAY 06/20/2017 07/09/2017 Inactive tramadol 50 mg tablet RxNorm: 840984 TAKE TWO TABLETS BY MOUTH THREE TIMES A DAY 05/23/2017 06/21/2017 Inactive levothyroxine 100 mcg tablet RxNorm: 396069 TAKE ONE TABLET BY MOUTH DAILY 05/21/2017 02/14/2018 Active paroxetine 20 mg tablet RxNorm: 4103195 TAKE ONE TABLET BY MOUTH EVERY NIGHT AT BEDTIME 05/21/2017 11/16/2017 Inactive Keflex 500 mg capsule RxNorm: 713839 1 Capsule(s) PO TID 201605/09/2017 Inactive Keflex 500 mg capsule RxNorm: 374573 1 Capsule(s) PO TID 201605/02/2017 Inactive lorazepam 0.5 mg tablet RxNorm: 730387 1 Tablet(s) PO Q6 as needed 04/26/2017 06/24/2017 Inactive Flagyl 500 mg tablet RxNorm: 416356 1 Tablet(s) PO TID 201604/17/2017 Inactive isosorbide mononitrate ER 60 mg tablet,extended release 24 hr RxNorm: 862947 TAKE TWO TABLETS BY MOUTH DAILY 04/08/201703/2017 Inactive Vitamin D2 50,000 unit capsule RxNorm: 673380 1 Capsule(s) PO QW x12 weeks 03/29/2017 03/28/2017 Inactive Vitamin D3 2,000 unit capsule RxNorm: 462904 1 Capsule(s) PO daily 03/29/2017 03/28/2017 Inactive Vitamin D3 2,000 unit capsule RxNorm: 713907 1 Capsule(s) PO daily 03/29/2017 06/26/2017 Inactive Vitamin D2 50,000 unit capsule RxNorm: 916827 1 Capsule(s) PO QW x12 weeks 03/29/2017 06/26/2017 Inactive oxycodone 10 mg tablet RxNorm: 4055626 1 Tablet(s) PO Q6-8H 04/26/2017 Inactive Trilipix 135 mg capsule,delayed release RxNorm: 505492 Capsule(s) TAKE ONE CAPSULE BY MOUTH EVERY NIGHT AT BEDTIME 03/19/2017 08/15/2017 Inactive Trilipix 135 mg capsule,delayed release RxNorm: 531096 TAKE ONE CAPSULE BY MOUTH EVERY NIGHT AT BEDTIME 03/18/20172016 Inactive lorazepam 0.5 mg tablet RxNorm: 192131 1 Tablet(s) PO Q6 as needed 03/05/2017 04/25/2017 Inactive Needs appt for next refill Avodart 0.5 mg capsule RxNorm: 691516 TAKE ONE CAPSULE BY MOUTH DAILY 01/25/2017 06/23/2017 Inactive paroxetine 20 mg tablet RxNorm: 2646387 Tablet(s) TAKE ONE TABLET BY MOUTH EVERY NIGHT AT BEDTIME 01/15/2017 05/14/2017 Inactive Lovaza 1 gram capsule RxNorm: 194742 TAKE TWO CAPSULES BY MOUTH TWICE A DAY 01/10/2017 03/10/2017 Inactive clopidogrel 75 mg tablet RxNorm: 685743 TAKE ONE TABLET BY MOUTH DAILY 01/04/2017 11/29/2017 Inactive lorazepam 0.5 mg tablet RxNorm: 667792 1 Tablet(s) PO Q6 as needed 10/29/2016 03/04/2017 Inactive paroxetine 20 mg tablet RxNorm: 8376502 TAKE ONE TABLET BY MOUTH EVERY NIGHT AT BEDTIME 09/10/2016 01/07/2017 Inactive meclizine 25 mg tablet RxNorm: 370300 1 Tablet(s) PO Q8 PRN 01/2016 No Stop Date Active Kenalog 40 mg/mL suspension for injection RxNorm: 1151533 Milliliter(s) Inj 09/03/2016 09/03/2016 Inactive hydrocodone 7.5 mg-acetaminophen 325 mg tablet RxNorm: 722870 1-2 Tablet(s) PO Q6 PRN 08/31/2016 03/27/2017 Inactive tramadol 50 mg tablet RxNorm: 650389 Tablet(s) TAKE TWO TABLETS BY MOUTH THREE TIMES A DAY 08/21/2016 05/23/2017 Inactive Trilipix 135 mg capsule,delayed release RxNorm: 417979 TAKE ONE CAPSULE BY MOUTH EVERY NIGHT AT BEDTIME 08/14/20162016 Inactive Kenalog 40 mg/mL suspension for injection RxNorm: 4328563 1 Milliliter(s) Inj 07/17/2016 07/17/2016 Inactive isosorbide mononitrate ER 60 mg tablet,extended release 24 hr RxNorm: 526166 TAKE TWO TABLETS BY MOUTH DAILY 06/28/2016 Inactive Request already responded to by other means (e.g. phone or fax) isosorbide mononitrate ER 60 mg tablet,extended release 24 hr RxNorm: 672540 2 Tablet(s) PO daily 06/25/2016 12/21/2016 Inactive Avodart 0.5 mg capsule RxNorm: 720335 1 Capsule(s) PO daily 10/27/2016 Inactive tramadol 50 mg tablet RxNorm: 420051 Tablet(s) TAKE TWO TABLETS BY MOUTH THREE TIMES A DAY 04/13/2016 06/10/2016 Inactive Lovaza 1 gram capsule RxNorm: 171864 TAKE TWO CAPSULES BY MOUTH TWICE A DAY 04/13/2016 07/11/2016 Inactive levothyroxine 100 mcg tablet RxNorm: 857108 1 Tablet(s) PO daily 04/09/2016 04/03/2017 Inactive [SAVINGS FOR NON-COVERED DRUGS -- BIN:[id number], PCN: [id number], Group: XXXXX, ID# XXXXXXX, Questions: . THIS IS NOT INSURANCE.] Vitamin D2 50,000 unit capsule RxNorm: 606462 1 Capsule(s) PO weekly QW 03/16/2016 06/13/2016 Inactive lorazepam 0.5 mg tablet RxNorm: 526444 1 Tablet(s) PO Q6 as needed 02/29/2016 11/26/2017 Inactive lorazepam 0.5 mg tablet RxNorm: 860608 1 Tablet(s) PO Q6 as needed 02/23/2016 10/28/2016 Inactive Trilipix 135 mg capsule,delayed release RxNorm: 317540 1 Capsule(s) PO QHS 01/13/2016 08/09/2016 Inactive paroxetine 20 mg tablet RxNorm: 0501533 TAKE ONE TABLET BY MOUTH AT BEDTIME 01/09/2016 07/06/2016 Inactive paroxetine 20 mg tablet RxNorm: 671109 TAKE ONE TABLET BY MOUTH AT BEDTIME 01/09/2016 01/08/2016 Inactive isosorbide mononitrate ER 60 mg tablet,extended release 24 hr RxNorm: 744936 2 Tablet(s) PO daily 01/03/2016 05/01/2016 Inactive Ranexa 1,000 mg tablet,extended release RxNorm: 860711 1 Tablet(s) PO BID 01/03/2016 08/29/2016 Inactive clopidogrel 75 mg tablet RxNorm: 162094 TAKE ONE TABLET BY MOUTH DAILY 12/15/2015 12/08/2016 Inactive nitroglycerin 0.4 mg sublingual tablet RxNorm: 650311 1 Tablet(s) SL UD 1 tab onset of CP may repeat 5 min max of 3 in 15 min 2015 No Stop Date Active paroxetine 20 mg tablet RxNorm: 644338 TAKE ONE TABLET BY MOUTH AT BEDTIME 10/07/2015 01/04/2016 Inactive clopidogrel 75 mg tablet RxNorm: 695681 1 Tablet(s) PO daily 11/26/2015 Inactive Avodart 0.5 mg capsule RxNorm: 983726 1 Capsule(s) PO daily 02/24/2016 Inactive lorazepam 0.5 mg tablet RxNorm: 199313 1 Tablet(s) PO Q6 as needed 08/19/2015 02/28/2016 Inactive tramadol 50 mg tablet RxNorm: 514998 TAKE TWO TABLETS BY MOUTH THREE TIMES A DAY 08/01/2015 08/28/2015 Inactive Cipro 500 mg tablet RxNorm: 229632 1 Tablet(s) PO BID 201407/30/2015 Inactive Flagyl 500 mg tablet RxNorm: 777558 1 Tablet(s) PO TID 201407/30/2015 Inactive paroxetine 20 mg tablet RxNorm: 818051 1 Tablet(s) PO QHS 06/0910/06/2015 Inactive Lovaza 1 gram capsule RxNorm: 261338 2 Capsule(s) PO BID 201409/13/2015 Inactive tramadol 50 mg tablet RxNorm: 585009 1 Tablet(s) PO TID as needed 04/18/2015 08/03/2015 Inactive levothyroxine 100 mcg tablet RxNorm: 105338 1 Tablet(s) PO daily 04/01/2015 03/31/2015 Inactive levothyroxine 100 mcg tablet RxNorm: 184110 1 Tablet(s) PO daily 04/01/2015 03/25/2016 Inactive [SAVINGS FOR NON-COVERED DRUGS -- BIN:[id number], PCN: ASPROD1, Group: XXXXX, ID# XXXXXXX, Questions: . THIS IS NOT INSURANCE.] melatonin 3 mg tablet RxNorm: 839000 1 Tablet(s) PO QHS No Start Date Active folic acid 1 mg tablet RxNorm: 918679 1 Tablet(s) PO daily No Start Date Active Lipitor 80 mg tablet RxNorm: 527416 1 Tablet(s) PO QHS No Start Date Active aspirin 81 mg chewable tablet RxNorm: 083792 1 Tablet(s) PO daily No Start Date Active Protonix 40 mg tablet,delayed release RxNorm: 378740 1 Tablet(s) PO daily No Start Date Active paroxetine 20 mg tablet RxNorm: 754243 1 Tablet(s) PO QHS No Start Date 06/08/2015 Inactive nitroglycerin 0.4 mg sublingual tablet RxNorm: 694468 sublingual No Start Date 11/10/2015 Inactive Avodart 0.5 mg capsule RxNorm: 439921 1 Capsule(s) PO daily No Start Date 08/28/2015 Inactive lorazepam 0.5 mg tablet RxNorm: 042651 1 Tablet(s) PO QHS No Start Date 08/18/2015 Inactive Trilipix 135 mg capsule,delayed release RxNorm: 383704 1 Capsule(s) PO daily No Start Date 01/12/2016 Inactive Vitamin D2 50,000 unit capsule RxNorm: 438764 1 Capsule(s) PO weekly No Start Date 03/15/2016 Inactive losartan 50 mg tablet RxNorm: 891928 1 Tablet(s) PO daily No Start Date 07/16/2016 Inactive Ranexa 500 mg tablet,extended release RxNorm: 684845 2 Tablet(s) PO BID No Start Date 01/02/2016 Inactive clopidogrel 75 mg tablet RxNorm: 270646 1 Tablet(s) PO daily No Start Date 09/27/2015 Inactive tramadol 50 mg tablet RxNorm: 584093 1 Tablet(s) PO TID as needed No Start Date 04/17/2015 Inactive Lovaza 1 gram capsule RxNorm: 350266 2 Capsule(s) PO daily No Start Date 05/16/2015 Inactive isosorbide mononitrate ER 60 mg tablet,extended release 24 hr RxNorm: 221615 2 Tablet(s) PO daily No Start Date 2015 Inactive Medication Administered Medication Codes Instructions Start Date Status Kenalog 40 mg/mL suspension for injection RxNorm: 5753534 Milliliter 09/03/2016 No longer Active Kenalog 40 mg/mL suspension for injection RxNorm: 3681078 1Milliliter 07/17/2016 No longer Active Immunizations Vaccine Codes Date Status Influenza CVX: 141 09/27/2017 completed Influenza CVX: 141 08/31/2016 completed Pneumococcal (Adult) CVX: 133 08/31/2016 completed Assessments Condition Codes Effective Dates Obstructive sleep apnea (adult) (pediatric) ICD-10: G47.33 [...] Visit Reason For Visit Effective Dates Notes sleep apnea-obstruction 10/08/2017 vaccination against influenza 09/27/2017 [...] Item Item Code Result Date Comp Metabolic Mvd456 NA 141 mEq/L 03/28/2017 Comp Metabolic Lib643 K 4.3 mEq/L 03/28/2017 Comp Metabolic Tbl673 CL 103 mEq/L 03/28/2017 Comp Metabolic Geu653 CO2 30.0 mEq/L 03/28/2017 Comp Metabolic Uix355 ANION GAP 12 03/28/2017 Comp Metabolic Ndg037 GLUCOSE 106 mg/dL 03/28/2017 Comp Metabolic Zov826 Creat 1.4 mg/dL 03/28/2017 Comp Metabolic Bmf166 eGFR 54 ml/min/1.73m2 03/28/2017 Comp Metabolic Bwh704 BUN 15 mg/dL 03/28/2017 Comp Metabolic Qjk269 B/C Ratio 11.1 Ratio 03/28/2017 Comp Metabolic Wiy862 CALCIUM 9.5 mg/dL 03/28/2017 Comp Metabolic Pvs285 ALK PHOS 41 U/L 03/28/2017 Comp Metabolic Xcj370 AST(SGOT) 24 U/L 03/28/2017 Comp Metabolic Ejf686 ALT(SGPT) 27 U/L 03/28/2017 Comp Metabolic Mua618 BILI T 0.5 mg/dL 03/28/2017 Comp Metabolic Dce240 ALBUMIN 4.2 g/dL 03/28/2017 Comp Metabolic Fkt470 TPRO 7.2 g/dL 03/28/2017 Comp Metabolic Ijb597 GLOB 3.0 g/dL 03/28/2017 Comp Metabolic Djg685 A/G Ratio 1.4 Ratio 03/28/2017 Comp Metabolic Fgf077 Osmo 283 mOsmo 03/28/2017 Cbc With Differential Ord2 WBC 8.24 K/ul 03/28/2017 Cbc With Differential Ord2 RBC 5.05 M/ul 03/28/2017 Cbc With Differential Ord2 HGB 15.5 g/dl 03/28/2017 Cbc With Differential Ord2 HCT 47.3 % 03/28/2017 Cbc With Differential Ord2 Neut% 59.3 % 03/28/2017 Cbc With Differential Ord2 MCV 93.7 fl 03/28/2017 Cbc With Differential Ord2 Lymph% 24.4 % 03/28/2017 Cbc With Differential Ord2 Casey% 9.8 % 03/28/2017 Cbc With Differential Ord2 [...] 2.01 K/ul 03/28/2017 Cbc With Differential Ord2 Casey ABS# 0.8 K/ul 03/28/2017 Cbc With Differential Ord2 Eos ABS# 0.5 K/ul 03/28/2017 Cbc With Differential Ord2 Baso ABS# 0.1 K/ul 03/28/2017 Tsh Ord6 hTSH II 1.37 uIU/mL 03/28/2017 Free T4 Fjn034 FREE T4 1.05 ng/dL 03/28/2017 Vitamin D 25 Oh Qto6318 VITAMIN D, 25 HYDROXY 23.11 ng/mL Cbc [...] 30.5 pg 08/28/2016 Cbc With Differential Ord2 Casey% 8.7 % 08/28/2016 Cbc With Differential Ord2 [...] 1.88 K/ul 08/28/2016 Cbc With Differential Ord2 Casey ABS# 0.6 K/ul 08/28/2016 Cbc With Differential Ord2 Eos ABS# 0.2 K/ul 08/28/2016 Cbc With Differential Ord2 Baso ABS# 0.0 K/ul 08/28/2016 Vitamin D 25 Oh Ogh0201 VITAMIN D, 25 HYDROXY 41.44 ng/mL Tsh Ord6 hTSH II 2.16 uIU/mL 07/17/2016 Free T4 Mxd434 FREE T4 0.91 ng/dL 07/17/2016 Cbc With Differential Ord2 WBC 10.52 [...] 30.6 pg 07/17/2016 Cbc With Differential Ord2 Casey% 9.2 % 07/17/2016 Cbc With Differential Ord2 [...] 1.65 K/ul 07/17/2016 Cbc With Differential Ord2 Casey ABS# 1.0 K/ul 07/17/2016 Cbc With Differential Ord2 Eos ABS# 0.3 K/ul 07/17/2016 Cbc With Differential Ord2 Baso ABS# 0.0 K/ul 07/17/2016 Comp Metabolic Xff656 NA 138 mEq/L 07/17/2016 Comp Metabolic Xsk863 K 3.9 mEq/L 07/17/2016 Comp Metabolic Wko165 CL 103 mEq/L 07/17/2016 Comp Metabolic Kic415 CO2 29.0 mEq/L 07/17/2016 Comp Metabolic Uli058 ANION GAP 10 07/17/2016 Comp Metabolic Esn964 GLUCOSE 103 mg/dL 07/17/2016 Comp Metabolic Bwk083 Creat 1.2 mg/dL 07/17/2016 Comp Metabolic Vbf799 eGFR 65 ml/min/1.73m2 07/17/2016 Comp Metabolic Zhf721 BUN 18 mg/dL 07/17/2016 Comp Metabolic Vab503 B/C Ratio 15.7 Ratio 07/17/2016 Comp Metabolic Ddc804 CALCIUM 9.1 mg/dL 07/17/2016 Comp Metabolic Igs189 ALK PHOS 33 U/L 07/17/2016 Comp Metabolic Vbg854 AST(SGOT) 18 U/L 07/17/2016 Comp Metabolic Tpf322 ALT(SGPT) 24 U/L 07/17/2016 Comp Metabolic Niy984 BILI T 0.6 mg/dL 07/17/2016 Comp Metabolic Ekk590 ALBUMIN 4.3 g/dL 07/17/2016 Comp Metabolic Sap170 TPRO 7.0 g/dL 07/17/2016 Comp Metabolic Vlo939 GLOB 2.7 g/dL 07/17/2016 Comp Metabolic Caq630 A/G Ratio 1.6 Ratio 07/17/2016 Comp Metabolic Zun100 Osmo 278 mOsmo 07/17/2016 Lipid Ord30 CHOL 134 mg/dL 03/07/2016 Lipid Ord30 HDL 37.0 mg/dl 03/07/2016 Lipid Ord30 TRIG 210 mg/dL 03/07/2016 Lipid Ord30 LDL 55 mg/dL 03/07/2016 Lipid Ord30 C/HDL 3.6 Ratio 03/07/2016 Tsh Ord6 hTSH II 0.84 uIU/mL 03/07/2016 Free T4 San907 FREE T4 1.12 ng/dL 03/07/2016 Cbc With Differential Ord2 WBC 6.81 [...] 30.1 pg 03/07/2016 Cbc With Differential Ord2 Casey% 8.5 % 03/07/2016 Cbc With Differential Ord2 [...] 1.74 K/ul 03/07/2016 Cbc With Differential Ord2 Casey ABS# 0.6 K/ul 03/07/2016 Cbc With Differential Ord2 Eos ABS# 0.4 K/ul 03/07/2016 Cbc With Differential Ord2 Baso ABS# 0.0 K/ul 03/07/2016 Cbc With Differential Ord2 New Analyzer Notice Please note new ref ranges starting 12-14-2015 due to implemntation of new five part differential hematolgy analyzer. 03/07/2016 Comp Metabolic Dmw133 NA 139 mEq/L 03/07/2016 Comp Metabolic Ehv144 K 3.8 mEq/L 03/07/2016 Comp Metabolic Xfk517 CL 104 mEq/L 03/07/2016 Comp Metabolic Vxu244 CO2 28.0 mEq/L 03/07/2016 Comp Metabolic Nbb726 ANION GAP 11 03/07/2016 Comp Metabolic Vnl403 GLUCOSE 110 mg/dL 03/07/2016 Comp Metabolic Atc926 Creat 1.2 mg/dL 03/07/2016 Comp Metabolic Hry053 eGFR 60 ml/min/1.73m2 03/07/2016 Comp Metabolic Pxr039 BUN 17 mg/dL 03/07/2016 Comp Metabolic Gcd356 B/C Ratio 13.8 Ratio 03/07/2016 Comp Metabolic Xqx986 CALCIUM 9.2 mg/dL 03/07/2016 Comp Metabolic Swc821 ALK PHOS 32 U/L 03/07/2016 Comp Metabolic Vdz113 AST(SGOT) 21 U/L 03/07/2016 Comp Metabolic Lfg655 ALT(SGPT) 25 U/L 03/07/2016 Comp Metabolic Iqh483 BILI T 0.5 mg/dL 03/07/2016 Comp Metabolic Orn053 ALBUMIN 4.2 g/dL 03/07/2016 Comp Metabolic Ujk256 TPRO 6.7 g/dL 03/07/2016 Comp Metabolic Goa200 GLOB 2.5 g/dL 03/07/2016 Comp Metabolic Zar690 A/G Ratio 1.6 Ratio 03/07/2016 Comp Metabolic Rpt832 Osmo 280 mOsmo 03/07/2016 Vitamin D 25 Oh Uhp1382 VITAMIN D, 25 HYDROXY 22.46 ng/mL Cbc With Differential Ord2 WBC 10.1 K/uL [...] Ord2 RDW 14.4 % 07/21/2015 Comp Metabolic Rwu025 NA 137 mEq/L 07/21/2015 Comp Metabolic Erh502 K 3.8 mEq/L 07/21/2015 Comp Metabolic Snw816 CL 102 mEq/L 07/21/2015 Comp Metabolic Zwd741 CO2 28.0 mEq/L 07/21/2015 Comp Metabolic Gts225 ANION GAP 11 07/21/2015 Comp Metabolic Rav038 GLUCOSE 129 mg/dL 07/21/2015 Comp Metabolic Lqt417 Creat 1.3 mg/dL 07/21/2015 Comp Metabolic Kgz130 eGFR 57 ml/min/1.73m2 07/21/2015 Comp Metabolic Ckm530 BUN 17 mg/dL 07/21/2015 Comp Metabolic Ioe062 B/C Ratio 13.2 Ratio 07/21/2015 Comp Metabolic Jqc444 CALCIUM 9.2 mg/dL 07/21/2015 Comp Metabolic Raz257 ALK PHOS 30 U/L 07/21/2015 Comp Metabolic Ylt965 AST(SGOT) 17 U/L 07/21/2015 Comp Metabolic Vkv733 ALT(SGPT) 23 U/L 07/21/2015 Comp Metabolic Itn757 BILI T 0.6 mg/dL 07/21/2015 Comp Metabolic Llz811 ALBUMIN 4.2 g/dL 07/21/2015 Comp Metabolic Ctw456 TPRO 6.7 g/dL 07/21/2015 Comp Metabolic Tfa429 GLOB 2.5 g/dL 07/21/2015 Comp Metabolic Glr017 A/G Ratio 1.7 Ratio 07/21/2015 Comp Metabolic Aev755 Osmo 277 mOsmo 07/21/2015 Vitamin D 25 Oh Nlg7840 VITAMIN D, 25 HYDROXY 43.45 ng/mL Lipid Ord30 CHOL 142 mg/dL 06/23/2015 Lipid Ord30 HDL 35.0 mg/dl 06/23/2015 Lipid Ord30 TRIG 159 mg/dL 06/23/2015 Lipid Ord30 LDL 75 mg/dL 06/23/2015 Lipid Ord30 C/HDL 4.1 Ratio 06/23/2015 Tsh Ord6 hTSH II 2.17 uIU/mL 06/23/2015 Free T4 Ngv689 FREE T4 0.96 ng/dL 06/23/2015 Cbc With [...] Ord2 RDW 14.5 % 06/23/2015 Comp Metabolic Mqd362 NA 139 mEq/L 06/23/2015 Comp Metabolic Wxy112 K 4.1 mEq/L 06/23/2015 Comp Metabolic Ttw701 CL 105 mEq/L 06/23/2015 Comp Metabolic Eke772 CO2 29.0 mEq/L 06/23/2015 Comp Metabolic Rxu205 ANION GAP 9 06/23/2015 Comp Metabolic Lil156 GLUCOSE 92 mg/dL 06/23/2015 Comp Metabolic Jpc902 Creat 1.3 mg/dL 06/23/2015 Comp Metabolic Jde026 eGFR 56 ml/min/1.73m2 06/23/2015 Comp Metabolic Yzm238 BUN 19 mg/dL 06/23/2015 Comp Metabolic Uiq069 B/C Ratio 14.5 Ratio 06/23/2015 Comp Metabolic Wld229 CALCIUM 9.1 mg/dL 06/23/2015 Comp Metabolic Lfu221 ALK PHOS 30 U/L 06/23/2015 Comp Metabolic Qdm848 AST(SGOT) 19 U/L 06/23/2015 Comp Metabolic Omf018 ALT(SGPT) 24 U/L 06/23/2015 Comp Metabolic Wmy011 BILI T 0.5 mg/dL 06/23/2015 Comp Metabolic Azu861 ALBUMIN 4.1 g/dL 06/23/2015 Comp Metabolic Olp531 TPRO 6.2 g/dL 06/23/2015 Comp Metabolic Pcb827 GLOB 2.1 g/dL 06/23/2015 Comp Metabolic Box278 A/G Ratio 2.0 Ratio 06/23/2015 Comp Metabolic Eny273 Osmo 279 mOsmo 06/23/2015 Review of Systems System Result Effective Dates Constitutional No recent illness 2016 Constitutional No [...] Result Effective Dates Notes Full Exam - General 1994 Constitutional general [...] NO PRSV 4 TAURUS 3 YRS+ CPT-4: 96980 09/27/2017 PRESCRIP TRANSMIT VIA ERX SY CPT-4: G8553 04/08/2017 TRIAMCINOLONE ACET INJ NOS CPT-4: J3301 09/03/2016 ADMIN INFLUENZA VIRUS VAC CPT-4: G0008 08/31/2016 ADMIN PNEUMOCOCCAL VACCINE SNOMED CT: 31723893 CPT-4: G0009 08/31/2016 FLU VACC 4 TAURUS 3 YRS PLUS IM Formatting Model/CDA Sections, Assigned to/Liudmila Jones SNOMED CT: 36860739 CPT-4: 19638Ovowpnx 08/31/2016 PNEUMOCOCCAL VACC [address]: 92943408 CPT-4: 95641 08/31/2016 TRIAMCINOLONE ACET INJ NOS CPT-4: J3301 07/17/2016 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[address]: 570073133 CPT-4: G0436 03/01/2016 Vital Signs Date Vital 10/08/2017 Blood Pressure 1: 136/70 Code : 8480-6 BMI: 30.2 Code : 99453-6 Heart Rate 1 : 66 bpm Height: 5'6" SpO2: 98% Weight: 187 lbs 08/01/2017 Blood Pressure 1: 132/62 Code : 8480-6 BMI: 29.5 Code : 85901-1 Heart Rate 1 : 71 bpm Height: 5'6" SpO2: 96% Weight: 183 lbs 04/08/2017 Blood Pressure 1: 142/78 Code : 8480-6 BMI: 29.9 Code : 99209-9 Heart Rate 1 : 78 bpm Height: 5'6" SpO2: 94% Weight: 185 lbs 03/28/2017 Blood Pressure 1: 156/82 Code : 8480-6 BMI: 30.0 Code : 52546-0 Heart Rate 1 : 80 bpm Height: 5'6" SpO2: 93% Weight: 186 lbs 09/03/2016 Blood Pressure 1: 138/68 Code : 8480-6 Blood Pressure 1: 142/90 Code: 8480-6 BMI: 30.8 Code: 12101-8 Heart Rate 1: 90 bpm Height: 5'6" SpO2: 96% Weight: 191 lbs 08/31/2016 Blood Pressure 1: 140/82 Code : 8480-6 BMI: 30.8 Code : 36096-6 Heart Rate 1 : 81 bpm Height: 5'6" SpO2: 97% Weight: 191 lbs 07/17/2016 Blood Pressure 1: 140/76 Code : 8480-6 BMI: 30.5 Code : 67715-3 Heart Rate 1 : 78 bpm Height: 5'6" SpO2: 97% Weight: 189 lbs 03/01/2016 Blood Pressure 1: 126/60 Code : 8480-6 BMI: 29.9 Code : 50127-1 Heart Rate 1 : 64 bpm Height: 5'6" SpO2: 98% Weight: 185 lbs 11/03/2015 Blood Pressure 1: 122/62 Code : 8480-6 Blood Pressure 1: 154/84 Code: 8480-6 BMI: 30.5 Code: 37178-4 Heart Rate 1: 81 bpm Height: 5'6" SpO2: 98% Weight: 189 lbs 10/19/2015 Blood Pressure 1: 138/76 Code : 8480-6 BMI: 36.5 Code : 23625-6 Heart Rate 1 : 78 bpm Height: 5' SpO2: 97% Weight: 187 lbs 08/04/2015 Blood Pressure 1: 138/70 Code : 8480-6 BMI: 30.0 Code : 81939-7 Heart Rate 1 : 69 bpm Height: 5'6" SpO2: 94% Weight: 186 lbs 07/21/2015 Blood Pressure 1: 134/60 Code : 8480-6 BMI: 29.9 Code : 92247-0 Heart Rate 1 : 88 bpm Height: 5'6" SpO2: 96% Weight: 185 lbs 06/14/2015 Blood Pressure 1: 128/62 Code : 8480-6 BMI: 29.9 Code : 81697-7 Heart Rate 1 : 68 bpm Height: 5'6" Weight: 185 lbs 04/06/2015 Blood Pressure 1: 122/62 Code : 8480-6 BMI: 30.8 Code : 61632-1 Heart Rate 1 : 67 bpm Height: 5'6" SpO2: 97% Weight: 191 lbs Functional Status No Functional Status data History of Present Illness Symptom Name Status Result Effective Date Notes sleep apnea-obstruction Quality chronic 10/08/2017 None sleep [...] data Encounters Encounter Performer Location Codes Date () Miscellaneous no charge Diagnosis: Obstructive sleep apnea (adult) (pediatric)[ICD10: G47.33] [facility] CPT-4: 13667 10/16/2017 ([id number]) [id number] EST. PATIENT, LEVEL III Diagnosis: Obstructive sleep apnea (adult) (pediatric)[ICD10: G47.33] [facility] CPT-4: 74740 10/08/2017 ([id number]) 50922 EST. PATIENT, LEVEL IV Diagnosis: Essential (primary) hypertension[ICD10: I10] Diagnosis: Slow transit constipation[ICD10: K59.01] Diagnosis: Hypothyroidism, unspecified[ICD10: E03.9] Diagnosis: Spinal stenosis, lumbar region[ICD10: M48.06] Missy Villeda MD, [facility] CPT-4: 47210 08/01/2017 ([id number]) 63871 EST. PATIENT, LEVEL III Diagnosis: Slow transit constipation[ICD10: K59.01] Diagnosis: Diverticulosis of intestine, part unspecified, without perforation or abscess without bleeding[ICD10: K57.90] Missy Villeda MD, [facility] CPT-4: 76513 04/08/2017 ([id number]) [id number] EST. PATIENT, LEVEL IV Diagnosis: Low back pain[ICD10: M54.5] Diagnosis: Right lower quadrant pain[ICD10: R10.31] Diagnosis: Hypothyroidism, unspecified[ICD10: E03.9] Diagnosis: Vitamin D deficiency, unspecified[ICD10: E55.9] Missy Villeda MD, [facility] CPT-4: 42850 03/28/2017 ([id number]) [id number] EST. PATIENT, LEVEL III Diagnosis: Dizziness and giddiness[ICD10: R42] Diagnosis: Essential (primary) hypertension[ICD10: I10] Missy Villeda MD, [facility] CPT-4: 03729 09/03/2016 ([id number]) [id number] EST. PATIENT, LEVEL III Diagnosis: Essential (primary) hypertension[ICD10: I10] Diagnosis: Elevated white blood cell count, unspecified[ICD10: D72.829] Diagnosis: Low back pain[ICD10: M54.5] Diagnosis: Encounter for immunization[ICD10: Z23] Missy Villeda MD, [facility] CPT-4: 83178 08/31/2016 [id number]) [id number] EST. PATIENT, LEVEL IV Diagnosis: Allergic rhinitis due to pollen[ICD10: J30.1] Diagnosis: Low back pain[ICD10: M54.5] Diagnosis: Vitamin D deficiency, unspecified[ICD10: E55.9] Diagnosis: Hypothyroidism, unspecified[ICD10: E03.9] Diagnosis: Essential (primary) hypertension[ICD10: I10] Missy Villeda MD, [facility] CPT-4: 01014 07/17/2016 ([id number]) 69527 EST. PATIENT, LEVEL IV Diagnosis: Essential (primary) hypertension[ICD10: I10] Diagnosis: Hypothyroidism, unspecified[ICD10: E03.9] Diagnosis: Vitamin D deficiency, unspecified[ICD10: E55.9] Diagnosis: Mixed hyperlipidemia[ICD10: E78.2] Diagnosis: Tobacco use[ICD10: Z72.0] Missy Villeda MD, [facility] CPT-4: 50204 03/01/2016 ([id number]) 31755 EST. PATIENT, LEVEL III Diagnosis: Essential (primary) hypertension[ICD10: I10] Diagnosis: Obstructive sleep apnea (adult) (pediatric)[ICD10: G47.33] Missy Villeda MD, [facility] CPT-4: 13897 11/03/2015 [id number] EST. PATIENT, LEVEL IV Diagnosis: Angina pectoris, unspecified[ICD10: I20.9] Bisi Villeda MD, [facility] CPT-4: 32317 10/19/2015 ([id number]) 22011 EST. PATIENT, LEVEL III Diagnosis: ESSENTIAL HYPERTENSION[ICD9: 401.9] Diagnosis: ESOPHAGEAL REFLUX[ICD9: 530.81] Diagnosis: Diarrhea[ICD9: 787.91] Missy Villeda MD, [facility] CPT-4: 43342 08/04/2015 [id number] EST. PATIENT, LEVEL IV Diagnosis: Diverticulitis[ICD9: 562.11] Diagnosis: Diarrhea[ICD9: 787.91] Missy Villeda MD, [facility] CPT-4: 14686 07/21/2015 ([id number]) 18208 EST. PATIENT, LEVEL IV Diagnosis: ESSENTIAL HYPERTENSION[ICD9: 401.9] Diagnosis: HYPOTHYROIDISM[ICD9: 244.9] Diagnosis: VITAMIN D DEFICIENCY[ICD9: 268.9] Diagnosis: HYPERLIPIDEMIA[ICD9: 272.4] Missy Villeda MD, [facility] CPT-4: 11291 06/14/2015 ([id number]) OFFICE VISIT, NEW - LEVEL 4 Diagnosis: ESSENTIAL HYPERTENSION[ICD9: 401.9] Diagnosis: HYPOTHYROIDISM[ICD9: 244.9] Diagnosis: Spinal stenosis[ICD9: 724.00] [facility] CPT- 4: 60018 04/06/2015 Plan of Care Planned Activity Notes Codes Status Date Appointment: Nurse Visit 10/16/2017 Patient Education: Patient Medication Summary Completed 10/16/2017 Visit Plan: Sleep apnea-patient is due for new supplies and needs new sleep study-will fax orders for via [facility]-patient reports improved sleep, improved breathing and better rest with use of CPAP. 10/08/2017 [facility]ment[facility] [phone] [phone] (30 min) [facility] 10/08/2017 Patient Education: Patient Medication Summary Completed [...] 08/01/2017 Care Plan: Referral Order SNOMED-CT : [id number] Pending 08/01/2017 Visit Plan: Constipation - uncontrolled [...] of plan. 04/08/2017 Appointment: Missy Leonard WPtel: [phone] (30 min) Complex 04/08/2017 Patient Education: Patient Medication Summary Completed 04/08/2017 Visit Plan: RLQ pain-history diverticulitis-schedule CT scan-check labs-avoid seeds, nuts, etc-CLD advance to bland Chronic back pain- does not want injections or PT-continue oxycodone as needed for breakthrough pain Hypothyroidism-check labs Vitamin d deficiency-check level today 03/28/2017 Appointment: Missy Leonard WPtel: [phone] (30 min) Complex 03/28/2017 Patient Education: Patient Medication Summary Completed 03/28/2017 Care Plan: Cbc With Differential Pending 03/28/2017 Appointment: Bisi Lo WPtel: [phone] (30 min) Complex 03/25/2017 Visit Plan: Dizziness-kenalog injection today in the office -follow up with Dr Chauhan later today as scheduled 09/03/2016 Visit Plan: Dizziness-kenalog injection today in the office -follow up with Dr Chauhan later today as scheduled 09/03/2016 Appointment: Missy Leonard WPtel: [phone] (30 min) Complex 09/03/2016 Patient Education: [...] termination from this medical practice. Elevated white yyzan-bqwqayug-dmywak CBC is normal 08/31/2016 Appointment: Missy Leonard WPtel: [phone] [phone] (30 min) Complex 08/31/2016 Patient Education: Patient [...] labs 07/17/2016 Appointment: Missy Leonard WPtel: [phone] [phone] (30 min) Complex 07/17/2016 Patient Education: [...] order for CPAP supplies sent to [employer] [facility] 11/03/2015 Patient Education: Patient Medication Summary Completed [...] if the symptoms are not improving. Diarrhea-abd ddfr-xgjsfdll-pruh if symptoms return 08/04/2015 Patient Education: Patient [...] D level 06/14/2015 Appointment: Missy Leonard WPtel: [phone] (15 min) Moderate 06/14/2015 Patient Education: Patient Medication Summary Completed 06/14/2015 Patient Education: Hypertension Completed 06/14/2015 Care Plan: COMPLETE CBC AUTOMATED LOINC : 44236-0 Ordered 06/14/2015 Appointment: Kamini Villeda WPtel: [facility] Follow up 06/13/2015 Visit Plan: Hypertension - [...] medications. Vitamin D deficiency-check vitamin D level GET A PROBIOTIC OVER THE COUNTER AND START IT TWICE DAILY- ANY BRAND IS FINE-[employer], [facility] [place] I SENT 2 PRESCRIPTIONS TO THE PHARMACY: [...] Dr Gissel peterson today as scheduled . Dizziness-kenalog injection today [...] termination from this medical practice. Elevated white zbeew-ugfyobdm-dqiumw CBC is normal COME BACK NEXT WEEK [...] apnea-order for CPAP supplies sent to [employer] [facility] . Sleep apnea-patient is due for new supplies and needs new sleep study-will fax orders for via [facility]-patient reports improved sleep, improved breathing and [...] if the symptoms are not improving. Diarrhea-abd kgly-dhikxmcb-adgc if symptoms return
[2018-09-17] MEDS ORDERED: LIDOCAINE 1% INJ 20 ML 20 ML VIAL ONE (08:55)
[2018-09-17] MEDS ORDERED: HEParin (CATH LAB) 2,000 ML IV ONE (08:55)
[2018-09-17] MEDS ORDERED: NS IV 1000 ML 1,000 ML ONE (08:55)
--- OUTSIDE RECORDS SUMMARY | 2018-09-17 08:56 | XMS REPORT | Continuity of Care Document ---
Author Author [facility] Organization [facility] Address Unknown Phone Unavailable Allergies Active Description Code Type Severity Reaction Onset Reported/Identified Relationship to Patient Clinical Status Yes Sulfa (Sulfonamide Antibiotics) [id number] Drug Allergy Unknown N/A 2007 Yes Sulfa (Sulfonamide Antibiotics) [id number] Drug Allergy Mild RASH 2016 Medications There is no data. Problems Date Dx Coded Attending Type Code Diagnosis Diagnosed By 04/12/2010 Ot 244.9 04/12/2010 Ot 272.4 04/12/2010 Ot 305.1 04/12/2010 Ot 311 04/12/2010 Ot 403.90 04/12/2010 Ot 414.01 04/12/2010 Ot 414.02 04/12/2010 Ot 414.04 04/12/2010 Ot 414.2 04/12/2010 Ot 530.81 04/12/2010 Ot 585.9 04/12/2010 Ot 786.59 04/12/2010 Ot V45.81 04/12/2010 Ot V45.82 09/16/2012 Ot 211.3 BENIGN NEOPLASM LG BOWEL 09/16/2012 Ot 562.10 DIVERTICULOSIS COLON (W/O MENT OF HEMORR 09/16/2012 Ot V12.72 PERSONAL HISTORY OF COLONIC POLYPS 09/16/2012 Ot V76.51 SCREEN MAL NEOP-COLON 10/29/2012 Ot 244.9 HYPOTHYROIDISM NOS 10/29/2012 Ot 272.4 HYPERLIPIDEMIA NEC/NOS 10/29/2012 Ot 300.00 ANXIETY STATE NOS 10/29/2012 Ot 305.1 TOBACCO USE DISORDER 10/29/2012 Ot 403.90 HYPTNSV CHR KID DIS, UNSPEC, W CHR KD ST 10/29/2012 Ot 411.1 INTERMED CORONARY SYND 10/29/2012 Ot 414.01 CORONARY ATHEROSCLEROSIS OF [place] CORON 10/29/2012 Ot 414.02 CORON ATHEROSCLEROSIS AUTOLOG VEIN BYPAS 10/29/2012 Ot 414.04 CORON ATHEROSCLER ART BYPASS GRAFT 10/29/2012 Ot 585.9 CHRONIC KIDNEY DISEASE, UNSPECIFIED 10/29/2012 Ot 600.00 HYPERTROPHY (BENIGN) OF PROSTATE W/O URI 10/29/2012 Ot 996.72 OTH COMPLICATIONS DUE TO OT CARD DEVICE 10/29/2012 Ot V45.81 AORTOCORONARY BYPASS 10/29/2012 Ot V45.82 PERCUTANEOUS TRANSLUM CORON ANGIOPLASTY 12/12/2012 Ot 244.9 HYPOTHYROIDISM NOS 12/12/2012 Ot 272.4 HYPERLIPIDEMIA NEC/NOS 12/12/2012 Ot 311 DEPRESSIVE DISORDER NEC 12/12/2012 Ot 403.90 HYPTNSV CHR KID DIS, UNSPEC, W CHR KD ST 12/12/2012 Ot 414.01 CORONARY ATHEROSCLEROSIS OF [place] CORON 12/12/2012 Ot 414.02 CORON ATHEROSCLEROSIS AUTOLOG VEIN BYPAS 12/12/2012 Ot 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 12/12/2012 Ot 530.81 ESOPHAGEAL REFLUX 12/12/2012 Ot 553.3 DIAPHRAGMATIC HERNIA 12/12/2012 Ot 585.9 CHRONIC KIDNEY DISEASE, UNSPECIFIED 12/12/2012 Ot 786.59 CHEST PAIN NEC 12/12/2012 Ot V15.82 HISTORY OF TOBACCO USE 12/12/2012 Ot V45.81 AORTOCORONARY BYPASS 12/12/2012 Ot V45.82 PERCUTANEOUS TRANSLUM CORON ANGIOPLASTY 12/12/2012 Ot V58.63 LONG-TERM( CURRENT)USE OF ANTIPLATELET/AN 12/12/2012 Ot V58.66 LONG-TERM ( CURRENT) USE OF ASPIRIN 12/12/2012 Ot V58.69 OTH MED,LT, CURRENT USE 02/15/2013 Ot 413.9 ANGINA PECTORIS NEC/NOS 02/15/2013 Ot V57.89 REHABILITATION PROC NEC 01/14/2014 TIARA MALLORY MD Ot 244.9 HYPOTHYROIDISM NOS 01/14/2014 TIARA MALLORY MD Ot 272.4 HYPERLIPIDEMIA NEC/NOS 01/14/2014 TIARA MALLORY MD Ot 305.1 TOBACCO USE DISORDER 01/14/2014 TIARA MALLORY MD Ot 327.23 OBSTRUCTIVE SLEEP APNEA (ADULT) (PEDIATR 01/14/2014 TIARA MALLORY MD Ot 401.9 HYPERTENSION NOS 01/14/2014 TIARA MALLORY MD Ot 411.1 INTERMED CORONARY SYND 01/14/2014 TIARA MALLORY MD Ot 414.01 CORONARY ATHEROSCLEROSIS OF [place] CORON 01/14/2014 TIARA MALLROY MD Ot 414.02 CORON ATHEROSCLEROSIS AUTOLOG VEIN BYPAS 01/14/2014 TIARA MALLORY MD Ot 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 01/14/2014 TIARA MALLORY MD Ot 530.81 ESOPHAGEAL REFLUX 01/14/2014 TIARA MALLORY MD Ot V45.81 AORTOCORONARY BYPASS 01/14/2014 TIARA MALLORY MD Ot V45.82 PERCUTANEOUS TRANSLUM CORON ANGIOPLASTY 01/14/2014 TIARA MALLORY MD Ot V58.66 LONG-TERM (CURRENT) USE OF ASPIRIN 01/14/2014 TIARA MALLORY MD Ot V58.69 OT MED,LT,CURRENT USE 04/21/2014 AJAY STEWART MD Ot 272.4 HYPERLIPIDEMIA NEC/NOS 04/21/2014 AJAY STEWART MD Ot 401.9 HYPERTENSION NOS 04/21/2014 AJAY STEWART MD Ot 411.1 INTERMED CORONARY SYND 04/21/2014 AJAY STEWART MD Ot 414.00 CORON ATHEROSCLER NOS TYPE VESSEL, NATIV 04/21/2014 AJAY STEWART MD Ot V45.82 PERCUTANEOUS TRANSLUM CORON ANGIOPLASTY 04/21/2014 AJAY STEWART MD Ot V57.89 REHABILITATION PROC NEC 03/23/2015 AJAY STEWART MD Ot 272.4 HYPERLIPIDEMIA NEC/NOS 03/23/2015 AJAY STEWART MD Ot 305.1 TOBACCO USE DISORDER 03/23/2015 AJAY STEWART MD Ot 403.90 HYPTNSV CHR KID DIS, UNSPEC, W CHR KD ST 03/23/2015 AJAY STEWART MD Ot 411.1 INTERMED CORONARY SYND 03/23/2015 AJAY STEWART MD Ot 414.01 CORONARY ATHEROSCLEROSIS OF [place] CORON 03/23/2015 AJAY STEWART MD Ot 414.02 CORON ATHEROSCLEROSIS AUTOLOG VEIN BYPAS 03/23/2015 AJAY STEWART MD Ot 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 03/23/2015 AJAY STEWART MD Ot 414.4 CORONARY ATHEROSCLEROSIS DUE TO CALCIFIE 03/23/2015 AJAY STEWART MD Ot 416.8 CHR PULMON HEART DIS NEC 03/23/2015 AJAY STEWART MD Ot 585.9 CHRONIC KIDNEY DISEASE, UNSPECIFIED 03/23/2015 AJAY STEWART MD Ot V45.81 AORTOCORONARY BYPASS 03/23/2015 AJAY STEWART MD Ot V45.82 PERCUTANEOUS TRANSLUM CORON ANGIOPLASTY 03/23/2015 AJAY STEWART MD Ot V58.69 OT MED,LT,CURRENT USE 05/06/2015 AJAY STEWART MD Ot 305.1 05/06/2015 AJAY STEWART MD Ot 426.3 05/06/2015 AJAY STEWART MD Ot 786.09 05/06/2015 AJAY STEWART MD Ot 786.50 05/09/2015 AJAY STEWART MD Ot 305.1 05/09/2015 AJAY STEWART MD Ot 426.3 05/09/2015 AJAY STEWART MD Ot 786.09 05/09/2015 AJAY STEWART MD Ot 786.50 05/25/2015 AJAY STEWART MD Ot 305.1 05/25/2015 AJAY STEWART MD Ot 426.3 05/25/2015 AJAY STEWART MD Ot 786.09 05/25/2015 AJAY STEWART MD Ot 786.50 06/06/2015 AJAY STEWART MD Ot 305.1 06/06/2015 AJAY STEWART MD Ot 426.3 06/06/2015 AJAY STEWART MD Ot 786.09 06/06/2015 AJAY STEWART MD Ot 786.50 07/07/2015 AJAY STEWART MD Ot 272.4 07/07/2015 AJAY STEWART MD Ot 401.1 07/07/2015 AJAY STEWART MD Ot 414.00 07/07/2015 AJAY STEWART MD Ot 786.09 07/15/2015 AJAY STEWART MD Ot 272.4 07/15/2015 AJAY STEWART MD Ot 401.1 07/15/2015 AJAY STEWART MD Ot 414.00 07/15/2015 AJAY STEWART MD Ot 786.09 11/10/2015 AJAY STEWART MD Ot E03.9 HYPOTHYROIDISM, UNSPECIFIED 11/10/2015 AJAY STEWART MD Ot E11.9 TYPE 2 DIABETES MELLITUS WITHOUT COMPLIC 11/10/2015 AJAY STEWART MD Ot E78.5 HYPERLIPIDEMIA, UNSPECIFIED 11/10/2015 AJAY STEWART MD Ot I12.9 HYPERTENSIVE CHRONIC KIDNEY DISEASE W ST 11/10/2015 AJAY STEWART MD Ot I25.110 ATHSCL HEART DISEASE OF [place] COR ART W 11/10/2015 AJAY STEWART MD Ot 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 11/10/2015 AJAY STEWART MD Ot I25.84 CORONARY ATHEROSCLEROSIS DUE TO CALCIFIE 11/10/2015 AJAY STEWART MD Ot N18.9 CHRONIC KIDNEY DISEASE, UNSPECIFIED 11/10/2015 AJAY STEWART MD Ot Z79.02 ASSISTED (CURRENT) USE OF ANTITHROMBOTI 11/10/2015 AJAY STEWART MD Ot Z79.899 OTHER TALCER (CURRENT) DRUG THERAPY 11/10/2015 AJAY STEWART MD Ot Z87.891 PERSONAL HISTORY OF NICOTINE DEPENDENCE 11/10/2015 AJAY STEWART MD Ot Z95.1 PRESENCE OF AORTOCORONARY BYPASS GRAFT 11/10/2015 AJAY STEWART MD Ot Z98.61 CORONARY ANGIOPLASTY STATUS 12/15/2015 AJAY STEWART MD Ot Z48.812 12/15/2015 AJAY STEWART MD Ot Z95.5 01/23/2016 AJAY STEWART MD Ot Z48.812 ENCNTR FOR SURGICAL AFTCR FOLLOWING SURG 01/23/2016 AJAY STEWART MD Ot Z95.5 PRESENCE OF CORONARY ANGIOPLASTY IMPLANT 01/27/2016 AJAY STEWART MD Ot Z48.812 01/27/2016 [...] MD Ot I25.110 ATHSCL HEART DISEASE OF [place] COR ART W 09/04/2016 AJAY STEWART MD Ot 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 09/04/2016 AJAY STEWART MD Ot I27.2 OTHER SECONDARY PULMONARY HYPERTENSION 09/04/2016 AJAY STEWART MD Ot N18.9 CHRONIC KIDNEY DISEASE, UNSPECIFIED 09/04/2016 AJAY STEWART MD Ot T82.857D STENOSIS OF OTHER CARDIAC PROSTH DEV/GRF 09/04/2016 AJAY STEWART MD Ot Z79.02 TALCER (CURRENT) USE OF ANTITHROMBOTI 09/04/2016 AJAY STEWART MD Ot Z79.899 OTHER TALCER (CURRENT) DRUG THERAPY 09/04/2016 AJAY STEWART MD [...] MD Ot I25.110 ATHSCL HEART DISEASE OF [place] COR ART W 09/12/2016 AJAY STEWART MD Ot 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 09/12/2016 AJAY STEWART MD Ot I27.2 OTHER SECONDARY PULMONARY HYPERTENSION 09/12/2016 AJAY STEWART MD Ot N18.9 CHRONIC KIDNEY DISEASE, UNSPECIFIED 09/12/2016 AJAY STEWART MD Ot T82.857D STENOSIS OF OTHER CARDIAC PROSTH DEV/GRF 09/12/2016 AJAY STEWART MD Ot Z79.02 ASSISTED (CURRENT) USE OF ANTITHROMBOTI 09/12/2016 AJAY STEWART MD Ot Z79.899 OTHER ASSISTED (CURRENT) DRUG THERAPY 09/12/2016 AJAY STEWART MD [...] MD Ot I25.118 ATHSCL HEART DISEASE OF [place] COR ART W 02/27/2017 AJAY STEWART MD Ot 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 02/27/2017 AJAY STEWART MD Ot T82.857D STENOSIS OF OTHER CARDIAC PROSTH DEV/GRF 02/27/2017 AJAY STEWART MD Ot Z79.899 OTHER ASSISTED (CURRENT) DRUG THERAPY 02/27/2017 AJAY STEWART MD Ot Z95.5 PRESENCE OF CORONARY ANGIOPLASTY IMPLANT 03/01/2017 AJAY STEWART MD Ot E78.5 HYPERLIPIDEMIA, UNSPECIFIED 03/01/2017 AJAY STEWART MD Ot I10 ESSENTIAL (PRIMARY) HYPERTENSION 03/01/2017 AJAY STEWART MD Ot I25.118 ATHSCL HEART DISEASE OF [place] COR ART W 03/01/2017 AJAY STEWART MD Ot 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 03/01/2017 AJAY STEWART MD Ot T82.857D STENOSIS OF OTHER CARDIAC PROSTH DEV/GRF 03/01/2017 AJAY STEWART MD Ot Z79.899 OTHER TALCER (CURRENT) DRUG THERAPY 03/01/2017 AJAY STEWART MD Ot Z95.5 PRESENCE OF CORONARY ANGIOPLASTY IMPLANT 04/03/2017 SONA BLANCA Ot K57.30 DVRTCLOS OF LG INT W/O PERFORATION OR AB 04/03/2017 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 Ot K59.00 CONSTIPATION, UNSPECIFIED 04/03/2017 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 Ot K76.0 FATTY (CHANGE OF) LIVER, NOT ELSEWHERE C 04/03/2017 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 Ot Z87.19 PERSONAL HISTORY OF OTHER DISEASES OF 04/24/2017 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 Ot K57.30 DVRTCLOS OF LG INT W/O PERFORATION OR AB 04/24/2017 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 Ot K59.00 CONSTIPATION, UNSPECIFIED 04/24/2017 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 Ot K76.0 FATTY (CHANGE OF) LIVER, NOT ELSEWHERE C 04/24/2017 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 Ot Z87.19 PERSONAL HISTORY OF OTHER DISEASES OF 05/02/2017 SOAN BLANCA IT INFRASTRUCTURE ENGINEER Ot K57.30 DVRTCLOS OF LG INT W/O PERFORATION OR AB 05/02/2017 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 Ot K59.00 CONSTIPATION, UNSPECIFIED 05/02/2017 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 Ot K76.0 FATTY (CHANGE OF) LIVER, NOT ELSEWHERE C 05/02/2017 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 Ot Z87.19 PERSONAL HISTORY OF OTHER DISEASES OF 08/21/2017 SÁNCHEZ QUINTERO MD Ot K59.00 CONSTIPATION, [...] MD Ot I25.10 ATHSCL HEART DISEASE OF [place] CORONARY 08/30/2017 SÁNCHEZ QUINTERO MD Ot K57.30 DVRTCLOS OF LG INT W/O PERFORATION OR AB 08/30/2017 SÁNCHEZ QUINTERO MD Ot K59.00 CONSTIPATION, UNSPECIFIED 08/30/2017 SÁNCHEZ QUINTERO MD Ot Z79.02 TALCER (CURRENT) USE OF ANTITHROMBOTI 08/30/2017 SÁNCHEZ QUINTERO MD Ot Z79.82 TALCER (CURRENT) USE OF ASPIRIN 08/30/2017 SÁNCHEZ QUINTERO MD Ot Z79.899 OTHER TALCER (CURRENT) DRUG THERAPY 08/30/2017 SÁNCHEZ QUINTERO MD Ot Z95.1 PRESENCE OF AORTOCORONARY BYPASS GRAFT 10/17/2017 ANGELIA TEE MD Ot G47.10 HYPERSOMNIA, UNSPECIFIED 10/17/2017 ANGELIA TEE [...] 10/23/2017 ANGELIA TEE MD Ot R06.83 SNORING 11/15/2017 PRATIBHA ALFARO, SÁNCHEZ Rose Ot E78.00 PURE HYPERCHOLESTEROLEMIA, UNSPECIFIED 11/15/2017 SÁNCHEZ MCKINNON MD Ot F32.9 MAJOR DEPRESSIVE DISORDER, SINGLE EPISOD 11/15/2017 SÁNCHEZ MCKINNON MD Ot F41.9 ANXIETY DISORDER, UNSPECIFIED 11/15/2017 PRATIBHA ALFARO, SÁNCHEZ Rose Ot G47.30 SLEEP APNEA, UNSPECIFIED 11/15/2017 PRATIBHA ALFARO, SÁNCHEZ Rose Ot I10 ESSENTIAL (PRIMARY) HYPERTENSION 11/15/2017 PRATIBHA ALFARO, SÁNCHEZ Rose Ot I25.10 ATHSCL HEART DISEASE OF [place] CORONARY 11/15/2017 PRATIBHA ALFARO SÁNCHEZ Rose Ot M54.2 CERVICALGIA 11/15/2017 PRATIBHA ALFARO, SÁNCHEZ Rose Ot S09.90XA UNSPECIFIED INJURY OF HEAD, INITIAL ENCO 11/15/2017 SÁNCHEZ MCKINNON MD Ot S16.1XXA STRAIN OF MUSCLE, FASCIA AND TENDON AT N 11/15/2017 SÁNCHEZ MCKINNON MD Ot W06.XXXA FALL FROM BED, INITIAL ENCOUNTER 11/15/2017 PRATIBHA ALFARO SÁNCHEZ Rose Ot Y92.[address] 11/15/2017 PRATIBHA ALFARO SÁNCHEZ Rose Ot Z79.02 ASSISTED (CURRENT) USE OF ANTITHROMBOTI 11/15/2017 PRATIBHA ALFARO SÁNCHEZ Rose Ot Z87.19 PERSONAL HISTORY OF OTHER DISEASES OF TH 11/15/2017 PRATIBHA ALFARO SÁNCHEZ Rose Ot Z87.891 PERSONAL HISTORY OF NICOTINE DEPENDENCE 11/15/2017 PRATIBHA ALFARO SÁNCHEZ Rose Ot Z90.49 ACQUIRED ABSENCE OF OTHER SPECIFIED PART 11/15/2017 PRATIBHA ALFARO SÁNCHEZ Rose Ot Z95.828 PRESENCE OF OTHER VASCULAR IMPLANTS AND 11/19/2017 Ot 724.5 BACKACHE NOS 11/19/2017 Ot 721.2 THORACIC SPONDYLOSIS 11/19/2017 Ot 721.3 LUMBOSACRAL SPONDYLOSIS 11/19/2017 Ot 562.10 DIVERTICULOSIS COLON (W/O MENT OF HEMORR 11/19/2017 Ot 724.5 BACKACHE NOS 11/19/2017 Ot 789.03 ABDOMINAL PAIN, RIGHT LOWER QUADRANT 11/19/2017 Ot 721.3 LUMBOSACRAL SPONDYLOSIS 11/19/2017 Ot 722.10 LUMBAR DISC DISPLACEMENT 11/19/2017 Ot 724.8 OTHER BACK SYMPTOMS 11/19/2017 Ot V72.84 EXAM PRE- OPERATIVE NOS 11/19/2017 Ot 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 11/19/2017 Ot 397.0 TRICUSPID VALVE DISEASE 11/19/2017 Ot 401.9 HYPERTENSION NOS 11/19/2017 Ot 414.00 CORON ATHEROSCLER NOS TYPE VESSEL, NATIV 11/19/2017 Ot 429.3 CARDIOMEGALY 11/19/2017 AJAY STEWART MD Ot 305.1 TOBACCO USE DISORDER 11/19/2017 AJAY STEWART MD Ot 426.3 LEFT BB BLOCK NEC 11/19/2017 AJAY STEWART MD Ot 786.09 RESPIRATORY ABNORM NEC 11/19/2017 AJAY STEWART MD Ot 786.50 CHEST PAIN NOS 11/19/2017 AJAY STEWART MD Ot 272.4 HYPERLIPIDEMIA NEC/NOS 11/19/2017 AJAY STEWART MD Ot 401.1 BENIGN HYPERTENSION 11/19/2017 AJAY STEWART MD Ot 414.00 CORON ATHEROSCLER NOS TYPE VESSEL, NATIV 11/19/2017 AJAY STEWART MD Ot 786.09 RESPIRATORY ABNORM NEC 11/19/2017 AJAY STEWART MD Ot I20.8 OTHER FORMS OF ANGINA PECTORIS 11/19/2017 SONA BLANCAP Ot K57.30 DVRTCLOS OF LG INT W/O PERFORATION OR AB 11/19/2017 SONA BLANCAP Ot K59.00 CONSTIPATION, UNSPECIFIED 11/19/2017 SONA BLANCAP Ot K76.0 FATTY (CHANGE OF) LIVER, NOT ELSEWHERE C 11/19/2017 SONA BLANCAP Ot Z87.19 PERSONAL HISTORY OF OTHER DISEASES OF TH 03/13/2018 SÁNCHEZ MCKINNON MD Ot E78.00 PURE HYPERCHOLESTEROLEMIA, UNSPECIFIED 03/13/2018 SÁNCHEZ MCKINNON MD Ot F32.9 MAJOR DEPRESSIVE DISORDER, SINGLE EPISOD 03/13/2018 SÁNCHEZ MCKINNON MD Ot F41.9 ANXIETY DISORDER, UNSPECIFIED 03/13/2018 SÁNCHEZ MCKINNON MD Ot G47.30 SLEEP APNEA, UNSPECIFIED 03/13/2018 SÁNCHEZ MCKINNON MD Ot I10 ESSENTIAL (PRIMARY) HYPERTENSION 03/13/2018 SÁNCHEZ MCKINNON MD Ot I25.10 ATHSCL HEART DISEASE OF [place] CORONARY 03/13/2018 SÁNCHEZ MCKINNON MD Ot M54.2 CERVICALGIA 03/13/2018 SÁNCHEZ MCKINNON MD Ot S09.90XA UNSPECIFIED INJURY OF HEAD, INITIAL ENCO 03/13/2018 SÁNCHEZ MCKINNON MD, Ot S16.1XXA STRAIN OF MUSCLE, FASCIA AND TENDON AT N 03/13/2018 SÁNCHEZ MCKINNON MD Ot W06.XXXA FALL FROM BED, INITIAL ENCOUNTER 03/13/2018 SÁNCHEZ MCKINNON MD Ot Y92.[address] 03/13/2018 SÁNCHEZ MCKINNON MD Ot Z79.02 ASSISTED (CURRENT) USE OF ANTITHROMBOTI 03/13/2018 SÁNCHEZ MCKINNON MD Ot Z87.19 PERSONAL HISTORY OF OTHER DISEASES OF TH 03/13/2018 SÁNCHEZ MCKINNON MD Ot Z87.891 PERSONAL HISTORY OF NICOTINE DEPENDENCE 03/13/2018 SÁNCHEZ MCKINNON MD Ot Z90.49 ACQUIRED ABSENCE OF OTHER SPECIFIED PART 03/13/2018 SÁNCHEZ MCKINNON MD Ot Z95.828 PRESENCE OF OTHER VASCULAR IMPLANTS AND 07/24/2018 AJAY STEWART MD Ot E78.5 HYPERLIPIDEMIA, UNSPECIFIED 07/24/2018 AJAY STEWART MD, Ot 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 07/24/2018 AJAY STEWART MD Ot I10 ESSENTIAL (PRIMARY) HYPERTENSION 07/24/2018 AJAY STEWART MD Ot I25.10 ATHSCL HEART DISEASE OF [place] CORONARY 07/24/2018 AJAY STEWART MD Ot R06.09 OTHER FORMS OF DYSPNEA 07/24/2018 AJAY STEWART MD Ot R07.89 OTHER CHEST PAIN 07/29/2018 CHEYENNE MACIAS DO, Ot M47.816 SPONDYLOSIS W/O MYELOPATHY OR RADICULOPA 07/29/2018 CHEYENNE MACIAS DO, Ot M48.061 SPINAL STENOSIS, LUMBAR REGION WITHOUT N 07/29/2018 CHEYENNE MACIAS DO Ot M51.36 OTHER INTERVERTEBRAL DISC DEGENERATION, 07/29/2018 CHEYENNE MACIAS DO, Ot M99.73 CONN TISS AND DISC STENOS OF INTVRT FORA 07/30/2018 AJAY STEWART MD Ot E78.5 HYPERLIPIDEMIA, UNSPECIFIED 07/30/2018 AJAY STEWART MD Ot 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 07/30/2018 AJAY STEWART MD Ot I10 ESSENTIAL (PRIMARY) HYPERTENSION 07/30/2018 AJAY STEWART MD Ot I25.10 ATHSCL HEART DISEASE OF [place] CORONARY 07/30/2018 AJAY STEWART MD Ot R06.09 OTHER FORMS OF DYSPNEA 07/30/2018 AJAY STEWART MD Ot R07.89 OTHER CHEST PAIN 08/01/2018 SONA BLANCA Ot K76.0 FATTY (CHANGE OF) LIVER, NOT ELSEWHERE C 08/20/2018 HEARNDON DO, CHEYENNE L Ot M47.816 SPONDYLOSIS W/O MYELOPATHY OR RADICULOPA 08/20/2018 HEARNDON DO, CHEYENNE L Ot M48.061 SPINAL STENOSIS, LUMBAR REGION WITHOUT N 08/20/2018 HEARNDON DO, CHEYENNE L Ot M51.36 OTHER INTERVERTEBRAL DISC DEGENERATION, 08/20/2018 HEARNDON DO CHEYENNE L Ot M99.73 CONN TISS AND DISC STENOS OF INTVRT FORA 08/20/2018 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 Ot K76.0 FATTY (CHANGE OF) LIVER, NOT ELSEWHERE C 08/27/2018 HEARNDON DO, CHEYENNE L Ot M47.816 SPONDYLOSIS W/O MYELOPATHY OR RADICULOPA 08/27/2018 HEARNDON DO, CHEYENNE L Ot M48.061 SPINAL STENOSIS, LUMBAR REGION WITHOUT N 08/27/2018 HEARNDON DO CHEYENNE L Ot M51.36 OTHER INTERVERTEBRAL DISC DEGENERATION, 08/27/2018 HEARNDON DO, CHEYENNE L Ot M99.73 CONN TISS AND DISC STENOS OF INTVRT FORA 08/27/2018 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 Ot K76.0 FATTY (CHANGE OF) LIVER, NOT ELSEWHERE C 09/16/2018 AJAY STEWART MD Ot 305.1 TOBACCO USE DISORDER 09/16/2018 AJAY STEWART MD Ot 426.3 LEFT BB BLOCK NEC 09/16/2018 AJAY STEWART MD Ot 786.09 RESPIRATORY ABNORM NEC 09/16/2018 AJYA STEWART MD Ot 786.50 CHEST PAIN NOS 09/16/2018 AJAY STEWART MD Ot 272.4 HYPERLIPIDEMIA NEC/NOS 09/16/2018 AJAY STEWART MD Ot 401.1 BENIGN HYPERTENSION 09/16/2018 AJAY STEWART MD Ot 414.00 CORON ATHEROSCLER NOS TYPE VESSEL, NATIV 09/16/2018 AJAY STEWART MD Ot 786.09 RESPIRATORY ABNORM NEC 09/16/2018 AJAY STEWART MD Ot I20.8 OTHER FORMS OF ANGINA PECTORIS 09/16/2018 SONA BLANCA Ot K57.30 DVRTCLOS OF LG INT W/O PERFORATION OR AB 09/16/2018 SONA BLANCA Ot K59.00 CONSTIPATION, UNSPECIFIED 09/16/2018 SONA BLANCA Ot K76.0 FATTY (CHANGE OF) LIVER, NOT ELSEWHERE C 09/16/2018 SONA BLANCA Ot Z87.19 PERSONAL HISTORY OF OTHER DISEASES OF TH 09/16/2018 AJAY STEWART MD Ot E78.5 HYPERLIPIDEMIA, UNSPECIFIED 09/16/2018 AJAY STEWART MD Ot 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 09/16/2018 AJAY STEWART MD Ot I10 ESSENTIAL (PRIMARY) HYPERTENSION 09/16/2018 AJAY STEWART MD Ot I25.10 ATHSCL HEART DISEASE OF [place] CORONARY 09/16/2018 AJAY STEWART MD Ot R06.09 OTHER FORMS OF DYSPNEA 09/16/2018 AJAY STEWART MD Ot R07.89 OTHER CHEST PAIN 09/16/2018 CHEYENNE MACIAS DO, Ot M47.816 SPONDYLOSIS W/O MYELOPATHY OR RADICULOPA 09/16/2018 CHEYENNE MACIAS DO, Ot M48.061 SPINAL STENOSIS, LUMBAR REGION WITHOUT N 09/16/2018 CHEYENNE MACIAS DO, Ot M51.36 OTHER INTERVERTEBRAL DISC DEGENERATION, 09/16/2018 CHEYENNE MACIAS DO, Ot M99.73 CONN TISS AND DISC STENOS OF INTVRT FORA 09/16/2018 SONA BLANCA Ot K76.0 FATTY (CHANGE OF) LIVER, NOT ELSEWHERE C Procedures Code Description Performed By Performed On 00.41 PROCEDURE ON TWO VESSELS 10/28/2012 00.66 PERCUTANEOUS TRANSLUMINAL CORONARY ANGIO 10/28/2012 37.22 LEFT HEART CARDIAC CATH 10/28/2012 88.53 LT HEART ANGIOCARDIOGRAM 10/28/2012 88.56 CORONAR ARTERIOGR-2 CATH 10/28/2012 99.10 INJECT/INFUSE THROMBOLYTIC AGENT 10/28/2012 Results Test Result Range Complete blood count [...] Status Pt. Type Provider Facility Loc./Unit Complaint [id number] 07/31/2018 07:59:00 07/31/2018 23:59:59 CLS Outpatient SONA BLANCAP [facility] RAD RUQ PAIN [id number] 07/28/2018 12:31:00 07/28/2018 23:59:59 CLS Outpatient CHEYENNE MACIAS DO [facility] RAD LUMBAR RADICULOPATHY M54.16 [id number] 05/29/2018 12:25:00 05/29/2018 23:59:59 CLS Outpatient AJAY STEWART MD [facility] CARD CAD,CAROTID ARTERY STENOSIS,CHEST PAIN SYNDROME [id number] 11/15/2017 17:29:00 11/15/2017 19:46:00 DIS Emergency SÁNCHEZ MCKINNON MD [facility] ER FELL OF BACK OF TRUCK/ NECK PAIN [id number] 10/17/2017 13:00:00 10/17/2017 14:00:00 DIS Outpatient ANGELIA TEE MD [facility] SLEEP G47.33,G47.36, G47.9 [id number] 08/30/2017 08:19:00 08/30/2017 11:35:00 DIS Outpatient SÁNCHEZ QUINTERO MD [facility] ENDO POLYPS, CONSTIPATION [id number] 08/21/2017 05:35:00 08/21/2017 13:15:00 DIS Outpatient SÁNCHEZ QUINTERO MD [facility] PREOP COLONOSCOPY [id number] 04/02/2017 12:06:00 04/02/2017 23:59:59 CLS Outpatient 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 [facility] RAD RLQ PAIN [id number] 02/27/2017 06:44:00 02/27/2017 13:35:00 DIS Outpatient AJAY STEWART MD [facility] CATH CHEST PAIN,HLP,HTN,CAD [id number] 01/16/2017 10:00:00 01/16/2017 23:59:59 CLS Preadmit AJAY STEWART MD [facility] CR STABLE ANGINA [id number] 12/17/2016 12:14:00 01/15/2017 00:01:00 DIS Outpatient AJAY STEWART MD [facility] CR STABLE ANGINA [id number] 09/03/2016 13:45:00 09/04/2016 11:09:00 DIS Outpatient AJAY STEWART MD Via [facility] CHEST PAIN [id number] 01/23/2016 11:58:00 01/23/2016 23:59:59 CLS Outpatient AJAY STEWART MD [facility] CR PTCA [id number] 11/09/2015 06:54:00 11/10/2015 09:50:00 DIS Outpatient AJAY STEWART MD Via [facility] CAD,HTN,HYPERLIPIDEMIA, CHEST PAIN [id number] 06/13/2015 07:29:00 06/13/2015 23:59:59 CLS Outpatient AJAY STEWART MD [facility] CARD CAD,DYSPNEA,HLP [id number] 05/05/2015 13:33:00 05/05/2015 23:59:59 CLS Outpatient AJAY STEWART MD [facility] CARD CAD,DYSPNEA,HLP,HTN [id number] 03/23/2015 10:52:00 03/23/2015 16:00:00 DIS Outpatient AJAY STEWART MD [facility] CATH CP,CAD,SOB,HTN,HLP,IDDM [id number] 03/08/2014 11:22:00 04/21/2014 14:15:00 DIS Outpatient AJAY STEWART MD [facility] CR STABLE ANGINA [id number]/ STENT [id number] 01/13/2014 14:45:00 01/14/2014 09:34:00 DIS Outpatient TIARA MALLORY MD [facility] CATH UNSTABLE ANGINA [id number] 09/17/2018 11:00:00 PEN Preadmit AJAY STEWART MD Via [facility] CP,CAD,HTN,DYSPNEA [id number] 01/13/2013 09:47:00 Document Registration [id number] 12/10/2012 15:00:00 Document Registration [id number] 12/08/2012 11:34:00 Document Registration [id number] 10/27/2012 14:08:00 Document Registration [id number] 09/16/2012 06:47:00 Document Registration [id number] 09/15/2012 08:05:00 Document Registration [id number] 09/02/2012 07:49:00 Document Registration [id number] 08/19/2012 08:39:00 Document Registration [id number] 08/11/2012 08:33:00 Document Registration [id number] 08/07/2012 13:09:00 Document Registration [id number] 04/11/2010 18:20:00 Document Registration
[2018-09-17 09:25] LABS: HEMOGLOBIN 14.5 G/DL (13.3-17.7); MEAN PLATELET VOLUME 9.4 FL (7.4-10.4); RED BLOOD COUNT 4.7 10^6/uL (4.35-5.85); RED CELL DISTRIBUTION WIDTH 13.8 % (10.0-14.5); WHITE BLOOD COUNT 7.2 10^3/uL (4.3-11.0)
--- NOTE | 2018-09-17 09:29 | Diagnostic Imaging Report ---
INDICATION: Pre-heart catheterization. Patient has chest pain and coronary artery disease. TIME OF EXAMINATION: 9:20 AM. COMPARISON: 02/27/2017. FINDINGS: The heart is enlarged but stable. There are changes of median sternotomy and CABG. The lungs are clear. No infiltrate or failure is detected. No effusion or pneumothorax is identified. IMPRESSION: Stable cardiomegaly and status post CABG. No acute feature is detected. Dictated by: Dictated on workstation # [id number]
[2018-09-17] MEDS ORDERED: ERGO2500 PO (09:32)
[2018-09-17 09:38] LABS: CLARITY,URINE CLEAR; COLOR,URINE AMBER; GLUCOSE, URINE (UA) NEGATIVE (NEGATIVE); KETONES,URINE NEGATIVE (NEGATIVE); LEUKOCYTE ESTERASE ,URINE 1+ (NEGATIVE); NITRITE,URINE NEGATIVE (NEGATIVE); PH,URINE 5 (5-9); PROTEIN,URINE NEGATIVE (NEGATIVE); UROBILINOGEN,URINE 1 MG/DL (NORMAL)
[2018-09-17] MEDS ORDERED: FLU QUADRIvalent (5+ YOA) 2018-2019 (AFLURIA) 0.5 ML IM ONE (09:45)
[2018-09-17 09:48] LABS: PROTHROMBIN TIME PATIENT 13.1 SEC (12.2-14.7)
[2018-09-17 09:59] LABS: ALBUMIN 4.5 GM/DL (3.2-4.5); BILIRUBIN,TOTAL 0.7 MG/DL (0.1-1.0); CALCIUM 9.9 MG/DL (8.5-10.1); CREATININE SERUM 1.46 MG/DL (0.60-1.30); POTASSIUM 3.9 MMOL/L (3.6-5.0); TOTAL PROTEIN 7.6 GM/DL (6.4-8.2)
[2018-09-17 10:14] LABS: BACTERIA,URINE TRACE /HPF; BILIRUBIN,URINE 1+ (NEGATIVE); RBC,URINE RARE /HPF; RENAL EPITHELIAL CELLS,URINE RARE /HPF; SQUAMOUS EPITHELIAL CELL,UR RARE /HPF
[2018-09-17 10:15] LABS: GRANULAR CASTS,URINE RARE /LPF; WHITE BLOOD CELL CASTS, URINE RARE /LPF
--- NOTE | 2018-09-17 11:59 | Cardiac Procedure Note-CS/ASA ---
Pre-Procedure Note Pre-Op Procedure Note H&P Reviewed The H&P was reviewed, patient examined and no changes noted. Date H&P Reviewed: Sep 17, 2018 Time H&P Reviewed: 11:59 Conscious Sedation Pre-Proced Time 11:59 ASA Score 3 For ASA 3 and 4: Consider anesthesia and medical clearance. Also, for patients with a history of failed moderate sedation consider anesthesia. Airway Lungs Heart ASA score ASA 1: a normal healthy patient ASA 2: a patient with a mild systemic disease (mid diabetes, controlled hypertension, obesity x ASA 3: a patient with a severe systemic disease that limits activity (angina , COPD, prior Myocardial infarction) ASA 4: a patient with an incapacitating disease that is a constant threat to life (CHF, renal failure) ASA 5: a moribund patient not expected to survive 24 hrs. (ruptured aneurysm) ASA 6: a declared brain patient whose organs are being harvested. For emergent operations, add the letter E after the classification Mallampati Classification Grade 3 Sedation Plan Analgesia, Amnesia, Plan communicated to team members, Discussed options with patient/fam, Discussed risks with patient/fam The patient is an appropriate candidate to undergo the planned procedure, sedation, and anesthesia. The patient immediately re-assessed prior to indication. AJAY STEWART MD Sep 17, 2018 11:59
[2018-09-17] MEDS ORDERED: HEParin 1000 UNIT/ML (10ML VIAL) FOR BOLUS ONE (12:01)
[2018-09-17] MEDS ORDERED: fentaNYL INJECTION 100 MCG/2 ML AMP ONE (12:01)
[2018-09-17] MEDS ORDERED: MIDAZOLAM 5 MG/5 ML (VERSED) VIAL ONE (12:01)
[2018-09-17] MEDS ORDERED: NS IV 1000 ML 1,000 ML IV SCH (12:43)
[2018-09-17] MEDS ORDERED: PATIENT MAY USE OWN MEDS, ALL PO SCH (12:45)
--- NOTE | 2018-09-17 12:46 | Discharge Inst-Post CATH ---
Discharge Inst-CATH Post Cardiac Cath D/C Inst Follow Up/Plan Appointment with Dr. Chauhan's office in 2-4 weeks CARDIAC CATH DISCHARGE INSTRUCTIONS *Hold Metformin for 48 hours post heart cath. ACTIVITY * Go Home directly and rest. * Limit activity of the leg (or wrist if it was used) for 7 days including aerobics, swimming, jogging, bicycling, etc. * Restrict stair-climbing for 7 days if possible, if not, climb up with your non -cath leg, then bring together on the same step. * Avoid lifting, pushing, pulling or excessive movement of the affected extremity for 7 days. * Customary sexual activity may be resumed after 2 days-use caution not to use a position that strains or causes pain to the affected extremity. * No driving for 24 hours. * NO SMOKING. * Avoid straining for bowel movements for 7 days. * Gentle walking on level ground is allowed. * Returning to work will depend on the type of procedure and the results. Your doctor will discuss this with you. CALL YOUR DOCTOR FOR ANY OF THE FOLLOWING: *If bleeding from the puncture site occurs- Apply gentle pressure to site with clean cloth and call your doctor or EMS. * If a knot or lump forms under the skin, increases in size, or causes pain. * If bruising appears to be worsening or moving further down your leg instead of disappearing. * Temperature above 101 F. CARE OF YOUR GROIN INCISION; * Bruising or purple discoloration of the skin near the puncture site is common. * You may shower only, no bathtub bathing for 5 days. Be careful to avoid slipping as your leg may feel stiff. * If a closure device was used on your femoral artery, please see the attached guide regarding care of the device and your leg. * Leave the dressing on, until removed by office staff. CARE OF YOUR WRIST INCISION; * Bruising or purple discoloration of the skin near the puncture site is common. * You may shower. * DO NOT submerge wrist. * Leave dressing on, until removed by office staff.. AJAY CHAUHAN MD Sep 17, 2018 12:46
--- NOTE | 2018-09-17 12:50 | Cardiac Cath Report ---
Cardiac Cath Report Physician (s)/Cartographic Aide (s) Physician AJAY STEWART MD Pre-Procedure Diagnosis Pre-Procedure Diagnosis: Coronary artery disease Post-Procedure Note Procedure Start Date: Sep 17, 2018 Name of Procedure: Left heart catheterization Vein graft angiogram Findings/Procedure Note PROCEDURE NOTE: After explaining the procedure to the patient, all pros and cons were explained , all questions were answered. The patient signed the consent and then he was placed on the cardiac catheterization laboratory. Groin was prepped SL fashion local anesthesia was used. Sheath placed in the right femoral artery. Bharath right and left catheter were used to access the coronary system. Bharath right was used to access the vein graft to the right coronary artery, patient is known to have occluded MEEKS and occluded vein graft to the circumflex artery. Bharath right was advanced to the left ventricular cavity, pressure was measured , no left ventriculogram was done, pullback LV to aorta was done. At the end of the procedure the sheath was removed. Closure device was used FINDINGS: Hemodynamics LV Aorta ANATOMY: Left Main has known stent which is patent, nonobstructive disease Left Anterior Descending has patent stent with mild to moderate disease distally nonobstructive disease Left Circumflex has a stent at the mid to distal portion beyond the stent the artery tapered down into a very small artery, the first obtuse marginal branch has moderate in-stent restenosis that has been persistent. Did not change compared to the previous study that was done in 2015 Right Coronory Artery is known to be occluded, the vein graft to the right coronary artery has ectasia with slow flow due to small vessel disease LV Gram was not done, pressure was measured CONCLUSION: 1. Patent stent in the left main and LAD, small vessel disease at the distal LAD 2. Patent stent in the ostium of the first obtuse marginal branch with moderate in-stent restenosis, did not progress compared to the previous study, the proper circumflex artery has patent stent followed by a stepdown with a small vessel distally, medical therapy is recommended 3. Patent stent in the vein graft to the right coronary artery with slow flow due to ectasia and small vessel disease 4. Mildly elevated left ventricular end-diastolic pressure DISCUSSION AND RECOMMENDATION: Medical therapy is recommended no intervention is needed Anesthesia Type: Conscious Sedation Estimated blood loss (mL): 15 ml Contrast Amount: 29 ml Total Radiation Dose: 346 mGy Post-Procedure Diagnosis Post-operative diagnosis: Chest pain Coronary artery disease Hypertension Hyperlipidemia AJAY STEWART MD Sep 17, 2018 12:50
== END 2018-09-17 17:15 | disposition home or self-care (01) ==
LOC: CATH 08:39 → SDC 13:07 → CATH 17:15
PROVIDERS: ATTEND Internal Medicine Cardiovascular Disease
DX: R07.9 Chest pain, unspecified (principal); I25.10 Atherosclerotic heart disease of native coronary artery without angina pectoris; T82.855A Stenosis of coronary artery stent, initial encounter; I12.9 Hypertensive chronic kidney disease with stage 1 through stage 4 chronic kidney disease, or unspecified chronic kidney disease; N18.9 Chronic kidney disease, unspecified; E78.5 Hyperlipidemia, unspecified; E03.9 Hypothyroidism, unspecified; E11.9 Type 2 diabetes mellitus without complications; F17.220 Nicotine dependence, chewing tobacco, uncomplicated; I08.3 Combined rheumatic disorders of mitral, aortic and tricuspid valves; I27.20 Pulmonary hypertension, unspecified; I65.23 Occlusion and stenosis of bilateral carotid arteries; E66.9 Obesity, unspecified; Z68.30 Body mass index [BMI] 30.0-30.9, adult; Z79.02 Long term (current) use of antithrombotics/antiplatelets; Z79.82 Long term (current) use of aspirin; Z79.899 Other long term (current) drug therapy
CPT/HCPCS: 36415; 36430; 71045; 80053; 80061; 81000; 85027; 85610; 85730; 87081; 90686; 93005; 93459

== ENCOUNTER → 2019-03-19 | Outpatient (CLI) | payer MEDICARE, OTHER ==
[~2019-03-19] MED LIST changes: +ERGO2500 PO; +LOSA50TA63 PO; -LOSA50TA7 PO
--- NOTE | 2019-03-19 12:48 | Diagnostic Imaging Report ---
INDICATION: Spinal stenosis and chronic low back pain. TIME OF EXAM: 11:01 AM 3 views of the lumbar spine were obtained. FINDINGS: Curvature and alignment is normal. Vertebral body heights are maintained. No acute compression fracture is seen. There is multilevel degenerative disc disease with variable disc space narrowing. Prominent anterior osteophytes are noted at all levels of the lumbar spine. Atherosclerotic calcifications in the abdominal aorta are noted. IMPRESSION: Lumbar spondylosis. No acute bony abnormality is detected. Dictated by: Dictated on workstation # [id number]
== END ==
LOC: RAD 10:48
PROVIDERS: ATTEND Nurse Practitioner Family
DX: M48.061 Spinal stenosis, lumbar region without neurogenic claudication (principal); M47.816 Spondylosis without myelopathy or radiculopathy, lumbar region
CPT/HCPCS: 72100

== ENCOUNTER → 2019-05-13 | Outpatient (CLI) | payer MEDICARE, OTHER ==
--- NOTE | 2019-05-13 11:10 | Diagnostic Imaging Report ---
Indication: Low back pain. Lumbar spine AP and lateral views of the lumbar spine show anterior bridging osteophytes from T10-L4. There are nonbridging anterior osteophytes at L4-5. There is disc space narrowing of L4-5. The other disc levels are preserved. There are no compression fractures. Impression: Diffuse idiopathic skeletal hyperostosis with degenerative disc changes at L4-5. Dictated by: Dictated on workstation # [id number]
== END ==
LOC: RAD 09:39
PROVIDERS: ATTEND Nurse Practitioner Family
DX: M51.36 Other intervertebral disc degeneration, lumbar region (principal); M48.16 Ankylosing hyperostosis [Forestier], lumbar region
CPT/HCPCS: 72100

== ENCOUNTER → 2019-07-07 | Outpatient (CLI) | payer MEDICARE, OTHER ==
--- NOTE | 2019-07-07 15:11 | Diagnostic Imaging Report ---
INDICATION: Abdominal pain. TIME OF EXAMINATION: 2:31 PM. FINDINGS: The bowel gas pattern is nonobstructing. No pathologic calcifications are seen. No definite free air is detected. IMPRESSION: No acute abnormality is detected. Dictated by: Dictated on workstation # [id number]
== END ==
LOC: RAD 14:06
PROVIDERS: ATTEND Nurse Practitioner Family
DX: R10.9 Unspecified abdominal pain (principal)
CPT/HCPCS: 74018

== ENCOUNTER → 2020-04-18 | Outpatient (CLI) | payer MEDICARE, OTHER ==
[~2020-04-18] MED LIST changes: -DUTA0.5C16 PO; +DUTA0.5C17 PO; -MECL-106 PO; +MECL-149 PO; +TRM50T PO
--- NOTE | 2020-04-18 10:07 | Diagnostic Imaging Report ---
INDICATION: Mid back pain. Time of exam: 9:49 AM Frontal and lateral views of the thoracic spine were obtained. There are changes of median sternotomy and CABG. There is normal thoracic kyphotic curvature. Vertebral body heights are maintained. No acute compression fracture deformity is detected. Anterior osteophyte formation is noted at all levels of the thoracic spine. Generalized disc space narrowing is seen. Pedicles and paraspinous line are intact. IMPRESSION: Thoracic spondylosis. No acute bony abnormality is detected. Dictated by: Dictated on workstation # [id number]
== END ==
LOC: RAD 09:14
PROVIDERS: ATTEND Nurse Practitioner Family
DX: M47.814 Spondylosis without myelopathy or radiculopathy, thoracic region (principal)
CPT/HCPCS: 72072

== ENCOUNTER → 2021-01-31 | Outpatient (CLI) | payer MEDICARE, OTHER ==
[~2021-01-31] MED LIST changes: -DUTA0.5C17 PO; +DUTA0.5C36 PO; +ISOS60TA63 PO; -OMEG-105 PO; +OMEG-218 PO; -PANT40TA3 PO; +PANT40TA52 PO
--- NOTE | 2021-01-31 10:23 | Diagnostic Imaging Report ---
EXAMINATION: CT head without contrast. TECHNIQUE: Multiple contiguous axial images were obtained through the brain without the use of intravenous contrast. All CT scans use one or more of the following dose optimizing techniques: automated exposure control, MA and/or KvP adjustment based on a patient size and exam type, or iterative reconstruction. HISTORY: Dizziness. Near syncopal episode. COMPARISON: 11/15/2017. FINDINGS: No large acute territorial ischemia, mass, or hemorrhage. No midline shift or mass effect. Decreased attenuation is seen in the periventricular and subcortical white matter. The ventricles and cortical sulci are prominent. The basilar cisterns are patent and unremarkable. The orbits are normal. Paranasal sinuses are normal. Mastoid air cells are clear. No soft tissue abnormality is seen. No osseus lesions or fractures are seen. IMPRESSION: 1. No large acute territorial ischemia, mass, or hemorrhage. 2. Chronic microvascular disease. 3. Generalized parenchymal volume loss. Dictated by: Dictated on workstation # [id number]
== END ==
LOC: RAD 09:46
PROVIDERS: ATTEND Nurse Practitioner Family
DX: G31.89 Other specified degenerative diseases of nervous system (principal)
CPT/HCPCS: 70450

== ENCOUNTER → 2021-04-17 | Outpatient (CLI) | payer MEDICARE, OTHER ==
--- NOTE | 2021-04-17 15:38 | Diagnostic Imaging Report ---
INDICATION: Fall with right shoulder pain. TIME OF EXAM: 3:32 PM 3 views right shoulder were obtained. Glenohumeral and acromioclavicular alignment are normal. Acromial humeral space is normal. No fracture or dislocation is identified. There are some degenerative changes at the glenohumeral joint. IMPRESSION: No acute bony abnormality is detected. Dictated by: Dictated on workstation # [id number]
--- NOTE | 2021-04-17 15:38 | Diagnostic Imaging Report ---
INDICATION: Fall and right arm pain. TIME OF EXAM: 3:33 PM Two views right humerus were obtained. Alignment at the shoulder and elbow is normal. Humerus is intact. No fracture is seen. IMPRESSION: No acute bony abnormality is detected. Dictated by: Dictated on workstation # [id number]
== END ==
LOC: RAD 14:56
PROVIDERS: ATTEND Nurse Practitioner Family
DX: M25.511 Pain in right shoulder (principal); M79.601 Pain in right arm
CPT/HCPCS: 73030; 73060

== ENCOUNTER → 2021-05-05 | Outpatient (CLI) | payer MEDICARE, OTHER ==
--- NOTE | 2021-05-05 20:55 | Diagnostic Imaging Report ---
EXAMINATION: Magnetic resonance imaging of the right shoulder without contrast. DATE: May 05, 2021. COMPARISON: Right shoulder radiographs April 17, 2021. HISTORY: 85-year-old male, right shoulder pain. Fall three weeks ago. Difficulty with abduction of the arm. TECHNIQUE: Magnetic Resonance Imaging sequences were performed of the shoulder without contrast. FINDINGS: ROTATOR CUFF, LIGAMENTS, TENDONS, AND MUSCLES: There is supraspinatus tendinopathy. Infraspinatus and teres minor tendons are intact. There is a 50% partial thickness articular sided tear of subscapularis. There is severe atrophy of the upper half of the subscapularis muscle. LONG HEAD OF BICEPS: The proximal long head of biceps tendon is medially dislocated outside of the bicipital groove. The proximal long head of biceps tendon is otherwise intact. GLENOHUMERAL JOINT: The humeral head is well positioned relative to the glenoid. There is a tear of the posterior inferior labrum extending to the mid aspect of the inferior labrum. There is no sizable paralabral cyst. The articular cartilage is grossly intact. There is no joint effusion. ACROMIOCLAVICULAR JOINT: The acromioclavicular joint is normally aligned. The coracoclavicular and coracoacromial ligaments are intact. There are severe acromioclavicular degenerative changes with 3 mm undersurface osteophytes. BONE: There is no os acromiale. There is no Hill-Sachs deformity. There is prominent marrow edema in the humeral head anteriorly lateral to the bicipital groove without identified fracture line, most consistent with a bone contusion. BURSAE AND SOFT TISSUES: The bursae and soft tissue surrounding the shoulder are unremarkable. IMPRESSION: 1. 50% partial thickness articular sided tear of subscapularis. Supraspinatus tendinopathy. Severe fatty atrophy of the upper half of the subscapularis muscle. 2. Severe acromioclavicular degenerative changes with 3 mm undersurface osteophytes. 3. Bone contusion of the anterior aspect of the humeral head lateral to the bicipital groove. No acute fracture. 4.. Tear of the posterior inferior and inferior labrum without paralabral cyst. No pronounced glenohumeral arthritis. Dictated on workstation # [id number]
== END ==
LOC: RAD 13:15
PROVIDERS: ATTEND Nurse Practitioner Family
DX: S43.431A Superior glenoid labrum lesion of right shoulder, initial encounter (principal); M75.111 Incomplete rotator cuff tear or rupture of right shoulder, not specified as traumatic; M67.813 Other specified disorders of tendon, right shoulder; M19.011 Primary osteoarthritis, right shoulder
CPT/HCPCS: 73221

== ENCOUNTER → 2021-07-17 | Outpatient (CLI) | payer MEDICARE, OTHER | LOC: CARD 13:30 | PROVIDERS: ATTEND Physician Assistant | DX: I08.0 Rheumatic disorders of both mitral and aortic valves (principal); I11.9 Hypertensive heart disease without heart failure | CPT/HCPCS: 93306 ==

== ENCOUNTER → 2021-12-27 | Outpatient (CLI) | payer MEDICARE, OTHER ==
--- NOTE | 2021-12-27 12:23 | Diagnostic Imaging Report ---
INDICATION: Status post fall, right rib pain EXAMINATION: 2 view chest 12/27/2021 COMPARISON: 10/27/2012 FINDINGS: There are sternotomy wires with mediastinal clips. Heart and pulmonary vasculature appear normal. There is a chronic appearing density at the right lung base stable from previous imaging. There are no infiltrates, effusions or pneumothorax. No displaced fractures identified. Impression: 1. Chronic findings with no acute cardiopulmonary process. Dictated by: Dictated on workstation # [id number]
--- NOTE | 2021-12-27 12:24 | Diagnostic Imaging Report ---
INDICATION: Fall, rib pain. EXAMINATION: Bilateral ribs, 12/27/2021. FINDINGS: There is a minimally displaced fracture of the lateral right 9th rib. No underlying pneumothorax is seen. A nondisplaced fracture of the lateral 10th rib is also suspected. The remaining ribs are intact. Chest findings described on the separate chest radiograph. IMPRESSION: 1. Right lateral 9th and 10th rib fractures. Dictated by: Dictated on workstation # [id number]
== END ==
LOC: EDBD 11:40 → RAD 11:40
PROVIDERS: ATTEND Nurse Practitioner Family
DX: S22.41XA Multiple fractures of ribs, right side, initial encounter for closed fracture (principal); W19.XXXA Unspecified fall, initial encounter
CPT/HCPCS: 71046; 71110

== ENCOUNTER → 2022-05-01 | Outpatient (CLI) | payer MEDICARE, OTHER ==
[~2022-05-01] MED LIST changes: +GADOTERATE 0.5 MMOL/ML (CLARISCAN) 20 ML VIAL IV ONE
--- NOTE | 2022-05-01 13:38 | Diagnostic Imaging Report ---
PROCEDURE: US carotid duplex, bilateral. INDICATION: 82-year-old male, diabetes, hypertension, weakness, dizziness. TECHNIQUE: Multiple real-time grayscale images were obtained over the carotid arteries in various projections bilaterally. Additional spectral analysis and color Doppler and Duplex images were also obtained. CORRELATION: None FINDINGS: There is prominent atherosclerotic plaque throughout the bilateral common carotid arteries carotid bulbs as well as internal and external carotid arteries. Right carotid circulation: The right common carotid artery is normal in course and caliber. The right internal carotid artery is patent. No hemodynamically significant stenosis is present at this time. Right external carotid artery is patent. Left carotid circulation: The left common carotid artery is normal in course and caliber. The left internal carotid artery is patent. No hemodynamically significant stenosis is present at this time. Left external carotid artery is patent. Antegrade flow in the bilateral vertebral arteries. DOPPLER (peak systolic velocity M/S Right Left CCA .67 .78 ICA Proximal .53 .78 ICA Mid .85 .65 ICA Distal .53 .63 RATIO 1.3 .99 ECA 1.2 1.7 VERT .42 .56 IMPRESSION: 1. Moderate atherosclerosis involving bilateral carotid arteries. 2. However, there is no sonographic evidence to suggest a hemodynamically significant stenosis of the internal carotid arteries at this time. Parameters based on the consensus panel Torres-Scale and Doppler ultrasound criteria published October 2003, Radiology, Volume 229. Dictated by: Dictated on workstation # [id number]
--- NOTE | 2022-05-01 14:13 | Diagnostic Imaging Report ---
PROCEDURE: MR imaging of the brain with and without contrast. TECHNIQUE: Multiplanar, multisequence MR imaging of the brain was performed with and without contrast. INDICATION: Difficulty walking. Dizziness. Weakness. COMPARISON: CT head on 01/31/2021. FINDINGS: A mixed acute/subacute prominent left convexity subdural hematoma is visualized. This measures 1.4 cm in maximum depth. There is effacement of the underlying cortical sulci with minimal [id number]-[id number] midline shift of 0.2 cm. No acute ischemia or mass. Scattered T2 hyperintense signal seen in the periventricular and subcortical white matter. The ventricles and cortical sulci are prominent. The basilar cisterns are symmetric and unremarkable. The sellar and suprasellar regions have a normal appearance. The major intracranial flow voids are intact. The brainstem and posterior fossa are unremarkable. The paranasal sinuses and mastoid air cells demonstrate normal signal characteristics. Bilateral lens implants are seen.. The scalp and calvarium have a normal appearance. IMPRESSION: 1. Mixed acute/subacute left convexity subdural hematoma measuring 1.4 cm in maximum depth. There is mild effacement of the underlying cortical sulci with minimal gcbg-ce-[id number] midline shift of 0.2 cm. Recommend continued close follow-up. 2. No acute ischemia or mass. 3. Generalized parenchymal volume loss with scattered chronic microvascular disease. A message was left for Dr. Villeda at 1:35 PM on 05/01/2022. Report was faxed to office of Dr. Villeda by jacinda at 2:12pm. Dictated by: Dictated on workstation # [id number]
== END ==
LOC: RAD 10:57
PROVIDERS: ATTEND Family Medicine
DX: I65.23 Occlusion and stenosis of bilateral carotid arteries (principal); I62.00 Nontraumatic subdural hemorrhage, unspecified; G31.9 Degenerative disease of nervous system, unspecified; E11.9 Type 2 diabetes mellitus without complications; I10 Essential (primary) hypertension
CPT/HCPCS: 70553; 93880

== ENCOUNTER → 2023-01-28 | Outpatient (CLI) | payer MEDICARE, OTHER ==
[~2023-01-28] MED LIST changes: +ACET-2267 PO; +ASPI-1238 PO; +CIPR-225 PO; +EZET10TA49 PO; -GADOTERATE 0.5 MMOL/ML (CLARISCAN) 20 ML VIAL IV ONE; +LEVO112T55 PO; +LORA-404 PO; +MELA1TAB PO; +MIRT-68 PO; +PHEN-640 PO
--- NOTE | 2023-01-28 14:18 | Diagnostic Imaging Report ---
PROCEDURE: CT head and neck without contrast. TECHNIQUE: Contiguous axial images were obtained from the skull base through the vertex. Noncontrast axial images were then obtained of the soft tissue of the neck. Auto Exposure Controls were utilized during the CT exam to meet ALARA standards for radiation dose reduction. INDICATION: Falls, chronic subdural hematoma. Neck pain. Comparison MRI of the brain on 05/01/2022. FINDINGS: Decreased size and chronic subdural hematoma along the left convexity which measures 0.9 cm. Mild mass effect on the left hemisphere. No midline shift. No acute intracranial hemorrhage. The subarachnoid cisterns are patent. The ventricles and cortical sulci are mildly prominent. Scattered hypoattenuation within the periventricular and subcortical white matter. The skull is normal. Paranasal sinuses and mastoids are clear. The globes and orbits are normal. There is straightening of the cervical lordosis with large anterior osteophytes and ossification of the posterior longitudinal ligament. Moderate multilevel facet arthritis. No acute fracture the cervical spine. Moderate multilevel spinal canal and neural foraminal narrowing. No high density fluid within the spinal canal. The lymphadenopathy within the neck. Included views of the lung apices demonstrates no significant abnormality. 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 No acute intracranial blood identified. No large vascular territory. Loss, hydrocephalus, or intracranial mass. Mild chronic small vessel ischemic disease. Mild global volume loss. No acute fracture or dislocation of the cervical spine. Moderate multilevel cervical spondylosis. Dictated by: Dictated on workstation # [id number]
== END ==
LOC: RAD 12:45
PROVIDERS: ATTEND Family Medicine
DX: I62.03 Nontraumatic chronic subdural hemorrhage (principal); I67.82 Cerebral ischemia; M47.812 Spondylosis without myelopathy or radiculopathy, cervical region
CPT/HCPCS: 70450; 70490

== ENCOUNTER → 2023-02-06 | Outpatient (CLI) | payer MEDICARE, OTHER ==
[~2023-02-06] MED LIST changes: +CATHETER FLUSH 10 ML SYR IVP PRN; +REGADENOSON 0.4 MG/5 ML SYR (LEXISCAN) IV ONE
[2023-02-06 09:09] VITALS: BP 149/74
--- NOTE | 2023-02-06 15:50 | Cardiology Stress Test Report ---
Stress Test Report Date of Procedure/Referring: Date of Procedure: Feb 06, 2023 PCP Angelia Villeda MD Admitting Physician Admitting Physician: Attending Physician: Mark Chauhan MD Baseline Heart Rate: 71 Baseline Blood Pressure: Blood Pressure Systolic: 149 Blood Pressure Diastolic: 74 Baseline Vitals Vital Signs Date Time Temp Pulse Resp B/P (MAP) Pulse Ox O2 Delivery O2 Flow Rate FiO2 02/06/23 09:09 71 149/74 (99) Baseline EKG: Baseline EKG: RBBB Summary After explaining the procedure to the patient, he signed a consent and then brought to the stress nuclear laboratory. Patient received 0.4 mg Lexiscan for stress test, ECG, heart rate and blood pressure were monitored continuously. Resting and stress dose of radio tracer w ere injected, imaging was acquired and reviewed in short axis, horizontal long axis and vertical long axis views. TID: 1.17 SSS: 4 SDS: 1 EF: 62 Patient tolerated Lexiscan well Baseline right bundle branch block persisted during test Extracardiac attenuation, overall there is no ischemia or infarction noted on SPECT images Normal left ventricular size, ejection fraction 62% Copy Copies To 1: ANGELIA VILLEDA MD, BASHAR J MD Feb 06, 2023 15:50
== END ==
LOC: CARD 07:30
PROVIDERS: ATTEND Internal Medicine Cardiovascular Disease
DX: I10 Essential (primary) hypertension (principal); I25.10 Atherosclerotic heart disease of native coronary artery without angina pectoris
CPT/HCPCS: 78452; 93017; A9502